=== PATIENT | female | born 1955 | race Caucasian/White ===

== ENCOUNTER 2025-05-03 11:05 | Outpatient (CLI) | payer MEDICARE, SELFPAY ==
--- OUTSIDE RECORDS SUMMARY | 2025-03-23 09:10 | XMS_ITS | Encounter Summary ---
Author Organization [employer] ([place], [place], [place], [place]) Address [address] [place] [address] Care Team Providers Care Net Mobile Developer Name Role Phone Unavailable Primary Care Provider Unavailabl e Reason for Referral * Diagnostic X-Ray (Emergency) - Closed Specialty Diagnoses / Procedures Referred By Contac t Referred To Contact Radiology Diagnoses Pain and swelling of left lower leg Procedures XR leg / tibia and fibula 2 views left Jaime Graham APRN [address] [place] [phone] Phone: tel: fax: Referral ID Status Reason Start Date Expiration Date Visits Re quested Visits Authorized [id number] Closed 03/23/2025 03/23/2026 1 1 Reason for [...] Description 03/23/2025 9:10 AM EDT Office Visit [facility] [address] [place] [phone] Jaime Graham APRN [address] [place] [phone] Pain and swelling of left lower [...] Date Gil rded Speak language other than Indonesian at home Not on file 11/13/2023 Want [...] this encounter Progress Notes * Jaime Graham, POT PUNCHER - 03/23/2025 9:10 AM EDT Negra Palma [...] lower leg. States she has been using gdcl-aui-szaoixj medication and she has been doing Epsom [...] / tibia and fibula 2 views left [[id number]] Resulted: 03/23/25952 Order Status: Sent Updated: 03/23/25952 [...] this document/medical record have been dictated via [employer] speech recognition software, which may cause errors [...] Info) Description 07/05/2025 9:15 AM EDT Appointment [address] [phone] 07/10/2025 10:00 AM EDT Office Visit [facility] Primary Care & Internal Med [address] [facility] [address] [place] [address] Diane Velez PA-C [address] [facility] [address] [facility] [place] [address] documented as of this encounter [...] interpreted, and dictated by Refugio Leon DO [facility] Santino POT PUNCHER IMG DIAGNOSTIC IMAGING ORDERAB LES Final Result documented in this encounter Visit Diagnoses Diagnosis Pain and swelling of left lower leg- Primary Cellulitis of left lower leg Pain and swelling of left lower leg documented in this encounter
--- OUTSIDE RECORDS SUMMARY | 2025-03-23 09:53 | XMS_ITS | Encounter Summary ---
Author Organization [employer] ([place], [place], [place], [place]) Address [address] [place] [address] Care Team Providers Care Thoracic Medicine Specialist Name Role Phone Unavailable Primary Care Provider Unavailabl e Reason for Referral * Diagnostic X-Ray (Emergency) - Closed Specialty Diagnoses / Procedures Referred By Sergio espitia Referred To Contact Radiology Diagnoses Pain and swelling of left lower leg Procedures XR leg / tibia and fibula 2 views left Marc De APRN [address] [phone] Phone: tel: fax: Referral ID Status Reason Start Date Expiration Date Visits Re quested Visits Authorized [id number] Closed 03/23/2025 03/23/2026 1 1 Reason for Visit * Diagnostic X-Ray (Emergency) - Closed Specialty Diagnoses / Procedures Referred By Contac omkar Referred To Contact Radiology Diagnoses Pain and swelling of left lower leg Procedures XR leg / tibia and fibula 2 views left Marc De APRN [address] [address] Phone: tel: fax: Referral ID Status Reason Start Date Expiration Date Visits Re quested Visits Authorized [id number] Closed 03/23/2025 03/23/2026 1 1 Encounter Details Date Type Department Care Team (Late st Contact Info) Description 03/23/2025 9:53 AM EDT - 03/23/2025 11:59 PM EDT Hospital Encounter [facility] [address] [place] [address] Marc De APRN [address] [place] [address] [address] [place] [address] Pain and swelling of left lower leg Discharge Disposition: Home or Self Care Social History Tobacco Use Types Packs/Day Years Used Date Smoking Tobacco: Never Passive Smoke Exposure: Never Smokeless Tobacco: Never Alcohol Use Standard Drinks/Week Comments Never 0 [...] Date Gil rded Speak language other than Ugandan at home Not on file 11/13/2023 Want [...] on file documented as of this encounter Medications at Time of Discharge atenoloL (TENORMIN) 50 MG tabletIndications :Hypertension, unspecified type Take 1 tablet (50 mg total) by mouth daily. 90 tablet 3 03/02/2025 clonazePAM (KlonoPIN) 0.5 MG tabletIndications :Anxiety Take 1 tablet (0.5 mg total) by mouth 2 (two) times daily. Max Daily Amount: 1 mg 60 tablet 03/08/2025 cloNIDine (CATAPRES) 0.1 MG tabletIndications :HTN (hypertension), malignant Take 1 tablet (0.1 mg total) by mouth 2 (two) times daily Take 1 tablet every 8 hrs as needed for SBP more than 180 or DBP more than 90. 30 tablet 01/17/2025 6 hydroCHLOROthiazi de (MICROZIDE) 12.5 mg capsule Take 2 capsules (25 mg total) by mouth. 11/07/2024 losartan (COZAAR) 100 MG tablet Take 1 tablet (100 mg total) by mouth daily. 02/28/2025 pantoprazole (PROTONIX) 40 MG tabletIndications :Gastroesophageal reflux disease with esophagitis, unspecified whether hemorrhage Take 1 tablet (40 mg total) by mouth daily. 90 tablet 1 11/13/2024 clindamycin (CLEOCIN) 300 MG capsuleIndication s:Cellulitis of left lower leg Take 1 capsule (300 mg total) by mouth 3 (three) times daily for 10 days. 30 capsule 03/23/2025 5 diclofenac sodium (VOLTAREN) 75 MG EC tabletIndications :Pain and swelling of left lower leg Take 1 tablet (75 mg total) by mouth 2 (two) times daily for 14 days. 28 tablet 03/23/2025 5 hydrOXYzine (ATARAX) 25 MG tabletIndications :Primary insomnia TAKE 1-2 TABS AT BEDTIME NEEDED FOR INSOMNIA.. 60 tablet 1 03/08/2025 5 lisinopriL (ZESTRIL) 40 MG tabletIndications :Hypertension, unspecified type Take 1 tablet (40 mg total) by mouth daily. 90 tablet 3 11/13/2024 5 mupirocin (BACTROBAN) 2 % ointmentIndicatio ns:Cellulitis of left lower leg Apply to affected area 3 times a day until healed. 22 g 03/23/2025 5 documented as of this encounter Plan of Treatment Upcoming Encounters Date Type Department Care Team (Late st Contact Info) Description 07/05/2025 9:15 AM EDT Appointment [address] [place] [address] 07/10/2025 10:00 AM EDT Office Visit [facility] Primary Care & Internal Med [address] [address] Diane Velez PA-C [address] [place] [phone] documented as of this encounter Procedures Procedure Name Priority Date/Time Associated Diagnosis Comments XR LEG / TIBIA AND FIBULA 2 VIEWS LEFT STAT 03/23/2025 10:15 AM EDT Pain and swelling of left lower leg documented in this encounter Results * XR leg / [...] interpreted, and dictated by Refugio Leon DO Marc De FIELD SAMPLING TECHNICIAN IMG DIAGNOSTIC IMAGING ORDERAB LES Final Result documented in this encounter Visit Diagnoses Diagnosis Pain and swelling of left lower leg documented in this encounter
--- OUTSIDE RECORDS SUMMARY | 2025-03-29 08:45 | XMS_ITS | Encounter Summary ---
Author Organization [employer] ([place], [place], [place], [place]) Address [address] [place] [address] Care Team Providers Care Revenue Inspector Name Role Phone Unavailable Primary Care Provider Unavailabl e Reason for Referral * Consultation (Routine) - Open Specialty Diagnoses / Procedures Referred By Contac t Referred To Contact Audiology Diagn[place] [address] [place] [address] [address] [place] [phone] Phone: tel: fax: Referral ID Status Reason Start Date Expiration Date V isits Requested Visits Authorized [id number] Open Specialty Services Required 03/29/2025 03/29/2026 1 1 Reason for Visit * Reason Comments Leg Pain Foot Injury Encounter Details Date Type Department Care Team (Late st Contact Info) Description 03/29/2025 8:45 AM EDT Office Visit [facility] Primary Care & Internal Med [address] [place] [address] [address] [place] [phone] [place] [address] [place] [address] [address] [place] [phone] Puncture wound of left lower leg (Primary Dx); Acute cellulitis; Pain of left lower extremity; Hearing loss; Puncture wound of left lower leg, subsequent encounter Social History Tobacco Use Types Packs/Day Years [...] things needed for daily living? No 06/27/2024 [facility] - Mental Health Answer Date Recorde d Little interest or pleasure in doing things Not at all 03/29/2025 Feeling down, depressed, or hopeless Not at all 03/29/2025 Feeling of Stress Not on file 03/29/2025 [facility] Intimate Partner Violence Answer Da te [...] file 06/27/2024 Family and Community Support Answer Adgo e Recorded Help with Day to Day Activities Not on file 11/13/2023 Feeling Lonely or Isolated Not on file 11/13 Educational Attainment Answer Date Gil rded Speak language other than Citizen Of [place] at home Not on file 11/13/2023 Want [...] Sign Reading Time Taken Comments Blood Pressure 160/90 03/29/2025 8:43 AM EDT Pulse 72 03/29/2025 8:43 AM EDT Temperature - - Respiratory Rate - - Oxygen Saturation 95% 03/29/2025 8:43 AM EDT Inhaled Oxygen Concentration - - Weight 64.4 kg (142 lb) 03/29/2025 8:43 AM EDT Height 157.5 cm (5' 2 ) 03/29/2025 8:43 AM EDT Body Mass Index 25.97 03/29/2025 8:43 AM EDT documented in this encounter Progress Notes * Joanna India, DO - 03/29/2025 8:45 AM EDT CC/HPI Negra Palma is a 69 y.o. female here for possible cellulitis. Happened Wednesday a couple of weekend ago. Bumped into chair. Two lacerations on leg. Went a few days later to express care. They did several images. No fractures. Began swelling and became more painful within a few days. Now getting worse. Very painful. Patient with chills and sweats. Needing to change the bed. Can't rest. Pain excruciating. ROS: As above. History: No family history on file. Past Surgical History: Procedure Laterality Date APPENDECTOMY CATARACT EXTRACTION, BILATERAL CHOLECYSTECTOMY HYSTERECTOMY Nephrectomy Left Patient Active Problem List Diagnosis Senile osteoporosis [...] unspecified without coma (HCC) Anxiety Primary insomnia Current Outpatient Medications Medication Instructions atenoloL (TENORMIN) 50 mg, oral, Daily cephalexin (KEFLEX) 500 mg, oral, 2 times daily clindamycin (CLEOCIN) 300 mg, oral, 3 times daily clonazePAM (KLONOPIN) 0.5 mg, oral, 2 times daily cloNIDine (CATAPRES) 0.1 mg, oral, 2 times daily, Take 1 tablet every 8 hrs as needed for SBP more than 180 or DBP more than 90 diclofenac sodium (VOLTAREN) 75 mg, oral, 2 times daily doxycycline (VIBRAMYCIN) 100 mg, oral, 2 times daily HYDROcodone-acetaminophen (NORCO) 5-325 mg per tablet 1 tablet, oral, Every 6 hours PRN hydrOXYzine (ATARAX) 25 MG tablet TAKE 1-2 TABS AT BEDTIME NEEDED FOR INSOMNIA. losartan (COZAAR) 100 mg, Daily mupirocin (BACTROBAN) 2 % ointment Apply to affected area 3 times a day until healed pantoprazole (PROTONIX) 40 mg, oral, Daily Allergies Allergen Reactions Codeine Rash and Anaphylaxis Sulfa (Sulfonamide Antibiotics) Hives and Itching Ciprofloxacin Other (See Comments) jaundice Sulfamethoxazole-Trimethoprim Objective: Physical Exam BP (!) 160/90 Pulse 72 Ht 1.575 m (5' 2 ) Wt 64.4 kg (142 lb) SpO2 95% BMI 25.97 kg/m?? Gen: well appearing 69 y.o. female in no acute distress HEENT: MMM, no scleral icterus NECK: normal ROM CV: RRR, no rubs, murmurs, gallops. Strong peripheral pulses PULM: CTAB, normal work of breathing GI: NTND +BS MSK: 2 puncture wounds noted on the left anterior zhong. From the zhong down she has significant redness and warmth to touch. She has pain. She also has a lot of bruising around the lower portion of the leg. SKIN: no rashes, no jaundice NEURO: AOx3. Symmetric face. Moves all extremities equally PSYCH: normal mood, congruent affect Assessment/Plan: Negra Palma is a 69 y.o. female here for 1. Puncture wound of left lower leg Tdap vaccine greater than or equal to 7yo IM 2. Acute cellulitis doxycycline (VIBRAMYCIN) 100 MG capsule cephalexin (KEFLEX) 500 MG capsule Tdap vaccine greater than or equal to 7yo IM 3. Pain of left lower extremity HYDROcodone-acetaminophen (NORCO) 5-325 mg per tablet 4. Hearing loss Ambulatory referral to Audiology X-rays reviewed and there is no listed fracture. She must of had a fairly significant sprain as shedoes have some significant bruising around the ankle and the bottom of the foot. However she has anacute cellulitis. I would like for her to go ahead and start the Keflex and doxycycline listed above. Should not interfere with any of her renal dysfunction. I would like her to start some Regina probiotics which she should do daily while she is on antibiotics. Of also given her small amount of hydrocodone. If she has worsening symptoms she should seek medical attention immediately as she may need IV antibiotics. She is coming back in 1 week and if she has not had any improvement she should have CT of the lower extremity rule out abscess or underlying complication. This note was written using a dictation device. Minor errors may be present. At next visit, would like to: Return in about 1 week (around 04/05/2025) for Recheck or maxwell. documented in this encounter Plan of Treatment Upcoming Encounters Date Type Department Care Team (Late st Contact Info) Description 07/05/2025 9:15 AM EDT Appointment [facility] [address] [place] [address] 07/10/2025 10:00 AM EDT Office Visit [facility] Primary Care & Internal Med [address] [facility] [address] [address] Diane Velez PA-C [address] [address] Scheduled Referrals Name Type Priority Associated Diagnoses Order Schedule Ambulatory referral to Audiology Outpatient Referral Routine Hearing loss Expected: 03/29/2025, Expires: 03/29/2026 documented as of this encounter Visit Diagnoses Diagnosis Puncture wound of left lower leg, subsequent encounter Acute cellulitis Pain of left lower extremity Hearing loss Unspecified hearing loss documented in this encounter
--- OUTSIDE RECORDS SUMMARY | 2025-04-03 10:00 | XMS_ITS | Encounter Summary ---
Author Organization [employer] ([place], [place], [place], [place]) Address [address] [place] [address] Care Team Providers Care Ignition Specialist Name Role Phone Unavailable Primary Care Provider Unavailabl e Reason for Referral * CAT Scan (Emergency) - Closed Specialty Diagnoses / Procedures Referred By Contac t Referred To Contact Radiology Diagnoses Acute cellulitis Fever Severe pain Procedures CT lower extremity without IV contrast left Joanna Osborne DO 14[address] [facility] [address] [place] [address] Phone: tel: fax: [facility] CT Imaging 1 [place] [address] Phone: tel: fax: Referral ID Status Reason Start Date Expiration Date Visits Re quested Visits Authorized [id number] Closed 04/03/2025 07/01/2025 1 1 Reason for Visit * Reason Comments Follow-up Encounter Details Date Type Department Care Team (Late st Contact Info) Description 04/03/2025 10:00 AM EDT Office Visit [facility] Primary Care & Internal Med [address] [place] [address] [address] [place] [phone] Joanna Osborne DO [address] [facility] [address] [place] [address] Puncture wound of left lower leg, subsequent encounter (Primary Dx); Acute cellulitis; Night sweats; Fever; Severe pain Social History Tobacco Use Types Packs/Day Years [...] things needed for daily living? No 06/27/2024 [facility] - Mental Health Answer Date Recorde [...] Date Gil rded Speak language other than [place] at home Not on file 11/13/2023 Want [...] Sign Reading Time Taken Comments Blood Pressure 142/84 04/03/2025 10:10 AM EDT Pulse 67 04/03/2025 10:10 AM EDT Temperature - - Respiratory Rate - - Oxygen Saturation 96% 04/03/2025 10:10 AM EDT Inhaled Oxygen Concentration - - Weight 66.7 kg (147 lb) 04/03/2025 10:10 AM EDT Height 157.5 cm (5' 2 ) 04/03/2025 10:10 AM EDT Body Mass Index 26.89 04/03/2025 10:10 AM EDT documented in this encounter Progress Notes * Joanna Osborne, - 04/03/2025 10:00 AM EDT CC/HPI Negra Palma is a 69 y.o. female here for follow up cellulitis. Seen 03/29/2025. Bumped intochair. Two lacerations on leg. Went a few days later to express care. They did several images. No fractures. Began swelling and became more painful within a few days. Now getting worse. Very painful.Patient with chills and sweats. Needing to change the bed. Can't rest. Pain excruciating. In the office two puncture wounds with dark scabs, Tdap given. Keflex and doxy started as sulfa allergic. No swabs taken as not draining. No labs or blood cultures done thus far but now she is having fever, chills, shakes. She is wetting the bed with sweat and her temp has been as high as 101. The pain is sti ll so excruciating. The swelling, redness and warmth has gotten a bit better but not much. She has finished the clindamycin. She remains on doxy and keflex. She is on Kefir for probiotics. ROS: As above. History: No family history [...] (KEFLEX) 500 mg, oral, 2 times daily clonazePAM (KLONOPIN) 0.5 mg, oral, 2 times daily cloNIDine (CATAPRES) 0.1 mg, oral, 2 times daily, Take 1 tablet every 8 hrs as needed for SBP more than 180 or DBP more than 90 doxycycline (VIBRAMYCIN) 100 mg, oral, 2 times [...] jaundice Sulfamethoxazole-Trimethoprim Objective: Physical Exam BP (!) 142/84 Pulse 67 Ht 1.575 m (5' 2 ) Wt 66.7 kg (147 lb) SpO2 96% BMI 26.89 kg/m?? Gen: well appearing 69 y.o. female [...] for 1. Puncture wound of left lower leg, subsequent encounter 2. Acute cellulitis CT lower extremity without IV contrast left CBC with platelet count + automated diff Sedimentation rate C-Reactive Protein C-Reactive Protein CANCELED: Procalcitonin CANCELED: CBC with platelet count + automated diff 3. Night sweats 4. Fever CT lower extremity without IV contrast left CBC with platelet count + automated diff Sedimentation rate C-Reactive Protein C-Reactive Protein CANCELED: Procalcitonin CANCELED: CBC with platelet count + automated diff 5. Severe pain CT lower extremity without IV contrast left CBC with platelet count + automated diff Sedimentation rate C-Reactive Protein C-Reactive Protein CANCELED: Procalcitonin CANCELED: CBC with platelet count + automated diff Pain and sweats are concerning. Some improvement but not much. Labs and CT pending. If evidence of abscess I want her admitted for IV ABX and possibly surgery to I/D. Continue elevation and ABX. If no signs of systemic infection or sepsis response as well as normal CT then I will continue the course plus renew the pain medication. This note was written using a dictation device. Minor errors may be present. At next visit, would like to: No follow-ups on file. documented in this encounter Miscellaneous Notes * Result Encounter Note - Diane Velez PA-C - 04/03/2025 10:[address] Osborne may want to review these as ordered. * Result Encounter Note - Joanna Osborne DO - 04/03/2025 10:00 AM EDT How's the leg looking? * Result Encounter Note - Joanna Osborne DO - 04/03/2025 10:00 AM EDT Good. I assume her kidney specialist can help manage. * Result Encounter Note - Joanna Osborne DO - 04/03/2025 10:00 AM EDT No, I am pretty sure that is Dr. Mendez and that he is already taking care of everything. documented in this encounter Plan of Treatment Upcoming Encounters Date Type Department Care Team (Late st Contact Info) Description 07/05/2025 9:15 AM EDT Appointment [address] [phone] 07/10/2025 10:00 AM EDT Office Visit [facility] Primary Care & Internal Med [address] [place] [phone] Diane Velez PA-C [facility] [address] [address] documented as of this encounter Procedures Procedure Name Priority Date/Time Associated Diagnosis Comments C-REACTIVE PROTEIN Routine 04/11/2025 2: 39 PM EDT SEDIMENTATION RATE Routine 04/11/2025 2: 39 PM EDT SEDIMENTATION RATE STAT 04/03/2025 12 :43 PM EDT Acute cellulitis Fever Severe pain C-REACTIVE PROTEIN STAT 04/03/2025 12 :42 PM EDT Acute cellulitis Fever Severe pain documented in this encounter Results * C-Reactive Protein (04/11/2025 2:39 PM EDT) C-Reactive Protein, Quant 4 0 - 10 mg/L [facility] 04/11/2025 2:39 PM EDT 04/11/2025 Narrative [facility] - 04/12/2025 8:08 AM EDT Performed at: [address] [place] [id number] [employer] Pro: José Miguel Williamson PhD, Phone: Correlor Joanna India DO LAB BLOOD ORDERABLES Final Result Performing Organization Address [facility] Co de Phone Number [facility] * Sedimentation rate (04/11/2025 2:39 PM EDT) Sedimentation Rate-Westergren 4 0 - 40 mm/hr [facility] 04/11/2025 2:39 PM EDT 04/11/2025 Narrative [facility] - 04/12/2025 8:08 AM EDT Performed at: [address] [place] [address] [id number] [employer] Pro: José Miguel Williamson PhD, Phone: [phone] [facility] LAB BLOOD ORDERABLES Final Result Performing Organization Address City/[facility]/ZIP Co de Phone Number [facility] * Sedimentation rate (04/03/2025 12:43 PM EDT) Sed Rate 12 0 - 30 mm/HR 04/03/2025 12:[address] [facility] Blood Venipuncture / Unknown 04/03/2025 12:43 PM EDT 04/03/2025 12:45 PM EDT [employer] LAB BLOOD ORDERABLES Final Result Performing Organization Address City/[facility]/ZIP Co de Phone Number [facility] [address] [phone] * (ABNORMAL) C-Reactive Protein (04/03/2025 12:42 PM EDT) CRP 5.7(H) 0.0 - 5.0 mg/L 04/03/2025 1:[address] [facility] Blood Venipuncture / Unknown 04/03/2025 12:42 PM EDT 04/03/2025 12:45 PM EDT [facility] LAB BLOOD ORDERABLES Final Result Performing Organization Address [facility] Co de Phone Number [facility] [address] [phone] * CT lower extremity without IV contrast left (04/03/2025 12:20 PM EDT) Anatomical Region Laterality Modality Lower Extremity, Hip, Femur, Leg, Knee, Ankle, Foot Computed Tomography (CT) 04/03/2025 1:18 PM EDT Impressions 04/03/2025 1:25 PM EDT Pretibial subcutaneous edema. No obvious abscess or soft tissue gas identified. Images reviewed, interpreted, and dictated by Dr. Theron Penn. Transcribed by Papa Oliva PA-C Narrative 04/03/2025 1:[address] SCAN LEFT LOWER EXTREMITY. 04/03/2025 12:06 PM HISTORY: Left lower extremity pain and swelling. Cellulitis. COMPARISON: None. PROCEDURE: Axial images were obtained by computed tomography. Sagittal and coronal reconstruction images were performed . This study was performed with techniques to keep radiation doses as low as reasonably achievable, (ALARA). Individualized dose reduction techniques using automated exposure control or adjustment of mA and/or kV according to the patient size were employed. FINDINGS: No acute fracture is identified. There are no bony destructive changes present. 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 There is pretibial subcutaneous edema and mild subcutaneous edema overlying the distal fibula and lateral malleolus. No obvious loculated fluid collection is identified. No soft tissue gas is identified. Procedure Note Theron Penn MD - 04/03/2025 CT SCAN LEFT LOWER EXTREMITY. 04/03/2025 12:06 PM HISTORY: Left lower extremity pain and swelling. Cellulitis. COMPARISON: None. PROCEDURE: Axial images were obtained by computed tomography. Sagittal and coronal reconstruction images were performed . This study was performed with techniques to keep radiation doses as low as reasonably achievable, (ALARA). Individualized dose reduction techniques using automated exposure control or adjustment of mA and/or kV according to the patient size were employed. FINDINGS: No acute fracture is identified. There are no bony destructive changes present. 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 There is pretibial subcutaneous edema and mild subcutaneous edema overlying the distal fibula and lateral malleolus. No obvious loculated fluid collection is identified. No soft tissue gas is identified. IMPRESSION: Pretibial subcutaneous edema. No obvious abscess or soft tissue gas identified. Images reviewed, interpreted, and dictated by Dr. Theron Penn. Transcribed by Papa Oliva PA-C us Joanna Osborne DO IMG CT ORDERABLES Final Res ult documented in this encounter Visit Diagnoses Diagnosis Puncture wound of left lower leg, subsequent encounter- Primary Acute cellulitis Night sweats Generalized hyperhidrosis Fever Fever, unspecified Severe pain Acute cellulitis Fever Fever, unspecified Severe pain documented in this encounter
--- OUTSIDE RECORDS SUMMARY | 2025-04-03 11:57 | XMS_ITS | Encounter Summary ---
Author Organization [employer] ([place], [place], [place]) Address [address] [place] [address] Care Team Providers Care Ceramic Tiler Name Role Phone Unavailable Primary Care Provider Unavailabl e Reason for Referral * CAT Scan (Emergency) - Closed Specialty Diagnoses / Procedures Referred By Contac t Referred To Contact Radiology Diagnoses Acute cellulitis Fever Severe pain Procedures CT lower extremity without IV contrast left Joanna Osborne DO [address] [place] [address] [place] [address] Phone: tel: fax: [facility] CT Imaging 1 [place] [address] Phone: tel: fax: Referral ID Status Reason Start Date Expiration Date Visits Re quested Visits Authorized [id number] Closed 04/03/2025 07/01/2025 1 1 Reason for Visit * CAT Scan (Emergency) - Closed Specialty Diagnoses / Procedures Referred By Contac t Referred To Contact Radiology Diagnoses Acute cellulitis Fever Severe pain Procedures CT lower extremity without IV contrast left Joanna Osborne DO [address] [place] [address] [address] [place] [id number] Phone: tel: fax: [facility] CT Imaging 1 [place] [address] Phone: tel: fax: Referral ID Status Reason Start Date Expiration Date Visits Re quested Visits Authorized [id number] Closed 04/03/2025 07/01/2025 1 1 Encounter Details Date Type Department Care Team (Late st Contact Info) Description 04/03/2025 11:57 AM EDT - 04/03/2025 11:59 PM EDT Hospital Encounter [facility] CT Imaging 1 [place] [address] Joanna Osborne, [address] [facility] [address] [place] [phone] Acute cellulitis; Fever; Severe pain Discharge Disposition: [...] things needed for daily living? No 06/27/2024 [facility] - Mental Health Answer Date Recorde [...] Date Gil rded Speak language other than [place] Sudanese at home Not on file 11/13/2023 Want [...] Info) Description 07/05/2025 9:15 AM EDT Appointment [address] [address] 07/10/2025 10:00 AM EDT Office Visit [facility] Primary Care & Internal Med [address] [facility] [address] [address] Diane Velez PA-C 1401 [facility] Ernesto [address] [address] documented as of this encounter [...]
--- OUTSIDE RECORDS SUMMARY | 2025-04-03 12:30 | XMS_ITS | Encounter Summary ---
Author Organization [employer] ([place], [place], [place], [place]) Address [address] [place] [address] Care Team Providers Care Assistant Center Director Name Role Phone Unavailable Primary Care Provider Unavailabl e Encounter Details Date Type Department Care Team (Late st Contact Info) Description 04/03/2025 12:30 PM EDT Lab Patient [facility] Lab 1 [place] [address] Joanna Osborne, [address] [facility] [address] [place] [phone] Acute cellulitis (Primary Dx) Social History Tobacco [...] needed for daily living? No 06/27/2024 [facility] - Mental Health Answer Date Recorde [...] Date Gil rded Speak language other than [place] Islander at home Not on file 11/13/2023 Want [...] Info) Description 07/05/2025 9:15 AM EDT Appointment [facility] [address] [place] [address] 07/10/2025 10:00 AM EDT Office Visit [facility] Primary Care & Internal Med [address] [facility] [address] [facility] [place] [address] Diane Velez PA-C [address] [facility] [address] [place] [address] documented as of this encounter [...] 10.0 K/ L 04/03/2025 12:[address] [facility] RBC 4.42 3.93 - 5.22 M/ L 04/03/2025 12:[address] [facility] Hemoglobin 13.5 11.2 - 15.7 GM/DL 04/03/2025 12:[address] [facility] Hematocrit 38.0 34.1 - 44.9 % 04/03/2025 12:[address] [facility] MCV 86 79 - 95 fL 04/03/2025 12:[address] [facility] MCH 30.5 25.6 - 32.2 pg 04/03/2025 12:[address] [facility] MCHC 35.5 32.2 - 35.5 GM/DL 04/03/2025 12:[address] [facility] RDW 11.7 11.7 - 14.4 % 04/03/2025 12:[address] [facility] Platelets 271 140 - 375 K/CU MM 04/03/2025 12:[address] [facility] MPV 9.9 9.4 - 12.3 fL 04/03/2025 12:[address] [facility] % Neutros 63 34 - 71 % 04/03/2025 12:[address] [facility] % Lymphs 26 19 - 52 % 04/03/2025 12:[address] [facility] % Monos 9 5 - 13 % 04/03/2025 12:[address] [facility] % Eos 2 1 - 6 % 04/03/2025 12:[address] [facility] % Baso 0 0 - 1 % 04/03/2025 12:[address] [facility] NRBC Absolute <0.01 0 - 0.012 K/ul 04/03/2025 12:[address] [facility] # Neutros 3.84 1.56 - 6.13 K/ L 04/03/2025 12:[address] [facility] # Lymphs 1.55 1.18 - 3.74 K/ L 04/03/2025 12:[address] [facility] # Monos 0.54 0.24 - 0.86 K/ L 04/03/2025 12:[address] [facility] # Eos 0.11 0.04 - 0.36 K/ L 04/03/2025 12:[address] [facility] # Baso <0.03 0.01 - 0.08 K/ L 04/03/2025 12:[address] [facility] Immature Granulocytes-Re lative 0.20 0.01 - 0.43 % 04/03/2025 12:[address] [facility] # IG <0.03 0.00 - 0.03 K/uL 04/03/2025 12:[address] [facility] Blood Venipuncture / Unknown 04/03/2025 12:43 PM EDT 04/03/2025 12:[address] [facility] - 04/03/2025 12:57 PM EDT When [...] Flag noted Atypical Lymph flag noted Joanna Superior DO LAB BLOOD ORDERABLES Final Result Performing Organization Address City/[facility]/ZIP Co de Phone Number [facility] [address] [phone] * Procalcitonin (04/03/2025 12:42 PM EDT) Procalcitonin 0.02 See Comment ng/mL 04/03/2025 1:[address] [facility] Comment: Sepsis comment <0.5 Antibiotics Discouraged [...] 12:42 PM EDT 04/03/2025 12:45 PM EDT [employer] DO LAB BLOOD ORDERABLES Final Result Performing Organization Address [facility] Co de Phone Number [facility] [address] [phone] documented in this encounter Visit Diagnoses Diagnosis Acute cellulitis- Primary documented in this encounter
--- OUTSIDE RECORDS SUMMARY | 2025-04-04 09:40 | XMS_ITS | Encounter Summary ---
Author Organization [facility] ([place], [place], [place], [place]) Address [address] [place] [address] Care Team Providers Care Resp Therapist Name Role Phone Unavailable Primary Care Provider [...] Description 04/04/2025 9:40 AM EDT Office Visit [address] [address] Marc De APRN [address] [place] [address] Cellulitis of left lower leg (Primary [...] needed for daily living? No 06/27/2024 [facility] - Mental Health Answer Date [...] Date Gil rded Speak language other than Swiss at home Not on file 11/13/2023 Want [...] the ER for follow-up. I did contact patient'[facility] office and they state that they will [...] Info) Description 07/05/2025 9:15 AM EDT Appointment [facility] [address] [facility] [address] [place] [address] 07/10/2025 10:00 AM EDT Office Visit [facility] Primary Care & Internal Med [address] [address] Diane Velez PA-C [address] [address] documented as of this encounter Visit Diagnoses Diagnosis Cellulitis of left lower leg- Primary documented in this encounter
--- OUTSIDE RECORDS SUMMARY | 2025-04-04 11:09 | XMS_ITS | Encounter Summary ---
Author Organization [employer] ([place], [place], [place], [place]) Address [address] [place] [address] Care Team Providers Care Financial Center Manager Name Role Phone Unavailable Primary Care Provider Unavailabl e Reason for Visit * Reason Comments Wound Check Encounter Details Date Type Department Care Team (Late st Contact Info) Description 04/04/2025 11:09 AM EDT - 04/04/2025 4:38 PM EDT Emergency [facility] Emergency Department [address] [place] [address] Chester Healy MD [facility] [place] [address] Visit for wound check (Primary Dx); Rash [...] things needed for daily living? No 06/27/2024 [facility] - Mental Health Answer Date Recorde [...] Date Gil rded Speak language other than Japanese at home Not on file 11/13/2023 Want [...] Family Medicine Relationship: PCP - General [address] [address] Next Steps: Follow up Electronically Signed By Chester Healy MD 04/05/25 1020 * Armando Escalante RN - 04/04/2025 11:04 AM EDT Started in march hit left leg after a fall and its painful and red. documented in this encounter Plan of Treatment Upcoming Encounters Date Type Department Care Team (Late st Contact Info) Description 07/05/2025 9:15 AM EDT Appointment [address] [address] 07/10/2025 10:00 AM EDT Office Visit [facility] Primary Care & Internal Med 14[address] [facility] [place] [address] Diane Velez PA-C [address] [place] [address] documented as of this encounter Procedures [...] Hold for add-ons. 04/04/2025 1:01 PM EDT [facility] Comment:Auto resulted. Blood Venipuncture / Unknown 04/04/2025 11:30 AM EDT 04/04/2025 11:35 AM EDT Chester Healy MD LAB BLOOD ORDERABLES Final Result [facility] 1 [place] [address], [facility] [phone] * Blue Top Extra Tubes (04/04/2025 11:30 AM EDT) HOLD SPECIMEN (SJ - BKR) Hold for add-ons. 04/04/2025 1:01 PM EDT [facility] Comment:Auto resulted. Blood Venipuncture / Unknown 04/04/2025 11:30 AM EDT 04/04/2025 11:36 AM EDT us Chester Healy MD LAB BLOOD ORDERABLES Final Result [facility] [address] [phone] * (ABNORMAL) Comprehensive metabolic panel (04/04/2025 11:21 AM EDT) Sodium 128(L) 136 - 145 meq/L 04/04/2025 12:00 PM EDT [facility] Potassium 3.8 3.4 - 5.1 meq/L 04/04/2025 12:00 PM EDT [facility] Chloride 94(L) 98 - 112 meq/L 04/04/2025 12:00 PM EDT [facility] CO2 24 22 - 29 meq/L 04/04/2025 12:00 PM EDT [facility] Calcium 10.3(H) 8.4 - 10.2 mg/dL 04/04/2025 12:00 PM EDT [facility] Glucose 100 82 - 115 mg/dL 04/04/2025 12:00 PM EDT [facility] BUN 23.7(H) 9.8 - 20.1 mg/dL 04/04/2025 12:00 PM EDT [facility] Creatinine 0.94 0.57 - 1.11 mg/dL 04/04/2025 12:00 PM EDT [facility] BUN/Creatinine 25(H) 8 - 20 04/04/2025 12:00 PM T [facility] eGFR (mL/min/1.73m2) 65 >=60 mL/min/1. 73m2 04/04/2025 12:00 PM EDT [facility] Albumin 4.3 3.5 - 5.0 g/dL 04/04/2025 12:00 PM EDT [facility] Alkaline Phosphatase 110 40 - 150 U/L 04/04/2025 12:00 PM EDT [facility] ALT 50(H) <=34 U/L 04/04/2025 12:00 PM EDT [facility] Comment: ALT2 reagent used for testing does not contain P5P supplementation and therefore may miss ALT elevations in patients with B6 deficiency. This population may be as high as 10% in the [place], with risk factors including malabsorption, drug interactions, and alcoholic hepatitis. AST 84(H) 11 - 34 U/L 04/04/2025 12:00 PM EDT [facility] Comment: AST2 reagent used for testing does not contain P5P supplementation and therefore may miss AST elevations in patients with B6 deficiency. This population may be as high as 10% in the [place], with risk factors including malabsorption, drug interactions, and alcoholic hepatitis. Total Bilirubin 1.0 0.2 - 1.2 mg/dL 04/04/2025 12:00 PM EDT [facility] Protein, Total 8.2 6.4 - 8.3 g/dL 04/04/2025 12:00 PM EDT [facility] Globulin 3.9 2.5 - 4.1 g/dL 04/04/2025 12:00 PM EDT [facility] Anion Gap 14(H) 4 - 12 04/04/2025 12:00 PM EDT [facility] A/G Ratio 1.1 0.7 - 1.9 04/04/2025 12:00 PM EDT [facility] Osmolality Calc 261.1 mOsm/kg 12:00 PM EDT [facility] Blood Venipuncture / Unknown 04/04/2025 11:21 AM EDT 04/04/2025 11:35 AM EDT us Ramila Ward BAND [employer] MARKER LAB BLOOD ORDERABLES Final Res ult [facility] [address] [place] [id number] [phone] * Lactic Acid with reflex (SJ) (04/04/2025 11:21 AM EDT) Lactic Acid Level (mmol/L) 0.5 0.5 - 2.2 mmol/L 04/04/2025 12:01 PM EDT [facility] Blood Venipuncture / Unknown 04/04/2025 11:21 AM EDT 04/04/2025 11:32 AM EDT us Ramila Ward B[employer] LAB BLOOD ORDERABLES Final Res ult [facility] [address] [phone] * CBC with Auto Diff (04/04/2025 11:21 AM EDT) WBC 5.8 4.0 - 10.0 K/ L 04/04/2025 11:38 AM EDT [facility] RBC 4.56 3.93 - 5.22 M/ L 04/04/2025 11:38 AM EDT [facility] Hemoglobin 13.7 11.2 - 15.7 GM/DL 04/04/2025 11:38 AM EDT [facility] Hematocrit 39.2 34.1 - 44.9 % 04/04/2025 11:38 AM EDT [facility] MCV 86 79 - 95 fL 04/04/2025 11:38 AM EDT [facility] MCH 30.0 25.6 - 32.2 pg 04/04/2025 11:38 AM EDT [facility] MCHC 34.9 32.2 - 35.5 GM/DL 04/04/2025 11:38 AM EDT [facility] RDW 11.7 11.7 - 14.4 % 04/04/2025 11:38 AM EDT [facility] Platelets 285 140 - 375 K/CU MM 04/04/2025 11:38 AM EDT [facility] MPV 10.2 9.4 - 12.3 fL 04/04/2025 11:38 AM EDT [facility] % Neutros 69 34 - 71 % 04/04/2025 11:38 AM EDT [facility] % Lymphs 20 19 - 52 % 04/04/2025 11:38 AM EDT [facility] % Monos 9 5 - 13 % 04/04/2025 11:38 AM EDT [facility] % Eos 1 1 - 6 % 04/04/2025 11:38 AM EDT [facility] % Baso 0 0 - 1 % 04/04/2025 11:38 AM EDT [facility] NRBC Absolute <0.01 0 - 0.012 K/ul 04/04/2025 11:38 AM EDT [facility] # Neutros 4.03 1.56 - 6.13 K/ L 04/04/2025 11:38 AM EDT [facility] # Lymphs 1.18 1.18 - 3.74 K/ L 04/04/2025 11:38 AM EDT [facility] # Monos 0.50 0.24 - 0.86 K/ L 04/04/2025 11:38 AM EDT [facility] # Eos 0.08 0.04 - 0.36 K/ L 04/04/2025 11:38 AM EDT [facility] # Baso <0.03 0.01 - 0.08 K/ L 04/04/2025 11:38 AM EDT [facility] Immature Granulocytes-Re lative 0.30 0.01 - 0.43 % 04/04/2025 11:38 AM EDT [facility] # IG <0.03 0.00 - 0.03 K/uL 04/04/2025 11:38 AM EDT [facility] Blood Venipuncture / Unknown 04/04/2025 11:21 AM EDT 04/04/2025 11:35 AM EDT Narrative [facility] - 04/04/2025 11:38 AM EDT When [...] Atypical Lymph flag noted us Ramila Ward B[employer] LAB BLOOD ORDERABLES Final Res ult [facility] [address] [phone] documented in this encounter Visit Diagnoses Diagnosis [...]
--- OUTSIDE RECORDS SUMMARY | 2025-04-06 11:30 | XMS_ITS | Encounter Summary ---
Author Organization [employer] ([place], [place], [place], [place]) Address [address] [place] [address] Care Team Providers Care Perishable Freight Inspector Name Role Phone Unavailable Primary Care Provider Unavailabl e Reason for Referral * Consultation (Emergency) - Closed Specialty Diagnoses / Procedures Referred By Contac t Referred To Contact Infectious Diseases Diagnoses Puncture wound of left lower leg, subsequent encounter Acute cellulitis Night sweats Severe pain Pain of left lower extremity Diane Velez PA-C [address] [place] [address] Phone: tel: fax: [facility] [address] [place] [address] Phone: tel: Referral ID Status Reason Start Date Expiration Date V isits Requested Visits Authorized [id number] Closed Specialty Services Required 04/06/2025 04/06/2026 1 [...] Description 04/06/2025 11:30 AM EDT Office Visit [facility] Primary Care & Internal Med [address] [facility] [address] [address] Diane Velez PA-C [address] [address] Puncture wound of left lower [...] things needed for daily living? No 06/27/2024 [facility] - Mental Health Answer Date [...] Date Gil rded Speak language other than Bruneian at home Not on file 11/13/2023 Want [...] 45 minutes. Time spent reviewing medical records, [id number] time with patient, counseling/education, placing orders, electronic documentation. documented in this encounter Plan of Treatment Upcoming Encounters Date Type Department Care Team (Late st Contact Info) Description 07/05/2025 9:15 AM EDT Appointment [facility] [address] [facility] [address] [place] [address] 07/10/2025 10:00 AM EDT Office Visit [facility] Primary Care & Internal Med [address] [address] Diane Velez PA-C [address] [address] Scheduled Referrals Name Type Priority [...]
--- OUTSIDE RECORDS SUMMARY | 2025-04-16 08:00 | XMS_ITS | Encounter Summary ---
Author Organization Healthcare Address [address] [place] [address] Care Team Providers Care Softball Core Molder Name Role Phone [place] Joanna Shweta DARNELL Primary Care Provider [phone] Reason for Visit * Consultation (Routine) - Closed Specialty Diagnoses / Procedures Referred By Contcristina t Referred To Contact Infectious Diseases Diagnoses Puncture wound of left lower leg, subsequent encounter Night sweats Pain of left lower extremity Acute cellulitis Severe pain Diane Velez, PA [address] [place] [address] Phone: tel: fax: Mejia Wright MD [address] [place] [phone] Phone: tel: fax: Referral ID Status Reason Start Date Expiration Date V isits Requested Visits Authorized [id number] Closed Specialty Services Required 04/09/2025 10/09/2026 1 1 Encounter Details Date Type Department Care Team (Late st Contact Info) Description 04/16/2025 8:00 AM EDT Office Visit [facility] [id number] Santi Hoffmann MD [address] [place] [phone] Leg swelling (Primary Dx); Hepatitis C antibody [...] Not at all 04/16/2025 8:13 AM Gayle iPna Moving or speaking so slowly that other [...] On 04/04 she went to ED at [facility] with fever, chills and back rash. 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 Greater than 50% of the time spent on the encounter was [id number] providing direct patient care, counseling for the patient/caregiver, and care coordination. [1] No past medical history on file. [2] No past surgical history on file. [3] No family history on file. [4] No current outpatient medications on file. documented in this encounter Plan of Treatment Upcoming Encounters Date Type Department Care Team (Late st Contact Info) Description 05/15/2025 3:30 PM EDT Office Visit [facility] [address] [place] [phone] Santi Hoffmann MD [address] [facility] [address] [place] [address] documented as of this encounter Results * Blood Culture (Aerobic/Anaerobet Set) (04/16/2025 9:26 AM EDT) Culture No growth at day 5 MELBA 04/21/2025 1:02 PM EDT [facility] Blood Venous blood specimen / Unknown Venipuncture / Unknown 04/16/2025 9:26 AM EDT 04/16/2025 9:36 AM EDT us Santi Hoffmann MD LAB MICROBIOLOGY - GENERA L ORDERABLES Final Result [facility] [address] [place] [address] * Blood Culture (Aerobic/Anaerobet Set) (04/16/2025 9:26 AM EDT) Culture No growth at day 5 MELBA 04/21/2025 1:02 PM EDT [facility] Blood Venous blood specimen / Unknown Venipuncture / Unknown 04/16/2025 9:26 AM EDT 04/16/2025 9:36 AM EDT us Santi Hoffmann MD LAB MICROBIOLOGY - GENERA L ORDERABLES Final Result [facility] [address] [place] [address] * (ABNORMAL) Comprehensive metabolic panel (04/16/2025 9:26 AM EDT) Glucose, Plasma 111(H) 74 - 99 mg/dL 04/16/2025 12:44 PM EDT [facility] BUN, Plasma 19 8 - 23 mg/dL 04/16/2025 12:44 PM EDT [facility] Creatinine, Plasma 0.89 0.60 - 1.10 mg/dL 04/16/2025 12:44 PM EDT [facility] BUN/Creatinine Ratio 21 04/16/2025 12:44 PM EDT [facility] Sodium, Plasma 127(L) 136 - 145 mmol/L 04/16/2025 12:44 PM EDT [facility] Potassium, Plasma 3.6 3.6 - 4.9 mmol/L 04/16/2025 12:44 PM EDT [facility] Chloride, Plasma 90(L) 97 - 107 mmol/L 04/16/2025 12:44 PM EDT [facility] CO2, Plasma 24 22 - 29 mmol/L 04/16/2025 12:44 PM EDT [facility] Anion Gap 13 6 - 16 mmol/L 04/16/2025 12:44 PM EDT [facility] Total Calcium, Plasma 10.5(H) 8.9 - 10.2 mg/dL 04/16/2025 12:44 PM EDT [facility] Total Protein 7.8 6.3 - 7.9 g/dL 04/16/2025 12:44 PM EDT [facility] Albumin, Plasma 4.7 3.5 - 5.2 g/dL 04/16/2025 12:44 PM EDT [facility] AST, Plasma 88(H) 10 - 35 U/L 04/16/2025 12:44 PM EDT [facility] ALT, Plasma 83(H) 10 - 35 U/L 04/16/2025 12:44 PM EDT [facility] Alkaline Phosphatase, Plasma 128 46 - 142 U/L 04/16/2025 12:44 PM EDT [facility] Total Bilirubin, Plasma 0.7 0.2 - 1.1 mg/dL 04/16/2025 12:44 PM EDT [facility] eGFRcr 69.4 mL/min/1.7 3m*2 04/16/2025 12:44 PM EDT [facility] Comment:Reported eGFRcr in m L/min/1.73m2 is based the CKD-EPI 2020 equation that does not use a race coefficient. Blood Venous blood specimen / Unknown Venipuncture / Unknown 04/16/2025 9:26 AM EDT 04/16/2025 9:36 AM EDT us Santi Hoffmann MD LAB BLOOD ORDERABLES Lela l Result Performing Organization Address [facility] Co de Phone Number [facility] [address] [place] [address] * (ABNORMAL) C-reactive protein (04/16/2025 9:26 AM EDT) Pathologist [facility] CRP, Plasma 17.7(H) <=8.0 mg/L 04/16/2025 12:44 PM EDT [facility] Blood Venous blood specimen / Unknown Venipuncture / Unknown 04/16/2025 9:26 AM EDT 04/16/2025 9:36 AM EDT Narrative [facility] - 04/16/2025 12:44 PM EDT This CRP test is appropriate for assessment of infection, systemic inflammation and/or tissue injury. To assess cardiovascular disease risk order high sensitivity CRP (CRPH). us Santi Hoffmann MD LAB BLOOD ORDERABLES Lela l Result Performing Organization Address [facility] Co de Phone Number [facility] [address] [place] [address] * (ABNORMAL) CBC and differential (04/16/2025 9:26 AM EDT) WBC Count 6.27 3.70 - 10.30 10*3/uL LAB HEMATOLOGY METHOD 04/16/2025 12:33 PM EDT [facility] RBC Count 4.38 3.90 - 5.20 10*6/uL LAB HEMATOLOGY METHOD 04/16/2025 12:33 PM EDT [facility] HGB 12.9 11.2 - 15.7 g/dL LAB HEMATOLOGY METHOD 04/16/2025 12:33 PM EDT [facility] HCT 38.6 34.0 - 45.0 % LAB HEMATOLOGY METHOD 04/16/2025 12:33 PM EDT [facility] Platelet Count 292 155 - 369 10*3/uL LAB HEMATOLOGY METHOD 04/16/2025 12:33 PM EDT [facility] MCV 88 79 - 98 fL LAB HEMATOLOGY METHOD 04/16/2025 12:33 PM EDT [facility] MCH 29.5 26.0 - 32.0 pg LAB HEMATOLOGY METHOD 04/16/2025 12:33 PM EDT [facility] MCHC 33.4 30.7 - 35.5 g/dL LAB HEMATOLOGY METHOD 04/16/2025 12:33 PM EDT [facility] RDW 12.2 11.5 - 14.5 % LAB HEMATOLOGY METHOD 04/16/2025 12:33 PM EDT [facility] MPV 10.2 8.8 - 12.5 fL LAB HEMATOLOGY METHOD 04/16/2025 12:33 PM EDT [facility] nRBC 0.0 <=0.0 per 100 WBCs LAB HEMATOLOGY METHOD 04/16/2025 12:33 PM EDT [facility] Differential Type Automated LAB HEMATOLOGY METHOD 04/16/2025 12:33 PM EDT [facility] Neutrophils % 72 % LAB HEMATOLOGY METHOD 04/16/2025 12:33 PM EDT [facility] Lymphocytes % 19 % LAB HEMATOLOGY METHOD 04/16/2025 12:33 PM EDT [facility] Monocytes % 6 % LAB HEMATOLOGY METHOD 04/16/2025 12:33 PM EDT [facility] Eosinophils % 2 % LAB HEMATOLOGY METHOD 04/16/2025 12:33 PM EDT [facility] Basophils % 0 % LAB HEMATOLOGY METHOD 04/16/2025 12:33 PM EDT [facility] Immature Granulocytes % 1 % LAB HEMATOLOGY METHOD 04/16/2025 12:33 PM EDT [facility] Neutrophils Absolute 4.52 1.60 - 6.10 10*3/uL LAB HEMATOLOGY METHOD 04/16/2025 12:33 PM EDT [facility] Lymphocytes Absolute 1.19(L) 1.20 - 3.90 10*3/uL LAB HEMATOLOGY METHOD 04/16/2025 12:33 PM EDT [facility] Monocytes Absolute 0.39 0.30 - 0.90 10*3/uL LAB HEMATOLOGY METHOD 04/16/2025 12:33 PM EDT [facility] Eosinophils Absolute 0.12 0.00 - 0.50 10*3/uL LAB HEMATOLOGY METHOD 04/16/2025 12:33 PM EDT [facility] Basophils Absolute 0.02 0.00 - 0.10 10*3/uL LAB HEMATOLOGY METHOD 04/16/2025 12:33 PM EDT [facility] Immature Granulocytes Absolute 0.03 0.00 - 0.06 10*3/uL LAB HEMATOLOGY METHOD 04/16/2025 12:33 PM EDT [facility] Blood Venous blood specimen / Unknown Venipuncture / Unknown 04/16/2025 9:26 AM EDT 04/16/2025 9:36 AM EDT Narrative [facility] - 04/16/2025 12:33 PM EDT Therapeutic decision making should be based on absolute values, rather than percentages. us Santi Hoffmann MD LAB BLOOD ORDERABLES Lela puckett Result [facility] [address] [place] [address] * (ABNORMAL) D DIMER, QUANTITATIVE (04/16/2025 9:26 AM EDT) D Dimer, Quantitative 1.22(H) <0.50 ug/mL FEU LAB COAGULATION METHOD 04/16/2025 1:07 PM EDT [facility] Blood Venous blood specimen / Unknown Venipuncture / Unknown 04/16/2025 9:26 AM EDT 04/16/2025 9:36 AM EDT Narrative [facility] - 04/16/2025 1:07 PM EDT [...] MD LAB BLOOD ORDERABLES Lela puckett Result [facility] [address] [place] [address] documented in this encounter Visit Diagnoses Diagnosis [...] documented as of this encounter Care Teams Softball Core Molder Relationship Specialty Start Date End Date Joanna Osborne DO [address] [facility] [address] [place] [address] PCP - General 04/09/25 documented as of this encounter
--- OUTSIDE RECORDS SUMMARY | 2025-04-18 12:07 | XMS_ITS | Encounter Summary ---
Author Organization [employer] ([place], [place], [place], [place]) Address [address] [place] [address] Care Team Providers Care Heel Boom Operator Name Role Phone Diane Velez PA-C Primary Care Provider [phone] Reason for Visit * Reason Comments Wound Check Encounter Details Date Type Department Care Team (Late st Contact Info) Description 04/18/2025 12:07 PM EDT - 04/18/2025 4:31 PM EDT Emergency [facility] Emergency Department [address] [place] [address] Antonio Ford DO [address] [id number] Cellulitis of left lower extremity (Primary Dx); Luevano's cyst of knee, left Discharge Disposition: Home or Self Care Social [...] needed for daily living? No 06/27/2024 [facility] - Mental Health Answer Date [...] Sign Reading Time Taken Comments Blood Pressure 140/75 04/18/2025 3:00 PM EDT Pulse 76 04/18/2025 3:00 PM EDT Temperature 36.9 C (98.4 F) 04/18/2025 12:05 PM EDT Respiratory Rate 17 04/18/2025 3:00 PM EDT Oxygen Saturation 95% 04/18/2025 1:30 PM EDT Inhaled Oxygen Concentration - - Weight 66.7 kg (147 lb) 04/18/2025 12:05 PM EDT Height 157.5 cm (5' 2 ) 04/18/2025 12:05 PM EDT Body Mass Index 26.89 04/18/2025 12:05 PM EDT documented in this encounter Discharge Instructions * Discharge Instructions* Johana Dale PA-C - 04/18/2025 4:21 PM EDT Your lab work is included here. There are no alarming findings on your blood work. Your urinalysis is clear. Ultrasound of your leg shows no blood clot. 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 * Attachments The following attachments cannot be sent through Care Everywhere. * Luevano Cyst (Indonesian) * Cellulitis Adult (Indonesian) documented in this encounter Medications at Time [...] DBP more than 90. 30 tablet 01/17/2025 doxycycline (VIBRAMYCIN) 100 MG capsule Take 1 capsule (100 mg total) by mouth 2 (two) times daily. 04/17/2025 hydroCHLOROthiazi de (MICROZIDE) 12.5 mg capsule Take 2 capsules (25 mg total) by mouth. 11/07/2024 HYDROcodone-aceta minophen (NORCO) 5-325 mg per tablet Take 1 tablet by mouth every 6 (six) hours as needed for pain for up to 12 doses. Max Daily Amount: 4 tablets 12 tablet 04/18/2025 losartan (COZAAR) 100 MG tablet Take 1 [...] by mouth daily. 90 tablet 1 11/13/2024 hydrOXYzine (ATARAX) 25 MG tabletIndications :Primary insomnia TAKE 1-2 TABS AT BEDTIME NEEDED FOR INSOMNIA.. 60 tablet 1 03/08/2025 documented as of this encounter ED Notes * Johana Dale PA-C - 04/18/2025 12:06 PM EDT Subjective Chief Complaint: Wound Check HPI 69-year-old female presents to emergency department for recheck of wound to the left lower extremity. Patient was recently seen by infectious disease with the plan established according to recentnotes. Patient reports she has not heard back from her lab results. No new or worsening symptoms. Patient is concerned that rash is increasing. Patient was seen in triage for a medical screening examination. A brief history and physical examination was performed in triage to initiate a work-up. Rest of care was provided in main ED by a provider. Patient History Past Medical History: Diagnosis Date [...] Review of Systems Review of Systems Constitutional: Negative for chills, fatigue and fever. HENT: Negative for congestion, ear pain, rhinorrhea and sore throat. Eyes: Negative for discharge, itching and visual disturbance. Respiratory: Negative for cough, chest tightness, shortness of breath, wheezing and stridor. Cardiovascular: Negative for chest pain, palpitations and leg swelling. Gastrointestinal: Negative for abdominal distention, abdominal pain, constipation, diarrhea, nauseaand vomiting. Genitourinary: Negative for dysuria and flank pain. Musculoskeletal: Negative for back pain and myalgias. Skin: Positive for wound. Negative for rash. Neurological: Negative for headaches. Psychiatric/Behavioral: Negative for confusion and suicidal ideas. Physical Exam ED Triage Vitals [04/18/25 1205] Encounter Vitals Group BP (!) 167/89 Systolic BP Percentile Diastolic BP Percentile Pulse 85 Resp 16 Temp 98.4 ??F (36.9 ??C) Temp src Tympanic SpO2 97 % Weight Height Head Circumference Peak Flow Pain Score Pain Loc Pain Education Exclude from Growth Chart Physical Exam Vitals and nursing note reviewed. Constitutional: General: She is not in acute distress. Appearance: She is not ill-appearing. HENT: Right Ear: External ear normal. Left Ear: External ear normal. Nose: Nose normal. No congestion. Mouth/Throat: Mouth: Mucous membranes are moist. Eyes: Pupils: Pupils are equal, round, and reactive to light. Cardiovascular: Rate and Rhythm: Normal rate and regular rhythm. Pulmonary: Effort: Pulmonary effort is normal. No respiratory distress. Breath sounds: Normal breath sounds. No stridor. No wheezing, rhonchi or rales. Chest: Chest wall: No tenderness. Abdominal: General: Bowel sounds are normal. There is no distension. Palpations: Abdomen is soft. Tenderness: There is no abdominal tenderness. There is no right CVA tenderness, left CVA tendernessor guarding. Musculoskeletal: General: No swelling or tenderness. Normal range of motion. Cervical back: Normal range of motion and neck supple. No tenderness. Right lower leg: No edema. Left lower leg: No edema. Skin: General: Skin is warm and dry. Capillary Refill: Capillary refill takes less than 2 seconds. Coloration: Skin is not jaundiced. Findings: Erythema present. No rash. Neurological: General: No focal deficit present. Mental Status: She is alert and oriented to person, place, and time. Mental status is at baseline. Motor: No weakness. Psychiatric: Mood and Affect: Mood normal. Behavior: Behavior normal. Neurological Exam Mental Status Alert. Oriented to person, place, and time. Cranial Nerves CN III, IV, : Pupils equal round and reactive to light bilaterally. Ortho Exam ED Course & MDM Medications sodium chloride flush 10 mL (has no administration in time range) Results for orders placed or performed during the hospital encounter of 04/18/25 CBC with Auto Diff Result Value Ref Range WBC 5.7 4.0 - 10.0 K/??L RBC 3.99 3.93 - 5.22 M/??L Hemoglobin 12.0 11.2 - 15.7 GM/DL Hematocrit 35.1 34.1 - 44.9 % MCV 88 79 - 95 fL MCH 30.1 25.6 - 32.2 pg MCHC 34.2 32.2 - 35.5 GM/DL RDW 12.1 11.7 - 14.4 % Platelets 247 140 - 375 K/CU MM MPV 9.6 9.4 - 12.3 fL % Neutros 71 34 - 71 % % Lymphs 17 (L) 19 - 52 % % Monos 8 5 - 13 % % Eos 3 1 - 6 % % Baso 1 0 - 1 % NRBC Absolute <0.01 0 - 0.012 K/ul # Neutros 4.06 1.56 - 6.13 K/??L # Lymphs 0.99 (L) 1.18 - 3.74 K/??L # Monos 0.45 0.24 - 0.86 K/??L # Eos 0.16 0.04 - 0.36 K/??L # Baso 0.03 0.01 - 0.08 K/??L Immature Granulocytes-Relative 0.40 0.01 - 0.43 % # IG <0.03 0.00 - 0.03 K/uL Comprehensive metabolic panel Result Value Ref Range Sodium 132 (L) 136 - 145 meq/L Potassium 3.8 3.4 - 5.1 meq/L Chloride 98 98 - 112 meq/L CO2 21 (L) 22 - 29 meq/L Calcium 9.8 8.4 - 10.2 mg/dL Glucose 116 (H) 82 - 115 mg/dL BUN 20.8 (H) 9.8 - 20.1 mg/dL Creatinine 0.97 0.57 - 1.11 mg/dL BUN/Creatinine 21 (H) 8 - 20 eGFR (mL/min/1.73m2) 63 >=60 mL/min/1.73m2 Albumin 3.8 3.5 - 5.0 g/dL Alkaline Phosphatase 97 40 - 150 U/L ALT 59 (H) <=34 U/L AST 70 (H) 11 - 34 U/L Total Bilirubin 0.5 0.2 - 1.2 mg/dL Protein, Total 7.6 6.4 - 8.3 g/dL Globulin 3.8 2.5 - 4.1 g/dL Anion Gap 17 (H) 4 - 12 A/G Ratio 1.0 0.7 - 1.9 Osmolality Calc 268.4 mOsm/kg Bowles Top Extra Tubes Result Value Ref Range HOLD SPECIMEN (SJ - BKR) Hold for add-ons. Urinalysis, Reflex Microscopic and Culture If Indicated Result Value Ref Range Color, UA Colorless Clarity, UA Clear Clear Specific [place], UA 1.009 1.005 - 1.030 pH, UA 6.0 6.0 - 8.0 Leukocytes, UA 25 Marck/uL (A) Negative Nitrite, UA Negative Negative Protein, UA Negative Negative Glucose, UA Normal Normal Ketones, UA Negative Negative Bilirubin, UA Negative Negative Blood, UA Negative Negative Urobilinogen, UA Normal Normal Specimen Source Urine, Sterile Collection Urinalysis Microscopic Only Result Value Ref Range WBC, UA 0-2 (A) None Seen /HPF RBC, UA 0-2 (A) None Seen /HPF Bacteria, UA None Seen None Seen, Trace SQUAMOUS EPITHELIAL 0-2 (A) None Seen /HPF US DOPPLER VENOUS LEG LEFT Final Result No evidence of left lower extremity deep venous thrombosis. Images reviewed, interpreted, and dictated by Rach Yu MD ED Course as of 04/18/25 1630 WedApr 18, 2025 1300 MSE done and workup initiated on this pleasant 69-year-old female who presents with worsening left lower leg cellulitis that started 5 or 6 weeks ago after an injury to the zhong. Differential includes but is not limited to cellulitis, abscess, osteomyelitis among others. Orders Placed This Encounter Blood Culture Blood Culture US DOPPLER VENOUS LEG LEFT CBC with Auto Diff Comprehensive metabolic panel [place] Extra Tubes Bowles Top Extra Tubes Urinalysis, Reflex Microscopic and Culture If Indicated Urinalysis Microscopic Only Wound Care Straight cath Saline lock IV [SM] 1330 Per patient's son who is now with patient. He states he was not here earlier when she was first assessed. He is concerned that she has been confused and tangential in her speech and not making sense. She has been on clindamycin for her leg and saw infectious disease doctor at on Wednesday who then started her on amoxicillin and doxycycline yesterday. She has had only 2 doses of these. [SM] 1449 Dr. Ford: I saw the patient [id number]. I performed a substantive portion of the Medical Decision Making. My differential diagnosis includes cellulitis delirium [PF] [address] Ford and with patient and family. Urinalysis is clear. Ultrasound shows no sign of DVT. Patient has only had 1 dose of her doxycycline and Augmentin. She was advised to takethem every 12 hours as prescribed and to follow-up with her infectious disease doctor in 2 to 3 days or return to the ED if worsening. Blood cultures ordered here, and I explained to patient that she would need to return to the ED for IV antibiotics if both were positive, that someone would call her if 1 or both blood cultures are positive. Patient and family are amenable to this plan. Patient was discharged in stable condition. [SM] ED Course User Index [PF] Antonio Ford, [SM] Johaan Dale PA-C Procedures Medical Decision Making Amount and/or Complexity of Data Reviewed Labs: ordered. Assessment & Plan Clinical Impression Diagnosis Comment Added By Time Added Cellulitis of left lower extremity Johana Dale PA-C 04/18/2025 4:28 PM Luevano's cyst of knee, left Johana Dale PA-C 04/18/2025 4:30 PM Disposition Discharge [1] - 04/18/2025 4:20 PM New Prescriptions HYDROCODONE-ACETAMINOPHEN (NORCO) 5-325 MG PER TABLET Take 1 tablet by mouth every 6 (six) hours asneeded for pain for up to 12 doses. Max Daily Amount: 4 tablets Contact information for follow-up Joanna Osborne DO Specialty: Internal Medicine [address] [place] [address] Next Steps: Follow up Instructions: Follow-up with your primary care provider as needed. Follow-up with your infectious disease doctor in 2 to 3 days. Be sure to take both of your antibiotics twice a day as prescribed. Return to the ED for new concerns or worsening condition. Next Steps: Follow up Associated attestation - Antonio Ford DO - 04/18/2025 3:48 PM CDT This visit was performed by both the physician and an APC. I performed all aspects of the MDM as documented . * Khalida Gilmore RN - 04/18/2025 12:03 PM EDT Pt presents to the ED form home with son secondary to ongoing wound on LLE . Pt reports seeing infectious disease yesterday. But not knowing what she's supposed to do documented in this encounter Plan of Treatment Upcoming Encounters Date Type Department Care Team (Late st Contact Info) Description 07/05/2025 9:15 AM EDT Appointment [address] [place] [address] 07/10/2025 10:00 AM EDT Office Visit [facility] [address] [facility] [facility] [place] [address] Diane Velez PA-C [address] [place] [address] documented as of this encounter Procedures Procedure Name Priority Date/Time Associated Diagnosis Comments BLOOD CULTURE STAT 04/18/2025 4:13 PM EDT BLOOD CULTURE STAT 04/18/2025 4:13 PM EDT US DOPPLER VENOUS LEG LEFT STAT 04/18/2025 3:44 PM EDT URINALYSIS, REFLEX MICROSCOPIC AND CULTURE IF INDICATED STAT 04/18/2025 2:41 PM EDT URINALYSIS MICROSCOPIC STAT 2:41 PM EDT [place] BOWLES TOP STAT 04/18/2025 12:28 PM EDT [place] EXTRA TUBES STAT 04/18/2025 12:28 PM EDT CBC W/ AUTO DIFF STAT 04/18/2025 12:2 7 PM EDT COMPREHENSIVE METABOLIC PANEL STAT 04/18/2025 12:27 PM EDT documented in this encounter Results * Blood Culture (04/18/2025 4:13 PM EDT) Result No growth in 5 days 04/23/2025 6:01 PM EDT [facility] Blood Venipuncture / Unknown 04/18/2025 4:13 PM EDT 04/18/2025 4:18 PM EDT us Johana Dale PA-C MICROBIOLOGY - GENERAL OR DERABLES Final Result [facility] [address] [phone] * Blood Culture (04/18/2025 4:13 PM EDT) Result No growth in 5 days 04/23/2025 6:01 PM EDT [facility] Blood Venipuncture / Unknown 04/18/2025 4:13 PM EDT 04/18/2025 4:18 PM EDT us Johana Dale PA-C MICROBIOLOGY - GENERAL OR DERABLES Final Result [facility] [address] [phone] * US DOPPLER VENOUS LEG LEFT (04/18/2025 3:44 PM EDT) Anatomical Region Laterality Modality Lower Extremity Ultrasound 04/18/2025 4:16 PM EDT Impressions 04/18/2025 4:16 PM EDT No evidence of left lower extremity deep venous thrombosis. Images reviewed, interpreted, and dictated by Rach Yu MD Narrative 04/18/2025 4:16 PM EDT LEFT LOWER EXTREMITY VENOUS DOPPLER INDICATION: Left lower extremity swelling. Evaluate for DVT. TECHNIQUE: Sonographic images of the deep veins of the left lower extremity were obtained from groin to upper calf. COMPARISON: None. FINDINGS: The veins of the left lower extremity are compressible from groin to popliteal fossa. Blood flow is demonstrated by both color and spectral Doppler as well. The veins of the upper calf are also patent. Incidental note is made of a left popliteal cyst. Procedure Note Rach Yu MD - 04/18/2025 LEFT LOWER EXTREMITY VENOUS DOPPLER INDICATION: Left lower extremity swelling. Evaluate for DVT. TECHNIQUE: Sonographic images of the deep veins of the left lower extremity were obtained from groin to upper calf. COMPARISON: None. FINDINGS: The veins of the left lower extremity are compressible from groin to popliteal fossa. Blood flow is demonstrated by both color and spectral Doppler as well. The veins of the upper calf are also patent. Incidental note is made of a left popliteal cyst. IMPRESSION: No evidence of left lower extremity deep venous thrombosis. Images reviewed, interpreted, and dictated by Rach Yu MD us Johana Dale PA-C CV VASCULAR ORDERABLES Fi nal Result * (ABNORMAL) Urinalysis Microscopic Only (04/18/2025 2:41 PM EDT) WBC, UA 0-2(A) None Seen /HPF 04/18/2025 3:08 PM EDT [facility] RBC, UA 0-2(A) None Seen /HPF 04/18/2025 3:08 PM EDT [facility] Bacteria, UA None Seen None Seen, Trace 04/18/2025 3:08 PM EDT [facility] SQUAMOUS EPITHELIAL 0-2(A) None Seen /HPF 04/18/2025 3:08 PM EDT [facility] Urine STERILE URINE SPECIMEN CONTAINER / Unknown 04/18/2025 2:41 PM EDT 04/18/2025 2:50 PM EDT us Johana Dale PA-C URINE ORDERABLES Final Re sult [facility] [address] [phone] * (ABNORMAL) Urinalysis, Reflex Microscopic and Culture If Indicated (04/18/2025 2:41 PM EDT) Color, UA Colorless 04/18/2025 3:05 PM EDT [facility] Clarity, UA Clear Clear 04/18/2025 3:05 PM EDT [facility] Specific [place], UA 1.009 1.005 - 1.030 04/18/2025 3:05 PM EDT [facility] pH, UA 6.0 6.0 - 8.0 04/18/2025 3:05 PM EDT [facility] Leukocytes, UA 25 Marck/uL(A) Negative 04/18/2025 3:05 PM EDT [facility] Nitrite, UA Negative Negative 04/18/2025 3:05 PM EDT [facility] Protein, UA Negative Negative 04/18/2025 3:05 PM EDT [facility] Glucose, UA Normal Normal 04/18/2025 3:05 PM EDT [facility] Ketones, UA Negative Negative 04/18/2025 3:05 PM EDT [facility] Bilirubin, UA Negative Negative 04/18/2025 3:05 PM EDT [facility] Blood, UA Negative Negative 04/18/2025 3:05 PM EDT [facility] Urobilinogen, UA Normal Normal 04/18/2025 3:05 PM EDT [facility] Specimen Source Urine, Sterile Collection 04/18/2025 3:05 PM EDT [facility] Urine STERILE URINE SPECIMEN CONTAINER / Unknown 04/18/2025 2:41 PM EDT 04/18/2025 2:50 PM EDT us Johana Dale PA-C URINE ORDERABLES Final Re sult Performing Organization Address City/[facility]/ZIP Co de Phone Number [facility] [address] [phone] * Bowles Top Extra Tubes (04/18/2025 12:28 PM EDT) HOLD SPECIMEN (SJ - BKR) Hold for add-ons. 04/18/2025 2:00 PM EDT [facility] Comment:Auto resulted. Blood Venipuncture / Unknown 04/18/2025 12:28 PM EDT 04/18/2025 12:33 PM EDT Antonio Ford DO LAB BLOOD ORDERABLES Final Resul t Performing Organization Address [facility]/ZIP Co de Phone Number [facility] [address] [phone] * (ABNORMAL) Comprehensive metabolic panel (04/18/2025 12:27 PM EDT) Sodium 132(L) 136 - 145 meq/L 04/18/2025 12:55 PM EDT [facility] Potassium 3.8 3.4 - 5.1 meq/L 04/18/2025 12:55 PM EDT [facility] Chloride 98 98 - 112 meq/L 04/18/2025 12:55 PM [facility] CO2 21(L) 22 - 29 meq/L 04/18/2025 12:55 PM [facility] Calcium 9.8 8.4 - 10.2 mg/dL 04/18/2025 12:55 PM [facility] Glucose 116(H) 82 - 115 mg/dL 04/18/2025 12:55 PM [facility] BUN 20.8(H) 9.8 - 20.1 mg/dL 04/18/2025 12:55 PM [facility] Creatinine 0.97 0.57 - 1.11 mg/dL 04/18/2025 12:55 PM [facility] BUN/Creatinine 21(H) 8 - 20 04/18/2025 12:55 PM [facility] eGFR (mL/min/1.73m2) 63 >=60 mL/min/1. 73m2 04/18/2025 12:55 PM [facility] Albumin 3.8 3.5 - 5.0 g/dL 04/18/2025 12:55 PM [facility] Alkaline Phosphatase 97 40 - 150 U/L 04/18/2025 12:55 PM [facility] ALT 59(H) <=34 U/L 04/18/2025 12:55 PM [facility] Comment: ALT2 reagent used for testing does not contain P5P supplementation and therefore may miss ALT elevations in patients with B6 deficiency. This population may be as high as 10% in the [place], with risk factors including malabsorption, drug interactions, and alcoholic hepatitis. AST 70(H) 11 - 34 U/L 04/18/2025 12:55 PM [facility] Comment: AST2 reagent used for testing does not contain P5P supplementation and therefore may miss AST elevations in patients with B6 deficiency. This population may be as high as 10% in the [place], with risk factors including malabsorption, drug interactions, and alcoholic hepatitis. Total Bilirubin 0.5 0.2 - 1.2 mg/dL 04/18/2025 12:55 PM [facility] Protein, Total 7.6 6.4 - 8.3 g/dL 04/18/2025 12:55 PM EDT [facility] Globulin 3.8 2.5 - 4.1 g/dL 04/18/2025 12:55 PM EDT [facility] Anion Gap 17(H) 4 - 12 04/18/2025 12:55 PM EDT [facility] A/G Ratio 1.0 0.7 - 1.9 04/18/2025 12:55 PM EDT [facility] Osmolality Calc 268.4 mOsm/kg 12:55 PM EDT [facility] Blood Venipuncture / Unknown 04/18/2025 12:27 PM EDT 04/18/2025 12:33 PM EDT us Krysta Srinivasan APRN LAB BLOOD ORDERABLES Final Res ult [facility] [address] [phone] * (ABNORMAL) CBC with Auto Diff (04/18/2025 12:27 PM EDT) WBC 5.7 4.0 - 10.0 K/ L 04/18/2025 12:44 PM EDT [facility] RBC 3.99 3.93 - 5.22 M/ L 04/18/2025 12:44 PM EDT [facility] Hemoglobin 12.0 11.2 - 15.7 GM/DL 04/18/2025 12:44 PM EDT [facility] Hematocrit 35.1 34.1 - 44.9 % 04/18/2025 12:44 PM EDT [facility] MCV 88 79 - 95 fL 04/18/2025 12:44 PM EDT [facility] MCH 30.1 25.6 - 32.2 pg 04/18/2025 12:44 PM EDT [facility] MCHC 34.2 32.2 - 35.5 GM/DL 04/18/2025 12:44 PM EDT [facility] RDW 12.1 11.7 - 14.4 % 04/18/2025 12:44 PM EDT [facility] Platelets 247 140 - 375 K/CU MM 04/18/2025 12:44 PM EDT [facility] MPV 9.6 9.4 - 12.3 fL 04/18/2025 12:44 PM EDT [facility] % Neutros 71 34 - 71 % 04/18/2025 12:44 PM EDT [facility] % Lymphs 17(L) 19 - 52 % 04/18/2025 12:44 PM EDT [facility] % Monos 8 5 - 13 % 04/18/2025 12:44 PM EDT [facility] % Eos 3 1 - 6 % 04/18/2025 12:44 PM EDT [facility] % Baso 1 0 - 1 % 04/18/2025 12:44 PM EDT [facility] NRBC Absolute <0.01 0 - 0.012 K/ul 04/18/2025 12:44 PM EDT [facility] # Neutros 4.06 1.56 - 6.13 K/ L 04/18/2025 12:44 PM EDT [facility] # Lymphs 0.99(L) 1.18 - 3.74 K/ L 04/18/2025 12:44 PM EDT [facility] # Monos 0.45 0.24 - 0.86 K/ L 04/18/2025 12:44 PM EDT [facility] # Eos 0.16 0.04 - 0.36 K/ L 04/18/2025 12:44 PM EDT [facility] # Baso 0.03 0.01 - 0.08 K/ L 04/18/2025 12:44 PM EDT [facility] Immature Granulocytes-Re lative 0.40 0.01 - 0.43 % 04/18/2025 12:44 PM EDT [facility] # IG <0.03 0.00 - 0.03 K/uL 04/18/2025 12:44 PM EDT [facility] Blood Venipuncture / Unknown 04/18/2025 12:27 PM EDT 04/18/2025 12:33 PM EDT [facility] - 04/18/2025 12:44 PM EDT When CBC w/ Auto Diff [...] Flag noted Atypical Lymph flag noted us Krysta Zarina [employer] MACHINE SETTER LAB BLOOD ORDERABLES Final Res ult [facility] [address] [phone] documented in this encounter Visit Diagnoses Diagnosis Cellulitis of left lower extremity- Primary Luevano's cyst of knee, left documented in this encounter Administered Medications Inactive Administered Medications - up to 3 most recent administrations Medication Order MAR Action Action Date Dose Rate Site sodium chloride flush 10 mL 10 mL As needed, intravenous, line care, Line care for flush, Starting on Wed04/18/25 at 1206, For 30 doses documented in this encounter Active and Recently Administered Medications Times are shown in EDT. PRN Medication Order 04/16/2025 04/17/2025 04/18/2025 sodium chloride flush 10 mL 10 mL As needed, intravenous, line care, Line care for flush, Starting on Wed04/18/25 at 1206, For 30 doses documented in this encounter Care Teams Heel Boom Operator Relationship Specialty Start Date End Date Diane Velez PA-C [address] [facility] [address] [place] [address] PCP - General Family Medicine 04/18/25 documented as of this encounter
--- OUTSIDE RECORDS SUMMARY | 2025-04-21 07:18 | XMS_ITS | Encounter Summary ---
Author Organization Healthcare Address [address] [place] [address] Care Team Providers Care Scales Inspector Name Role Phone Joanna Osborne Primary Care Provider [phone] Reason for Referral * Consultation (Routine) - Authorized Specialty Diagnoses / Procedures Referred By Sergio espitia Referred To Contact Hepatology Diagnoses Periumbilical abdominal pain Ming Garner MD [address] [place] [phone] Phone: tel: fax: Referral ID Status Reason Start Date Expiration Date Visits Requested Visits Authorized [id number] Authorized Specialty Services Required 04/21/2025 10/21/2026 1 1 Reason for Visit * Reason Comments Vomiting Wound Check Encounter Details Date Type Department Care Team ([facility] st Contact Info) Description 04/21/2025 7:18 AM EDT - 04/21/2025 1:07 PM EDT Emergency [facility] Emergency Department [address] [place] [address] Ming Garner MD [address] [place] [phone] Periumbilical abdominal pain (Primary Dx); Constipation, unspecified constipation type Discharge Disposition: Home or Self Care Social History Tobacco Use Types Packs/Day Years Used Date Smoking Tobacco: Never Smokeless Tobacco: Never PHQ-2 Answer Date Recorded Patient Health Questionnaire-2 [...] Sign Reading Time Taken Comments Blood Pressure 145/90 04/21/2025 12:56 PM EDT Pulse 77 04/21/2025 12:56 PM EDT Temperature 36.7 C (98 F) 04/21/2025 12:56 PM EDT Respiratory Rate 17 04/21/2025 12:56 PM EDT Oxygen Saturation 98% 04/21/2025 12:56 PM EDT Inhaled Oxygen Concentration - - Weight 65.8 kg (145 lb) 04/21/2025 7:16 AM EDT Height 157.5 cm (5' 2 ) 04/21/2025 7:16 AM EDT Body Mass Index 26.52 04/21/2025 7:16 AM EDT documented in this encounter Functional Status * Calculated C-SSRS Risk Score (Lifetime/Recent) Answer Date of Assessment Author No Risk Indicated 04/21/2025 7:48 AM EDT Stacey Wen RN * Question Answer Date of Assessment Author 1. Wish to be (Past 1 Month) No 025 7:48 AM EDT Stacey Wen RN 2. Non-Specific Active Suici naila Thoughts (Past 1 Month) No 04/21/2025 7:48 AM EDT Dane Wen RN 6. Suicidal Behavior (Lifetime) No 7:48 AM EDT Stacey Wen RN documented as of this encounter Discharge Instructions * Discharge Instructions* Katy Gillis MD - 04/21/2025 12:41 PM EDT Please take the medication prescribed to you, continue to take your Miralax. You can increase taking it to twice a day. I have sent a referral to Hepatology, they will call and schedule an appointment. Please return if you have new or worsening of symptoms. documented in this encounter Medications at Time of Discharge acyclovir (Zovirax) 400 MG tablet Take 1 tablet by mouth. atenolol (Tenormin) 50 MG tablet daily. 12/27/2015 bisacodyl (Bisacodyl EC) 5 MG EC tablet Take 1 tablet by mouth daily as needed for constipation. Do not crush, chew, or split. 30 tablet 04/21/2025 clonazePAM (KlonoPIN) 0.5 MG tablet Take 1 tablet by mouth twice a day. 03/08/2025 cycloSPORINE (Restasis) 0.05 % ophthalmic emulsion 1 drop(s) to each affected eye every 12 hours 02/06/2016 hydroCHLOROthiaz santhosh (Microzide) 12.5 MG capsule 11/07/2024 hydrOXYzine HCl (Atarax) 25 MG tablet TAKE 1 TO 2 TABLETS BY MOUTH AT BEDTIME NEEDED FOR INSOMNIA losartan (Cozaar) 100 MG tablet Take 1 tablet by mouth daily. metoclopramide (Reglan) 10 MG tablet Take 1 tablet by mouth 4 times a day. mupirocin (Bactroban) 2 % ointment APPLY OINTMENT TOPICALLY TO AFFECTED AREA THREE TIMES DAILY UNTIL HEALED 03/23/2025 pantoprazole (Protonix) 40 MG EC tablet Take 1 tablet by mouth 1 time each day. 11/13/2024 amoxicillin-clav ulanate XR (Augmentin XR) 1000-62.5 MG 12 hr tabletIndication s:Left leg cellulitis Take 1 tablet by mouth 2 times a day for 7 days. 14 tablet 04/17/2025 5 doxycycline (Vibramycin) 100 MG capsuleIndicatio ns:Left leg cellulitis Take 1 capsule by mouth 2 times a day for 7 days. Take with at least 8 ounces (large glass) of water, do not lie down for 30 minutes after 14 capsule 04/17/2025 5 documented as of this encounter Miscellaneous Notes * ED Provider Notes - Ming Garner MD - 04/21/2025 7:10 AM EDT Images from the original note were not included. - HPI Chief Complaint Patient presents with Vomiting Wound Check HPI 69 year old female with PMH significant for Hepatitis C, solitary kidney, GERD, HTN who presents for evaluation of abdominal pain, distension, nausea and vomiting. She also reports bilateral lower extremity swelling. Her left leg was originally swollen after a recent infection, reports the right leg has been swelling recently. Reports a remote history of cirrhosis but does not currently follow with anyone for this. Denies hematemesis, hematochezia, fever. Patient History Past Medical History[1] Surgical History[2] Family History[3] Social History[4] Allergies: Allergies[5] Physical Exam ED Triage Vitals [04/21/25 0716] Temp Heart Rate Resp BP 37.1 ??C (98.7 ??F) 83 19 (!) 178/91 SpO2 Temp Source Heart Rate Source Patient Position 92 % Oral -- Sitting BP Location FiO2 (%) Right arm -- Physical Exam Constitutional: Appearance: She is not ill-appearing or diaphoretic. HENT: Head: Normocephalic and atraumatic. Mouth/Throat: Mouth: Mucous membranes are dry. Pharynx: Oropharynx is clear. Eyes: General: No scleral icterus. Extraocular Movements: Extraocular movements intact. Conjunctiva/sclera: Conjunctivae normal. Cardiovascular: Rate and Rhythm: Normal rate and regular rhythm. Pulses: Normal pulses. Heart sounds: Normal heart sounds. Pulmonary: Effort: Pulmonary effort is normal. Breath sounds: Normal breath sounds. Abdominal: General: There is distension. Tenderness: There is abdominal tenderness. Musculoskeletal: Cervical back: Normal range of motion. Right lower leg: Edema present. Left lower leg: Edema present. Comments: Previous abscess site present on the LLE, no overt erythema or drainage Skin: General: Skin is warm and dry. Capillary Refill: Capillary refill takes less than 2 seconds. Coloration: Skin is not jaundiced. Neurological: Mental Status: She is alert and oriented to person, place, and time. EASI ?? Total Score: 0 Meggan Coma Scale Score: 15 Mini Nutritional Screening Score : 14 TRST Assessment Total: 3 ED Course & MDM - Assessment: 69 y.o. female presents to ED with complaint of abdominal pain, distension and vomiting. It should be noted that the chronic conditions includes history of hepatitis C, solitary kidney, HTN, GERD, which currently is not at goal therapy. This complicates the clinical picture because it Comorbidities: may be exacerbating symptoms and increases the amount and complexity of data to be reviewed. Differential Diagnosis: Cirrhosis, cholecystitis, cholangitis, pancreatitis, new onset heart failure, acute kidney injury, malnutrition, electrolyte abnormality, diverticulitis, ascites. Ruling out the most morbid condition drove my assessment. In order to fully explore the differential diagnosis the following treatments and tests were ordered: ED Medication Administration from 04/21/2025 0709 to 04/21/2025 1243 Date/Time Order Dose Route Action 04/21/2025 0837 EDT ondansetron (Zofran) injection 4 mg 4 mg Intravenous Given 04/21/2025 0838 EDT acetaminophen (Tylenol) tablet 1,000 mg 1,000 mg Oral Given 04/21/2025 0941 EDT iohexol (OMNIPaque) 300 MG/ML injection 100 mL 100 mL Intravenous Given 04/21/2025 1012 EDT famotidine PF (Pepcid) injection 20 mg 20 mg Intravenous Given 04/21/2025 1012 EDT gi cocktail oral solution 30 mL 30 mL Oral Given All Other Orders Ordered Status Ordering Provider 04/21/25 0741 Lipase STAT Final result KATY GILLIS 04/21/25 0943 Hepatitis C Virus (HCV) Quantitative PCR - ED Once In process KATY GILLIS 04/21/25 0741 Hepatitis C Antibody - ED Once Final result KATY GILLIS 04/21/25 0741 ED Protocol - HIV 1/2 Antibody/Antigen Screen Once Final result KATY GILLIS 04/21/25 0741 ED HIV 1/2 Antibody/Antigen Screen w/Reflex to HIV 1/2 Differentiation PROCEDURE ONCE Final result KATY GILLIS 04/21/25 0741 BNP STAT Final result KATY GILLIS 04/21/[address] Abdomen Pelvis w IV Contrast Once Final result KATY GILLIS 04/21/25 0741 CMP STAT Final result KATY GILLIS 04/21/25 0741 Magnesium STAT Final result KATY GILLIS 04/21/25 0741 Thyroid Stimulating Hormone, Plasma STAT Final result KATY GILLIS 04/21/25 0741 Free T4, Plasma STAT Final result KATY GILLIS 04/21/25 0741 CBC w/diff STAT Final result KATY GILLIS 04/21/25 0741 PT-INR STAT Final result KATY GILLIS 04/21/25 0741 EKG now - STAT (adult) Once Preliminary result KATY GILLIS 04/21/25 1241 Discharge Ambulatory referral to Hepatology Ordered KATY GILLIS Attending MDM: Prior records were reviewed in the electronic medical record. History of cellulitis and left lower leg pain and wound. Additionally patient has a history of osteoporosis, UTIs, and Parkinson's disease as per EHR. Patient has solitary kidney on right side secondary to renal mass resection requiring left nephrectomy. Labs show normal CBC. Chemistry shows hyponatremia. Mildly elevated AST and ALT. Hep C positive. Lipase 68. Abdominal CT was ordered and independently interpreted. Surgical absence of the left kidney. No clear obstruction or fluid collection. Please see radiology note for final interpretation. Rhythm strip independently interpreted. It showed sinus rhythm with occasional PACs. ED Course as of 04/21/25 1243 Sat Apr 21, 2025 0800 Upon arrival, patient is hypertensive, afebrile, in no acute distress. Reports abdominal distension, pain, swelling, nausea and vomiting. Physical exam with evidence of lower quadrant tendernessand swelling. Lower extremities with evidence of swelling as well. [OM] 0958 BNP Within normal limits, low concern for acute onset heart failure [OM] 0958 CMP(!) Hypercalcemia, NA decreased but similar to previously obtained labs, AST/ALT and alk phos elevated.[OM] 0959 PT-INR Non-actionable [OM] 0959 CBC w/diff(!) No evidence of leukocytosis, Hg appropriate [OM] 0959 Hepatitis C Antibody - ED(!) positive [OM] 1153 Lipase(!) Likely elevated due to recent emesis. Low concern for pancreatitis. [OM] 1153 CT Abdomen Pelvis w IV Contrast Independently interpreted by me as significant for constipation, no evidence of overtly cirrhotic liver. Please see radiology read for report. [OM] 1154 Discussed with patient she will need to continue taking miralax, will also send with Bisacodylto start taking. The patient would benefit from seeing Hepatology to further evaluate for development of cirrhosis. As her AST/ALT are elevated, in the setting of previous Hep C infection, and bilateral LE swelling, I believe the patient could be developing cirrhosis. Referral to Hepatology sent. [OM] ED Course User Index [OM] Katy Gillis MD Clinical Impressions as of 04/21/25 1243 Periumbilical abdominal pain Constipation, unspecified constipation type Dispo: discharge Social Determinates of Health Risks (including Economic Stability, Education and level of understanding, Healthcare access and quality and concerning social factors): None identified on this visit ED Prescriptions Medication Sig Dispense Start Date End Date Auth. Provider bisacodyl (Bisacodyl EC) 5 MG EC tablet Take 1 tablet by mouth daily as needed for constipation. Donot crush, chew, or split. 30 tablet 04/21/2025 05/21/2025 Ming Garner MD Discharge Instructions Please take the medication prescribed to you, continue to take your Miralax. You can increase taking it to twice a day. I have sent a referral to Hepatology, they will call and schedule an appointment. Please return if you have new or worsening of symptoms. Disposition Discharge Discharge Orders Discharge Ambulatory referral to Hepatology Authorized - Katy Gillis MD Resident 04/21/25 1243 Ming Carrera MD, personally saw the patient, performed critical or mills portions of the service including being present and available at all procedures, and discussed the care with the Resident. I saw and evaluated the patient. I discussed the case with the resident and agree with the findingsand plan as documented. [1] Past Medical History: Diagnosis Date Chronic kidney disease History of transfusion 1980 Infectious viral hepatitis 1994 Shingles Urinary tract infection 2015 Varicella 1957 [2] Past Surgical History: Procedure Laterality Date CHOLECYSTECTOMY 1983 HYSTERECTOMY 1989 TONSILLECTOMY 1957 [3] No family history on file. [4] Tobacco Use Smoking status: Never Smokeless tobacco: Never [5] Allergies Allergen Reactions Codeine Anaphylaxis, Hives, Itching, Nausea, Other - please document in the comment field and Rash codeine Sulfa Drugs Hives, Itching and Other - please document in the comment field Ciprofloxacin Itching, Rash and Other - please document in the comment field jaundice Cipro Latex Itching Ciprofloxacin Hcl Rash jaundice Sulfamethoxazole-Trimethoprim Rash Ming Garner MD 04/23/25 3552 * ED Triage Notes - Ming Gusman RN - 04/21/2025 7:10 AM EDT Pt arrives to ED d/t waking up at 0400 with severe nausea and vomitting. Pt and family states that she had a fall 6 weeks ago with a wound to her LLE. Was having unilateral swelling to LLE now havingBLE. C/o abd swelling for the past few days and diarrhea. Pt states that she's been on multiple abx. documented in this encounter Plan of Treatment Upcoming Encounters Date Type Department Care Team (Late st Contact Info) Description 05/15/2025 3:30 PM EDT Office Visit [facility] [address] [place] [phone] Santi Hoffmann MD [address] [facility] [address] [place] [address] Scheduled Referrals Name Type Priority Associated Diagnoses Order Schedule Discharge Ambulatory referral to Hepatology Outpatient Referral Routine Periumbilical abdominal pain 1 Occurrences starting 04/21/2025 until 10/23/2026 documented as of this encounter Procedures Procedure Name Priority Date/Time Associated Diagnosis Comments LIPASE, PLASMA STAT 04/21/2025 11:[address] ABDOMEN PELVIS W IV CONTRAST STAT 04/21/2025 9:51 AM EDT ED HIV 1/2 ANTIBODY/ANTIGEN SCREEN WITH REFLEX TO HIV I/II DIFFERENTIATION STAT 04/21/2025 8:39 AM EDT ED PROTOCOL HIV 1/2 ANTIBODY/ANTIGEN SCREEN W/REFLEX TO HIV 1/2 ANTIBODY DIFFERENTIATION STAT 04/21/2025 8:39 AM EDT HEPATITIS C VIRUS (HCV) QUANTITATIVE PCR - ED STAT 04/21/2025 8:39 AM EDT HEPATITIS C ANTIBODY - ED W/REFLEX TO HCV QUANT PCR STAT 04/21/2025 8:39 AM EDT N-TERMINAL PROBNP, PLASMA STAT 04/21/2025 8:39 AM EDT PROTHROMBIN TIME(PT) / INR STAT 04/21/2025 8:39 AM EDT CBC WITH AUTO DIFFERENTIAL STAT 04/21/2025 8:39 AM EDT TSH STAT 04/21/2025 8:39 AM EDT FREE T4, PLASMA STAT 04/21/2025 8:39 AM EDT MAGNESIUM, PLASMA STAT 04/21/2025 8:3 9 AM EDT COMPREHENSIVE METABOLIC PANEL, PLASMA STAT 04/21/2025 8:39 AM EDT ECG ADULT STAT 04/21/2025 7:49 AM EDT documented in this encounter Results * (ABNORMAL) Lipase (04/21/2025 11:32 AM EDT) Lipase, Plasma 68(H) 19 - 63 U/L 04/21/2025 11:49 AM EDT [facility] Blood Venous blood specimen / Unknown Venipuncture / Unknown 04/21/2025 11:32 AM EDT 04/21/2025 11:34 AM EDT us Ming Garner MD LAB BLOOD ORDERABLES Final Result [facility] [address] [place] [address] * CT Abdomen Pelvis w IV Contrast (04/21/2025 9:51 AM EDT) Anatomical Region Laterality Modality Abdomen, Pelvis Computed Tomogra phy Impressions 04/21/2025 11:13 AM EDT No evidence of bowel obstruction. Mild diffuse colonic stool burden, correlate for constipation. Mild right pelvocaliectasis and prominence of the right extrarenal pelvis to the level of the ureteropelvic junction, nonspecific. No obstructing ureteral calculi. Small hiatal hernia. CRITICAL RESULT: No. COMMUNICATION: Per this written report. Preliminary report signed by Ilia Mendoza DO on 04/21/2025 10:55 AM By electronically signing this report, I, the attending physician, attest that I have personally reviewed the images/data for the above examination(s) and agree with the final edited report. Drafted by Ilia Mendoza DO on 04/21/2025 10:47 AM Final report signed by Jatinder Hummel MD on 04/21/2025 11:13 AM Narrative 04/21/2025 11:13 AM EDT CLINICAL INDICATION: diffuse abdominal pain, swelling, distension TECHNIQUE: Imaging of the abdomen and pelvis was performed, from lung bases through pubic symphysis, using spiral technique, following administration of IV contrast, Omnipaque 300, 100 mL. Delayed (excretory phase) images were performed through the kidneys. Reformatted images in the coronal and sagittal planes were generated from the axial data set to facilitate diagnostic accuracy. Total DLP (Dose-Length Product): 310.87 mGy.cm. Please note: The reported value represents the total of one or more individual components during the CT acquisition on this date and at this time, and as such, the same value may appear in more than one CT report depending on the interpreting/reporting physicians. COMPARISON: CT abdomen/pelvis 02/15/2016 FINDINGS: Lung Bases: Linear atelectasis versus scarring of the lung bases. Liver/Gallbladder/Biliary system: Too small to characterize 4 mm low-attenuation focus (image 11 series 2, decreased in prominence over the interval. Cholecystectomy. No intra- or extra-hepatic biliary ductal dilatation. Spleen: Too small to characterize 7 mm low-attenuation focus in the superior aspect of the spleen (10, 2). Pancreas: The pancreas enhances homogeneously. Adrenals: The adrenals are morphologically unremarkable. Kidneys: Postsurgical changes of prior left nephrectomy. Too small to characterize 5 mm low-attenuation left renal lesion image 81 series 3 minimally enlarged of interval previously 4 mm. Mild right pelvocaliectasis and prominence of the right extrarenal pelvis to the level of the ureteropelvic junction, nonspecific. No obstructing ureteral calculi. No urinary tract calculi. Bowel/Mesentery: Small hiatal hernia. No evidence of small bowel obstruction. Mild diffuse partial burden, correlate for constipation. No evidence of acute appendicitis. Vessels/Lymph Nodes: Atherosclerosis of the normal caliber abdominal aorta. No lymphadenopathy by CT size criteria. Fluid Survey: No free fluid in the abdomen. No free fluid in the pelvis. Pelvis: 16 mm right adnexal follicle. Status post hysterectomy. Body Wall: No acute findings. Bones: No acute fracture. Chronic L1 and T12 superior endplate deformities and Schmorl's nodes. Multilevel degenerative endplate change. Unchanged hemangioma of the L4 vertebral body. Procedure Note Jatinder Hummel MD - 04/21/2025 CLINICAL INDICATION: diffuse abdominal pain, swelling, distension TECHNIQUE: Imaging of the abdomen and pelvis was performed, from lung bases throughpubic symphysis, using spiral technique, following administration of IVcontrast, Omnipaque 300, 100 mL. Delayed (excretory phase) images wereperformed through the kidneys. Reformatted images in the coronal andsagittal planes were generated from the axial data set to facilitatediagnostic accuracy. Total DLP (Dose-Length Product): 310.87 mGy.cm. Please note: The reportedvalue represents the total of one or more individual components during theCT acquisition on this date and at this time, and as such, the same valuemay appear in more than one CT report depending on theinterpreting/reporting physicians. COMPARISON: CT abdomen/pelvis 02/15/2016 FINDINGS: Lung Bases: Linear atelectasis versus scarring of the lung bases. Liver/Gallbladder/Biliary system: Too small to characterize 4 mmlow-attenuation focus (image 11 series 2, decreased in prominence over theinterval. Cholecystectomy. No intra- or extra-hepatic biliary ductaldilatation. Spleen: Too small to characterize 7 mm low-attenuation focus in thesuperior aspect of the spleen (10, 2). Pancreas: The pancreas enhances homogeneously. Adrenals: The adrenals are morphologically unremarkable. Kidneys: Postsurgical changes of prior left nephrectomy. Too small tocharacterize 5 mm low-attenuation left renal lesion image 81 series 3minimally enlarged of interval previously 4 mm. Mild rightpelvocaliectasis and prominence of the right extrarenal pelvis to thelevel of the ureteropelvic junction, nonspecific. No obstructing ureteralcalculi. No urinary tract calculi. Bowel/Mesentery: Small hiatal hernia. No evidence of small bowelobstruction. Mild diffuse partial burden, correlate for constipation. Noevidence of acute appendicitis. Vessels/Lymph Nodes: Atherosclerosis of the normal caliber abdominalaorta. No lymphadenopathy by CT size criteria. Fluid Survey: No free fluid in the abdomen. No free fluid in the pelvis. Pelvis: 16 mm right adnexal follicle. Status post hysterectomy. Body Wall: No acute findings. Bones: No acute fracture. Chronic L1 and T12 superior endplate deformitiesand Schmorl's nodes. Multilevel degenerative endplate change. Unchangedhemangioma of the L4 vertebral body. IMPRESSION: No evidence of bowel obstruction. Mild diffuse colonic stool burden, correlate for constipation. Mild right pelvocaliectasis and prominence of the right extrarenal pelvisto the level of the ureteropelvic junction, nonspecific. No obstructingureteral calculi. Small hiatal hernia. CRITICAL RESULT: No. COMMUNICATION: Per this written report. Preliminary report signed by Ilia Mendoza DO on 04/21/2025 10:55 AM By electronically signing this report, I, the attending physician, attestthat I have personally reviewed the images/data for the aboveexamination(s) and agree with the final edited report. Drafted by Ilia Mendoza DO on 04/21/2025 10:47 AM Final report signed by Jatinder Hummel MD on 04/21/2025 11:13 AM us Ming Garner MD IMG CT PROCEDURES Final Re sult * Hepatitis C Virus (HCV) Quantitative PCR - ED (04/21/2025 8:39 AM EDT) Hepatitis C Virus (HCV) Quantitative Interpretation Not Detected Not Detected. 04/25/2025 1:47 PM EDT [facility] Blood Venous blood specimen / Unknown Venipuncture / Unknown 04/21/2025 8:39 AM EDT 04/21/2025 9:03 AM EDT Narrative [facility] - 04/25/2025 1:47 PM EDT The Rosas M2000 HCV test is a Real Time in vitro nucleic acid amplification test for the quantitation of Hepatitis C Viral (HCV) RNA in human serum in HCV-infected individuals. It is intended for use as an aid in the management of HCV-infected individuals undergoing anti-viral therapy. The dynamic range for this test is log10 = 1.08 to 8.00 and/or 12 to 100,000,000 IU/mL. The limit of detection (LOD) for this assay is 12 IU/mL and the limit of quantitation (LOQ) is 12 IU/mL. This assay is FDA approved for clinical use. Ming Garner MD LAB BLOOD ORDERABLES Final Result Performing Organization Address City/[facility]/ZIP Co de Phone Number [facility] [address] [place] [address] * ED HIV 1/2 Antibody/Antigen Screen w/Reflex to HIV 1/2 Differentiation (04/21/2025 8:39 AM EDT) Pathologist [facility] HIV 1 & 2 Antibody/Antigen Screen Non Reactive Non Reactive 04/21/2025 9:41 AM EDT [facility] Comment:Screening for HIV 1 & 2 antibodies, and P24 antigen is NONREACTIVE. No confirmatory testing is required. Blood Venous blood specimen / Unknown Venipuncture / Unknown 04/21/2025 8:39 AM EDT 04/21/2025 9:06 AM EDT Ming Garner MD LAB BLOOD ORDERABLES Final Result [facility] [address] [place] [address] * (ABNORMAL) Hepatitis C Antibody - ED (04/21/2025 8:39 AM EDT) Pathologist [facility] Hepatitis C Antibody Positive(A ) Negative 04/21/2025 9:49 AM EDT [facility] Blood Venous blood specimen / Unknown Venipuncture / Unknown 04/21/2025 8:39 AM EDT 04/21/2025 9:03 AM EDT Ming Garner MD LAB BLOOD ORDERABLES [place] [address] * BNP (04/21/2025 8:39 AM EDT) N-Terminal, PROBNP, Plasma 541 0 - 899 pg/mL 04/21/2025 9:24 AM EDT [facility] Blood Venous blood specimen / Unknown Venipuncture / Unknown 04/21/2025 8:39 AM EDT 04/21/2025 8:44 AM EDT Ming Garner MD LAB BLOOD ORDERABLES Final Result Performing Organization Address [facility] Co de Phone Number [facility] [phone] [place] [address] * PT-INR (04/21/2025 8:39 AM EDT) Prothrombin Time 13.7 12.0 - 14.3 sec 04/21/2025 8:58 AM EDT [facility] INR 1.1 0.9 - 1.1 04/21/2025 8:58 AM EDT [facility] Blood Venous blood specimen / Unknown Venipuncture / Unknown 04/21/2025 8:39 AM EDT 04/21/2025 8:44 AM EDT Narrative [facility] - 04/21/2025 8:58 AM EDT OPTIMAL INR RANGES FOR PATIENT ON ORAL ANTICOAGULANT THERAPY Prevention of venous thromboembolism INR 2.0 to 3.0 In patients with heart disease: Atrial fibrillation INR 2.0 to 3.0 Valvular heart disease INR 2.0 to 3.0 Tissue heart valves INR 2.0 to 3.0 Mechanical prosthetic valves INR 2.5 to 3.5 Prevention of recurrent NM INR 2.5 to 3.5 Ming Garner MD LAB BLOOD ORDERABLES Final Result [facility] [address] [place] [address] * (ABNORMAL) CBC w/diff (04/21/2025 8:39 AM EDT) WBC Count 7.92 3.70 - 10.30 10*3/uL LAB HEMATOLOGY METHOD 04/21/2025 8:47 AM EDT [facility] RBC Count 4.52 3.90 - 5.20 10*6/uL LAB HEMATOLOGY METHOD 04/21/2025 8:47 AM EDT [facility] HGB 13.5 11.2 - 15.7 g/dL LAB HEMATOLOGY METHOD 04/21/2025 8:47 AM EDT [facility] HCT 39.2 34.0 - 45.0 % LAB HEMATOLOGY METHOD 04/21/2025 8:47 AM EDT [facility] Platelet Count 361 155 - 369 10*3/uL LAB HEMATOLOGY METHOD 04/21/2025 8:47 AM EDT [facility] MCV 87 79 - 98 fL LAB HEMATOLOGY METHOD 04/21/2025 8:47 AM EDT [facility] MCH 29.9 26.0 - 32.0 pg LAB HEMATOLOGY METHOD 04/21/2025 8:47 AM EDT [facility] MCHC 34.4 30.7 - 35.5 g/dL LAB HEMATOLOGY METHOD 04/21/2025 8:47 AM EDT [facility] RDW 12.1 11.5 - 14.5 % LAB HEMATOLOGY METHOD 04/21/2025 8:47 AM EDT [facility] MPV 10.0 8.8 - 12.5 fL LAB HEMATOLOGY METHOD 04/21/2025 8:47 AM EDT [facility] nRBC 0.0 <=0.0 per 100 WBCs LAB HEMATOLOGY METHOD 04/21/2025 8:47 AM EDT [facility] Differential Type Automated LAB HEMATOLOGY METHOD 04/21/2025 8:47 AM EDT [facility] Neutrophils % 81 % LAB HEMATOLOGY METHOD 04/21/2025 8:47 AM EDT [facility] Lymphocytes % 13 % LAB HEMATOLOGY METHOD 04/21/2025 8:47 AM EDT [facility] Monocytes % 5 % LAB HEMATOLOGY METHOD 04/21/2025 8:47 AM EDT [facility] Eosinophils % 1 % LAB HEMATOLOGY METHOD 04/21/2025 8:47 AM EDT [facility] Basophils % 0 % LAB HEMATOLOGY METHOD 04/21/2025 8:47 AM EDT [facility] Immature Granulocytes % 0 % LAB HEMATOLOGY METHOD 04/21/2025 8:47 AM EDT [facility] Neutrophils Absolute 6.29(H) 1.60 - 6.10 10*3/uL LAB HEMATOLOGY METHOD 04/21/2025 8:47 AM EDT [facility] Lymphocytes Absolute 1.05(L) 1.20 - 3.90 10*3/uL LAB HEMATOLOGY METHOD 04/21/2025 8:47 AM EDT [facility] Monocytes Absolute 0.42 0.30 - 0.90 10*3/uL LAB HEMATOLOGY METHOD 04/21/2025 8:47 AM EDT [facility] Eosinophils Absolute 0.11 0.00 - 0.50 10*3/uL LAB HEMATOLOGY METHOD 04/21/2025 8:47 AM EDT [facility] Basophils Absolute 0.02 0.00 - 0.10 10*3/uL LAB HEMATOLOGY METHOD 04/21/2025 8:47 AM EDT [facility] Immature Granulocytes Absolute 0.03 0.00 - 0.06 10*3/uL LAB HEMATOLOGY METHOD 04/21/2025 8:47 AM EDT [facility] Blood Venous blood specimen / Unknown Venipuncture / Unknown 04/21/2025 8:39 AM EDT 04/21/2025 8:44 AM EDT Narrative [facility] - 04/21/2025 8:47 AM EDT Therapeutic decision making should be based on absolute values, rather than percentages. us Ming Garner MD LAB BLOOD ORDERABLES Final Result [facility] [address] [place] [address] * Free T4, Plasma (04/21/2025 8:39 AM EDT) Free T4, Plasma 1.4 0.8 - 1.7 ng/dL 04/21/2025 9:17 AM EDT [facility] Blood Venous blood specimen / Unknown Venipuncture / Unknown 04/21/2025 8:39 AM EDT 04/21/2025 8:44 AM EDT Ming Garner MD LAB BLOOD ORDERABLES Final Result [facility] [address] [place] [address] * Thyroid Stimulating Hormone, Plasma (04/21/2025 8:39 AM EDT) Thyroid Stimulating Hormone, Plasma 1.78 0.40 - 4.20 uIU/mL 04/21/2025 9:24 AM EDT [facility] Blood Venous blood specimen / Unknown Venipuncture / Unknown 04/21/2025 8:39 AM EDT 04/21/2025 8:44 AM EDT Ming Garner MD LAB BLOOD ORDERABLES Final Result Performing Organization Address City/[facility]/ZIP Co de Phone Number [facility] [address] [place] [address] * Magnesium (04/21/2025 8:39 AM EDT) Magnesium, Plasma 1.9 1.9 - 2.4 mg/dL 04/21/2025 9:24 AM EDT [facility] Blood Venous blood specimen / Unknown Venipuncture / Unknown 04/21/2025 8:39 AM EDT 04/21/2025 8:44 AM EDT Ming Garner MD LAB BLOOD ORDERABLES Final Result [facility] [address] [place] [address] * (ABNORMAL) CMP (04/21/2025 8:39 AM EDT) Glucose, Plasma 99 74 - 99 mg/dL 04/21/2025 9:24 AM EDT [facility] BUN, Plasma 20 8 - 23 mg/dL 04/21/2025 9:24 AM EDT [facility] Creatinine, Plasma 0.82 0.60 - 1.10 mg/dL 04/21/2025 9:24 AM EDT [facility] BUN/Creatinine Ratio 04/21/2025 9:24 AM EDT [facility] Sodium, Plasma 127(L) 136 - 145 mmol/L 04/21/2025 9:24 AM EDT [facility] Potassium, Plasma 3.8 3.6 - 4.9 mmol/L 04/21/2025 9:24 AM EDT [facility] Comment:Hemolyzed, result ma y be falsely increased. Chloride, Plasma 90(L) 97 - 107 mmol/L 04/21/2025 9:24 AM EDT [facility] CO2, Plasma 22 22 - 29 mmol/L 04/21/2025 9:24 AM EDT [facility] Anion Gap 15 6 - 16 mmol/L 04/21/2025 9:24 AM EDT [facility] Total Calcium, Plasma 10.4(H) 8.9 - 10.2 mg/dL 04/21/2025 9:24 AM EDT [facility] Total Protein 8.4(H) 6.3 - 7.9 g/dL 04/21/2025 9:24 AM EDT [facility] Albumin, Plasma 4.6 3.5 - 5.2 g/dL 04/21/2025 9:24 AM EDT [facility] AST, Plasma 83(H) 10 - 35 U/L 04/21/2025 9:24 AM EDT [facility] Comment:Hemolyzed, result ma y be falsely increased. ALT, Plasma 80(H) 10 - 35 U/L 04/21/2025 9:24 AM EDT [facility] Alkaline Phosphatase, Plasma 147(H) 46 - 142 U/L 04/21/2025 9:24 AM EDT [facility] Total Bilirubin, Plasma 1.0 0.2 - 1.1 mg/dL 04/21/2025 9:24 AM EDT [facility] eGFRcr 76.6 mL/min/1.7 3m*2 04/21/2025 9:24 AM EDT [facility] Comment:Reported eGFRcr in m L/min/1.73m2 is based the CKD-EPI 2020 equation that does not use a race coefficient. Blood Venous blood specimen / Unknown Venipuncture / Unknown 04/21/2025 8:39 AM EDT 04/21/2025 8:44 AM EDT us Ming Garner MD LAB BLOOD ORDERABLES Final Result Performing Organization Address City/[facility]/ZIP Co de Phone Number [facility] [address] [place] [address] * EKG now - STAT (adult) (04/21/2025 7:49 AM EDT) EKG DIAGNOSIS CLASS Abnormal MUSE ECG Ventricular Rate 72 BPM MUSE ECG Atrial Rate 72 BPM MUSE ECG OR Interval 152 ms MUSE ECG QRSD Interval 92 ms MUSE ECG QT Interval 424 ms MUSE ECG QTC Interval 464 ms MUSE ECG P [place] 61 degrees MUSE ECG R [place] 10 degrees MUSE ECG T Wave [place] 29 degrees MUSE ECG Diagnosis Normal sinus rhythm MUSE ECG Diagnosis Nonspecific ST and T wave abnormality MUSE ECG Diagnosis Borderline ECG MUSE ECG Diagnosis MUSE ECG Diagnosis Confirmed by Mejia Low ([id number]) on 04/21/2025 3:30:33 PM MUSE ECG 04/21/2025 7:49 AM EDT 04/21/2025 3:30 PM EDT us Ming Garner MD ECG ORDERABLES Final Resu lt MUSE ECG documented in this encounter Visit Diagnoses Diagnosis Periumbilical abdominal pain- Primary Abdominal pain, periumbilic Constipation, unspecified constipation type documented in this encounter Administered Medications Inactive Administered Medications - up to 3 most recent administrations Medication Order MAR Action Action Date Dose Rate Site acetaminophen (Tylenol) tablet 1,000 mg 1,000 mg, Oral, Once, 1 dose, On 04/21/25 at 0750, STAT Given 04/21/2025 8:38 AM EDT 1,000 mg famotidine PF (Pepcid) injection 20 mg 20 mg, Intravenous, Once, 1 dose, On 04/21/25 at 0855, STAT Given 04/21/2025 10:12 AM EDT 20 mg gi cocktail oral solution 30 mL 30 mL, Oral, Once, 1 dose, On 04/21/25 at 0855, STAT Given 04/21/2025 10:12 AM EDT 30 mL iohexol (OMNIPaque) 300 MG/ML injection 100 mL 100 mL, Intravenous, Once in imaging, 1 dose, Starting on 04/21/25 at 0807, Until 04/21/25 at 0941, Routine, Imaging Protocol Orders Given 04/21/2025 9:41 AM EDT 100 mL ondansetron (Zofran) injection 4 mg 4 mg, Intravenous, Once, 1 dose, On 04/21/25 at 0750, STAT Given 04/21/2025 8:37 AM EDT 4 mg documented in this encounter Active and Recently Administered Medications Times are shown in EDT. Scheduled Medication Order 04/19/2025 04/20/2025 04/21/2025 acetaminophen (Tylenol) tablet 1,000 mg (COMPLETED) 1,000 mg, Oral, Once, 1 dose, On 04/21/25 at 0750, STAT 0838 (Given - Provid er: Stacey Wen RN) famotidine PF (Pepcid) injection 20 mg (COMPLETED) 20 mg, Intravenous, Once, 1 dose, On 04/21/25 at 0855, STAT 1012 (Given - Provid er: Stacey Wen RN) gi cocktail oral solution 30 mL (COMPLETED) 30 mL, Oral, Once, 1 dose, On 04/21/25 at 0855, STAT 1012 (Given - Provid er: Stacey Wen RN) iohexol (OMNIPaque) 300 MG/ML injection 100 mL (COMPLETED) 100 mL, Intravenous, Once in imaging, 1 dose, Starting on 04/21/25 at 0807, Until 04/21/25 at 0941, Routine, Imaging Protocol Orders 09 (Given - Provid er: Alisha Hoffman) ondansetron (Zofran) injection 4 mg (COMPLETED) 4 mg, Intravenous, Once, 1 dose, On 04/21/25 at 0750, STAT 0837 (Given - Provid er: Stacey Wen RN) documented in this encounter Additional Health Concerns Assessment Noted Time PHQ-9 Depression Total Score: 0 04/16/20 8:13 AM EDT A fall risk assessment has been complete d for the patient 04/16/2025 8:15 AM EDT A Body Mass Index follow-up plan has been documented for the patient 04/16/2025 1:51 PM EDT documented as of this encounter Care Teams Scales Inspector Relationship Specialty Start Date End Date Joanna Osborne DO [address] [facility] [address] [place] [address] PCP - General 04/09/25 documented as of this encounter
--- OUTSIDE RECORDS SUMMARY | 2025-04-25 10:39 | XMS_ITS | Encounter Summary ---
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 Name Role Phone Joanna Osborne Primary Care Provider [phone] Reason for Referral * Consultation (Routine) - Authorized Specialty Diagnoses / Procedures Referred By Sergio espitia Referred To Contact Neurology Diagnoses Intermittent confusion Imelda Arroyo MD [address] [place] [address] Phone: tel: fax: [facility] [address], [address] [place] [address] Phone: tel: fax: Referral ID Status Reason Start Date Expiration Date Visits Requested Visits Authorized [id number] Authorized Specialty Services Required 04/25/2025 10/25/2026 1 1 Reason for Visit * Reason Comments Nausea Swelling Encounter Details Date Type Department Care Team ([facility] Contact Info) Description 04/25/2025 10:39 AM EDT - 04/25/2025 2:24 PM EDT Emergency [facility] Emergency Department [address] [place] [address] Imelda Arroyo MD [address] [place] [address] Nausea and vomiting, unspecified vomiting type (Primary Dx); Hyponatremia; Intermittent confusion Discharge Disposition: Home or Self Care Social [...] Sign Reading Time Taken Comments Blood Pressure 147/81 04/25/2025 2:21 PM EDT Pulse 68 04/25/2025 2:21 PM EDT Temperature 36.7 C (98.1 F) 04/25/2025 10:05 AM EDT Respiratory Rate 16 04/25/2025 10:05 AM EDT Oxygen Saturation 97% 04/25/2025 2:21 PM EDT Inhaled Oxygen Concentration - - Weight 66.7 kg (147 lb) 04/25/2025 10:05 AM EDT Height - - Body Mass Index 26.89 04/21/2025 7:16 AM EDT documented in this encounter Functional Status * Calculated C-SSRS Risk Score (Lifetime/Recent) Answer Date of Assessment Author No Risk Indicated 04/25/2025 10:45 AM EDT Kala Ram RN * Question Answer Date of Assessment Author 1. Wish to be (Past 1 Month) No 025 10:45 AM EDT Kala Ram RN 2. Non-Specific Active Suici naila Thoughts (Past 1 Month) No 04/25/2025 10:45 AM EDT Michel Ram sa, RN 6. Suicidal Behavior (Lifetime) No 10:45 AM EDT Kala Ram RN documented as of this encounter Discharge Instructions * Discharge Instructions* Chris Glynn MD - 04/25/2025 2:00 PM EDT You were seen in the emergency department for nausea and vomiting. We have ordered Zofran and probiotics for you to take as needed for your nausea and while you are taking antibiotics, respectively. You have also been given a referral with Neurology for cognitive testing to use as needed. Please follow up for your PCP in the next 1-2 weeks as needed. You may return to the emergency department if you develop any new, worsening, concerning symptoms. documented in this encounter Medications at [...] each affected eye every 12 hours 02/06/2016 hydroCHLOROthiazide (Microzide) 12.5 MG capsule 11/07/2024 hydrOXYzine HCl (Atarax) 25 MG tablet TAKE 1 TO 2 TABLETS BY MOUTH AT BEDTIME NEEDED FOR INSOMNIA lactobacillus (Culturelle Immunity Support) capsule Take 1 capsule by mouth daily. 30 capsule 04/25/2025 5 losartan (Cozaar) 100 MG tablet Take 1 tablet by mouth daily. metoclopramide (Reglan) 10 MG tablet Take 1 tablet by mouth 4 times a day. mupirocin (Bactroban) 2 % ointment APPLY OINTMENT TOPICALLY TO AFFECTED AREA THREE TIMES DAILY UNTIL HEALED 03/23/2025 ondansetron ODT (Zofran-ODT) 4 MG disintegrating tablet Dissolve 1 tablet on the tongue every 6 hours as needed for nausea. 12 tablet 04/25/2025 5 pantoprazole (Protonix) 40 MG EC tablet Take 1 tablet by mouth 1 time each day. 11/13/2024 documented as of this encounter Miscellaneous Notes * Progress Notes - Theron Cook, PharmD - 04/25/2025 2:03 PM EDT [facility] HCV Protocol Exclusion ED - Bhavik Exclusions from Treatment Protocol: [] Patient has life threatening emergent condition or injury in the ED [] Current or previous history of decompensated cirrhosis including, but not limited to: ascites, hepatic encephalopathy, upper GI bleed, hepatic decompensation, or history of liver cancer/hepatocellular carcinoma (HCC) [x] HCV Ab (-)/RNA nondetected [] HIV Positive or indeterminate result [] Hepatitis B sAg positive [] Previous HCV Direct Acting Antiviral (DAA) treatment [] Possible [] [] Patient followed by Hospice [] Patient followed by Transplant [] Life expectancy <1 year [] Other Documented Previous HCVAb+? No Previous HCVAb+ Date: Noted in chart, but no labs Documented Previous HCVRNA+? No Previous HCVRNA+ Date: N/a Current HCVAb+? Yes Current HCVAb+ Date: 04/21/2025 Initial HCV treatment work up was unable to be performed If unable to perform, please select reason: Exclusion from Simplified Treatment Theron Cook PharmD [facility] ED HCV Team [phone] Secure chat team with questions: [facility] ED [facility] * ED Provider Notes - Chris Glynn MD - 04/25/2025 10:00 AM EDT - HPI Chief Complaint Patient presents with Nausea Swelling PIT Note: Negra Palma is a 69 y.o. female who presents to the ED with Nausea and Swelling. Pt complains of fatigue, dizziness, nausea, abdominal pain and RLE swelling for multiple weeks. She reports sustaining leg wound 6 weeks ago and states the swelling looks better than during her last ED visit. Pt reports completing abx courses of clindamycin in late March and doxycycline in April without relief to symptoms. She states she was referred to Hepatology during last ED visit. Pt reports nausea/vomiting onset with abdominal distention during the beginning of April. She reports recent sleep difficultyand an acute panic attack this morning at 0400 secondary to her symptoms. Pt denies new fevers, chills, chest pain, SOA. 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 69-year-old female with a history of hypothyroidism, osteoarthritis presents to the emergency department with concerns of nausea and vomiting. The patient is the historian. The patient is very anxious throughout the exam. She is currently on antibiotics for cellulitis of her left lower extremity. She has two days left of the antibiotics. The patient was seen here over the weekend and found to be constipated. The patient has continued to have nausea and vomiting and would like for the nausea to be addressed today. She has been reaching out to her PCP and not received a prescription for Zofran.The patient has had a mild headache. She has otherwise not had any blurry vision, chest pain, shortness of breath, urinary symptoms. The patient has not had any fevers. Patient History Past Medical History[1] Surgical History[2] Family History[3] Social History[4] Allergies: Allergies[5] Physical Exam ED Triage Vitals [04/25/25 1005] Temp Heart Rate Resp BP 36.7 ??C (98.1 ??F) 73 16 (!) 159/93 SpO2 Temp Source Heart Rate Source Patient Position 97 % Oral -- Sitting BP Location FiO2 (%) Right arm -- Physical Exam Vitals reviewed. Constitutional: General: She is not in acute distress. HENT: Head: Normocephalic. Mouth/Throat: Mouth: Mucous membranes are moist. Eyes: Extraocular Movements: Extraocular movements intact. Pupils: Pupils are equal, round, and reactive to light. Cardiovascular: Rate and Rhythm: Normal rate. Pulses: Normal pulses. Pulmonary: Effort: Pulmonary effort is normal. No respiratory distress. Breath sounds: Normal air entry. Abdominal: General: There is no distension. Musculoskeletal: General: No deformity. Normal range of motion. Cervical back: Normal range of motion. Skin: Capillary Refill: Capillary refill takes less than 2 seconds. Comments: Healing scab on left lower extremity Neurological: Mental Status: She is alert and oriented to person, place, and time. Mental status is at baseline. Psychiatric: Comments: anxious Meggan Coma Scale Score: 15 ED Course & MDM Assessment: 69 y.o. female presents to ED with complaint of nausea and vomiting. It should be noted that the chronic conditions includes hypothyroidism, osteoarthritis, which currently is not at goal therapy. This complicates the clinical picture because it Comorbidities: may be exacerbating symptoms Differential Diagnosis: Include but are not limited to electrolyte abnormalities, gastroenteritis, gastritis, constipation, gut disturbance from antibiotics, dehydration, anxiety among others. On initial assessment, the patient is hemodynamically stable but otherwise a little anxious and tearful. The patient's physical exam is benign. The patient's capillary refill is between 2-3. Her abdomen is soft. During conversation with the patient, she requests zofran. Given she has had some recent trouble with bowel movements and is currently taking 2 antibiotics, I offered the patient probiotics. The patient is very grateful. Per her son, the patient's sodium is always low. Encouraged the patient to continue staying hydrated. Gave the patient a referral for cognitive testing. Patient is agreeable with this plan and discharge. In order to fully explore the differential diagnosis the following treatments and tests were ordered: ED Course as of 04/25/25 1447 WedApr 25, 2025 1125 Evaluated at bedside. Patient is tearful and anxious. Patient states that she is been having nausea and vomiting. She wants to be prescribed Zofran however nobody has prescribed it for her. She otherwise does not have any concerns at this time. Her last bowel movement was this morning. She does not have any headaches, blurry vision, chest pain, shortness of breath, abdominal pain. Her physical exam is otherwise benign. She is hypertensive but otherwise hemodynamically stable. [KG] 1126 CBC w/diff(!) No leukocytosis or anemia. [KG] 1126 CMP(!) Hyponatremic and hypochloremic, will give some fluids. [KG] 1127 Troponin T, High Sensitivity, 0 Hour(!): 23 Elevated, will wait for 2nd trop [KG] 1127 N-Terminal, PROBNP, Plasma: 336 No significant elevation [KG] 1127 Lipase(!): 157 Elevated, however, no pain on examination in the epigastric region [KG] 1228 Osmolality, Serum(!): 264 [KG] 1229 Urinalysis with reflex microscopic AND reflex culture (IF UTI SUSPECTED) (-) UTI [KG] 1351 Troponin T, High Sensitivity, 2 Hour(!): 21 No significant delta trop [KG] ED Course User Index [KG] Chris Glynn MD Clinical Impressions as of 04/25/25 1447 Nausea and vomiting, unspecified vomiting type Hyponatremia Intermittent confusion Social Determinates of Health Risks (including Economic Stability, Education and level of understanding, Healthcare access and quality and concerning social factors): Poor health literacy Ultimately, this patient was Was discharged Home (Discharge) The primary encounter diagnosis was Nausea and vomiting, unspecified vomiting type. Diagnoses of Hyponatremia and Intermittent confusion were also pertinent to this visit. . Patient was counseled on the diagnoses. Discharge medications if any are listed below. Listed medications are thought be either curative for listed diagnoses or will help control ongoing symptoms. Patient is requested to follow up with Patient's Primary Care Provider and Neurology in order to obtain routine follow-up and specialty care. Instructions on follow up as well as precautions to return to the ER provided verbally by the EM provider, as well as written in patients discharge education packet. ED Prescriptions None - 04/25/2025, 10:11 AM Scribe Attestation: This note was dictated to me, Loi Marie, acting as a scribe for Dr. Enrike Chapman M.D. Attending Attestation: This documentation was recorded by Loi Marie acting as a scribe in my presence at the time of the encounter and accurately reflects the service I personally performed and thedecisions made by me. [1] Past Medical History: Diagnosis Date Chronic kidney disease History of transfusion 1980 Infectious viral hepatitis 1994 Shingles Urinary tract infection 2016 Varicella 1957 [2] Past Surgical History: Procedure [...] Itching Ciprofloxacin Hcl Rash jaundice Sulfamethoxazole-Trimethoprim Rash Chris Glynn MD Resident 04/26/252124 Cosigned by Imelda Arroyo MD at 04/29/2025 8:54 AM EDT Associated attestation - Imelda Arroyo MD - 04/29/2025 8:54 AM EDT I saw and evaluated the patient with the resident/fellow. I discussed the case with the resident/fellow and agree with the findings and plan as documented. * ED Triage Notes - Milka Lazar RN - 04/25/2025 10:00 AM EDT Pt reports multiple weeks of fatigue, dizziness, nausea, abd pain and swelling. Was seen here recently and referred to [facility]. Pt also states she's having increased anxiety/panic attacks at home. documented in this encounter Plan of Treatment Upcoming Encounters Date Type Department Care Team (Late st Contact Info) Description 05/15/2025 3:30 PM EDT Office Visit [facility] [address] [place] [id number] Santi Hoffmann MD [address] [facility] [address] [place] [address] Scheduled Referrals Name Type Priority Associated Diagnoses Order Schedule Discharge Ambulatory referral to Neurology Outpatient Referral Routine Intermittent confusion 1 Occurrences starting 04/25/2025 until 10/27/2026 documented as of this encounter Procedures Procedure Name Priority Date/Time Associated Diagnosis Comments TROPONIN T, HIGH SENSITIVITY, 2 HOUR, PLASMA Timed 04/25/2025 1:03 PM EDT URINALYSIS WITH REFLEX MICROSCOPIC AND CULTURE STAT 04/25/2025 11:52 AM EDT URINE MONDRAGON PANEL STAT 04/25/2025 11:5 2 AM EDT SODIUM, URINE, RANDOM STAT 04/25/2025 11:52 AM EDT OSMOLALITY, URINE STAT 04/25/2025 11: 52 AM EDT URINALYSIS WITH REFLEX MICROSCOPIC STAT 04/25/2025 11:52 AM EDT ECG ADULT STAT 04/25/2025 10:44 AM EDT TROPONIN T, HIGH SENSITIVITY, 0 HOUR, PLASMA, REFLEX TO 2 HOUR STAT 04/25/2025 10:37 AM EDT N-TERMINAL PROBNP, PLASMA STAT 04/25/2025 10:37 AM EDT CBC WITH AUTO DIFFERENTIAL STAT 04/25/2025 10:37 AM EDT OSMOLALITY, SERUM STAT Add-on 04/25/2025 10: 37 AM EDT LIPASE, PLASMA STAT 04/25/2025 10:37 AM EDT COMPREHENSIVE METABOLIC PANEL, PLASMA STAT 04/25/2025 10:37 AM EDT documented in this encounter Results * (ABNORMAL) Troponin T, High Sensitivity, 2 Hour, Plasma (04/25/2025 1:03 PM EDT) Troponin T, High Sensitivity, 2 Hour 21(H) <14 ng/L 04/25/2025 1:29 PM EDT [facility] Troponin Delta 2 <10 ng/L 04/25/2025 1:29 PM EDT [facility] Troponin Delta Interpretation Not Significant 04/25/2025 1:29 PM EDT [facility] Comment:Not Significant. No acute change in troponin observed between the baseline and 2 hour samples. Blood Venous blood specimen / Unknown Venipuncture / Unknown 04/25/2025 1:03 PM EDT 04/25/2025 1:05 PM EDT us Titus Crandall MD LAB BLOOD ORDERABLES Final Res ult [facility] [address] [place] [address] * Sodium, urine, random (04/25/2025 11:52 AM EDT) Sodium, Urine 60 mmol/L 04/25/2025 12:31 PM EDT [facility] Urine Urine specimen obtained by clean catch procedure / Unknown Non-blood Collection / Unknown 04/25/2025 11:52 AM EDT 04/25/2025 12:15 PM EDT Imelda Arroyo MD LAB URINE ORDERABLES Final Res ult Performing Organization Address [facility]/ZIP Co de Phone Number [facility] [address] [place] [address] * Osmolality, urine (04/25/2025 11:52 AM EDT) Osmolality, Urine 315 50 - 1,200 mOsm/kg 04/25/2025 12:56 PM EDT [facility] Urine Urine specimen obtained by clean catch procedure / Unknown Non-blood Collection / Unknown 04/25/2025 11:52 AM EDT 04/25/2025 12:15 PM EDT Imelda Arroyo MD LAB URINE ORDERABLES Final Res ult Performing Organization Address City/[facility]/ZIP Co de Phone Number [facility] [address] [place] [address] * Urine Mondragon Panel (04/25/2025 11:52 AM EDT) Extra Reflex urine culture not indicated 04/25/2025 9:01 PM EDT [facility] Comment: Previously prelim verified as Specimen evaluation in progress on 04/25/2025 at 1402 EDT. Previously prelim verified as Specimen evaluation in progress on 04/25/2025 at 1501 EDT. Previously prelim verified as Specimen evaluation in progress on 04/25/2025 at 1602 EDT. Previously prelim verified as Specimen evaluation in progress on 04/25/2025 at 1702 EDT. Previously prelim verified as Specimen evaluation in progress on 04/25/2025 at 1802 EDT. Previously prelim verified as Specimen evaluation in progress on 04/25/2025 at 1901 EDT. Previously prelim verified as Specimen evaluation in progress on 04/25/2025 at 2002 EDT. Urine Urine specimen obtained by clean catch procedure / Unknown Non-blood Collection / Unknown 04/25/2025 11:52 AM EDT 04/25/2025 12:07 PM EDT us Titus Crandall MD LAB URINE ORDERABLES Final Res ult [facility] [address] [place] [address] * Urinalysis with reflex microscopic (Culture NOT Included) (04/25/2025 11:52 AM EDT) Color, Urine Yellow LAB URINALYSIS - AUTOMATED METHOD 04/25/2025 11:58 AM EDT [facility] Clarity, Urine Clear LAB URINALYSIS - AUTOMATED METHOD 04/25/2025 11:58 AM EDT [facility] Spec [place], Urine 1.011 1.005 - 1.030 LAB URINALYSIS - AUTOMATED METHOD 04/25/2025 11:58 AM EDT [facility] pH, Urine 7.5 5.0 - 8.0 LAB URINALYSIS - AUTOMATED METHOD 04/25/2025 11:58 AM EDT [facility] Protein, Urine Negative Negative mg/dL LAB URINALYSIS - AUTOMATED METHOD 04/25/2025 11:58 AM EDT [facility] Glucose, Urine Negative Negative mg/dL LAB URINALYSIS - AUTOMATED METHOD 04/25/2025 11:58 AM EDT [facility] Ketones, Urine Negative Negative mg/dL LAB URINALYSIS - AUTOMATED METHOD 04/25/2025 11:58 AM EDT [facility] Blood, Urine Negative Negative LAB URINALYSIS - AUTOMATED METHOD 04/25/2025 11:58 AM EDT [facility] Bilirubin, Urine Negative Negative LAB URINALYSIS - AUTOMATED METHOD 04/25/2025 11:58 AM EDT [facility] Urobilinogen, Urine 0.2 0.2 to 1.0 mg/dL LAB URINALYSIS - AUTOMATED METHOD 04/25/2025 11:58 AM EDT [facility] Leukocytes, Urine Negative Negative LAB URINALYSIS - AUTOMATED METHOD 04/25/2025 11:58 AM EDT [facility] Nitrite, Urine Negative Negative LAB URINALYSIS - AUTOMATED METHOD 04/25/2025 11:58 AM EDT [facility] Urine Urine specimen obtained by clean catch procedure / Unknown Non-blood Collection / Unknown 04/25/2025 11:52 AM EDT 04/25/2025 11:55 AM EDT Titus Crandall MD LAB URINE ORDERABLES Final Res ult [facility] [address] [place] [address] * EKG now - STAT (adult) (04/25/2025 10:44 AM EDT) EKG DIAGNOSIS CLASS Normal MUSE ECG Ventricular Rate 77 BPM MUSE ECG Atrial Rate 77 BPM MUSE ECG DE Interval 140 ms MUSE ECG QRSD Interval 86 ms MUSE ECG QT Interval 394 ms MUSE ECG QTC Interval 445 ms MUSE ECG P [place] 74 degrees MUSE ECG R [place] 12 degrees MUSE ECG T Wave [place] 42 degrees MUSE ECG Diagnosis Normal sinus rhythm MUSE ECG Diagnosis Normal ECG MUSE ECG Diagnosis MUSE ECG Diagnosis Confirmed by Ollie Galeana ([id number]) on 04/25/2025 11:11:27 AM MUSE ECG 04/25/2025 10:4 4 AM EDT 04/25/2025 11:11 AM EDT Titus Crandall MD ECG ORDERABLES Final Result MUSE ECG * (ABNORMAL) Osmolality (04/25/2025 10:37 AM EDT) Osmolality, Serum 264(L) 280 - 301 mOsm/Kg 04/25/2025 12:22 PM EDT [facility] Blood Venous blood specimen / Unknown Venipuncture / Unknown 04/25/2025 10:37 AM EDT 04/25/2025 10:41 AM EDT us Imelda Arroyo MD LAB BLOOD ORDERABLES Final Res ult Performing Organization Address City/[facility]/ZIP Co de Phone Number [facility] [address] [place] [address] * BNP (04/25/2025 10:37 AM EDT) N-Terminal, PROBNP, Plasma 336 0 - 899 pg/mL 04/25/2025 11:08 AM EDT [facility] Blood Venous blood specimen / Unknown Venipuncture / Unknown 04/25/2025 10:37 AM EDT 04/25/2025 10:41 AM EDT Titus Crandall MD LAB BLOOD ORDERABLES Final Res ult Performing Organization Address [facility] Co de Phone Number [facility] [address] [place] [address] * (ABNORMAL) Troponin now and 120 min (04/25/2025 10:37 AM EDT) Troponin T, High Sensitivity, 0 Hour 23(H) <14 ng/L 04/25/2025 11:08 AM EDT [facility] Blood Venous blood specimen / Unknown Venipuncture / Unknown 04/25/2025 10:37 AM EDT 04/25/2025 10:41 AM EDT Titus Crandall MD LAB BLOOD ORDERABLES Final Res ult Performing Organization Address City/[facility]/ZIP Co de Phone Number [facility] [address] [place] [address] * (ABNORMAL) Lipase (04/25/2025 10:37 AM EDT) Lipase, Plasma 157(H) 19 - 63 U/L 04/25/2025 11:08 AM EDT [facility] Blood Venous blood specimen / Unknown Venipuncture / Unknown 04/25/2025 10:37 AM EDT 04/25/2025 10:41 AM EDT Titus Crandall MD LAB BLOOD ORDERABLES Final Res ult [facility] [address] [place] [address] * (ABNORMAL) CMP (04/25/2025 10:37 AM EDT) Glucose, Plasma 107(H) 74 - 99 mg/dL 04/25/2025 11:08 AM EDT [facility] BUN, Plasma 22 8 - 23 mg/dL 04/25/2025 11:08 AM EDT [facility] Creatinine, Plasma 0.87 0.60 - 1.10 mg/dL 04/25/2025 11:08 AM EDT [facility] BUN/Creatinine Ratio 04/25/2025 11:08 AM EDT [facility] Sodium, Plasma 126(L) 136 - 145 mmol/L 04/25/2025 11:08 AM EDT [facility] Potassium, Plasma 3.6 3.6 - 4.9 mmol/L 04/25/2025 11:08 AM EDT [facility] Chloride, Plasma 90(L) 97 - 107 mmol/L 04/25/2025 11:08 AM EDT [facility] CO2, Plasma 24 22 - 29 mmol/L 04/25/2025 11:08 AM EDT [facility] Anion Gap 12 6 - 16 mmol/L 04/25/2025 11:08 AM EDT [facility] Total Calcium, Plasma 9.8 8.9 - 10.2 mg/dL 04/25/2025 11:08 AM EDT [facility] Total Protein 7.0 6.3 - 7.9 g/dL 04/25/2025 11:08 AM EDT [facility] Albumin, Plasma 4.1 3.5 - 5.2 g/dL 04/25/2025 11:08 AM EDT [facility] AST, Plasma 35 10 - 35 U/L 04/25/2025 11:08 AM EDT [facility] ALT, Plasma 44(H) 10 - 35 U/L 04/25/2025 11:08 AM EDT [facility] Alkaline Phosphatase, Plasma 137 46 - 142 U/L 04/25/2025 11:08 AM EDT [facility] Total Bilirubin, Plasma 0.6 0.2 - 1.1 mg/dL 04/25/2025 11:08 AM EDT [facility] eGFRcr 71.3 mL/min/1.7 3m*2 04/25/2025 11:08 AM EDT [facility] Comment:Reported eGFRcr in m L/min/1.73m2 is based the CKD-EPI 2020 equation that does not use a race coefficient. Blood Venous blood specimen / Unknown Venipuncture / Unknown 04/25/2025 10:37 AM EDT 04/25/2025 10:41 AM EDT us Titus Crandall MD LAB BLOOD ORDERABLES Final Res ult [facility] [address] [place] [address] * (ABNORMAL) CBC w/diff (04/25/2025 10:37 AM EDT) WBC Count 6.98 3.70 - 10.30 10*3/uL LAB HEMATOLOGY METHOD 04/25/2025 10:44 AM EDT [facility] RBC Count 3.87(L) 3.90 - 5.20 10*6/uL LAB HEMATOLOGY METHOD 04/25/2025 10:44 AM EDT [facility] HGB 11.8 11.2 - 15.7 g/dL LAB HEMATOLOGY METHOD 04/25/2025 10:44 AM EDT [facility] HCT 33.3(L) 34.0 - 45.0 % LAB HEMATOLOGY METHOD 04/25/2025 10:44 AM EDT [facility] Platelet Count 292 155 - 369 10*3/uL LAB HEMATOLOGY METHOD 04/25/2025 10:44 AM EDT [facility] MCV 86 79 - 98 fL LAB HEMATOLOGY METHOD 04/25/2025 10:44 AM EDT [facility] MCH 30.5 26.0 - 32.0 pg LAB HEMATOLOGY METHOD 04/25/2025 10:44 AM EDT [facility] MCHC 35.4 30.7 - 35.5 g/dL LAB HEMATOLOGY METHOD 04/25/2025 10:44 AM EDT [facility] RDW 12.1 11.5 - 14.5 % LAB HEMATOLOGY METHOD 04/25/2025 10:44 AM EDT [facility] MPV 9.1 8.8 - 12.5 fL LAB HEMATOLOGY METHOD 04/25/2025 10:44 AM EDT [facility] nRBC 0.0 <=0.0 per 100 WBCs LAB HEMATOLOGY METHOD 04/25/2025 10:44 AM EDT [facility] Differential Type Automated LAB HEMATOLOGY METHOD 04/25/2025 10:44 AM EDT [facility] Neutrophils % 70 % LAB HEMATOLOGY METHOD 04/25/2025 10:44 AM EDT [facility] Lymphocytes % 17 % LAB HEMATOLOGY METHOD 04/25/2025 10:44 AM EDT [facility] Monocytes % 10 % LAB HEMATOLOGY METHOD 04/25/2025 10:44 AM EDT [facility] Eosinophils % 3 % LAB HEMATOLOGY METHOD 04/25/2025 10:44 AM EDT [facility] Basophils % 0 % LAB HEMATOLOGY METHOD 04/25/2025 10:44 AM EDT [facility] Immature Granulocytes % 0 % LAB HEMATOLOGY METHOD 04/25/2025 10:44 AM EDT [facility] Neutrophils Absolute 4.90 1.60 - 6.10 10*3/uL LAB HEMATOLOGY METHOD 04/25/2025 10:44 AM EDT [facility] Lymphocytes Absolute 1.20 1.20 - 3.90 10*3/uL LAB HEMATOLOGY METHOD 04/25/2025 10:44 AM EDT [facility] Monocytes Absolute 0.66 0.30 - 0.90 10*3/uL LAB HEMATOLOGY METHOD 04/25/2025 10:44 AM EDT [facility] Eosinophils Absolute 0.18 0.00 - 0.50 10*3/uL LAB HEMATOLOGY METHOD 04/25/2025 10:44 AM EDT [facility] Basophils Absolute 0.02 0.00 - 0.10 10*3/uL LAB HEMATOLOGY METHOD 04/25/2025 10:44 AM EDT [facility] Immature Granulocytes Absolute 0.02 0.00 - 0.06 10*3/uL LAB HEMATOLOGY METHOD 04/25/2025 10:44 AM EDT [facility] Blood Venous blood specimen / Unknown Venipuncture / Unknown 04/25/2025 10:37 AM EDT 04/25/2025 10:42 AM EDT Narrative [facility] - 04/25/2025 10:44 AM EDT Therapeutic decision making should be based on absolute values, rather than percentages. us Titus Crandall MD LAB BLOOD ORDERABLES Final Res ult [facility] [address] [place] [address] documented in this encounter Visit Diagnoses Diagnosis Nausea and vomiting, unspecified vomiting type- Primary Hyponatremia Hyposmolality and/or hyponatremia Intermittent confusion documented in this encounter Administered Medications Inactive Administered Medications - up to 3 most recent administrations Medication Order MAR Action Action Date Dose Rate Site lactated Ringer's infusion 500 mL 500 mL, Intravenous, Once (Bolus), 1 dose, On Wed04/25/25 at 1130, STAT New Bag 04/25/2025 11:39 AM EDT 500 mL ondansetron (Zofran) injection 4 mg 4 mg, Intravenous, Once, 1 dose, On Wed04/25/25 at 1020, STAT Given 04/25/2025 10:49 AM EDT 4 mg documented in this encounter Active and Recently Administered Medications Times are shown in EDT. Scheduled Medication Order 04/23/2025 04/24/2025 04/25/2025 lactated Ringer's infusion 500 mL (COMPLETED) 500 mL, Intravenous, Once (Bolus), 1 dose, On Wed04/25/25 at 1130, STAT 1139 (New Bag - Prov ider: Kala Ram, RN)1330 (Stopped - Provider: Kala Ram, KATHLEEN) ondansetron (Zofran) injection 4 mg (COMPLETED) 4 mg, Intravenous, Once, 1 dose, On Wed04/25/25 at 1020, STAT 1049 (Given - Provid er: Kala Ram, KATHLEEN) documented in this encounter Additional Health Concerns Assessment Noted Time PHQ-9 Depression Total Score: 0 04/16/20 8:13 AM EDT A fall risk assessment has been complete d for the patient 04/16/2025 8:15 AM EDT A Body Mass Index follow-up plan has been documented for the patient 04/16/2025 1:51 PM EDT documented as of this encounter Care Teams Strip Cutter Relationship Specialty Start Date End Date Joanna Osborne DO [address] [facility] [address] [place] [address] PCP - General 04/09/25 documented as of this encounter
--- OUTSIDE RECORDS SUMMARY | 2025-05-01 11:30 | XMS_ITS | Encounter Summary ---
Author Organization [employer] ([place], [place], [place], [place]) Address [address] [place] [address] Care Team Providers Care Vascular Manager Name Role Phone Diane Velez PA-C Primary Care Provider +1- [phone] Reason for Visit * Reason Comments Follow-up Pt c/o possible cell ulitis on Left leg . Pt states is not getting better. Encounter Details Date Type Department Care Team (Late st Contact Info) Description 05/01/2025 11:30 AM EDT Office Visit [facility] Primary Care & Internal Med 14[address] [facility] [address] [address] Diane Velez PA-C [address] [address] Chronic hepatitis C without hepatic coma (HCC) (Primary Dx); Edema; Pain of left lower extremity; Acute cellulitis; Puncture wound of left lower leg, subsequent encounter; Nausea; Abdominal distention; Confusion Social History Tobacco Use Types Packs/Day Years [...] things needed for daily living? No 06/27/2024 [facility] - Mental Health Answer Date Recorde d [...] Date Gil rded Speak language other than Maltese at home Not on file 11/13/2023 Want [...] Sign Reading Time Taken Comments Blood Pressure 124/74 05/01/2025 11:29 AM EDT Pulse 70 05/01/2025 11:29 AM EDT Temperature - - Respiratory Rate 17 05/01/2025 11:29 AM EDT Oxygen Saturation 97% 05/01/2025 11:29 AM EDT Inhaled Oxygen Concentration - - Weight 63 kg (139 lb) 05/01/2025 11:29 AM EDT Height 157.5 cm (5' 2 ) 05/01/2025 11:29 AM EDT Body Mass Index 25.42 05/01/2025 11:29 AM EDT documented in this encounter Progress Notes * Diane Velez PA-C - 05/01/2025 11:30 AM EDT CC/HPI Negra Palma is a 69 y.o. female has a past medical history of Arthritis, GERD (gastroesophageal reflux disease), Hemorrhoids, History of hepatitis C, Hypertension, Hypothyroidism, MGUS (monoclonal gammopathy of unknown significance), Osteoporosis, and Renal cancer (HCC). here for emergency department follow-up. Patient is accompanied by her son and [id number] in office today. Maritza has had a difficult time of late. She suffered trauma to the left lower extremity a few weeksago with complications of extremity cellulitis. Patient subsequently completed multiple antibiotic courses including clindamycin and doxycycline with transient improvement. She was followed by infectious disease for a short period however no intravenous antibiotics were prescribed. Patient and son report that the leg wound looks better today however there is continued redness, warmth and streaking as well as mild discomfort. This is complicated by the fact that patient has also experienced bilateral lower extremity swelling that is atypical for her. She now is experiencing anasarca with abdominal distention. This is in the setting of a patient with history of viral hepatitis treated years ago. Her LFTs had been normal until evaluation in the emergency room this past April with significant AST/ALT elevation. She also has history of renal cell carcinoma and is status post nephrectomy with solitary kidney. Patient was recently seen at emergency room on 621 for nausea that was intractable in nature. Physical examination per ED provider thought to be benign. CBC without leukocytosis or anemia. She wasmildly low in sodium but this is a chronic finding. Abdominal CT 04/21/2025 was without obstruction or significant abnormality. No evidence of overly cirrhotic liver. She was found to be constipated and MiraLAX recommended. However, based on AST/ALT elevation in the setting of previous hepatitis C infection and bilateral lower extremity swelling, there was concern regarding the possibility of cirrhosis. She was referred to hepatology. Patient is willing to go to [facility] but also sought out her former GI specialist Dr. Cochran.She has an appointment with him on 21 May. Her son reports that she has had sleep disturbance, sleepwalking as well as increased confusion over the last several days. She is able to get some sleep with 2 tablets of hydroxyzine nightly. Patient is using Zofran for nausea. No known history of hepatic encephalopathy. She wonders if she could also have a UTI based on her son's concern regarding her confusion. Patient denies urinary symptoms or fevers. However, she does have night sweats. Problem List Items Addressed This Visit Digestive Viral hepatitis C - Primary ROS Review of Systems All other systems [...] Anxiety Primary insomnia Objective: Physical Exam BP 124/74 (BP Location: Left arm, Patient Position: Sitting, Cuff Size: Adult) Pulse 70 Resp 17 Ht 1.575 m (5' 2 ) Wt 63 kg (139 lb) SpO2 97% BMI 25.42 kg/m?? Gen: well appearing 69 y.o. female in no acute distress, mildly anxious, alert and oriented, afebrile nontoxic, no clear evidence of scleral icterus or jaundice noted HEENT: MMM, no scleral icterus, no abnormalities NECK: normal ROM CV: RRR, no rubs, murmurs, gallops. Strong peripheral pulses PULM: CTAB, normal work of breathing GI: Abdominal distention noted, nontender, normal bowel sounds MSK: Moves all joints in all planes without obvious difficulty Extremities: Anasarca with swelling affecting bilateral lower extremities up to thigh level SKIN: no rashes, no jaundice NEURO: AOx3. Symmetric face. Moves all extremities equally PSYCH: normal mood, congruent affect Assessment/Plan: Negra Palma is a 69 y.o. female here for 1. Chronic hepatitis C without hepatic coma (HCC) Lipase Comprehensive metabolic panel Urinalysis w/Microscopic Ammonia Lipase Comprehensive metabolic panel Urinalysis w/Microscopic Ammonia 2. Edema Lipase Comprehensive metabolic panel Urinalysis w/Microscopic Ammonia Lipase Comprehensive metabolic panel Urinalysis w/Microscopic Ammonia 3. Pain of left lower extremity 4. Acute cellulitis ANAEROBIC AND AEROBIC CULTURE CANCELED: ANAEROBIC AND AEROBIC CULTURE 5. Puncture wound of left lower leg, subsequent encounter 6. Nausea ondansetron (ZOFRAN-ODT) 8 MG disintegrating tablet Lipase Comprehensive metabolic panel Urinalysis w/Microscopic Ammonia Lipase Comprehensive metabolic panel Urinalysis w/Microscopic Ammonia 7. Abdominal distention Lipase Comprehensive metabolic panel Urinalysis w/Microscopic Ammonia Lipase Comprehensive metabolic panel Urinalysis w/Microscopic Ammonia 8. Confusion Lipase Comprehensive metabolic panel Urinalysis w/Microscopic Ammonia Lipase Comprehensive metabolic panel Urinalysis w/Microscopic Ammonia This is a very concerning situation. Maritza is generally not a complainer. She has significant anasarca and nausea as well as abdominal distention in the setting of history of viral hepatitis (treated). She has had a cellulitic process about the left lower extremity that is slow to heal. Patient's son who accompanies her here today has been concerned about her mental status. In regard to fluid retention, I am reticent to start diuretic therapy as she has an upcoming appointment with hepatology. This is likely related to cirrhosis. I will update chart with labs to includeCMP, lipase. Regarding her transient confusion, we will get an updated ammonia level. I have added on a urinalysis as well. She is alert and oriented in the office today. If confusion persists or worsens, ED precautions to be taken. For nausea, I have refilled her Zofran. For her lower extremity cellulitis, which has improved greatly, we have screened her for MRSA. I will notify her of results once available. I am reticent to give further antibiotics. She has a solitary kidney. There is no purulent drainage today or significant streaking of the lower extremity on examination. She is afebrile, nontoxic. For sleep walking, recommend hydroxyzine 25 mg 2 tablets nightly as well as close surveillance. Patient son will contact me with further questions or concerns. documented in this encounter Miscellaneous Notes * Addendum Note - Elvia Collado - 05/01/2025 11:30 AM EDTAddended by: ELVIA COLLADO on: 05/01/2025 01:33 PM Modules accepted: Orders * Addendum Note - Elvia Collado - 05/01/2025 11:30 AM EDTAddended by: ELVIA COLLADO on: 05/01/2025 02:12 PM Modules accepted: Orders documented in this encounter Plan of Treatment Upcoming Encounters Date Type Department Care Team (Late st Contact Info) Description 07/05/2025 9:15 AM EDT Appointment [address] [address] 07/10/2025 10:00 AM EDT Office Visit [facility] Primary Care & Internal Med [address] [phone] Diane Velez PA-C [address] [place] [address] Scheduled Orders Name Type Priority Associated Diagnoses Orde r Schedule ANAEROBIC AND AEROBIC CULTURE Pathology and Cytology Routine Acute cellulitis Expected: 05/01/2025, Expires: 05/01/2026 documented as of this encounter Procedures Procedure Name Priority Date/Time Associated Diagnosis Comments MICROSCOPIC EXAMINATION Routine 05/01/2025 12:37 PM EDT URINALYSIS W/ MICROSCOPIC Routine 05/01/2025 12:37 PM EDT Chronic hepatitis C without hepatic coma (HCC) Edema Nausea Abdominal distention Confusion LIPASE Routine 05/01/2025 12:37 PM EDT Chronic hepatitis C without hepatic coma (HCC) Edema Nausea Abdominal distention Confusion AMMONIA Routine 05/01/2025 12:37 PM EDT Chronic hepatitis C without hepatic coma (HCC) Edema Nausea Abdominal distention Confusion COMPREHENSIVE METABOLIC PANEL Routine 05/01/2025 12:37 PM EDT Chronic hepatitis C without hepatic coma (HCC) Edema Nausea Abdominal distention Confusion documented in this encounter Results * MICROSCOPIC EXAMINATION (05/01/2025 12:37 PM EDT) WBC None seen 0 - 5 /hpf [facility] RBC None seen 0 - 2 /hpf [facility] Epithelial Cells (non renal) None seen 0 - 10 /hpf [facility] Casts None seen None seen /lpf [facility] Bacteria None seen None seen/Few [facility] 05/01/2025 12:3 7 PM EDT 05/01/2025 Narrative [facility] - 05/02/2025 12:07 PM EDT Performed at: [address] [place] [id number] Textile Screen Maker: José Miguel Williamson PhD, Phone: [phone] Diane Velez PA-C PATHOLOGY/CYTOLOGY ORDERAB LES Final Result [facility] * (ABNORMAL) Ammonia (05/01/2025 12:37 PM EDT) Ammonia, Plasma 30(L) 31 - 169 ug/dL [facility] Blood 05/01/2025 12:3 7 PM EDT 05/01/2025 Narrative [facility] - 05/02/2025 12:07 PM EDT Performed at: - [address] [id number] Textile Screen Maker: José Miguel Williamson PhD, Phone: [phone] Diane Velez PA-C LAB BLOOD ORDERABLES Final Result Performing Organization Address [facility]/ZIP Co de Phone Number [facility] * (ABNORMAL) Urinalysis w/Microscopic (05/01/2025 12:37 PM EDT) Pathologist [facility] Specific [place], UA 1.009 1.005 - 1.030 [facility] pH, UA 7.5 5.0 - 7.5 [facility] Color, UA Yellow Yellow [facility] Appearance Clear Clear [facility] WBC Esterase Trace(A) Negative [facility] Protein, UA Negative Negative/Tra ce [facility] Glucose, Urine Negative Negative [facility] Ketones, UA Negative Negative [facility] Blood, UA Negative Negative [facility] Bilirubin, UA Negative Negative [facility] Urobilinogen,Se mi-Qn 1.0 0.2 - 1.0 mg/dL [facility] Nitrite, UA Negative Negative [facility] Microscopic Examination See below: [facility] Comment:Microscopic was marshal cated and was performed. Urine URINE SPECIMEN COLLECTION, CLEAN CATCH / Unknown 05/01/2025 12:37 PM EDT 05/01/2025 Narrative [facility] - 05/02/2025 12:07 PM EDT Performed at: [facility] [address] [id number] Textile Screen Maker: José Miguel Williamson PhD, Phone: [phone] us Diane Velez PA-C URINE ORDERABLES Final Res ult Performing Organization Address City/[facility]/ZIP Co de Phone Number [facility] * (ABNORMAL) Comprehensive metabolic panel (05/01/2025 12:37 PM EDT) [facility] Glucose, Serum 90 70 - 99 mg/dL [facility] BUN 22 8 - 27 mg/dL [facility] Creatinine, Serum 1.15(H) 0.57 - 1.00 mg/dL [facility] EGFR 51(L) >59 mL/min/1.7 3 [facility] BUN/Creatinine Ratio 19 12 - 28 [facility] Sodium, Serum 128(L) 134 - 144 mmol/L [facility] Potassium, Serum 4.5 3.5 - 5.2 mmol/L [facility] Chloride, Serum 90(L) 96 - 106 mmol/L [facility] Carbon Dioxide, Total 25 20 - 29 mmol/L [facility] Calcium, Serum 10.0 8.7 - 10.3 mg/dL [facility] Protein, Total, Serum 6.8 6.0 - 8.5 g/dL [facility] Albumin, Serum 4.3 3.8 - 4.8 g/dL [facility] Globulin, Total 2.5 1.5 - 4.5 g/dL [facility] Bilirubin, Total 0.8 0.0 - 1.2 mg/dL [facility] Alkaline Phosphatase, S 161(H) 44 - 121 IU/L [facility] AST (SGOT) 38 0 - 40 IU/L [facility] ALT (SGPT) 35(H) 0 - 32 IU/L [facility] Blood 05/01/2025 12:3 7 PM EDT 05/01/2025 Narrative [facility] - 05/02/2025 12:07 PM EDT Performed at: [address] [id number] Textile Screen Maker: José Miguel Williamson PhD, Phone: [phone] Diane Velez PA-C LAB BLOOD ORDERABLES Final Result [facility] * (ABNORMAL) Lipase (05/01/2025 12:37 PM EDT) [facility] Lipase, Serum 139(H) 14 - 85 U/L [facility] Blood 05/01/2025 12:3 7 PM EDT 05/01/2025 Narrative [facility] - 05/02/2025 12:07 PM EDT Performed at: [address] [id number] Textile Screen Maker: José Miguel Williamson PhD, Phone: [phone] Diane Velez PA-C LAB BLOOD ORDERABLES Final Result [facility] documented in this encounter Visit Diagnoses Diagnosis Chronic hepatitis C without hepatic coma (HCC)- Primary Edema Pain of left lower extremity Acute cellulitis Puncture wound of left lower leg, subsequent encounter Nausea Nausea alone Abdominal distention Flatulence, eructation, and gas pain Confusion Unspecified psychosis documented in this encounter Care Teams Vascular Manager Relationship Specialty Start Date End Date Diane Velez PA-C [address] [facility] [address] [place] [phone] PCP - General Family Medicine 04/18/25 documented as of this encounter
--- OUTSIDE RECORDS SUMMARY | 2025-05-03 11:14 | XMS_ITS | Encounter Summary ---
Author Organization [employer] ([place], [place], [place], [place]) Address [address] [place] [address] Care Team Providers Care Men'S Locker Room Attendant Name Role Phone Diane Velez PA-C Primary Care Provider +1- [phone] Joanna Osborne DO Primary Care Provider [phone] Diane Velez PA-C Primary Care Provider +- [phone] Reason for Visit * Reason Onset Date Comments Medication Problem 08/23/2024 Encounter Details Date Type Department Care Team (Late st Contact Info) Description 08/23/2024 Telephone [facility] Primary Care & Internal Med 1401 [facility] [address] [address] Diane Velez PA-C [address] [address] Medication Problem Social History Tobacco Use Types Packs/Day Years [...] Date Gil rded Speak language other than Libyan at home Not on file 11/13/2023 Want [...] as of this encounter Miscellaneous Notes * Telephone Encounter - Kathryn Mix - 08/23/2024 3:16 PM EDT Patient calling back for a third time in regards to getting an antibiotic sent in. Patient advised Diane is out of office today and tomorrow. She wanted to know if another provider could send thisin. Please Advise Per office note Diane states: I will send in antibiotic therapy in the form of [facility]xycycline [facility] [address] [facility] [address] [facility] [phone] * Telephone Encounter - Christel Leger - 08/23/2024 9:24 AM EDT Next Visit: Visit date not found Last Visit: 08/22/2024 Diane Velez PA-C Caller Message (please include as much detail as possible)?Mrs. Palma has called asking about the antibiotic that was discussed yesterday. She says no antibiotic was called in for her. Is follow up action needed?yes Caller Name:[place] Relation to patient:self Best Call Back OK to leave message on voicemail: yes documented in this encounter Plan of Treatment Upcoming Encounters Date Type Department Care Team (Late st Contact Info) Description 07/05/2025 9:15 AM EDT Appointment [address] [phone] 07/10/2025 10:00 AM EDT Office Visit [facility] Primary Care & Internal Med [address] [address] Diane Velez PA-C [address] [place] [phone] documented as of this encounter Visit Diagnoses Not on filedocumented in this encounter Care Teams Men'S Locker Room Attendant Relationship Specialty Start Date End Date Diane Velez PA-C [address] [address] PCP - General Family Medicine 10/21/23 01/10/25 Joanna Osborne DO 1401 [facility] [address] [place] [address] PCP - General Internal Medicine 01/11/25 01/16/25 Diane Velez PA-C [address] [place] [address] [address] [place] [phone] PCP - General Family Medicine 04/18/25 documented as of this encounter
--- OUTSIDE RECORDS SUMMARY | 2025-05-03 11:14 | XMS_ITS | Encounter Summary ---
Author Organization Healthcare Address [address] [place] [address] Care Team Providers Care Database Specialist Name Role Phone Joanna Osborne DO Primary Care Provider [phone] -[phone] Encounter Details Date Type Department Care Team (Latest Contact Info) Description 04/25/2025 Travel Social History Tobacco Use Types Packs/Day Years [...] on file documented as of this encounter Functional Status * Calculated C-SSRS [...] Ram RN documented as of this encounter Plan of Treatment Upcoming Encounters Date Type Department Care Team (Late st Contact Info) Description 05/15/2025 3:30 PM EDT Office Visit [facility] [address] [place] [address] Santi Hoffmann MD [address] [facility] [address] [place] [address] documented as of this encounter Visit Diagnoses Not on filedocumented in this encounter Additional Health Concerns Assessment Noted Time PHQ-9 Depression Total Score: 0 04/16/20 8:13 AM EDT A fall risk assessment has been complete d for the patient 04/16/2025 8:15 AM EDT A Body Mass Index follow-up plan has been documented for the patient 04/16/2025 1:51 PM EDT documented as of this encounter Care Teams Database Specialist Relationship Specialty Start Date End Date Joanna Osborne DO [address] [place] [address] PCP - General 04/09/25 documented as of this encounter
--- OUTSIDE RECORDS SUMMARY | 2025-05-03 11:14 | XMS_ITS | Encounter Summary ---
Author Organization Healthcare Address [address] [place] [address] Care Team Providers Care Union Carpenter Name Role Phone Joanna Osborne Primary Care Provider [phone] -[phone] Encounter Details Date Type Department Care Team (Late st Contact Info) Description 04/21/2025 Orders Only External Location [address] [place] [id number] Provider, External Social History Tobacco Use Types Packs/Day Years [...] Wen RN documented as of this encounter Plan of Treatment Upcoming Encounters Date Type Department Care Team (Late st Contact Info) Description 05/15/2025 3:30 PM EDT Office Visit [facility] [address] [place] [address] Santi Hoffmann MD [address] [facility] [address] [place] [address] documented as of this encounter Procedures Procedure Name Priority Date/Time Associated Diagnosis Comments POC ULTRASOUND 04/21/2025 documented in this encounter Results * POC Imaging (04/21/2025) Anatomical Region Laterality Modality Pelvis Other 04/21/2025 us External Provider IMG POINT OF CARE ULTRASOUND F inal Result documented in this encounter Visit Diagnoses Not on filedocumented in this encounter Additional Health Concerns Assessment Noted Time PHQ-9 Depression Total Score: 0 04/16/20 8:13 AM EDT A fall risk assessment has been complete d for the patient 04/16/2025 8:15 AM EDT A Body Mass Index follow-up plan has been documented for the patient 04/16/2025 1:51 PM EDT documented as of this encounter Care Teams Union Carpenter Relationship Specialty Start Date End Date Joanna Osborne DO 1401 [facility] [address] [place] [address] PCP - General 04/09/25 documented as of this encounter
--- OUTSIDE RECORDS SUMMARY | 2025-05-03 11:14 | XMS_ITS | Clinical Summary ---
Author Organization Healthcare Address [address] [place] [address] Care Team Providers Care Reproduction Production Manager Name Role Phone Joanna Osborne DO Primary Care Provider [phone] Allergies Active Allergy Reactions Criticality Noted Date Comments Ciprofloxacin Itching,Rash,Other - please document in the comment field Medium 02/23/2012 jaundice Cipro Ciprofloxacin Hcl Rash Low 04/25/2021 jaundice Codeine Anaphylaxis,Hives,It kimberli,Nausea,Other - please document in the comment field,Rash High 01/14/2009 codeine Latex Itching Medium 02/20/2016 Sulfa Drugs Hives,Itching,Other - please document in the comment field High 04/25/2021 Sulfamethoxazole-Trimeth oprim Rash Low 10/29/2022 Medications acyclovir (Zovirax) 400 MG tablet Take 1 tablet by mouth. Active atenolol (Tenormin) 50 MG tablet daily. 12/27/19 16 Active clonazePAM (KlonoPIN) 0.5 MG tablet Take 1 tablet by mouth twice a day. 03/08/20 25 Active cycloSPORINE (Restasis) 0.05 % ophthalmic emulsion 1 drop(s) to each affected eye every 12 hours 02/06/20 16 Active hydroCHLOROthiazi de (Microzide) 12.5 MG capsule 11/07/19 25 Active hydrOXYzine HCl (Atarax) 25 MG tablet TAKE 1 TO 2 TABLETS BY MOUTH AT BEDTIME NEEDED FOR INSOMNIA Active losartan (Cozaar) 100 MG tablet Take 1 tablet by mouth daily. Active metoclopramide (Reglan) 10 MG tablet Take 1 tablet by mouth 4 times a day. Active mupirocin (Bactroban) 2 % ointment APPLY OINTMENT TOPICALLY TO AFFECTED AREA THREE TIMES DAILY UNTIL HEALED 03/23/20 Active pantoprazole (Protonix) 40 MG EC tablet Take 1 tablet by mouth 1 time each day. 11/13/19 25 Active bisacodyl (Bisacodyl EC) 5 MG EC tablet Take 1 tablet by mouth daily as needed for constipation . Do not crush, chew, or split. 30 tablet 04/21/20 25 025 Active ondansetron ODT (Zofran-ODT) 4 MG disintegrating tablet Dissolve 1 tablet on the tongue every 6 hours as needed for nausea. 12 tablet 04/25/20 25 025 Active lactobacillus (Culturelle Immunity Support) capsule Take 1 capsule by mouth daily. 30 capsule 04/25/20 25 025 Active doxycycline (Vibramycin) 100 MG capsuleIndication s:Left leg cellulitis Take 1 capsule by mouth 2 times a day for 7 days. Take with at least 8 ounces (large glass) of water, do not lie down for 30 minutes after 14 capsule 04/17/20 25 025 amoxicillin-clavu lanate XR (Augmentin XR) 1000-62.5 MG 12 hr tabletIndications :Left leg cellulitis Take 1 tablet by mouth 2 times a day for 7 days. 14 tablet 04/17/20 25 025 bisacodyl (Bisacodyl EC) 5 MG EC tablet Take 1 tablet by mouth daily as needed for constipation . Do not crush, chew, or split. 30 tablet 04/21/20 25 025 Discontinued Encounters Date Type Department Care Team Description 04/25/2025 10:39 AM EDT - 04/25/2025 2:24 PM EDT [facility] [address] [place] [phone] Imelda Arroyo MD Nausea and vomiting, unspecified vomiting type (Primary Dx); Hyponatremia; Intermittent confusion Discharge Disposition: Home or Self Care 04/25/2025 Travel 04/21/2025 7:18 AM EDT - 04/21/2025 1:07 PM EDT Emergency [facility] Emergency Department [address] [place] [address] Ming Garner MD Periumbilical abdominal pain (Primary Dx); Constipation, unspecified constipation type Discharge Disposition: Home or Self Care 04/21/2025 Patient Outreach [facility] [address] [place] [address] Stanley Callahan 04/21/2025 Orders Only External Location [address] [place] [address] Provider, External 04/21/2025 Travel 04/16/2025 8:00 AM EDT Office Visit [facility] [address] [place] [phone] Santi Hoffmann MD Leg swelling (Primary Dx); Hepatitis C antibody positive 04/16/2025 Travel 04/09/2025 Community Orders [facility] [address] [place] [address] Diane Velez PA Puncture wound of left lower leg, initial encounter (Primary Dx); Puncture wound of left lower leg, subsequent encounter; Night sweats; Pain of left lower extremity; Acute cellulitis; Severe pain from Last 3 Months Immunizations Immunization Administration Dates Next Due Hep A, Adult 06/01/2019 Influenza, High-dose, Split Virus, Trivalent, Injectable, preservative free 09/05/2021,08/24/2019,08/15/2018 Influenza, high-dose, quadrivalent 07/18/2020 Influenza, seasonal, injectable 08/31/2021,11/01,07/19/2017 [email or web address] COVID-19 Vac cine (Purple Cap) 12+ 07/02/2021 Pneumococcal Conjugate PCV 13 05/14/2017 Pneumococcal Polysaccharide PPV23 03/18/2015 Tdap 03/29/2025 Zoster, live 03/18/2015 Social History Tobacco Use Types Packs/Day Years [...] on file Sexual Orientation Not on file Last Filed Vital Signs Vital Sign Reading Time Taken Comments Blood Pressure 147/81 04/25/2025 2:21 PM EDT Pulse 68 04/25/2025 2:21 PM EDT Temperature 36.7 C (98.1 F) 04/25/2025 10:05 AM EDT Respiratory Rate 16 04/25/2025 10:05 AM EDT Oxygen Saturation 97% 04/25/2025 2:21 PM EDT Inhaled Oxygen Concentration - - Weight 66.7 kg (147 lb) 04/25/2025 10:05 AM EDT Height 157.5 cm (5' 2 ) 04/21/2025 7:16 AM EDT Body Mass Index 26.89 04/21/2025 7:16 AM EDT Plan of Treatment Upcoming Encounters Date Type Department Care Team (Late st Contact Info) Description 05/15/2025 3:30 PM EDT Office Visit [facility] [address] [place] [address] Santi Hoffmann MD [address] [phone] Health Maintenance Due Date Last Done Comments [facility]-/Child/Adol SDOH Screenings 1953 [facility]- SDOH Screenings 1971 [facility]-Adult SDOH Screenings 1971 CT Colonography 1998 Colonoscopy 1998 FIT-DNA 1998 FIT 1998 FOBT 1998 Sigmoidoscopy 1998 [facility]-Colorectal Cancer Screening 1998 [facility]-RSV Vaccine: 60+ Years or (1 - Risk 60-74 years 1-dose series) 2013 [facility]-Zoster Vaccines (2 of 3) 05/13/2015 03/18/2015 [facility]-Hepatitis A Vaccines (2 of 2 - Risk 2-dose series) 12/02/2019 06/01/2019 [facility]-Pneumococcal Vaccine: 50+ Years (3 of 3 - PCV20 or PCV21) 05/14/2022 05/14/2017, 03/18/2015 [facility]-RDASP-19 Vaccine (4 - season) 2024 08/07/2021, 07/16/2021, 07/02/2021 [facility]-Bone Density Scan 06/24/2025 06/24/2023, 020 [facility]-Medicare Annual Wellness (AWV) 06/27/2025 06/27/2024, 06/02/2023 [facility]-Influenza Vaccine (#1) 07/02/202509/05, 08/31/2021, 07/18/2020, Additional history exists [facility]-Depression Screening 04/16/2026 04/16/2025, 04/01 [facility]-Breast Cancer Screening 06/28/202606/02, 06/28/2024, 06/24/2023, Additional history exists [facility]-DTaP,Tdap,and Td Vaccines (2 - Td or Tdap) 03/29/2035 03/29/2025 [facility]-Obesity Intervention Completed 04/16/2025 HPV Vaccines Aged Out No longer eligi ble based on patient's age to complete this topic [facility]-HIB Vaccines Aged Out No longer e ligible based on patient's age to complete this topic [facility]-IPV Vaccines Aged Out No longer e ligible based on patient's age to complete this topic [facility]-Rotavirus Vaccines Aged Out No lo nger eligible based on patient's age to complete this topic Procedures Procedure Name Priority Date/Time Associated Diagnosis Comments TROPONIN T, HIGH SENSITIVITY, 2 HOUR, PLASMA Timed 04/25/2025 1:03 PM EDT SODIUM, URINE, RANDOM STAT 04/25/2025 11:52 AM EDT OSMOLALITY, URINE STAT 04/25/2025 11: 52 AM EDT URINE MONDRAGON PANEL STAT 04/25/2025 11:5 2 AM EDT URINALYSIS WITH REFLEX MICROSCOPIC STAT 04/25/2025 11:52 AM EDT URINALYSIS WITH REFLEX MICROSCOPIC AND CULTURE STAT 04/25/2025 11:52 AM EDT ECG ADULT STAT 04/25/2025 10:44 AM EDT OSMOLALITY, SERUM STAT Add-on 04/25/2025 10: 37 AM EDT N-TERMINAL PROBNP, PLASMA STAT 04/25/2025 10:37 AM EDT TROPONIN T, HIGH SENSITIVITY, 0 HOUR, PLASMA, REFLEX TO 2 HOUR STAT 04/25/2025 10:37 AM EDT LIPASE, PLASMA STAT 04/25/2025 10:37 AM EDT COMPREHENSIVE METABOLIC PANEL, PLASMA STAT 04/25/2025 10:37 AM EDT CBC WITH AUTO DIFFERENTIAL STAT 04/25/2025 10:37 AM EDT LIPASE, PLASMA STAT 04/21/2025 11:[address] ABDOMEN PELVIS W IV CONTRAST STAT 04/21/2025 9:51 AM EDT HEPATITIS C VIRUS (HCV) QUANTITATIVE PCR - ED STAT 04/21/2025 8:39 AM EDT ED HIV 1/2 ANTIBODY/ANTIGEN SCREEN [...] AUTO DIFFERENTIAL STAT 04/21/2025 8:39 AM EDT FREE T4, PLASMA STAT 04/21/2025 8:39 AM EDT TSH STAT 04/21/2025 8:39 AM EDT MAGNESIUM, PLASMA STAT 04/21/2025 8:3 9 AM EDT COMPREHENSIVE METABOLIC PANEL, PLASMA STAT 04/21/2025 8:39 AM EDT ECG ADULT STAT 04/21/2025 7:49 AM EDT POC ULTRASOUND 04/21/2025 D DIMER, QUANTITATIVE Routine 04/16/2025 9:26 AM EDT Leg swelling CBC WITH AUTO DIFFERENTIAL Routine 04/16/2025 9:26 AM EDT Leg swelling C-REACTIVE PROTEIN, PLASMA Routine 04/16/2025 9:26 AM EDT Leg swelling COMPREHENSIVE METABOLIC PANEL, PLASMA Routine 04/16/2025 9:26 AM EDT Leg swelling BLOOD CULTURE (AEROBIC/ANAEROBIC SET) Routine 04/16/2025 9:26 AM EDT Leg swelling BLOOD CULTURE (AEROBIC/ANAEROBIC SET) Routine 04/16/2025 9:26 AM EDT Leg swelling from Last 3 Months Results * (ABNORMAL) Troponin T, High Sensitivity, 2 Hour, Plasma (04/25/2025 1:03 PM EDT) [facility] Troponin T, High Sensitivity, 2 Hour 21(H) <14 ng/L 04/25/2025 1:29 PM EDT [facility] Troponin Delta 2 <10 ng/L 04/25/2025 1:29 PM EDT [facility] Troponin Delta Interpretation Not Significant 04/25/2025 1:29 PM EDT [facility] Comment:Not Significant. No acute change in troponin observed between the baseline and 2 hour samples. Blood Venous blood specimen / Unknown Venipuncture / Unknown 04/25/2025 1:03 PM EDT 04/25/2025 1:05 PM EDT Titus Crandall MD LAB BLOOD ORDERABLES Final Res ult Performing Organization Address [facility] Co de Phone Number [facility] [address] [place] [address] * Urine Mondragon Panel (04/25/2025 11:52 AM EDT) Extra Reflex urine culture not indicated 04/25/2025 9:01 PM EDT [facility] Comment: Previously prelim verified as [...] ORDERABLES Final Res ult Performing Organization Address [facility]/ZIP Co de Phone Number [facility] [address] [place] [address] * Sodium, urine, random (04/25/2025 11:52 AM EDT) Sodium, Urine 60 mmol/L 04/25/2025 12:31 PM EDT [facility] Urine Urine specimen obtained by clean catch procedure / Unknown Non-blood Collection / Unknown 04/25/2025 11:52 AM EDT 04/25/2025 12:15 PM EDT Imelda Arroyo MD LAB URINE ORDERABLES Final Res ult Performing Organization Address City/[facility]/ZIP Co de Phone Number [facility] [address] [place] [address] * Osmolality, urine (04/25/2025 11:52 AM EDT) Osmolality, Urine 315 50 - 1,200 mOsm/kg 04/25/2025 12:56 PM EDT [facility] Urine Urine specimen obtained by clean catch procedure / Unknown Non-blood Collection / Unknown 04/25/2025 11:52 AM EDT 04/25/2025 12:15 PM EDT Imelda Arroyo MD LAB URINE ORDERABLES Final Res ult Performing Organization Address [facility] Co de Phone Number [facility] [address] [place] [address] * Urinalysis with reflex microscopic (Culture NOT Included) (04/25/2025 11:52 AM EDT) Color, Urine Yellow LAB URINALYSIS - AUTOMATED METHOD 04/25/2025 11:58 AM EDT [facility] Clarity, Urine Clear LAB URINALYSIS - AUTOMATED METHOD 04/25/2025 11:58 AM EDT [facility] Spec [place], Urine 1.011 1.005 - 1.030 LAB URINALYSIS - AUTOMATED METHOD 04/25/2025 11:58 AM EDT [facility] pH, Urine 7.5 5.0 - 8.0 LAB URINALYSIS - AUTOMATED METHOD 04/25/2025 11:58 AM EDT [facility] Protein, Urine Negative Negative mg/dL LAB URINALYSIS - AUTOMATED METHOD 04/25/2025 11:58 AM EDT [facility] Glucose, Urine Negative Negative mg/dL LAB URINALYSIS - AUTOMATED METHOD 04/25/2025 11:58 AM EDT [facility] Ketones, Urine Negative Negative mg/dL LAB URINALYSIS - AUTOMATED METHOD 04/25/2025 11:58 AM EDT [facility] Blood, Urine Negative Negative LAB URINALYSIS - AUTOMATED METHOD 04/25/2025 11:58 AM EDT [facility] Bilirubin, Urine Negative Negative LAB URINALYSIS - AUTOMATED METHOD 04/25/2025 11:58 AM EDT [facility] Urobilinogen, Urine 0.2 0.2 to 1.0 mg/dL LAB URINALYSIS - AUTOMATED METHOD 04/25/2025 11:58 AM EDT [facility] Leukocytes, Urine Negative Negative LAB URINALYSIS - AUTOMATED METHOD 04/25/2025 11:58 AM EDT [facility] Nitrite, Urine Negative Negative LAB URINALYSIS - AUTOMATED METHOD 04/25/2025 11:58 AM EDT [facility] Urine Urine specimen obtained by clean catch procedure / Unknown Non-blood Collection / Unknown 04/25/2025 11:52 AM EDT 04/25/2025 11:55 AM EDT us Titus Crandall MD LAB URINE ORDERABLES Final Res ult [facility] [address] [place] [address] * EKG now - STAT (adult) (04/25/2025 10:44 AM EDT) Only the most recent of2 resultswithin the time period is included. EKG DIAGNOSIS CLASS Normal MUSE ECG Ventricular Rate 77 BPM MUSE ECG Atrial Rate 77 BPM MUSE ECG IA Interval 140 ms MUSE ECG QRSD Interval 86 ms MUSE ECG QT Interval 394 ms MUSE ECG QTC Interval 445 ms MUSE ECG P [place] 74 degrees MUSE ECG R [place] 12 degrees MUSE ECG T Wave [place] 42 degrees MUSE ECG Diagnosis Normal sinus rhythm MUSE ECG Diagnosis Normal ECG MUSE ECG Diagnosis MUSE ECG Diagnosis Confirmed by Ollie Galeana ([id number]) on 04/25/2025 11:11:27 AM MUSE ECG 04/25/2025 10:4 4 AM EDT 04/25/2025 11:11 AM EDT us Titus Crandall MD ECG ORDERABLES Final Result Performing Organization Address City/[facility]/ZIP Co de Phone Number MUSE ECG * (ABNORMAL) Troponin now and 120 min (04/25/2025 10:37 AM EDT) Troponin T, High Sensitivity, 0 Hour 23(H) <14 ng/L 04/25/2025 11:08 AM EDT [facility] Blood Venous blood specimen / Unknown Venipuncture / Unknown 04/25/2025 10:37 AM EDT 04/25/2025 10:41 AM EDT us Titus Crandall MD LAB BLOOD ORDERABLES Final Res ult Performing Organization Address [facility] Co de Phone Number [facility] [address] [place] [address] * BNP (04/25/2025 10:37 AM EDT) Only the most recent of2 resultswithin the time period is included. N-Terminal, PROBNP, Plasma 336 0 - 899 pg/mL 04/25/2025 11:08 AM EDT [facility] Blood Venous blood specimen / Unknown Venipuncture / Unknown 04/25/2025 10:37 AM EDT 04/25/2025 10:41 AM EDT us Titus Crandall MD LAB BLOOD ORDERABLES Final Res ult Performing Organization Address City/[facility] Co de Phone Number [facility] [address] [place] [address] * (ABNORMAL) CBC w/diff (04/25/2025 10:37 AM EDT) Only the most recent of3 resultswithin the time period is included. WBC Count 6.98 3.70 - 10.30 10*3/uL LAB HEMATOLOGY METHOD 04/25/2025 10:44 AM EDT [facility] RBC Count 3.87(L) 3.90 - 5.20 10*6/uL LAB HEMATOLOGY METHOD 04/25/2025 10:44 AM EDT [facility] HGB 11.8 11.2 - 15.7 g/dL LAB HEMATOLOGY METHOD 04/25/2025 10:44 AM EDT [facility] HCT 33.3(L) 34.0 - 45.0 % LAB HEMATOLOGY METHOD 04/25/2025 10:44 AM EDT [facility] Platelet Count 292 155 - 369 10*3/uL LAB HEMATOLOGY METHOD 04/25/2025 10:44 AM EDT [facility] MCV 86 79 - 98 fL LAB HEMATOLOGY METHOD 04/25/2025 10:44 AM EDT [facility] MCH 30.5 26.0 - 32.0 pg LAB HEMATOLOGY METHOD 04/25/2025 10:44 AM EDT [facility] MCHC 35.4 30.7 - 35.5 g/dL LAB HEMATOLOGY METHOD 04/25/2025 10:44 AM EDT [facility] RDW 12.1 11.5 - 14.5 % LAB HEMATOLOGY METHOD 04/25/2025 10:44 AM EDT [facility] MPV 9.1 8.8 - 12.5 fL LAB HEMATOLOGY METHOD 04/25/2025 10:44 AM EDT [facility] nRBC 0.0 <=0.0 per 100 WBCs LAB HEMATOLOGY METHOD 04/25/2025 10:44 AM EDT [facility] Differential Type Automated LAB HEMATOLOGY METHOD 04/25/2025 10:44 AM EDT [facility] Neutrophils % 70 % LAB HEMATOLOGY METHOD 04/25/2025 10:44 AM EDT [facility] Lymphocytes % 17 % LAB HEMATOLOGY METHOD 04/25/2025 10:44 AM EDT [facility] Monocytes % 10 % LAB HEMATOLOGY METHOD 04/25/2025 10:44 AM EDT [facility] Eosinophils % 3 % LAB HEMATOLOGY METHOD 04/25/2025 10:44 AM EDT [facility] Basophils % 0 % LAB HEMATOLOGY METHOD 04/25/2025 10:44 AM EDT [facility] Immature Granulocytes % 0 % LAB HEMATOLOGY METHOD 04/25/2025 10:44 AM EDT [facility] Neutrophils Absolute 4.90 1.60 - 6.10 10*3/uL LAB HEMATOLOGY METHOD 04/25/2025 10:44 AM EDT [facility] Lymphocytes Absolute 1.20 1.20 - 3.90 10*3/uL LAB HEMATOLOGY METHOD 04/25/2025 10:44 AM EDT [facility] Monocytes Absolute 0.66 0.30 - 0.90 10*3/uL LAB HEMATOLOGY METHOD 04/25/2025 10:44 AM EDT [facility] Eosinophils Absolute 0.18 0.00 - 0.50 10*3/uL LAB HEMATOLOGY METHOD 04/25/2025 10:44 AM EDT [facility] Basophils Absolute 0.02 0.00 - 0.10 10*3/uL LAB HEMATOLOGY METHOD 04/25/2025 10:44 AM EDT [facility] Immature Granulocytes Absolute 0.02 0.00 - 0.06 10*3/uL LAB HEMATOLOGY METHOD 04/25/2025 10:44 AM EDT [facility] Blood Venous blood specimen / Unknown Venipuncture / Unknown 04/25/2025 10:37 AM EDT 04/25/2025 10:42 AM EDT Narrative [facility] - 04/25/2025 10:44 AM EDT Therapeutic decision making should be based on absolute values, rather than percentages. us Titus Crandall MD LAB BLOOD ORDERABLES Final Res ult [facility] [address] [place] [address] * (ABNORMAL) Osmolality (04/25/2025 10:37 AM EDT) Osmolality, Serum 264(L) 280 - 301 mOsm/Kg 04/25/2025 12:22 PM EDT [facility] Blood Venous blood specimen / Unknown Venipuncture / Unknown 04/25/2025 10:37 AM EDT 04/25/2025 10:41 AM EDT us Imelda Arroyo MD LAB BLOOD ORDERABLES Final Res ult Performing Organization Address [facility]/ZIP Co de Phone Number [facility] [address] [place] [address] * (ABNORMAL) Lipase (04/25/2025 10:37 AM EDT) Only the most recent of2 resultswithin the time period is included. Lipase, Plasma 157(H) 19 - 63 U/L 04/25/2025 11:08 AM EDT [facility] Blood Venous blood specimen / Unknown Venipuncture / Unknown 04/25/2025 10:37 AM EDT 04/25/2025 10:41 AM EDT Titus Crandall MD LAB BLOOD ORDERABLES Final Res ult Performing Organization Address [facility] Co de Phone Number [facility] [address] [place] [address] * (ABNORMAL) CMP (04/25/2025 10:37 AM EDT) Only the most recent of3 resultswithin the time period is included. Glucose, Plasma 107(H) 74 - 99 mg/dL 04/25/2025 11:08 AM EDT [facility] BUN, Plasma 22 8 - 23 mg/dL 04/25/2025 11:08 AM EDT [facility] Creatinine, Plasma 0.87 0.60 - 1.10 mg/dL 04/25/2025 11:08 AM EDT [facility] BUN/Creatinine Ratio 04/25/2025 11:08 AM EDT [facility] Sodium, Plasma 126(L) 136 - 145 mmol/L 04/25/2025 11:08 AM EDT [facility] Potassium, Plasma 3.6 3.6 - 4.9 mmol/L 04/25/2025 11:08 AM EDT [facility] Chloride, Plasma 90(L) 97 - 107 mmol/L 04/25/2025 11:08 AM EDT [facility] CO2, Plasma 24 22 - 29 mmol/L 04/25/2025 11:08 AM EDT [facility] Anion Gap 12 6 - 16 mmol/L 04/25/2025 11:08 AM EDT [facility] Total Calcium, Plasma 9.8 8.9 - 10.2 mg/dL 04/25/2025 11:08 AM EDT [facility] Total Protein 7.0 6.3 - 7.9 g/dL 04/25/2025 11:08 AM EDT [facility] Albumin, Plasma 4.1 3.5 - 5.2 g/dL 04/25/2025 11:08 AM EDT [facility] AST, Plasma 35 10 - 35 U/L 04/25/2025 11:08 AM EDT [facility] ALT, Plasma 44(H) 10 - 35 U/L 04/25/2025 11:08 AM EDT [facility] Alkaline Phosphatase, Plasma 137 46 - 142 U/L 04/25/2025 11:08 AM EDT [facility] Total Bilirubin, Plasma 0.6 0.2 - 1.1 mg/dL 04/25/2025 11:08 AM EDT [facility] eGFRcr 71.3 mL/min/1.7 3m*2 04/25/2025 11:08 AM EDT [facility] Comment:Reported eGFRcr in m L/min/1.73m2 is based the CKD-EPI 2020 equation that does not use a race coefficient. Blood Venous blood specimen / Unknown Venipuncture / Unknown 04/25/2025 10:37 AM EDT 04/25/2025 10:41 AM EDT us Titus Crandall MD LAB BLOOD ORDERABLES Final Res ult [facility] [address] [place] [address] * CT Abdomen Pelvis w IV Contrast [...] signing this report, I, the attending physician, doris I have personally reviewed the images/data for the aboveexamination(s) and agree with the final edited report. Drafted by Ilia Mendoza DO on 04/21/2025 10:47 AM Final report signed by Jatinder Hummel MD on 04/21/2025 11:13 AM Ming Garner MD IMG CT PROCEDURES Final Re sult * ED HIV 1/2 Antibody/Antigen Screen w/Reflex to HIV 1/2 Differentiation (04/21/2025 8:39 AM EDT) HIV 1 & 2 Antibody/Antigen Screen Non Reactive Non Reactive 04/21/2025 9:41 AM EDT [facility] Comment:Screening for HIV 1 & 2 antibodies, and P24 antigen is NONREACTIVE. No confirmatory testing is required. Blood Venous blood specimen / Unknown Venipuncture / Unknown 04/21/2025 8:39 AM EDT 04/21/2025 9:06 AM EDT us Ming Garner MD LAB BLOOD ORDERABLES Final Result [facility] [address] [place] [id number] * Hepatitis C Virus (HCV) Quantitative PCR - ED (04/21/2025 8:39 AM EDT) Pathologist [facility] Hepatitis C Virus (HCV) Quantitative Interpretation Not Detected Not Detected. 04/25/2025 1:47 PM EDT [facility] Blood Venous blood specimen / Unknown Venipuncture / Unknown 04/21/2025 8:39 AM EDT 04/21/2025 9:03 AM EDT Narrative [facility] - 04/25/2025 1:47 PM EDT [facility] M2000 HCV test is a Real Time [...] BLOOD ORDERABLES Final Result Performing Organization Address City/[facility]/ZIP Co de Phone Number [facility] [address] [place] [address] * (ABNORMAL) Hepatitis C Antibody - ED (04/21/2025 8:39 AM EDT) Hepatitis C Antibody Positive(A ) Negative 04/21/2025 9:49 AM EDT [facility] Blood Venous blood specimen / Unknown Venipuncture / Unknown 04/21/2025 8:39 AM EDT 04/21/2025 9:03 AM EDT Ming Garner MD LAB BLOOD ORDERABLES Final Result [facility] [address] [place] [address] * PT-INR (04/21/2025 8:39 AM EDT) Prothrombin Time 13.7 12.0 - 14.3 sec 04/21/2025 8:58 AM EDT [facility] INR 1.1 0.9 - 1.1 04/21/2025 8:58 AM EDT [facility] Blood Venous blood specimen / Unknown Venipuncture / Unknown 04/21/2025 8:39 AM EDT 04/21/2025 8:44 AM EDT Narrative [facility] - 04/21/2025 8:58 AM EDT OPTIMAL INR RANGES FOR PATIENT ON ORAL ANTICOAGULANT THERAPY Prevention of venous thromboembolism INR 2.0 to 3.0 In patients with heart disease: Atrial fibrillation INR 2.0 to 3.0 Valvular heart disease INR 2.0 to 3.0 Tissue heart valves INR 2.0 to 3.0 Mechanical prosthetic valves INR 2.5 to 3.5 Prevention of recurrent FL INR 2.5 to 3.5 us Ming Garner MD LAB BLOOD ORDERABLES Final Result Performing Organization Address [facility] Co de Phone Number [facility] [address] [place] [address] * Thyroid Stimulating Hormone, Plasma (04/21/2025 8:39 AM EDT) Thyroid Stimulating Hormone, Plasma 1.78 0.40 - 4.20 uIU/mL 04/21/2025 9:24 AM EDT [facility] Blood Venous blood specimen / Unknown Venipuncture / Unknown 04/21/2025 8:39 AM EDT 04/21/2025 8:44 AM EDT Ming Garner MD LAB BLOOD ORDERABLES Final Result Performing Organization Address City/[facility]/ZIP Co de Phone Number [facility] [address] [place] [address] * Free T4, Plasma (04/21/2025 8:39 AM EDT) Free T4, Plasma 1.4 0.8 - 1.7 ng/dL 04/21/2025 9:17 AM EDT [facility] Blood Venous blood specimen / Unknown Venipuncture / Unknown 04/21/2025 8:39 AM EDT 04/21/2025 8:44 AM EDT Ming Garner MD LAB BLOOD ORDERABLES Final Result [facility] [address] [place] [address] * Magnesium (04/21/2025 8:39 AM EDT) [facility] Magnesium, Plasma 1.9 1.9 - 2.4 mg/dL 04/21/2025 9:24 AM EDT [facility] Blood Venous blood specimen / Unknown Venipuncture / Unknown 04/21/2025 8:39 AM EDT 04/21/2025 8:44 AM EDT Ming Garner MD LAB BLOOD ORDERABLES Final Result Performing Organization Address City/[facility]/[place] [address] * POC Imaging (04/21/2025) Anatomical Region Laterality Modality Pelvis Other 04/21/2025 us External Provider IMG POINT OF CARE ULTRASOUND F inal Result * (ABNORMAL) D DIMER, QUANTITATIVE (04/16/2025 9:26 AM EDT) [facility] D Dimer, Quantitative 1.22(H) <0.50 ug/mL FEU LAB COAGULATION METHOD 04/16/2025 1:07 PM EDT [facility] Blood Venous blood specimen / Unknown Venipuncture / Unknown 04/16/2025 9:26 AM EDT 04/16/2025 9:36 AM EDT Narrative [facility] - 04/16/2025 1:07 PM EDT Test [...] should be considered in the clinical context. Santi Hoffmann MD LAB BLOOD ORDERABLES Lela l Result Performing Organization Address [facility] [place] [address] * Blood Culture (Aerobic/Anaerobet Set) (04/16/2025 9:26 AM EDT) Only the most recent of2 resultswithin the time period is included. [facility] Culture No growth at day 5 MELBA 04/21/2025 1:02 PM EDT [facility] Blood Venous blood specimen / Unknown Venipuncture / Unknown 04/16/2025 9:26 AM EDT 04/16/2025 9:36 AM EDT Santi Hoffmann MD LAB MICROBIOLOGY - GENERA L ORDERABLES Final Result Performing Organization Address [facility] [place] [address] * (ABNORMAL) C-reactive protein (04/16/2025 9:26 AM EDT) [facility] CRP, Plasma 17.7(H) <=8.0 mg/L 04/16/2025 12:44 PM EDT [facility] Blood Venous blood specimen / Unknown Venipuncture / Unknown 04/16/2025 9:26 AM EDT 04/16/2025 9:36 AM EDT Narrative [facility] - 04/16/2025 12:44 PM EDT This CRP test is appropriate for assessment of infection, systemic inflammation and/or tissue injury. To assess cardiovascular disease risk order high sensitivity CRP (CRPH). Santi Hoffmann MD LAB BLOOD ORDERABLES Lela l Result [facility] [address] [place] [address] from Last 3 Months Insurance [facility] MEDICARE Care Teams Reproduction Production Manager Relationship Specialty Start Date End Date Joanna Osborne DO [address] [place] [address] PCP - General 04/09/25
--- OUTSIDE RECORDS SUMMARY | 2025-05-03 11:14 | XMS_ITS | Encounter Summary ---
Author Organization [employer] ([place], [place], [place], [place]) Address [address] [place] [address] Care Team Providers Care Rubber Gasket Inspector Trimmer Name Role Phone Diane Velez PA-C Primary Care Provider [phone]- [phone] Joanna Osborne DO Primary Care Provider [phone] Diane Velez PA-C Primary Care Provider +1- [phone] Reason for Visit * Reason Onset Date Comments Lab Question 10/21/2023 Encounter Details Date Type Department Care Team (Late st Contact Info) Description 10/21/2023 Telephone [facility] Primary Care & Internal Med [address] [facility] [address] [address] Diane Velez PA-C [address] [address] Lab Question Social History Tobacco Use Types Packs/Day Years Used Date Smoking Tobacco: Never Smokeless Tobacco: Never Alcohol Use Standard [...] things needed for daily living? No 06/27/2024 [facility] - Mental Health Answer Date Recorde [...] Date Gil rded Speak language other than Greenlandic at home Not on file 11/13/2023 Want help with school or training Not on file 11/13/2023 Substance Use Answer Date Recorded Used prescription meds for non-medical reasons N ot on file 11/13/2023 Used illegal drugs past 12 months Not on file 11/13/2023 Comments Unknown Sex and Gender Information Value Date Recorded Sex Assigned at Not on file Legal Sex Female 2:31 PM CDT Gender Identity Not on file Sexual Orientation Not on file documented as of this encounter Miscellaneous Notes * Telephone Encounter - Diane Velez PA-C - 10/25/2023 5:42 PM EST Not if the labs have already been done. We can discuss labs at visit. ANGE CONSULTANT * Telephone Encounter - Raisa - 10/21/2023 4:03 PM EST Last Visit: 06/22/2023 Next Visit: 11/05/2023 Caller Message: Patient called in regards to upcoming appt and was unsure if she needs to have labs (urine and/or blood) done before appt or after. She has not had urine labs since 06/2023 and blood since 07/2023. Is follow up action needed? Yes Explain: Caller Name: Negra Relation to patient: Self Best Call Back OK to leave message on voicemail: Yes ANGE CONSULTANT documented in this encounter Plan of Treatment Upcoming Encounters Date Type Department Care Team (Late st Contact Info) Description 07/05/2025 9:15 AM EDT Appointment [address] [address] 07/10/2025 10:00 AM EDT Office Visit [facility] Primary Care & Internal Med [address] [place], [place] [phone] Diane Velez PA-C [address] [place], [place] [phone] documented as of this encounter Visit Diagnoses Not on filedocumented in this encounter Care Teams Rubber Gasket Inspector Trimmer Relationship Specialty Start Date End Date Diane Velez PA-C [address] [phone] PCP - General Family Medicine 10/21/23 01/10/25 Joanna Osborne DO [address] [facility] [address] [place] [address] PCP - General Internal Medicine 01/11/25 01/16/25 Diane Velez PA-C [address] [facility] [address] [place] [phone] PCP - General Family Medicine 04/18/25 documented as of this encounter
--- OUTSIDE RECORDS SUMMARY | 2025-05-03 11:14 | XMS_ITS | Encounter Summary ---
Author Organization [employer] ([place], [place], [place], [place]) Address [address] [place] [address] Care Team Providers Care Drawer In Stitch Bonding Machine Name Role Phone Joanna Osborne DO Primary Care Provider Diane Velez PA-C Primary Care Provider [phone]- [phone] Joanna Osborne DO Primary Care Provider [phone] Diane Velez PA-C Primary Care Provider +1- [phone] Joanna Osborne DO Primary Care Provider Diane Velez PA-C Primary Care Provider +1- [phone] Reason for Visit * Reason Comments Medication Refill Encounter Details Date Type Department Care Team (Late st Contact Info) Description 02/01/2023 Refill [facility] Primary Care & Internal Med [address] [facility] [address] [address] Diane Velez PA-C [address] [address] Social History Tobacco Use Types Packs/Day Years Used Date Smoking Tobacco: Never Smokeless Tobacco: Never Alcohol Use Standard Drinks/Week Comments Never 0 (1 standard drink = 0.6 oz pur e alcohol) Comments Unknown Sex and Gender Information Value Date Recorded Sex Assigned at Not on file Legal Sex Female 2:31 PM CDT Gender Identity Not on file Sexual Orientation Not on file COVID-19 Exposure Response Date Recorded In the last 10 days, have yo u been in contact with someone who was confirmed or suspected to have Coronavirus/COVID-19? No / Unsure 01/19/2023 9:21 AM EDT documented as of this encounter Plan of Treatment Upcoming Encounters Date Type Department Care Team (Late st Contact Info) Description 07/05/2025 9:15 AM EDT Appointment [address] [place] [address] 07/10/2025 10:00 AM EDT Office Visit [facility] Primary Care & Internal Med [address] [facility] [address] [phone] Diane Velez PA-C [address] [place] [phone] documented as of this encounter Visit Diagnoses Not on filedocumented in this encounter Care Teams Drawer In Stitch Bonding Machine Relationship Specialty Start Date End Date Joanna Osborne DO [address] [facility] [address] [place] [address] PCP - General Internal Medicine 10/27/22 06/06/23 Diane Velez PA-C [address] [phone] PCP - General Family Medicine 06/07/23 06/23/23 Joanna Osborne DO [address] [facility] [address] [place] [address] PCP - General Internal Medicine 06/24/23 10/20/23 Diane Velez PA-C [address] [place] [phone] PCP - General Family Medicine 10/21/23 01/10/25 Joanna Osborne DO [address] [facility] [address] [place] [address] PCP - General Internal Medicine 01/11/25 01/16/25 Diane Velez PA-C 14[address] [facility] [address] [place] [address] PCP - General Family Medicine 04/18/25 documented as of this encounter
--- OUTSIDE RECORDS SUMMARY | 2025-05-03 11:14 | XMS_ITS | Encounter Summary ---
Author Organization [employer] ([place], [place], [place], [place]) Address [address] [place] [address] Care Team Providers Care Sales Order Processor Name Role Phone Diane Velez PA-C Primary Care Provider [phone]- [phone] Reason for Visit * Reason Comments Medication Refill Encounter Details Date Type Department Care Team (Late st Contact Info) Description 01/31/2025 Refill [facility] Primary Care & Internal Med [address] [address] Diane Velez PA-C [address] [place] [phone] Hypertension, unspecified type Social History Tobacco Use Types Packs/Day Years [...] Date Gil rded Speak language other than [place] Islander at home Not on file 11/13/2023 [...] on file documented as of this encounter Plan of Treatment Upcoming Encounters Date Type Department Care Team (Late st Contact Info) Description 07/05/2025 9:15 AM EDT Appointment [facility] [address] [facility] [address] [place] [address] 07/10/2025 10:00 AM EDT Office Visit [facility] Primary Care & Internal Med [address] [facility] [address] [place] [address] Diane Velez PA-C [address] [address] documented as of this encounter Visit Diagnoses Diagnosis Hypertension, unspecified type documented in this encounter Care Teams Sales Order Processor Relationship Specialty Start Date End Date Diane Velez PA-C [address] [address] PCP - General Family Medicine 04/18/25 documented as of this encounter"
--- OUTSIDE RECORDS SUMMARY | 2025-05-03 11:14 | XMS_ITS | Encounter Summary ---
Author Organization Healthcare Address [address] [place] [address] Care Team Providers Care Mower Sharpener Name Role Phone Joanna Osborne DO Primary Care Provider [phone] -[phone] Encounter Details Date Type Department Care Team (Late st Contact Info) Description 04/21/2025 [facility] [address] [place] [address] Stanley Callahan Social History Tobacco Use Types Packs/Day Years [...] Suicidal Behavior (Lifetime) No 10:45 AM EDT StagerKala RN documented as of this encounter Plan of Treatment Upcoming Encounters Date Type Department Care Team (Late st Contact Info) Description 05/15/2025 3:30 PM EDT Office Visit [facility] [address] [place] [address] Santi Hoffmann MD [address] [facility] [address] [place] [address] documented as of this encounter [...] documented as of this encounter Care Teams Mower Sharpener Relationship Specialty Start Date End Date Joanna Osborne DO [address] [place] [address] PCP - General 04/09/25 documented as of this encounter
--- OUTSIDE RECORDS SUMMARY | 2025-05-03 11:14 | XMS_ITS | Encounter Summary ---
Author Organization [facility] Address [address] [place] [address] Care Team Providers Care Retirement Assistant Name Role Phone Joanna Osborne DO Primary Care Provider [phone] Encounter Details Date Type Department Care Team (Late st Contact Info) Description 12/31/2015 [facility] Encounter Historical [facility] [address] [place] [address] [address]ignon [address] [place] [id number] Social History Tobacco Use Types Packs/Day Years Used Date Smoking Tobacco: Never Assessed Comments Unknown Sex and Gender Information Value Date Recorded Sex Assigned at Not on file Legal Sex Female 8:31 PM EDT Gender Identity Not on file Sexual Orientation Not on file documented as of this encounter Miscellaneous Notes * Progress Notes - Mignon Kirk - 12/31/2015 8:39 AM EST Effective 12/31/15 transferred from to [facility] documented in this encounter Plan of Treatment Upcoming Encounters Date Type Department Care Team (Late st Contact Info) Description 05/15/2025 3:30 PM EDT Office Visit [address] [phone] Santi Hoffmann MD [address] [facility] [address] [place] [address] documented as of this encounter Procedures Procedure Name Priority Date/Time Associated Diagnosis Comments OTTR LAB RESULTS (MANUAL) Routine 02/20/2016 8:28 AM EDT OTTR LAB RESULTS (MANUAL) Routine 02/19/2016 3:00 AM EDT OTTR LAB RESULTS (MANUAL) Routine 02/18/2016 9:33 PM EDT documented in this encounter Results * OTTR LAB RESULTS (MANUAL) (02/20/2016 8:28 AM EDT) External Estimated GFR 103.33 EXTERNAL LAB 02/20/2016 8:28 AM EDT Narrative EXTERNAL LAB - 02/20/2016 12:10 PM EDT Automated LAB Interface Historical Provider MD LAB BLOOD ORDERABLES Lela l Result Performing Organization Address [facility] Co de Phone Number EXTERNAL LAB * OTTR LAB RESULTS (MANUAL) (02/19/2016 3:00 AM EDT) External Estimated GFR 94.48 EXTERNAL LAB 02/19/2016 3:00 AM EDT Narrative EXTERNAL LAB - 02/23/2016 11:30 AM EDT Automated LAB Interface Historical Provider MD LAB BLOOD ORDERABLES Lela l Result Performing Organization Address City/[facility] Co de Phone Number EXTERNAL LAB * OTTR LAB RESULTS (MANUAL) (02/18/2016 9:33 PM EDT) External Estimated GFR 89.83 EXTERNAL LAB 02/18/2016 9:33 PM EDT Narrative EXTERNAL LAB - 02/18/2016 10:50 PM EDT Automated LAB Interface Historical Provider MD LAB BLOOD ORDERABLES Lela l Result Performing Organization Address City/[facility]/ZIP Co de Phone Number EXTERNAL LAB documented in this encounter Visit Diagnoses Not on filedocumented in this encounter Care Teams Retirement Assistant Relationship Specialty Start Date End Date Jo[facility] Osborne DO [facility] [address] [place] [address] PCP - General 04/09/25 documented as of this encounter
--- OUTSIDE RECORDS SUMMARY | 2025-05-03 11:14 | XMS_ITS | Encounter Summary ---
Author Organization [employer] ([place], [place], [place], [place]) Address [address] [place] [address] Care Team Providers Care Recruitment Advertising Manager Name Role Phone Diane Velez PA-C Primary Care Provider [phone]- [phone] Joanna Osborne DO Primary Care Provider [phone] Diane Velez PA-C Primary Care Provider + [phone] Reason for Visit * Reason Onset Date Comments question 08/22/2024 Encounter Details Date Type Department Care Team (Late st Contact Info) Description 08/22/2024 Telephone [facility] Primary Care & Internal Med [address]01 [facility] [address] [address] Diane Velez PA-C [address] [address] question Social History Tobacco Use Types Packs/Day Years [...] Date Gil rded Speak language other than [place]alander at home Not on file 11/13/2023 Want [...] Telephone Encounter - Diane Velez PA-C - 08/23/2024 6:49 PM EDT I talked to SHALINI Marte today about this. Doxycycline 100 mg 1 p.o. twice daily x 10 days to be sentin. * Telephone Encounter - Mookie Castillo - 08/22/2024 2:17 PM EDT Next Visit: Visit date not found Last Visit: 08/22/2024 Diane Velez PA-C Caller Message (please include as much detail as possible)?pt wants to know are you still going to send a antibiotic in for her Is follow up action needed?yes Explain:call Caller Name:luigi Relation to patient: Best Call Back Phone Number:[phone] [place] to leave message on voicemail: documented in this encounter Plan of Treatment Upcoming Encounters Date Type Department Care Team (Late st Contact Info) Description 07/05/2025 9:15 AM EDT Appointment [address] [place] [address] 07/10/2025 10:00 AM EDT Office Visit [facility] Primary Care & Internal Med [address] [facility] [address] [phone] Diane Velez PA-C [address] [phone] documented as of this encounter Visit Diagnoses Not on filedocumented in this encounter Care Teams Recruitment Advertising Manager Relationship Specialty Start Date End Date Diane Velez PA-C [address] [phone] PCP - General Family Medicine 10/21/23 01/10/25 Joanna Osborne DO [address]01 [facility] [address] [place] [address] PCP - General Internal Medicine 01/11/25 01/16/25 Diane Velez PA-C [address] [facility] [address] [place] [address] PCP - General Family Medicine 04/18/25 documented as of this encounter
--- OUTSIDE RECORDS SUMMARY | 2025-05-03 11:14 | XMS_ITS | Encounter Summary ---
Author Organization [employer] ([place], [place], [place], [place]) Address [address] [place] [address] Care Team Providers Care Program Proposals Coordinator Name Role Phone Joanna Osborne DO Primary Care Provider Diane Velez PA-C Primary Care Provider [phone]- [phone] Joanna Osborne DO Primary Care Provider Diane Velez PA-C Primary Care Provider +1- [phone] Joanna Osborne DO Primary Care Provider Diane Velez PA-C Primary Care Provider +1- [phone] Reason for Visit * Reason Comments Medication Refill Encounter Details Date Type Department Care Team (Late st Contact Info) Description 01/23/2023 Refill [facility] Primary Care & Internal Med [address] [facility] [address] [address] Diane Velez PA-C [address] [address] Social History Tobacco Use Types [...] Info) Description 07/05/2025 9:15 AM EDT Appointment [address] [place] [address] 07/10/2025 10:00 AM EDT Office Visit [facility] Primary Care & Internal Med [address] [facility] [address] [phone] Diane Velez PA-C [address] [place] [phone] documented as of this encounter Visit Diagnoses Not on filedocumented in this encounter Care Teams Program Proposals Coordinator Relationship Specialty Start Date End Date Joanna Osborne DO [address] [facility] [address] [place] [address] PCP - General Internal Medicine 10/27/22 06/06/23 Diane Velez PA-C [address] [phone] PCP - General Family Medicine 06/07/23 06/23/23 Joanna Osborne DO [address] [facility] [address] [place] [address] PCP - General Internal Medicine 06/24/23 10/20/23 Diane Velez PA-C [address] [place] [phone] PCP - General Family Medicine 10/21/23 01/10/25 Joanna Osborne DO [address] [facility] [address] [place] [address] PCP - General Internal Medicine 01/11/25 01/16/25 Diane Velez PA-C [address] [facility] [address] [place] [address] PCP - General Family Medicine 04/18/25 documented as of this encounter
--- OUTSIDE RECORDS SUMMARY | 2025-05-03 11:14 | XMS_ITS | Encounter Summary ---
Author Organization Healthcare Address [address] [place] [address] Care Team Providers Care Nursing Faculty Name Role Phone Joanna Osborne DO Primary Care Provider [phone] Encounter Details Date Type Department Care Team (Latest Contact Info) Description 04/21/2025 Travel Social History Tobacco Use Types Packs/Day [...] Description 05/15/2025 3:30 PM EDT Office Visit [facility] [address] [place] [address] Santi Hoffmann MD [address] [facility] [address] [place] [address] documented as of this encounter Visit Diagnoses [...] documented as of this encounter Care Teams Nursing Faculty Relationship Specialty Start Date End Date Joanna Osborne DO [address] [place] [address] PCP - General 04/09/25 documented as of this encounter
--- OUTSIDE RECORDS SUMMARY | 2025-05-03 11:14 | XMS_ITS | Referral Summary ---
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 Date Type Department Care Team Description 05/01/2025 Refill [facility] [address] [place] [phone] Diane Velez PA-C Nausea 05/01/2025 Travel 05/01/2025 11:30 AM EDT Office Visit [facility] [address] [place] [phone] Diane Velez PA-C Chronic hepatitis C without hepatic coma (HCC) (Primary Dx); Edema; Pain of left lower extremity; Acute cellulitis; Puncture wound of left lower leg, subsequent encounter; Nausea; Abdominal distention; Confusion 04/24/2025 Telephone [facility] [address] [facility] [address] [phone] Joanna Osborne DO Nausea 04/23/2025 Refill [facility] [address] [place] [phone] Diane Velez PA-C Hypertension, unspecified type 04/23/2025 Telephone [facility] [address] [phone] Diane Velez PA-C Nausea 04/20/2025 Telephone [facility] [address] [place] [address] Jaqui Zaidi RN Leg Swelling 04/18/2025 Travel 04/18/2025 12:07 PM EDT - 04/18/2025 4:31 PM EDT Emergency [facility] Emergency Department [address] [place] [phone] Antonio Ford DO Cellulitis of left lower extremity (Primary Dx); Luevano's cyst of knee, left Discharge Disposition: Home or Self Care 04/13/2025 Refill [facility] [address] [place] [address] [phone] Diane Velez PA-C 04/09/2025 Telephone [facility] [address] [place] [address] [address] Diane Velez PA-C Referral 04/06/2025 Travel 04/06/2025 11:30 AM EDT Office Visit [facility] [address] [place] [phone] Diane Velez PA-C Puncture wound of left lower leg, subsequent encounter (Primary Dx); Acute cellulitis; Night sweats; Severe pain; Pain of left lower extremity 04/04/2025 Travel 04/04/2025 11:09 AM EDT - 04/04/2025 4:38 PM EDT Emergency [facility] Emergency Department [address] [place] [address] Chester Healy MD Visit for wound check (Primary Dx); Rash Discharge Disposition: Home or Self Care 04/04/2025 Telephone [facility] [address] [facility] [address] [phone] Diane Velez PA-C Results 04/04/2025 Telephone [facility] [address] [facility] [address] [phone] Diane Velez PA-C Results 04/04/2025 9:40 AM EDT Office Visit [facility] [address] [place] [address] Marc De APRN Cellulitis of left lower leg (Primary Dx) 04/04/2025 Telephone [facility] [address] [place] [address] [phone] Diane Velez PA-C Rash 04/04/2025 Telephone [facility] [address] [facility] [address] [phone] Diane Velez PA-C 04/03/2025 Telephone [facility] [address] [place] [address] [phone] Diane Velez PA-C Advice Only 04/03/2025 12:30 PM EDT Lab Patient [facility] Lab [address] [place] [phone] Joanna Osborne DO Acute cellulitis (Primary Dx) 04/03/2025 11:57 AM EDT - 04/03/2025 11:59 PM EDT Hospital Encounter [facility] CT Imaging [address] [place] [address] Joanna Osobrne DO Acute cellulitis; Fever; Severe pain Discharge Disposition: Home or Self Care 04/03/2025 Travel 04/03/2025 10:00 AM EDT Office Visit [facility] [address] [place] [address] [phone] Joanna Osborne DO Puncture wound of left lower leg, subsequent encounter (Primary Dx); Acute cellulitis; Night sweats; Fever; Severe pain 03/29/2025 Travel 03/29/2025 8:45 AM EDT Office Visit [facility] [address] [place], [place] [phone] Rocky MountJoanna DO Puncture wound of left lower leg (Primary Dx); Acute cellulitis; Pain of left lower extremity; Hearing loss; Puncture wound of left lower leg, subsequent encounter 03/23/2025 9:53 AM EDT - 03/23/2025 11:59 PM EDT Hospital Encounter [address] [address] Marc De APRN Pain and swelling of left lower leg Discharge Disposition: Home or Self Care 03/23/2025 9:10 AM EDT Office Visit [address] [address] Marc De APRN Pain and swelling of left lower leg (Primary Dx); Cellulitis of left lower leg 03/05/2025 Abstract [facility] [address] [place], [place] [phone] Behzad Lerner Jr., MD 03/02/2025 Telephone [facility] [address] [place], [place] [phone] Diane Velez PA-C Medication Problem 02/13/2025 Travel 02/13/2025 10:30 AM EDT Office Visit [facility] [address] [place] [phone] Diane Velez PA-C HTN (hypertension), malignant (Primary Dx); CKD (chronic kidney disease); Solitary kidney, acquired; Anxiety; Insomnia from Last 3 Months Allergies Active Allergy Reactions Criticality Noted Date Comments Ciprofloxacin Other (See Comments) 02/23/2012 jaundice Codeine Rash,Anaphylaxis High 01/14/2009 Sulfa (Sulfonamide Antibiotics) Hives,Itching High 04/25/2021 Sulfamethoxazole-Trimethopri m 10/29/2022 Medications * This document contains information received from the source organization and may not represent a complete record from that organization. pantoprazole (PROTONIX) 40 MG tabletIndications :Gastroesophageal reflux disease with esophagitis, unspecified whether hemorrhage Take 1 tablet (40 mg total) by mouth daily. 90 tablet 1 11/13/19 25 Active cloNIDine (CATAPRES) 0.1 MG tabletIndications :HTN (hypertension), malignant Take 1 tablet (0.1 mg total) by mouth 2 (two) times daily Take 1 tablet every 8 hrs as needed for SBP more than 180 or DBP more than 90. 30 tablet 01/18/20 25 026 Active atenoloL (TENORMIN) 50 MG tabletIndications :Hypertension, unspecified type Take 1 tablet (50 mg total) by mouth daily. 90 tablet 3 03/02/20 25 Active clonazePAM (KlonoPIN) 0.5 MG tabletIndications :Anxiety Take 1 tablet (0.5 mg total) by mouth 2 (two) times daily. Max Daily Amount: 1 mg 60 tablet 03/08/20 25 Active losartan (COZAAR) 100 MG tablet Take 1 tablet (100 mg total) by mouth daily. 02/29/20 25 Active oxyCODONE (ROXICODONE) 5 MG immediate release tablet Take 1 tablet (5 mg total) by mouth every 6 (six) hours as needed for pain for up to 12 doses Look-adela e/Sound-ali ke medication* *. Max Daily Amount: 20 mg 12 tablet 04/04/20 25 Active HYDROcodone-aceta minophen (NORCO) 5-325 mg per tablet Take 1 tablet by mouth every 6 (six) hours as needed for pain for up to 12 doses. Max Daily Amount: 4 tablets 12 tablet 04/18/20 25 Active hydrOXYzine (ATARAX) 25 MG tabletIndications :Primary insomnia TAKE 1 TO 2 TABLETS BY MOUTH AT BEDTIME NEEDED FOR INSOMNIA. 60 tablet 04/30/20 25 Active hydroCHLOROthiazi de (MICROZIDE) 12.5 mg capsule Take 2 capsules (25 mg total) by mouth. 11/07/19 25 Active doxycycline (VIBRAMYCIN) 100 MG capsule Take 1 capsule (100 mg total) by mouth 2 (two) times daily. 04/17/20 25 Active ondansetron (ZOFRAN-ODT) 8 MG disintegrating tabletIndications :Nausea Take 1 tablet (8 mg total) by mouth every 12 (twelve) hours. 20 tablet 1 05/01/20 25 Active hydrOXYzine (ATARAX) 25 MG tabletIndications :Primary insomnia TAKE 1-2 TABS AT BEDTIME NEEDED FOR INSOMNIA.. 60 tablet 1 03/08/20 25 025 Discontinued mupirocin (BACTROBAN) 2 % ointmentIndicatio ns:Cellulitis of left lower leg Apply to affected area 3 times a day until healed. 22 g 03/23/20 25 025 Discontinued doxycycline (VIBRAMYCIN) 100 MG capsuleIndication s:Acute cellulitis Take 1 capsule (100 mg total) by mouth 2 (two) times daily. 14 capsule 03/29/20 25 025 Discontinued cephalexin (KEFLEX) 500 MG capsuleIndication s:Acute cellulitis Take 1 capsule (500 mg total) by mouth 2 (two) times daily. 14 capsule 03/29/20 25 025 Discontinued HYDROcodone-aceta minophen (NORCO) 5-325 mg per tabletIndications :Pain of left lower extremity Take 1 tablet by mouth every 6 (six) hours as needed for pain for up to 10 doses. Max Daily Amount: 4 tablets 10 tablet 03/29/20 25 025 Discontinued ondansetron (ZOFRAN-ODT) 8 MG disintegrating tabletIndications :Nausea Take 1 tablet (8 mg total) by mouth every 6 (six) hours as needed for nausea or vomiting. 30 tablet 1 05/01/20 25 025 Discontinued(R cruz) Active Problems Problem Noted Date Diagnosed Date Anxiety 03/08/2025 Primary insomnia 03/08/2025 Kidney disease 06/27/2024 Renal cell carcinoma 06/27/2024 Grief 06/27/2024 Early satiety 06/27/2024 Change in bowel habit 06/27/2024 Anorexia 06/27/2024 Abnormal findings on diagnos tic imaging of other parts of digestive tract 06/27/2024 Hepatic failure, unspecified without coma 2023 Encounter for colonoscopy du e to history of adenomatous colonic polyps 01/12/2024 Allergic rhinitis 03/15/2023 Renal carcinoma 03/15/2023 Cataract 03/15/2023 Viral hepatitis C 03/15/2023 Hemorrhoids 03/15/2023 Thyroid disease 03/15/2023 Renal calculus 03/15/2023 MGUS (monoclonal gammopathy of unknown significa nce) 01/14/2023 Senile osteoporosis 10/29/2022 Abnormal weight loss 03/26/2022 Benign neoplasm of kidney 09/05/2021 Depressive disorder 09/05/2021 Encounter for screening for malignant neoplasm o f colon 09/05/2021 Chronic hepatitis, unspecified 09/05/2021 Herpes simplex virus (HSV) infection 09/05/2021 Hypothyroidism 09/05/2021 Renal oncocytoma of left kidney 05/30/2021 Acute postoperative pain 04/30/2021 Renal insufficiency 04/30/2021 Gastro-esophageal reflux disease without esophag itis 04/29/2021 High blood pressure 04/29/2021 Osteoarthritis 01/09/2021 Renal mass 12/10/2020 Renal mass 12/09/2020 Decreased hearing 09/03/2020 Meniere's disease 09/03/2020 Incontinence 08/25/2017 Immunizations Name Administration Dates Next Due Covid-19 Vaccine MRNA (PF) 1 2yr+ ([employer])([id number]) 07/02/2021 Hepatitis A Adult 06/01/2019 Influenza High Dose Preserva tive Free IM ([id number]) 09/05/2021,07/18/2020,08/24/2019,08/15 Influenza Pre-Epic 07/19/2017,07/23/2016 Influenza Three-TIV Non-PF 4+YRS IM 07/19/2017 Influenza Three-TIV Non-PF 5+ YR 11/01/2017 Influenza Three-tiv Non-pf 08/31/2021 Influenza, High Dose 09/05/2021,08/24/2019,08/15 Pneumococcal Conjugate (Prev aleks) 13-Valent 05/14/2017 Pneumococcal Polysaccharide (Pneumovax) 03/18/2015 SHINGLES VARICELLA (ZOSTAVAX) ZOSTER 03/18/2015 Tdap 03/29/2025 Social History Tobacco Use Types Packs/Day Years [...] things needed for daily living? No 06/27/2024 [facility] - Mental Health Answer Date Recorde [...] Date Gil rded Speak language other than [place] at home Not on file 11/13/2023 Want [...] Pulse 70 05/01/2025 11:29 AM EDT Temperature 36.9 C (98.4 F) 04/18/2025 12:05 PM EDT Respiratory Rate 17 05/01/2025 11:29 AM EDT Oxygen Saturation 97% 05/01/2025 11:29 AM EDT Inhaled Oxygen Concentration - - Weight 63 kg (139 lb) 05/01/2025 11:29 AM EDT Height 157.5 cm (5' 2 ) 05/01/2025 11:29 AM EDT Body Mass Index 25.42 05/01/2025 11:29 AM EDT Plan of Treatment Upcoming Encounters Date Type Department Care Team (Late st Contact Info) Description 07/05/2025 9:15 AM EDT Appointment [address] [place] [address] 07/10/2025 10:00 AM EDT Office Visit [facility] [address] [facility] [address] [phone] Diane Velez PA-C [address] [address] Procedures Procedure Name Priority Date/Time Associated Diagnosis Comments MICROSCOPIC EXAMINATION Routine 05/01/2025 12:37 PM EDT AMMONIA Routine 05/01/2025 12:37 PM EDT Chronic hepatitis C without hepatic coma (HCC) Edema Nausea Abdominal distention Confusion URINALYSIS W/ MICROSCOPIC Routine 05/01/2025 12:37 PM EDT Chronic hepatitis C without hepatic coma (HCC) Edema Nausea Abdominal distention Confusion COMPREHENSIVE METABOLIC PANEL Routine 05/01/2025 12:37 PM EDT Chronic hepatitis C without hepatic coma (HCC) Edema Nausea Abdominal distention Confusion LIPASE Routine 05/01/2025 12:37 PM EDT Chronic hepatitis C without hepatic coma (HCC) Edema Nausea Abdominal distention Confusion BLOOD CULTURE STAT 04/18/2025 4:13 PM EDT BLOOD CULTURE STAT 04/18/2025 4:13 PM EDT US DOPPLER VENOUS LEG LEFT STAT 04/18/2025 3:44 PM EDT URINALYSIS MICROSCOPIC STAT 04/18/2025 2:41 PM EDT URINALYSIS, REFLEX MICROSCOPIC AND CULTURE IF INDICATED STAT 04/18/2025 2:41 PM EDT [place] BOWLES TOP STAT 04/18/2025 12:28 PM EDT [place] EXTRA TUBES STAT 04/18/2025 12:28 PM EDT COMPREHENSIVE METABOLIC PANEL STAT 04/18/2025 12:27 PM EDT CBC W/ AUTO DIFF STAT 04/18/2025 12:2 7 PM EDT C-REACTIVE PROTEIN Routine 04/11/2025 2: 39 PM EDT SEDIMENTATION RATE Routine 04/11/2025 2: [address] LOWER EXTREMITY WITH IV CONTRAST LEFT STAT 04/04/2025 2:41 PM EDT [place] PST (EXTRA TUBES) STAT 04/04/2025 11:30 AM EDT [place] BLUE TOP (EXTRA TUBES) STAT 04/04/2025 11:30 AM EDT [place] EXTRA TUBES STAT 04/04/2025 11:30 AM EDT COMPREHENSIVE METABOLIC PANEL STAT 04/04/2025 11:21 AM EDT LACTIC ACID WITH REFLEX STAT 04/04/2025 11:21 AM EDT CBC W/ AUTO DIFF STAT 04/04/2025 11:2 1 AM EDT CBC W/ AUTO DIFF Routine 04/03/2025 12:4 3 PM EDT Acute cellulitis SEDIMENTATION RATE STAT 04/03/2025 12 :43 PM EDT Acute cellulitis Fever Severe pain PROCALCITONIN Routine 04/03/2025 12:42 PM EDT Acute cellulitis C-REACTIVE PROTEIN STAT 04/03/2025 12 :42 PM EDT Acute cellulitis Fever Severe pain CT LOWER EXTREMITY WITHOUT IV CONTRAST LEFT STAT 04/03/2025 12:20 PM EDT Acute cellulitis Fever Severe pain XR LEG / TIBIA AND FIBULA 2 VIEWS LEFT STAT 03/23/2025 10:15 AM EDT Pain and swelling of left lower leg URINE DRUG SCREEN Routine 03/08/2025 10: 31 AM EDT Anxiety MM DIGITAL MAMMO SCREEN WITH ANA LILIA BILATERAL Routine 06/28/2024 10:26 AM EDT Visit for screening mammogram HM COLONOSCOPY Routine 01/12/2024 DXA BONE DENSITY SPINE AND HIP Routine 06/24/2023 11:39 AM EDT Osteoporosis without current pathological fracture, unspecified osteoporosis type from Last 3 Months or Most Recently Relevant to Health Maintenance Results * MICROSCOPIC EXAMINATION (05/01/2025 12:37 PM [...] 05/02/2025 12:07 PM EDT Performed at: - [address] [id number] Youth Care Professional: José Miguel Williamson PhD, Phone: [phone] Diane Velez PA-C PATHOLOGY/CYTOLOGY ORDERAB LES Final Result [facility] * (ABNORMAL) Urinalysis w/Microscopic (05/01/2025 12:37 PM EDT) Specific [place], UA 1.009 1.005 - 1.030 [facility] pH, [...] - 05/02/2025 12:07 PM EDT Performed at: [address] [place] [id number] Youth Care Professional: José Miguel Williamson PhD, Phone: [phone] Diane Velez PA-C URINE ORDERABLES Final Res ult Performing Organization Address [facility] Co de Phone Number [facility] * (ABNORMAL) Lipase (05/01/2025 12:37 PM EDT) [facility] Lipase, Serum 139(H) 14 - 85 U/L [facility] Blood 05/01/2025 12:3 7 PM EDT 05/01/2025 Narrative [facility] - 05/02/2025 12:07 PM EDT Performed at: [address] [place] [id number] Youth Care Professional: José Miguel Williamson PhD, Phone: [phone] Diane Velez PA-C LAB BLOOD ORDERABLES Final Result Performing Organization Address [facility] de Phone Number [facility] * (ABNORMAL) Ammonia (05/01/2025 12:37 PM EDT) [facility] Ammonia, Plasma 30(L) 31 - 169 ug/dL [facility] Blood 05/01/2025 12:3 7 PM EDT 05/01/2025 Narrative [facility] - 05/02/2025 12:07 PM EDT Performed at: [address] [place] [id number] Youth Care Professional: José Migule Williamson PhD, Phone: [phone] Diane Velez PA-C LAB BLOOD ORDERABLES Final Result Performing Organization Address [facility] Co de Phone Number [facility] * (ABNORMAL) Comprehensive metabolic panel (05/01/2025 12:37 PM EDT) Only the most recent of3 resultswithin the time period is included. Glucose, Serum 90 70 - 99 mg/dL [...] - 05/02/2025 12:07 PM EDT Performed at: [address] [place] [id number] Youth Care Professional: José Miguel Williamson PhD, Phone: [phone] us Diane Velez PA-C LAB BLOOD ORDERABLES Final Result [facility] * Blood Culture (04/18/2025 4:13 PM EDT) Only the most recent of2 resultswithin the time period is included. Result No growth in 5 days 04/23/2025 6:01 PM EDT [facility] Blood Venipuncture / Unknown 04/18/2025 4:13 PM EDT 04/18/2025 4:18 PM EDT us Johana Dale PA-C MICROBIOLOGY - GENERAL OR DERABLES Final Result [facility] [address] [place] [address], [facility] [phone] * US DOPPLER VENOUS LEG LEFT (04/18/2025 [...] VASCULAR ORDERABLES Fi nal Result * (ABNORMAL) Urinalysis, Reflex Microscopic and Culture If Indicated (04/18/2025 2:41 PM EDT) Color, UA Colorless 04/18/2025 3:05 PM EDT [facility] Clarity, UA Clear Clear 04/18/2025 3:05 PM EDT [facility] Specific [place], UA 1.009 1.005 - 1.030 04/18/2025 3:05 PM EDT [facility] pH, UA 6.0 6.0 - 8.0 04/18/2025 3:05 PM EDT [facility] Leukocytes, UA 25 Marck/uL(A) Negative 04/18/2025 3:05 PM EDT [facility] Nitrite, UA Negative Negative 04/18/2025 3:05 PM EDT [facility] Protein, UA Negative Negative 04/18/2025 3:05 PM EDT [facility] Glucose, UA Normal Normal 04/18/2025 3:05 PM EDT [facility] Ketones, UA Negative Negative 04/18/2025 3:05 PM EDT [facility] Bilirubin, UA Negative Negative 04/18/2025 3:05 PM EDT [facility] Blood, UA Negative Negative 04/18/2025 3:05 PM EDT [facility] Urobilinogen, UA Normal Normal 04/18/2025 3:05 PM EDT [facility] Specimen Source Urine, Sterile Collection 04/18/2025 3:05 PM EDT [facility] Urine STERILE URINE SPECIMEN CONTAINER / Unknown 04/18/2025 2:41 PM EDT 04/18/2025 2:50 PM EDT us Johana Dale PA-C URINE ORDERABLES Final Re sult [facility] [address] [phone] * (ABNORMAL) Urinalysis Microscopic Only (04/18/2025 2:41 PM EDT) WBC, UA 0-2(A) None Seen /HPF 04/18/2025 3:08 PM EDT [facility] RBC, UA 0-2(A) None Seen /HPF 04/18/2025 3:08 PM EDT [facility] Bacteria, UA None Seen None Seen, Trace 04/18/2025 3:08 PM EDT [facility] SQUAMOUS EPITHELIAL 0-2(A) None Seen /HPF 04/18/2025 3:08 PM EDT [facility] Urine STERILE URINE SPECIMEN CONTAINER / Unknown 04/18/2025 2:41 PM EDT 04/18/2025 2:50 PM EDT Johana Dale PA-C URINE ORDERABLES Final Re sult Performing Organization Address City/[facility]/ZIP Co de Phone Number [facility] [address] [phone] * Bowles Top Extra Tubes (04/18/2025 12:28 PM EDT) HOLD SPECIMEN (SJ - BKR) Hold for add-ons. 04/18/2025 2:00 PM EDT [facility] Comment:Auto resulted. Blood Venipuncture / Unknown 04/18/2025 12:28 PM EDT 04/18/2025 12:33 PM EDT us Antonio Ford DO LAB BLOOD ORDERABLES Final Resul t Performing Organization Address [facility]/ZIP Co de Phone Number [facility] [address] [phone] * (ABNORMAL) CBC with Auto Diff (04/18/2025 12:27 PM EDT) Only the most recent of3 resultswithin the time period is included. WBC 5.7 4.0 - 10.0 K/ L 04/18/2025 12:44 PM EDT [facility] RBC 3.99 3.93 - 5.22 M/ L 04/18/2025 12:44 PM EDT [facility] Hemoglobin 12.0 11.2 - 15.7 GM/DL 04/18/2025 12:44 PM EDT [facility] Hematocrit 35.1 34.1 - 44.9 % 04/18/2025 12:44 PM EDT [facility] MCV 88 79 - 95 fL 04/18/2025 12:44 PM EDT [facility] MCH 30.1 25.6 - 32.2 pg 04/18/2025 12:44 PM EDT [facility] MCHC 34.2 32.2 - 35.5 GM/DL 04/18/2025 12:44 PM EDT [facility] RDW 12.1 11.7 - 14.4 % 04/18/2025 12:44 PM EDT [facility] Platelets 247 140 - 375 K/CU MM 04/18/2025 12:44 PM EDT [facility] MPV 9.6 9.4 - 12.3 fL 04/18/2025 12:44 PM EDT [facility] % Neutros 71 34 - 71 % 04/18/2025 12:44 PM EDT [facility] % Lymphs 17(L) 19 - 52 % 04/18/2025 12:44 PM EDT [facility] % Monos 8 5 - 13 % 04/18/2025 12:44 PM EDT [facility] % Eos 3 1 - 6 % 04/18/2025 12:44 PM EDT [facility] % Baso 1 0 - 1 % 04/18/2025 12:44 PM EDT [facility] NRBC Absolute <0.01 0 - 0.012 K/ul 04/18/2025 12:44 PM EDT [facility] # Neutros 4.06 1.56 - 6.13 K/ L 04/18/2025 12:44 PM EDT [facility] # Lymphs 0.99(L) 1.18 - 3.74 K/ L 04/18/2025 12:44 PM EDT [facility] # Monos 0.45 0.24 - 0.86 K/ L 04/18/2025 12:44 PM EDT [facility] # Eos 0.16 0.04 - 0.36 K/ L 04/18/2025 12:44 PM EDT [facility] # Baso 0.03 0.01 - 0.08 K/ L 04/18/2025 12:44 PM EDT [facility] Immature Granulocytes-Re lative 0.40 0.01 - 0.43 % 04/18/2025 12:44 PM EDT [facility] # IG <0.03 0.00 - 0.03 K/uL 04/18/2025 12:44 PM EDT [facility] Blood Venipuncture / Unknown 04/18/2025 12:27 PM EDT 04/18/2025 12:33 PM EDT Narrative [facility] - 04/18/2025 12:44 PM EDT When [...] noted Atypical Lymph flag noted us Krysta Srinivasan APRN LAB BLOOD ORDERABLES Final Res ult [facility] [address] [phone] * C-Reactive Protein (04/11/2025 2:39 PM EDT) Only the most recent of2 resultswithin the time period is included. C-Reactive Protein, Quant 4 0 - 10 mg/L [facility] 04/11/2025 2:39 PM EDT 04/11/2025 Narrative [facility] - 04/12/2025 8:08 AM EDT Performed at: 01 - [facility] [id number] Youth Care Professional: José Miguel Williamson PhD, Phone: [phone] us Joanna Osborne DO LAB BLOOD ORDERABLES Final Result [facility] * Sedimentation rate (04/11/2025 2:39 PM EDT) Only the most recent of2 resultswithin the time period is included. Sedimentation Rate-Westergren 4 0 - 40 mm/hr [facility] 04/11/2025 2:39 PM EDT 04/11/2025 Narrative [facility] - 04/12/2025 8:08 AM EDT Performed at: 01 - [facility] [id number] Youth Care Professional: José Miguel Williamson PhD, Phone: [phone] us Joanna Osborne DO LAB BLOOD ORDERABLES Final Result [facility] * CT lower extremity with IV contrast [...] Final Result [facility] [address] [phone] * Blue Top Extra Tubes (04/04/2025 11:30 AM EDT) HOLD SPECIMEN (SJ - BKR) Hold for add-ons. 04/04/2025 1:01 PM EDT [facility] Comment:Auto resulted. Blood Venipuncture / Unknown 04/04/2025 11:30 AM EDT 04/04/2025 11:36 AM EDT Result [facility] Chester Healy MD LAB BLOOD ORDERABLES Final Result Performing Organization Address [facility]/ZIP Co de Phone Number [facility] [address] [phone] * Lactic Acid with reflex (SJ) (04/04/2025 11:21 AM EDT) Lactic Acid Level (mmol/L) 0.5 0.5 - 2.2 mmol/L 04/04/2025 12:01 PM EDT [facility] [facility] Blood Venipuncture / Unknown 04/04/2025 11:21 AM EDT 04/04/2025 11:32 AM EDT Ramila Ward APRN LAB BLOOD ORDERABLES Final Res ult Performing Organization Address [facility] Co de Phone Number [facility] [address] [place] [address], [facility] [phone] * Procalcitonin (04/03/2025 12:42 PM EDT) Procalcitonin 0.02 See Comment ng/mL 04/03/2025 1:26 PM EDT [facility] Comment: Sepsis comment <0.5 Antibiotics Discouraged [...] 12:42 PM EDT 04/03/2025 12:45 PM EDT us Joanna Osborne DO LAB BLOOD ORDERABLES Final Result [facility] [address] [place] [address], [facility] [phone] * CT lower extremity without IV contrast [...] DO IMG CT ORDERABLES Final Res ult * XR leg / tibia and fibula [...] dictated by Refugio Leon DO Marc De APRN IMG DIAGNOSTIC IMAGING ORDERAB LES Final Result * POCT UA Rapid Drug Screen (03/08/2025 10:31 AM EDT) Amphetamines Negative Barbiturates Negative Benzodiazopines POSITIVE Buprenorphine Negative Cocaine Negative MDMA Negative Methadone Negative Methamphetamine Negative Opiates Negative Oxycodone Negative Phencyclidine Negative Propoxyphene Norpropoxyphene Negative Cannabinoids Negative Tricyclic Antidepressants Negative 03/08/2025 10:3 1 AM EDT Titus Gómez MD POINT OF CARE TEST ORDERABLES Fi nal Result * MM digital mammo screen with ana lilia bilateral (06/28/2024 10:26 AM EDT) Anatomical Region Laterality Modality Breast Bilateral Mammography 06/30/2024 5:38 PM EDT Impressions 06/30/2024 5:42 PM EDT FINAL IMPRESSION: Stable mammogram. No findings suspicious for malignancy. ACR BI-RADS 1: Negative. RECOMMENDATIONS: Annual screening mammography. A letter including results and recommendations was sent to the patient. Density notification was included for patients with pattern 3 or 4 breast tissue. Patient information was entered into a reminder system with a target due date for the next mammogram. At our facility, a [place] marker is positioned over a visible skin lesion and a linear marker is used to indicate a scar. A triangular marker is placed on a self reported palpable finding. Note: Mammography does not detect approximately 10-15% of breast cancers. An annual clinical breast exam by the patient's breast care physician and regular monthly self breast exams by the patient are integral parts of breast cancer screening, in addition to annual mammography. A normal mammogram does not completely exclude the presence of breast cancer, especially if there is an abnormal finding on physical exam. When clinically indicated, a biopsy should not be deferred because of a normal mammogram report. Narrative 06/30/2024 5:42 PM EDT PROCEDURE: Digital screening mammogram with Digital Breast Tomosynthesis (DBT). REASON FOR EXAM: Routine screening. FAMILY HISTORY: No family history of breast cancer. COMPARISON STUDY: 2022 through 2017 from [facility] FINDINGS: Craniocaudal and mediolateral oblique images of both breasts were obtained in 2D and DBT modes. Synthesized views were reconstructed from DBT data. The breast tissue is heterogeneously dense, which may obscure small masses. There is no evidence of dominant mass, architectural distortion, or suspicious calcifications. The mammogram was interpreted with the benefit of computer aided detection (CAD). us Diane Velez PA-C IMG MAMMOGRAPHY ORDERABLES Final Result * HM COLONOSCOPY (01/12/2024) Joanna Osborne DO HEALTH MAINTENANCE Final Re sult * DXA bone density spine and hip (06/24/2023 11:39 AM EDT) Anatomical Region Laterality Modality Bone Dual-energy X-ra y absorptiometry (DEXA) 06/27/2023 3:02 PM EDT Impressions 06/27/2023 3:04 PM EDT FINAL IMPRESSION: OSTEOPOROSIS: Lowest T-score is at or below -2.5. This patient's T-score meets the World Health Organization criteria for osteoporosis. RECOMMENDATIONS: Repeat BMD measurement in 2 years. UNIVERSAL GUIDELINES: 1. Adequate intake of calcium (at least 1200 mg/day). 2. Vitamin D supplementation (800 to 1000 IU/day) for individuals at risk of insufficiency. 3. Regular weight-bearing exercise. 4. Fall prevention. 5. Avoidance of tobacco and alcohol. Narrative 06/27/2023 3:04 PM EDT PROCEDURE: Bone Densitometry (DXA) REASON FOR EXAM: Postmenopausal osteoporosis. Monitoring therapy with Prolia. RISK FACTORS: Estrogen deficiency due to premature menopause at 34. Chronic liver disease. Self reported history of rheumatoid arthritis (?). COMPARISON STUDY: None. FINDINGS: Bone densitometry was performed using a Sumomi unit. Sites measured included the spine and left hip. Both sites appear to be valid. Using L1-4, the bone mineral density of the spine is 0.864 g/cm2, corresponding to a T-score of -2.7 and a Z-score of -0.8. Using the left femoral neck, the bone mineral density of the hip is 0.720 g/cm2, corresponding to a T-score of -2.3 and a Z-score of -0.4. NOTE: T-score: standard deviation compared with peak bone mass of young adult mean. Z-score: standard deviation compared with age-matched mean *Following the recommendations of the International Society of Bone Densitometry, classification of hip BMD is based on the lower of two T-scores; total hip or femoral neck. Procedure Note Mariann Saucedo MD - 06/27/2023 PROCEDURE: Bone Densitometry (DXA) REASON FOR EXAM: Postmenopausal osteoporosis. Monitoring therapy with Prolia. RISK FACTORS: Estrogen deficiency due to premature menopause at 34. Chronic liver disease. Self reported history of rheumatoid arthritis (?). COMPARISON STUDY: None. FINDINGS: Bone densitometry was performed using a Sumomi unit. Sites measured included the spine and left hip. Both sites appear to be valid. Using L1-4, the bone mineral density of the spine is 0.864 g/cm2, corresponding to a T-score of -2.7 and a Z-score of -0.8. Using the left femoral neck, the bone mineral density of the hip is 0.720 g/cm2, corresponding to a T-score of -2.3 and a Z-score of -0.4. NOTE: T-score: standard deviation compared with peak bone mass of young adult mean. Z-score: standard deviation compared with age-matched mean *Following the recommendations of the International Society of Bone Densitometry, classification of hip BMD is based on the lower of two T-scores; total hip or femoral neck. IMPRESSION: FINAL IMPRESSION: OSTEOPOROSIS: Lowest T-score is at or below -2.5. This patient's T-score meets the World Health Organization criteria for osteoporosis. RECOMMENDATIONS: Repeat BMD measurement in 2 years. UNIVERSAL GUIDELINES: 1. Adequate intake of calcium (at least 1200 mg/day). 2. Vitamin D supplementation (800 to 1000 IU/day) for individuals at risk of insufficiency. 3. Regular weight-bearing exercise. 4. Fall prevention. 5. Avoidance of tobacco and alcohol. us Fatoumata Ayala PA-C [facility] [place] ORDERABLES Final Result from Last 3 Months or Most Recently Relevant to Health Maintenance Insurance [facility] [employer] MAP Care Teams Turbine Attendant Relationship Specialty Start Date End Date Diane Velez PA-C [address] [place] [address] PCP - General Family Medicine 04/18/25
--- OUTSIDE RECORDS SUMMARY | 2025-05-03 11:14 | XMS_ITS | Encounter Summary ---
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 No 06/27/2024 [facility] - Mental Health Answer Date [...] Date Gil rded Speak language other than Eritrean at home Not on file 11/13/2023 Want [...] Telephone Encounter - Diane Velez PA-C - 01/11/2025 1:46 PM EDT Agree with ER visit. Concerning neurological symptoms. 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 Pt states she had a syncopal episode two days ago and currently feels like room is spinningand feels breathless . Based on my assessment and clinical judgement, patient/caller was advised to call 911. Patient is not agreeable but will go to ED. She states she will have her drive her. Thank you Pt called today with c/o headache, dizziness, ringing in her ears, blurred vision and high blood pressure. Pt states she has been having symptoms since last week but they have been getting worse overthe last couple of days. Pt states currently she feels like the room is spinning. Pt states two days ago she passed out. Pt states it was unwitnessed. Pt denies any difficulty breathing but states she is breathless . She states that happens when her blood pressure is elevated. BP this a.m is 151/87. Pt was advised to go to ED for evaluation due to her continued symptoms. Pt refused to call 911 and go by EMS. Pt states she will have her take her and will f/u in office as needed. Protocol Used: Dizziness (Adult) Protocol-Based Disposition: Call EMS 911 Now Positive Triage Question: * Fainted, and still feels dizzy afterwards Negative Triage Questions: * Severe difficulty breathing (e.g., struggling for each breath, speaks in single words) * Shock suspected (e.g., cold/pale/clammy skin, too weak to stand, low BP, rapid pulse) * Difficult to awaken or acting confused (e.g., disoriented, slurred speech) documented in this encounter Plan of Treatment Upcoming Encounters Date Type Department Care Team (Late st Contact Info) Description 07/05/2025 9:15 AM EDT Appointment [address] [address] 07/10/2025 10:00 AM EDT Office Visit [facility] Primary Care & Internal Med [address] [facility] [address] [place] [address] Diane Velez PA-C [address] [facility] [address] [place] [address] documented as of this encounter Visit Diagnoses Not on filedocumented in this encounter Care Teams Nightman Relationship Specialty Start Date End Date Joanna Osborne DO [address] [facility] [address] [place] [address] PCP - General Internal Medicine 01/11/25 01/16/25 documented as of this encounter
--- OUTSIDE RECORDS SUMMARY | 2025-05-03 11:14 | XMS_ITS | Encounter Summary ---
Author Organization Healthcare Address [address] [place] [address] Care Team Providers Care Mobile Development Manager Name Role Phone Callaway Joannajaydon Rock DO Primary Care Provider [phone] Reason for Referral * Consultation (Routine) - Closed Specialty Diagnoses / Procedures Referred By Sergio t Referred To Contact Infectious Diseases Diagnoses Puncture wound of left lower leg, subsequent encounter Night sweats Pain of left lower extremity Acute cellulitis Severe pain Diane Velez PA [address] [place] [address] Phone: tel: fax: Mejia Wright MD [address] [facility] [address] [place] [address] Phone: tel: fax: Referral ID Status Reason Start Date Expiration Date V isits Requested Visits Authorized [id number] Closed Specialty Services Required 04/09/2025 10/09/2026 1 1 Encounter Details Date Type Department Care Team (Late st Contact Info) Description 04/09/2025 [facility] [address] [place] [address] Diane Velez PA [address] [place] [address] Puncture wound of left lower leg, initial encounter (Primary Dx); Puncture wound of left lower leg, subsequent encounter; Night sweats; Pain of left lower extremity; Acute cellulitis; Severe pain Social History Tobacco Use Types [...] Description 05/15/2025 3:30 PM EDT Office Visit [facility] [address] [place] [address] Santi Hoffmann MD [address] [facility] [address] [place] [address] Scheduled Referrals Name Type Priority Associated Diagnoses Order Schedule Ambulatory referral to Infectious Disease Outpatient Referral Routine Puncture wound of left lower leg, subsequent encounter Night sweats Pain of left lower extremity Acute Cellulitis Severe pain Expected: 04/09/2025 (Approximate), Expires: 10/11/2026 documented as of this encounter Visit Diagnoses Diagnosis Puncture wound of left lower leg, initial encounter- Primary Puncture wound of left lower leg, subsequent encounter Night sweats Generalized hyperhidrosis Pain of left lower extremity Acute cellulitis Severe pain documented in this encounter Care Teams Mobile Development Manager Relationship Specialty [place] [address] [place] [address] [address] [place] [address] PCP - General 04/09/25 documented as of this encounter
--- OUTSIDE RECORDS SUMMARY | 2025-05-03 11:14 | XMS_ITS | Encounter Summary ---
Author Organization [employer] ([place], [place], [place], [place]) Address [address] [place] [address] Care Team Providers Care [place] Gold Attendant Name Role Phone Diane Velez PA-C Primary Care Provider [phone] Reason for Visit * Reason Comments Medication Refill Encounter Details Date Type Department Care Team (Late st Contact Info) Description 01/31/2025 Refill [facility] Primary Care & Internal Med [address] [facility] [address] [place] [address] India JoannaDO [address] [facility] [address] [place] [address] Hypertension, unspecified type Social History Tobacco Use [...] Date Gil rded Speak language other than Chinese at home Not on file 11/13/2023 Want [...] Info) Description 07/05/2025 9:15 AM EDT Appointment [facility] [address] [facility] [address] [place] [address] 07/10/2025 10:00 AM EDT Office Visit [facility] Primary Care & Internal Med [address] [facility] [address] [place] [address] Diane Velez PA-C [address] [facility] [address] [place] [address] documented as of this encounter Visit Diagnoses Diagnosis Hypertension, unspecified type documented in this encounter Care Teams [place] Gold Attendant Relationship Specialty Start Date End Date Diane Velez PA-C [address] [facility] [address] [place] [address] PCP - General Family Medicine 04/18/25 documented as of this encounter
--- OUTSIDE RECORDS SUMMARY | 2025-05-03 11:14 | XMS_ITS ---
Author Organization Healthcare Address [address] [place] [address] Care Team Providers Care Custom Ski Maker Name Role Phone Joanna Osborne DO Primary Care Provider [phone] Hepatitis C Program Status:Closed (Closed) Start date:04/21/2025 Enrollment reason:HCV End date:04/21/2025 Close reason:HCV RNA Negative Continued Care and Services Coordination
--- OUTSIDE RECORDS SUMMARY | 2025-05-03 11:14 | XMS_ITS | Encounter Summary ---
Author Organization Healthcare Address [address] [place] [address] Care Team Providers Care Pharmacy Delivery Driver Name Role Phone Joanna Osborne Primary Care Provider [phone] Encounter Details Date Type Department Care Team (Latest Contact Info) Description 04/16/2025 Travel Social History Tobacco Use Types Packs/Day [...] as of this encounter Functional Status * Over the past 2 weeks, how often have you been bothered by any of the following problems? Question Answer Date of Assessment Author Little interest or pleasure in doing things Not at all 04/16/2025 8:13 AM Gayle Pina Feeling down, depressed, or hopeless Not at all 04/16/2025 8:13 AM FANNYT Gayle Castle Patient Health Questionnaire -2 Score 0 04/16/2025 8:13 AM Gayle Pina * Question Answer Date of Assessment Author Trouble falling or staying asleep, or sleeping too much Not at all 04/16/2025 8:13 AM Gayle Pina Feeling tired or having ely le energy Not at all 04/16/2025 8:13 AM EDT Gayle Castle Poor appetite or overeating Not at all 04/16/2025 8: 13 AM EDT Gayle Castle Feeling bad about yourself - or that you are a failure or have let yourself or your family down Not at all 04/16/2025 8:13 AM EDT Gayle Roberts Trouble concentrating on thi ngs, such as reading the newspaper or watching television Not at all 04/16/2025 8:13 AM EDT Gayle Castle Moving or speaking so slowly that other people could have noticed? Or the opposite - being so fidgety or restless that you have been moving around a lot more than usual. Not at all 04/16/2025 8:13 AM Gayle Pina Thoughts that you would be better off or hurting yourself in some way Not at all 04/16/2025 8:13 AM Gayle Pina Patient Health Questionnaire -9 Score 0 04/16/2025 8:13 AM EDT Gayle Castle * If you checked off any problems on this questionnaire so far, Question Answer Date of Assessment Author How difficult have these problems made it for you to do your work, take care of things at home, or get along with other people? Not difficult at all 04/16/2025 8:13 AM Gayle Pina documented as of this encounter Plan of Treatment Upcoming Encounters Date Type Department Care Team (Late st Contact Info) Description 05/15/2025 3:30 PM EDT Office Visit [facility] [address] [place] [address] Santi Hoffmann MD [address] [address] documented as of this encounter Visit Diagnoses Not on filedocumented in this encounter Additional Health Concerns Assessment Noted Time PHQ-9 Depression Total Score: 0 04/16/20 25 8:13 AM EDT A fall risk assessment has been complete d for the patient 04/16/2025 8:15 AM EDT A Body Mass Index follow-up plan has been documented for the patient 04/16/2025 1:51 PM EDT documented as of this encounter Care Teams Pharmacy Delivery Driver Relationship Specialty Start Date End Date Joanna Osborne DO [address] [facility] [address] [place] [address] PCP - General 04/09/25 documented as of this encounter
--- OUTSIDE RECORDS SUMMARY | 2025-05-03 11:15 | XMS_ITS | Encounter Summary ---
Author Organization [employer] ([place], [place], [place], [place]) Address [address] [place] [address] Care Team Providers Care Business Database Analyst Name Role Phone Joanna Osborne DO Primary Care Provider Diane Velez PA-C Primary Care Provider Joanna Osborne DO Primary Care Provider Diane Velez PA-C Primary Care Provider [phone] Joanna Osborne DO Primary Care Provider Diane Velez PA-C Primary Care Provider Encounter Details Date Type Department Care Team (Late st Contact Info) Description 09/24/2020 Transcribed Document [facility] Family Medicine [address] [place] [address] ProviderTamiko MD [address] [place] [address] Social History Tobacco Use Types Packs/Day Years Used Date Smoking Tobacco: Never Assessed Comments Unknown Sex and Gender Information Value Date Recorded Sex Assigned at Not on file Legal Sex Female 2:31 PM CDT Gender Identity Not on file Sexual Orientation Not on file documented as of this encounter Miscellaneous Notes * Cerner Conversion Note - Tamiko Simons MD - 09/24/2020 1:47 PM FLORAL MERCHANDISER CR Chest 2 Vws Ordered: 09/23/2020 Auth (Verified) Reason for Exam: pain 09/23/2020 18:41 09/24/2020 13:47 (JONATHAN MOON PA-C) Reviewed by Provider, No further action required x1 09/24/2020 13:08 (ANTONIO CASTANEDA) Provider Review Required documented in this encounter Plan of Treatment Upcoming Encounters Date Type Department Care Team (Late st Contact Info) Description 07/05/2025 9:15 AM EDT Appointment [address] [place] [address] 07/10/2025 10:00 AM EDT Office Visit [facility] Primary Care & Internal Med [address] [place] [address] [phone] Diane Velez PA-C [address] [place] [phone] documented as of this encounter Visit Diagnoses Not on filedocumented in this encounter Care Teams Business Database Analyst Relationship Specialty Start Date End Date Joanna Osborne DO [address] [facility] [address] [place] [address] PCP - General Internal Medicine 10/27/22 06/06/23 Diane Velez PA-C [address] [place] [address] PCP - General Family Medicine 06/07/23 06/23/23 [place] [address] [place] [address] [address] [place], [place] [id number] PCP - General Internal Medicine 06/24/23 10/20/23 Diane Velez PA-C [address] [place] [address] PCP - General Family Medicine 10/21/23 01/10/25 Joanna Osborne DO [address] [facility] [address] [place] [address] PCP - General Internal Medicine 01/11/25 01/16/25 Diane Velez PA-C [facility] [address] [address] PCP - General Family Medicine 04/18/25 documented as of this encounter
--- OUTSIDE RECORDS SUMMARY | 2025-05-03 11:15 | XMS_ITS | Encounter Summary ---
Author Organization [employer] ([place], [place], [place], [place]) Address [address] [place] [address] Care Team Providers Care Financial Investment Manager Name Role Phone Joanna Osborne DO Primary Care Provider Diane Velez PA-C Primary Care Provider [phone]- [phone] Joanna Osborne DO Primary Care Provider Diane Velez PA-C Primary Care Provider [phone]- [phone] Joanna Osborne DO Primary Care Provider [phone] Diane Velez PA-C Primary Care Provider Encounter Details Date Type Department Care Team (Late st Contact Info) Description 12/20/2020 Transcribed Document [facility] Family Medicine [address] [place] [address] ProviderTamiko MD [address] [place] [address] Social History Tobacco Use Types Packs/Day Years Used Date Smoking Tobacco: Never Assessed Comments Unknown Sex and Gender Information Value Date Recorded Sex Assigned at Not on file Legal Sex Female 2:31 PM CDT Gender Identity Not on file Sexual Orientation Not on file documented as of this encounter Miscellaneous Notes * Cerner Conversion Note - Tamiko Simons MD - 12/20/2020 5:42 PM CRYSTAL CUTTER Nursing Discharge Summary Entered On: 12/20/2020 17:43 EST Performed On: 12/20/2020 17:42 EST by ALICIA BREEN bed laster Documentation Discharge Date/Time : 12/20/2020 17:30 EST Patient Disposition, General : Discharge Discharge To : Home with ambulatory/outpatient follow-up Mode Of Departure, General Discharge : Wheelchair Accompanied By, Discharge : Friend IV Discontinued : Yes Personal Belongings With Patient : Yes Prescriptions Given to Patient : No Discharge Instructions Reviewed With, Opportunity For Questions Given : Patient, Friend Patient Education Completed : Yes Teaching Method : Explanation, Printed materials Teaching Evaluation : Returns demonstration, Verbalizes understanding Worker's Compensation Paperwork Completed : No ALICIA BREEN RN - 12/20/2020 17:42 EST Electronically signed by [facility], [facility] Conversion Hog Worker Cerner at 02/19/2023 2:18 PM CDT documented in this encounter Plan of Treatment Upcoming Encounters Date Type Department Care Team (Late st Contact Info) Description 07/05/2025 9:15 AM EDT Appointment [address] [place] [address] 07/10/2025 10:00 AM EDT Office Visit [facility] Primary Care & Internal Med [address] [place] [address] [address] Diane Velez PA-C [address] [place] [phone] documented as of this encounter Visit Diagnoses Not on filedocumented in this encounter Care Teams Financial Investment Manager Relationship Specialty Start Date End Date Joanna Osborne DO [address] [facility] [address] [place], [place] [id number] PCP - General Internal Medicine 10/27/22 06/06/23 Diane Velez PA-C [address] [place] [phone] PCP - General Family Medicine 06/07/23 06/23/23 [place] [address] [place] [address] [address] [place] [address] PCP - General Internal Medicine 06/24/23 10/20/23 Diane Velez PA-C [address] [facility] [address] [place] [address] PCP - General Family Medicine 10/21/23 01/10/25 Joanna Osborne, DO [address] [facility] [address] [place] [address] PCP - General Internal Medicine 01/11/25 01/16/25 Diane Velez PA-C [address] [facility] [address] [place] [address] PCP - General Family Medicine 04/18/25 documented as of this encounter
--- OUTSIDE RECORDS SUMMARY | 2025-05-03 11:15 | XMS_ITS | Encounter Summary ---
Author Organization [employer] ([place], [place], [place], [place]) Address [address] [place] [address] Care Team Providers Care Thoroughbred Horse Farm Manager Name Role Phone Diane Velez PA-C Primary Care Provider [phone]- [phone] Reason for Visit * Reason Onset Date Comments Referral 04/09/2025 Encounter Details Date Type Department Care Team (Late st Contact Info) Description 04/09/2025 Telephone [facility] Primary Care & Internal Med [address] [facility] [address] [address] Diane Velez PA-C [address] [phone] Referral Social History Tobacco Use Types Packs/Day Years [...] needed for daily living? No 06/27/2024 [facility] - Mental Health Answer Date Recorde [...] rded Speak language other than [place] at home Not on file 11/13/2023 Want [...] encounter Miscellaneous Notes * Telephone Encounter - Raisa Sosa - 04/09/2025 10:34 AM EDT Call Type: Change clinician/ Redirect referral - Stat referral Next Visit: 07/10/2025 Last Visit: 04/06/2025 Diane Velez PA-C Type of referral / specialty: Neurotology Reason for referral/ diagnosis: Infectious disease / puncture wound of lower leg Was the referral request previously discussed with provider?: Yes Patient's insurance type: [employer] Medicare Does patient have a specific provider they are requesting? Dr. Mejia Wright Additional information: This referral accidentally went to neurology instead of NeuroTology Caller Name: Alejandra Relation to patient: Daughter in law Best Call Back / Himanshu tomorrow [phone] OK to leave message on voicemail: documented in this encounter Plan of Treatment Upcoming Encounters Date Type Department Care Team (Late st Contact Info) Description 07/05/2025 9:15 AM EDT Appointment [address] [place] [phone] 07/10/2025 10:00 AM EDT Office Visit [facility] Primary Care & Internal Med [address] [facility] [address] [place] [phone] Diane Velez PA-C [address] [place], [place] [phone] documented as of this encounter Visit Diagnoses Not on filedocumented in this encounter Care Teams Thoroughbred Horse Farm Manager Relationship Specialty Start Date End Date Diane Velez PA-C [address] [address] PCP - General Family Medicine 04/18/25 documented as of this encounter
--- OUTSIDE RECORDS SUMMARY | 2025-05-03 11:15 | XMS_ITS | Encounter Summary ---
Author Organization [facility] ([place], [place], [place], [place]) Address [address] [place] [address] Care Team Providers Care Social Services Designee Name Role Phone Diane Velez PA-C Primary Care Provider [phone]- [phone] Reason for Visit * Reason Onset Date Comments Medication Refill 05/01/2025 Encounter Details Date Type Department Care Team (Late st Contact Info) Description 05/01/2025 Refill [facility] Primary Care & Internal Med [address] [place] [phone] Diane Velez PA-C [address] [phone] Nausea Social History Tobacco Use Types Packs/Day Years [...] things needed for daily living? No 06/27/2024 [facility] - [facility] Answer Date Recorde [...] Date Gil rded Speak language other than [place] at home Not on file 11/13/2023 Want [...] Info) Description 07/05/2025 9:15 AM EDT Appointment [address] [phone] 07/10/2025 10:00 AM EDT Office Visit [facility] Primary Care & Internal Med [address] [phone] Diane Velez PA-C [address] [place] [address] documented as of this encounter Visit Diagnoses Diagnosis Nausea Nausea alone documented in this encounter Care Teams Social Services Designee Relationship Specialty Start Date End Date Diane Velez PA-C [address] [place] [address] PCP - General Family Medicine 04/18/25 documented as of this encounter
--- OUTSIDE RECORDS SUMMARY | 2025-05-03 11:15 | XMS_ITS | Encounter Summary ---
Author Organization [employer] ([place], [place], [place], [place]) Address [address] [place] [address] Care Team Providers Care Piano Regulator Name Role Phone Joanna Osborne DO Primary Care Provider Diane Velez PA-C Primary Care Provider [phone]- [phone] Joanna Osborne DO Primary Care Provider Diane Velez PA-C Primary Care Provider [phone] Joanna Osborne DO Primary Care Provider Diane Velez PA-C Primary Care Provider Encounter Details Date Type Department Care Team (Late st Contact Info) Description 12/20/2020 Transcribed Document [facility] [place] Medicine [address] [place] [address] ProviderTamiko MD [address] [place] [address] Social History Tobacco Use Types Packs/Day Years Used Date Smoking Tobacco: Never Assessed Comments Unknown Sex and Gender Information Value Date Recorded Sex Assigned at Not on file Legal Sex Female 2:31 PM CDT Gender Identity Not on file Sexual Orientation Not on file documented as of this encounter Miscellaneous Notes * Cerner Conversion Note - Tamiko Simons MD - 12/20/2020 1:35 PM 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 Nursing Discharge Summary Entered On: 12/20/2020 13:35 EST Performed On: 12/20/2020 13:35 EST by MYRTLE HERNANDEZ signal system testing maintainer Documentation Mode Of Departure, General Discharge : Private vehicle Accompanied By, Discharge : Friend IV Discontinued : Yes Personal Belongings With Patient : Yes Discharge Instructions Reviewed With, Opportunity For Questions Given : Patient, Friend Patient Education Completed : Yes Teaching Method : Printed materials Teaching Evaluation : Returns demonstration, Verbalizes understanding MYRTLE HERNANDEZ RN - 12/20/2020 13:35 EST Electronically signed by [facility] Conversion Criminal Analyst Cerner at 02/19/2023 2:26 PM CDT documented in this encounter Plan of Treatment Upcoming Encounters Date Type Department Care Team (Late st Contact Info) Description 07/05/2025 9:15 AM EDT Appointment [address] [place] [address] 07/10/2025 10:00 AM EDT Office Visit [facility] Primary Care & Internal Med [address] [place] [address] [address] Diane Velez PA-C [address] [place] [phone] documented as of this encounter Visit Diagnoses Not on filedocumented in this encounter Care Teams Piano Regulator Relationship Specialty Start Date End Date Joanna Osborne DO [address] [facility] [address] [place] [address] PCP - General Internal Medicine 10/27/22 06/06/23 Diane Velez PA-C [address] [place] [phone] PCP - General Family Medicine 06/07/23 06/23/23 [place] [address] [place] [address] [address] [place] [address] PCP - General Internal Medicine 06/24/23 10/20/23 Diane Velez PA-C [address] [place] [facility] [address] [place] [address] PCP - General Family Medicine 10/21/23 01/10/25 Joanna Osborne DO [address] [facility] [address] [place] [address] PCP - General Internal Medicine 01/11/25 01/16/25 Diane Velez PA-C [address] [place] [facility] [address] [place] [address] PCP - General Family Medicine 04/18/25 documented as of this encounter
--- OUTSIDE RECORDS SUMMARY | 2025-05-03 11:15 | XMS_ITS | Clinical Summary ---
Author Organization [employer] ([place], [place], [place], [place]) Address [address] [place] [address] Care Team Providers Care Events Traffic Controller Name Role Phone Diane Velez PA-C Primary Care Provider [phone]- [phone] Allergies Active Allergy Reactions Criticality Noted Date [...] 30 tablet 1 05/01/20 25 025 Discontinued(R eorder) Active Problems Problem Noted Date Diagnosed Date [...] hearing 09/03/2020 Meniere's disease 09/03/2020 Incontinence 08/25/2017 Encounters * This document contains information received from the source organization and may not represent a complete record from that organization. Date Type Department Care Team Description 05/01/2025 11:30 AM EDT Office Visit [facility] [address] [place] [phone] Diane Velez PA-C Chronic hepatitis C without hepatic coma (HCC) (Primary Dx); Edema; Pain of left lower extremity; Acute cellulitis; Puncture wound of left lower leg, subsequent encounter; Nausea; Abdominal distention; Confusion 05/01/2025 Refill [facility] [address] [place] [phone] Diane Velez PA-C Nausea 05/01/2025 Travel 04/24/2025 Telephone [facility] [address] [place] [phone] Joanna Osborne DO Nausea 04/23/2025 Refill [facility] [address] [place] [phone] Diane Velez PA-C Hypertension, unspecified type 04/23/2025 Telephone [facility] [address] [place] [phone] Diane Velez PA-C Nausea 04/20/2025 Telephone [facility] [address] [phone] Jaqui Zaidi RN Leg Swelling 04/18/2025 12:07 PM EDT - 04/18/2025 4:31 PM EDT Emergency [facility] Emergency Department [address] [place] [address] Antonio Ford DO Cellulitis of left lower extremity (Primary Dx); Luevano's cyst of knee, left Discharge Disposition: Home or Self Care 04/18/2025 Travel 04/13/2025 Refill [facility] [address] [place] [phone] Diane Velez PA-C 04/09/2025 Telephone [facility] [address] [place] [phone] Diane Velez PA-C Referral 04/06/2025 11:30 AM EDT Office Visit [facility] [address] [place] [phone] Diane Velez PA-C Puncture wound of left lower leg, subsequent encounter (Primary Dx); Acute cellulitis; Night sweats; Severe pain; Pain of left lower extremity 04/06/2025 Travel 04/04/2025 11:09 AM EDT - 04/04/2025 4:38 PM EDT Emergency [facility] Emergency Department [address] [place] [address] Chester Healy MD Visit for wound check (Primary Dx); Rash Discharge Disposition: Home or Self Care 04/04/2025 9:40 AM EDT Office Visit [address] [phone] Marc De APRN Cellulitis of left lower leg (Primary Dx) 04/04/2025 Travel 04/04/2025 Telephone [facility] [address] [place] [phone] Diane Velez PA-C Results 04/04/2025 Telephone [facility] [address] [place] [phone] Diane Velez PA-C Results 04/04/2025 Telephone [facility] [address] [place] [phone] Diane Velez PA-C Rash 04/04/2025 Telephone [facility] [address] [place] [address] [phone] Diane Velez PA-C 04/03/2025 12:30 PM EDT Lab Patient Walk-In [facility] Lab [address] [place] [address] Joanna Osborne DO Acute cellulitis (Primary Dx) 04/03/2025 11:57 AM EDT - 04/03/2025 11:59 PM EDT Hospital Encounter [facility] CT Imaging [address] [place] [address] Joanna Osborne DO Acute cellulitis; Fever; Severe pain Discharge Disposition: Home or Self Care 04/03/2025 10:00 AM EDT Office Visit [facility] [address] [place] [address] [phone] Joanna Osborne DO Puncture wound of left lower leg, subsequent encounter (Primary Dx); Acute cellulitis; Night sweats; Fever; Severe pain 04/03/2025 Telephone [facility] [address] [place] [phone] Diane Velez PA-C Advice Only 04/03/2025 Travel 03/29/2025 8:45 AM EDT Office Visit [facility] [address] [place] [address] [phone] Joanna Osborne DO Puncture wound of left lower leg (Primary Dx); Acute cellulitis; Pain of left lower extremity; Hearing loss; Puncture wound of left lower leg, subsequent encounter 03/29/2025 Travel 03/23/2025 9:53 AM EDT - 03/23/2025 11:59 PM EDT Hospital Encounter [facility] Imaging - [address] [place] [address] Santino SHERMAN Tran Pain and swelling of left lower leg Discharge Disposition: Home or Self Care 03/23/2025 9:10 AM EDT Office Visit [address] [phone] Santino SHERMAN Tran Pain and swelling of left lower leg (Primary Dx); Cellulitis of left lower leg 03/05/2025 Abstract [facility] [address] [place] [phone] Behzad Lerner Jr., MD 03/02/2025 Telephone [facility] [address] [place] [phone] Diane Velez PA-C Medication Problem 02/13/2025 10:30 AM EDT Office Visit [facility] [address] [place] [phone] Diane Velez PA-C HTN (hypertension), malignant (Primary Dx); CKD (chronic kidney disease); Solitary kidney, acquired; Anxiety; Insomnia 02/13/2025 Travel from Last 3 Months Immunizations Name Administration Dates Next Due Covid-19 Vaccine MRNA (PF) 1 2yr+ ([facility])([id number]) 07/02/2021 Hepatitis A Adult 06/01/2019 Influenza High Dose Preserva tive Free IM ([id number]) 09/05/2021,07/18/2020,08/24/2019,08/15 Influenza Pre-Epic 07/19/2017,07/23/2016 Influenza Three-TIV Non-PF [...] things needed for daily living? No 06/27/2024 [facility] - Mental Health Answer Date Recorde [...] Date Gil rded Speak language other than Guatemalan at home Not on file 11/13/2023 Want [...] Info) Description 07/05/2025 9:15 AM EDT Appointment [address] [place] [address] 07/10/2025 10:00 AM EDT Office Visit [facility] [address] [facility] [address] [facility] [place] [address] Diane Velez PA-C [address] [facility] [address] [place] [phone] Health Maintenance Due Date Last Done Comments CT Colonography 1955 FOBT/FIT 1955 Fit-DNA (Cologuard) 1955 Sigmoidoscopy 1955 Pneumococcal 50+ years (3 of 3 - PCV20 or PCV21) 05/14/2022 05/14/2017, 03/18/2015 COVID-19 VACCINE (4 - season) 2024 08/07/2021, 07/16/2021, 07/02/2021 DXA SCAN 06/24/2025 06/24/2023, 05/07/2020 Medicare Subsequent Wellness (year 3+) 06/27/2025 06/27/2024 Influenza Vaccine (#1) 2025 , 09/05/2021, 07/18/2020, Additional history exists Respiratory Syncytial Virus (RSV) Adult or (1 - Risk 60-74 years 1-dose series) 08/24/2025 Postponed from 2013 (Not Indicated) Tobacco Cessation Counseling and Screening (12+) 05/01/2026 05/01/2025 Breast Cancer Screening 06/28/2026 06/28/20, 06/24/2023, 06/23/2022, Additional history exists Colonoscopy 01/11/2034 01/12/2024, 05/07/2014 Colorectal Cancer Screening 01/11/2034 Shingles Vaccine (Zoster) Discontinued 03/18/2015 DTAP/TDAP/TD VACCINES Discontinued 03/29/2025 Falls Risk Screening Completed 03/29/2025, 06/27/2024, 06/02/2023 Statin - ASCVD Risk Prevention Discontinued Procedures Procedure Name Priority Date/Time Associated Diagnosis [...] - 05/02/2025 12:07 PM EDT Performed at: [address] [id number] Rn Document Improvement: José Miguel Williamson PhD, Phone: [phone] Diane Velez PA-C PATHOLOGY/CYTOLOGY ORDERAB LES Final Result Performing Organization Address [facility] Co de Phone Number [facility] * (ABNORMAL) Urinalysis w/Microscopic (05/01/2025 12:37 PM EDT) [facility] Specific [place], UA 1.009 1.005 - 1.030 [facility] pH, [...] - 05/02/2025 12:07 PM EDT Performed at: [address] [id number] Rn Document Improvement: José Miguel Williamson PhD, Phone: [phone] Diane Velez PA-C URINE ORDERABLES Final Res ult Performing Organization Address [facility]/ZIP Co de Phone Number [facility] * (ABNORMAL) Lipase (05/01/2025 12:37 PM EDT) [facility] Lipase, Serum 139(H) 14 - 85 U/L [facility] Blood 05/01/2025 12:3 7 PM EDT 05/01/2025 Narrative [facility] - 05/02/2025 12:07 PM EDT Performed at: [address] [place] [id number] Rn Document Improvement: José Miguel Williamson PhD, Phone: [phone] Diane Velez PA-C LAB BLOOD ORDERABLES Final Result Performing Organization Address [facility] de Phone Number [facility] * (ABNORMAL) Ammonia (05/01/2025 12:37 PM EDT) [facility] Ammonia, Plasma 30(L) 31 - 169 ug/dL [facility] Blood 05/01/2025 12:3 7 PM EDT 05/01/2025 Narrative [facility] - 05/02/2025 12:07 PM EDT Performed at: [address] [place] [id number] Rn Document Improvement: José Miguel Williamson PhD, Phone: [phone] Diane Velez PA-C LAB BLOOD ORDERABLES Final Result Performing Organization Address [facility] de Phone Number [facility] * (ABNORMAL) Comprehensive metabolic panel (05/01/2025 12:37 PM EDT) Only the most recent of3 resultswithin the time period is included. Pathologist [facility] Glucose, Serum 90 70 - 99 mg/dL [...] - 05/02/2025 12:07 PM EDT Performed at: [address] [place] [id number] Rn Document Improvement: José Miguel Williamson PhD, Phone: [phone] us Diane Velez PA-C LAB BLOOD ORDERABLES Final Result Performing Organization Address City/[facility]/ZIP Co de Phone Number [facility] * Blood Culture (04/18/2025 4:13 PM EDT) Only the most recent of2 resultswithin the time period is included. Result No growth in 5 days 04/23/2025 6:01 PM EDT [facility] Blood Venipuncture / Unknown 04/18/2025 4:13 PM EDT 04/18/2025 4:18 PM EDT us Johana Dale PA-C MICROBIOLOGY - GENERAL OR DERABLES Final Result Performing Organization Address [facility]/ZIP Co de Phone Number [facility] [address] [phone] * US DOPPLER VENOUS LEG LEFT (04/18/2025 [...] interpreted, and dictated by Rach Yu MD Johana Dale PA-C CV VASCULAR ORDERABLES Fi nal Result * (ABNORMAL) Urinalysis, Reflex Microscopic and Culture If Indicated (04/18/2025 2:41 PM EDT) Color, UA Colorless 04/18/2025 3:05 PM EDT [facility] Clarity, UA Clear Clear 04/18/2025 3:05 PM EDT [facility] Specific [place], UA 1.009 1.005 - 1.030 04/18/2025 3:05 PM EDT [facility] pH, UA 6.0 6.0 - 8.0 04/18/2025 3:05 PM EDT [facility] Leukocytes, UA 25 Marck/uL(A) Negative 04/18/2025 3:05 PM EDT [facility] Nitrite, UA Negative Negative 04/18/2025 3:05 PM EDT [facility] Protein, UA Negative Negative 04/18/2025 3:05 PM EDT [facility] Glucose, UA Normal Normal 04/18/2025 3:05 PM EDT [facility] Ketones, UA Negative Negative 04/18/2025 3:05 PM EDT [facility] Bilirubin, UA Negative Negative 04/18/2025 3:05 PM EDT [facility] Blood, UA Negative Negative 04/18/2025 3:05 PM EDT [facility] Urobilinogen, UA Normal Normal 04/18/2025 3:05 PM EDT [facility] Specimen Source Urine, Sterile Collection 04/18/2025 3:05 PM EDT [facility] Urine STERILE URINE SPECIMEN CONTAINER / Unknown 04/18/2025 2:41 PM EDT 04/18/2025 2:50 PM EDT us Johana Dale PA-C URINE ORDERABLES Final Re sult [facility] [address] [phone] * (ABNORMAL) Urinalysis Microscopic Only (04/18/2025 2:41 PM EDT) WBC, UA 0-2(A) None Seen /HPF 04/18/2025 3:08 PM EDT [facility] RBC, UA 0-2(A) None Seen /HPF 04/18/2025 3:08 PM EDT [facility] Bacteria, UA None Seen None Seen, Trace 04/18/2025 3:08 PM EDT [facility] SQUAMOUS EPITHELIAL 0-2(A) None Seen /HPF 04/18/2025 3:08 PM EDT [facility] Urine STERILE URINE SPECIMEN CONTAINER / Unknown 04/18/2025 2:41 PM EDT 04/18/2025 2:50 PM EDT Johana Dale PA-C URINE ORDERABLES Final Re sult [facility] [address] [phone] * Bowles Top Extra Tubes (04/18/2025 12:28 PM EDT) HOLD SPECIMEN (SJ - BKR) Hold for add-ons. 04/18/2025 2:00 PM EDT [facility] Comment:Auto resulted. Blood Venipuncture / Unknown 04/18/2025 12:28 PM EDT 04/18/2025 12:33 PM EDT Antonio Ford DO LAB BLOOD ORDERABLES Final Resul t Performing Organization Address City/[facility]/ZIP Co de Phone Number [facility] [address] [phone] * (ABNORMAL) CBC with Auto Diff (04/18/2025 12:27 PM EDT) Only the most recent of3 resultswithin the time period is included. WBC 5.7 4.0 - 10.0 K/ L 04/18/2025 12:44 PM EDT [facility] RBC 3.99 3.93 - 5.22 M/ L 04/18/2025 12:44 PM EDT [facility] Hemoglobin 12.0 11.2 - 15.7 GM/DL 04/18/2025 12:44 PM EDT [facility] Hematocrit 35.1 34.1 - 44.9 % 04/18/2025 12:44 PM EDT [facility] MCV 88 79 - 95 fL 04/18/2025 12:44 PM EDT [facility] MCH 30.1 25.6 - 32.2 pg 04/18/2025 12:44 PM EDT [facility] MCHC 34.2 32.2 - 35.5 GM/DL 04/18/2025 12:44 PM EDT [facility] RDW 12.1 11.7 - 14.4 % 04/18/2025 12:44 PM EDT [facility] Platelets 247 140 - 375 K/CU MM 04/18/2025 12:44 PM EDT [facility] MPV 9.6 9.4 - 12.3 fL 04/18/2025 12:44 PM EDT [facility] % Neutros 71 34 - 71 % 04/18/2025 12:44 PM EDT [facility] % Lymphs 17(L) 19 - 52 % 04/18/2025 12:44 PM EDT [facility] % Monos 8 5 - 13 % 04/18/2025 12:44 PM EDT [facility] % Eos 3 1 - 6 % 04/18/2025 12:44 PM EDT [facility] % Baso 1 0 - 1 % 04/18/2025 12:44 PM EDT [facility] NRBC Absolute <0.01 0 - 0.012 K/ul 04/18/2025 12:44 PM EDT [facility] # Neutros 4.06 1.56 - 6.13 K/ L 04/18/2025 12:44 PM EDT [facility] # Lymphs 0.99(L) 1.18 - 3.74 K/ L 04/18/2025 12:44 PM EDT [facility] # Monos 0.45 0.24 - 0.86 K/ L 04/18/2025 12:44 PM EDT [facility] # Eos 0.16 0.04 - 0.36 K/ L 04/18/2025 12:44 PM EDT [facility] # Baso 0.03 0.01 - 0.08 K/ L 04/18/2025 12:44 PM EDT [facility] Immature Granulocytes-Re lative 0.40 0.01 - 0.43 % 04/18/2025 12:44 PM EDT [facility] # IG <0.03 0.00 - 0.03 K/uL 04/18/2025 12:44 PM EDT [facility] Blood Venipuncture / Unknown 04/18/2025 12:27 PM EDT 04/18/2025 12:33 PM EDT Narrative [facility] - 04/18/2025 12:44 PM EDT When [...] Atypical Lymph flag noted us Krysta Zarina SALTERN LAB BLOOD ORDERABLES Final Res ult Performing Organization Address City/[facility]/ZIP Co de Phone Number [facility] [address] [phone] * C-Reactive Protein (04/11/2025 2:39 PM EDT) Only the most recent of2 resultswithin the time period is included. C-Reactive Protein, Quant 4 0 - 10 mg/L [facility] 04/11/2025 2:39 PM EDT 04/11/2025 Narrative [facility] - 04/12/2025 8:08 AM EDT Performed at: [facility] [id number] Rn Document Improvement: José Miguel Williamson PhD, Phone: [phone] us Joanna India DARNELL LAB BLOOD ORDERABLES Final Result Performing Organization Address [facility] Co de Phone Number [facility] * Sedimentation rate (04/11/2025 2:39 PM EDT) Only the most recent of2 resultswithin the time period is included. Sedimentation Rate-Westergren 4 0 - 40 mm/hr [facility] 04/11/2025 2:39 PM EDT 04/11/2025 Narrative [facility] - 04/12/2025 8:08 AM EDT Performed at: [address] [id number] Rn Document Improvement: José Miguel Williamson PhD, Phone: [phone] us Joanna Osborne DO LAB BLOOD ORDERABLES [...] Hold for add-ons. 04/04/2025 1:01 PM EDT [facility] Comment:Auto resulted. Blood Venipuncture / Unknown 04/04/2025 11:30 AM EDT 04/04/2025 11:35 AM EDT Chester Healy MD LAB BLOOD ORDERABLES Final Result Performing Organization Address [facility] Co de Phone Number [facility] [address] [phone] * Blue Top Extra Tubes (04/04/2025 11:30 AM EDT) HOLD SPECIMEN (SJ - BKR) Hold for add-ons. 04/04/2025 1:01 PM EDT [facility] Comment:Auto resulted. Blood Venipuncture / Unknown 04/04/2025 11:30 AM EDT 04/04/2025 11:36 AM EDT Chester Healy MD LAB BLOOD ORDERABLES Final Result Performing Organization Address [facility] Co de Phone Number [facility] [address] [phone] * Lactic Acid with reflex (SJ) (04/04/2025 11:21 AM EDT) Lactic Acid Level (mmol/L) 0.5 0.5 - 2.2 mmol/L 04/04/2025 12:01 PM EDT [facility] Blood Venipuncture / Unknown 04/04/2025 11:21 AM EDT 04/04/2025 11:32 AM EDT us Ramila Ward APRN LAB BLOOD ORDERABLES Final Res ult Performing Organization Address City/[facility]/ZIP Co de Phone Number [facility] [address] [phone] * Procalcitonin (04/03/2025 12:42 PM EDT) Procalcitonin 0.02 See Comment ng/mL 04/03/2025 1:26 PM EDT [facility] Comment: Sepsis comment <0.5 Antibiotics Discouraged [...] Osborne DO LAB BLOOD ORDERABLES Final Result Performing Organization Address [facility]/ZIP Co de Phone Number [facility] [address] [phone] * CT lower extremity without IV contrast [...] the next mammogram. At our facility, a tatitlek marker is positioned over a visible skin [...] cancer. COMPARISON STUDY: 2022 through 2017 from [facility] FINDINGS: Craniocaudal and mediolateral oblique images of both breasts were obtained in 2D and DBT modes. Synthesized views were reconstructed from DBT data. The breast tissue is heterogeneously dense, which may obscure small masses. There is no evidence of dominant mass, architectural distortion, or suspicious calcifications. The mammogram was interpreted with the benefit of computer aided detection (CAD). Diane Velez PA-C [facility] MAMMOGRAPHY ORDERABLES Final Result * HM COLONOSCOPY (01/12/2024) us Joanna Osborne DO HEALTH MAINTENANCE Final Re [...] FINDINGS: Bone densitometry was performed using a Evernote unit. Sites measured included the spine and [...] FINDINGS: Bone densitometry was performed using a Evernote unit. Sites measured included the spine and [...] tobacco and alcohol. us Fatoumata Ayala PA-C [facility] DXA ORDERABLES Final Result from Last 3 Months or Most Recently Relevant to Health Maintenance Insurance [facility] Care Teams Events Traffic Controller Relationship Specialty Start Date End Date Diane Velez PA-C [address] [place] [address] PCP - General Family Medicine 04/18/25
--- OUTSIDE RECORDS SUMMARY | 2025-05-03 11:15 | XMS_ITS | Encounter Summary ---
Author Organization [employer] ([place], [place], [place], [place]) Address [address] [place] [address] Care Team Providers Care Heading Up Machine Operator Name Role Phone Joanna Osborne DO Primary Care Provider Diane Velez PA-C Primary Care Provider [phone]- [phone] Joanna Osborne DO Primary Care Provider Diane Velez PA-C Primary Care Provider +1- [phone] Joanna Osborne DO Primary Care Provider Diane Velez PA-C Primary Care Provider Encounter Details Date Type Department Care Team (Late st Contact Info) Description 12/20/2020 Transcribed Document [facility] Family Medicine [address] [place] [address] ProviderTamiko MD [address] [place] [address] Social History Tobacco Use Types Packs/Day Years Used Date Smoking Tobacco: Never Assessed Comments Unknown Sex and Gender Information Value Date Recorded Sex Assigned at Not on file Legal Sex Female 2:31 PM CDT Gender Identity Not on file Sexual Orientation Not on file documented as of this encounter Miscellaneous Notes * Cerner Conversion Note - Tamkio Simons MD - 12/20/2020 12:11 PM WARP TYING MACHINE KNOTTER Pre Procedure Adult Entered On: 12/20/2020 12:14 EST Performed On: 12/20/2020 12:11 EST by MYRTLE HERNANDEZ RN Height and Weight, Clinical Dosing Height Source : Stated Height Entry Format : Carter Height, Feet : 5 ft(Converted to: 152 cm, 60 Inch) Height, Inches : 2 Inch(Converted to: 0 ft 2 Inch, 5.08 cm) Clinical Height : 157.48 cm Weight Source : Standing scale Weight Entry Format : Carter Clinical Dosing Weight : 59.09 kg Weight, Pounds : 130 lb Body Surface Area (BSA) : 1.59 m2 Body Mass Index : 23.8 kg/m2 [place] Body Weight : 50 kg MYRTLE HERNANDEZ RN - 12/20/2020 12:11 EST Health Histories Smoking Status : Never (less than 100 in lifetime; none in last 30 days) Smokeless Tobacco Status : Never MYRTLE HERNANDEZ RN - 12/20/2020 12:11 EST Social History (As Of: 12/20/2020 12:14:46 EST) Tobacco: Never (less than 100 in lifetime) Smoking Status. (Last Updated: 12/20/2020 12:11:32 EST by MYRTLE HERNANDEZ RN) Alcohol: Alcohol Use History No. (Last Updated: 12/20/2020 12:11:42 EST by MYRTLE HERNANDEZ RN) Infectious Disease History Has the patient ever been tested for COVID-19? : Yes, Patient stated results Negative Date of COVID-19 test known? : Yes Date of COVID-19 Test : 12/16/2020 EST Does patient have symptoms of COVID-19? : No COVID19 Screening : No Experiencing Infectious Disease Symptoms : No symptoms Physical contact outside [place] in the last 30 days : No Infectious Disease History : Chicken pox/Shingles, Hepatitis C, Influenza, Measles, Mononucleosis, MRSA, Mumps Tuberculosis Symptoms : None MYRTLE HERNANDEZ RN - 12/20/2020 12:11 EST COVID19 PreProcedure Screening Is this an Emergent or Add on Procedure? : No Date PreProcedure COVID-19 test known? : Yes Date of PreProcedure COVID-19 : 12/20/2020 EST Has patient been isolated since the test : No Exposed to COVID19 symptoms since test? : No MYRTLE HERNANDEZ RN - 12/20/2020 12:11 EST Anesthesia/Transfusion History Family History of Anesthesia Reaction : Prior transfusion without reaction Transfusion History : Prior anesthesia without reaction Family History of Anesthesia Reaction : None MYRTLE HERNANDEZ RN - 12/20/2020 12:11 EST Functional Assessment Living Situation : Home Patient Lives With : Spouse Current Home Treatments : None MYRTLE HERNANDEZ RN - 12/20/2020 12:11 EST [place] Suicide Severity Rating Scale (C-SSRS) CSSRS Past Month Wish to be : No CSSRS Past Month Suicidal Thoughts : No CSSRS Lifetime Suicide Behavior : No Suicide Severity Rating Score : 0 Suicide Severity Rating : No Additional Care Required at this time MYRTLE HERNANDEZ RN - 12/20/2020 12:11 EST Psychosocial History Currently in Unsafe Situation : No MYRTLE HERNANDEZ RN - 12/20/2020 12:11 EST Advance Directive Patient has Advance Directive *Q : Yes, Advance Directive not with the patient Advance Directive Type : Living will Copy Advance Directive Verified/on Chart : No MYRTLE HERNANDEZ RN - 12/20/2020 12:11 EST General Info Support Person/Pt Rep Name : Paige Nunes- friend Support Person/Pt Rep Contact Information : [phone] Want Family/Rep/Phys Notified of Admit : No Emergency Contact #1 : . Emergency Contact #1 Phone Number : . Emergency Contact #1 Relationship : . Emergency Contact #2 : . Emergency Contact #2 Phone Number : . Emergency Contact #2 Relationship : . Primary Language : Samoan Communication Barrier : None Plant Accountant Needed : No MYRTLE HERNANDEZ RN - 12/20/2020 12:11 EST Sleep Apnea Risk Assmt Hx of Obstructive Sleep Apnea Diagnosis : No Snore Loudly : No Tired, Fatigued, or Sleepy During Day : No Observed Stopping Breathing During Sleep : No Have/Are Being Treated for Hypertension : No BMI Greater Than 35 kg/m2 : No Age over 50 Years Old : Yes Neck Circumference Greater Than 40 cm : No Gender Male : No STOP-BANG Sleep Apnea Risk Level Score : 1 MYRTLE HERNANDEZ RN - 12/20/2020 12:11 EST Vaughn Scale Vaughn Sensory Perception : No impairment Vaughn Moisture : Rarely moist Vaughn Activity : Walks frequently Vaughn Mobility : No limitation Vaughn Nutrition : Adequate Vaughn Friction and Shear : No apparent problem Vaughn Score : 22 MYRTLE HERNANDEZ RN - 12/20/2020 12:11 EST Pain Assessment Pain Assessment : Initial assessment Pain Scale Used : 0-10 Scale MYRTLE HERNANDEZ RN - 12/20/2020 12:11 EST Fall Risk Scales ABCs Fall Injury Risk Identification : None ESPINOZA Hx Falls Immediate/Within 3 Months : Yes Espinoza Secondary Diagnosis : Yes ESPINOZA Use of Ambulatory Aid : None ESPINOZA IV Therapy or IV Access : Yes Espinoza Gait/Transferring : Normal, bedrest, immobile Espinoza Mental Status : Oriented to own ability Espinoza Fall Risk Score : 60 ESPINOZA Fall Scale Risk Level : 25-45 Medium Risk [place] Fall Interventions : Adequate lighting, Assistive devices within reach, Bed in low position, Personal items within reach, Reinforced to call for assistance before getting out of bed, Room free of clutter/spills MYRTLE HERNANDEZ RN - 12/20/2020 12:11 EST Valuables and Belongings Valuables and Belongings : Clothing Clothing : Common streetwear Clothing Disposition : Bedside MYRTLE HERNANDEZ RN - 12/20/2020 12:11 EST Pain Scale Intensity : 0 MYRTLE HERNANDEZ RN - 12/20/2020 12:11 EST Image 4 - Images currently included in the form version of this document have not been included in the text rendition version of the form. documented in this encounter Plan of Treatment Upcoming Encounters Date Type Department Care Team (Late st Contact Info) Description 07/05/2025 9:15 AM EDT Appointment [address] [place] [phone] 07/10/2025 10:00 AM EDT Office Visit [facility] Primary Care & Internal Med [address] [facility] [address] [address] Diane Velez PA-C [address] [place] [address] documented as of this encounter Visit Diagnoses Not on filedocumented in this encounter Care Teams Heading Up Machine Operator Relationship Specialty Start Date End Date India Joanna [address] [facility] [address] [place], [place] [id number] PCP - General Internal Medicine 10/27/22 06/06/23 Diane Velez PA-C [address] [place] [address] PCP - General Family Medicine 06/07/23 06/23/23 India JoannaDO eddie [address] [facility] [address] [place] [id number] PCP - General Internal Medicine 06/24/23 10/20/23 Diane Velez PA-C [address] [place] [address] PCP - General Family Medicine 10/21/23 01/10/25 India JoannaDO eddie [address] [facility] [address] [place] [address] PCP - General Internal Medicine 01/11/25 01/16/25 Diane Velez PA-C [address] [place] [address] PCP - General Family Medicine 04/18/25 documented as of this encounter
--- OUTSIDE RECORDS SUMMARY | 2025-05-03 11:15 | XMS_ITS | Encounter Summary ---
Author Organization [employer] ([place], [place], [place], [place]) Address [address] [place] [address] Care Team Providers Care Electronics Scale Tester Name Role Phone Unavailable Primary Care Provider Unavailabl e Encounter Details Date Type Department Care Team (Latest Contact Info) Description 04/06/2025 Travel Social History Tobacco Use Types Packs/Day [...] things needed for daily living? No 06/27/2024 [facility] - Mental Health Answer Date Recorde [...] Date Gil rded Speak language other than Croatian at home Not on file 11/13/2023 Want [...] Info) Description 07/05/2025 9:15 AM EDT Appointment [facility] [address] [facility] [address] [place] [address] 07/10/2025 10:00 AM EDT Office Visit [facility] Primary Care & Internal Med [address] [facility] [address] [address] Diane Velez PA-C [address] [address] documented as of this encounter Visit Diagnoses Not on filedocumented in this encounter
--- OUTSIDE RECORDS SUMMARY | 2025-05-03 11:15 | XMS_ITS | Encounter Summary ---
Author Organization [employer] ([place], [place], [place], [place]) Address [address] [place] [address] Care Team Providers Care Performance Improvement Analyst Name Role Phone Diane Velez PA-C Primary Care Provider [phone]- [phone] Encounter Details Date Type Department Care Team (Latest Contact Info) Description 05/01/2025 Travel Social History Tobacco Use Types Packs/Day [...] needed for daily living? No 06/27/2024 [facility] - Mental Health Answer Date Recorde [...] Info) Description 07/05/2025 9:15 AM EDT Appointment [address] [place] [address] 07/10/2025 10:00 AM EDT Office Visit [facility] Primary Care & Internal Med [address] [facility] [address] [address] Diane Velez PA-C [address] [facility] [place] [address] [address] documented as of this encounter Visit Diagnoses Not on filedocumented in this encounter Care Teams Performance Improvement Analyst Relationship Specialty Start Date End Date Diane Velez PA-C [address] [place] [phone] PCP - General Family Medicine 04/18/25 documented as of this encounter
--- OUTSIDE RECORDS SUMMARY | 2025-05-03 11:15 | XMS_ITS | Encounter Summary ---
Author Organization [employer] ([place], [place], [place], [place]) Address [address] [place] [address] Care Team Providers Care Clamp Remover Name Role Phone Joanna Osborne DO Primary Care Provider Diane Velez PA-C Primary Care Provider [phone]- [phone] Joanna Osborne DO Primary Care Provider [phone] Diane Velez PA-C Primary Care Provider [phone]- [phone] Joanna Osborne DO Primary Care Provider Diane Velez PA-C Primary Care Provider Encounter Details Date Type Department Care Team (Late st Contact Info) Description 12/20/2020 Transcribed Document [facility] [address] [place] [address] Provider, Mecca Morrison MD Social History Tobacco Use Types Packs/Day Years Used Date Smoking Tobacco: Never Assessed Comments Unknown Sex and Gender Information Value Date Recorded Sex Assigned at Not on file Legal Sex Female 2:31 PM CDT Gender Identity Not on file Sexual Orientation Not on file documented as of this encounter Miscellaneous Notes * Cerner Conversion Note - Mecca Simons MD - 12/20/2020 5:40 PM EST Event Note Entered On: 12/20/2020 16:41 EST Performed On: 12/20/2020 16:40 EST by ALICIA BREEN RN Event Note Event Date/Time : 12/20/2020 16:35 EST Description of Event : 1635: BP 107/57. No bleeding from dressing to back or swelling. Denies discomfort. NSR per monitor. ALICIA BREEN RN - 12/20/2020 16:40 EST Electronically signed by [facility], [facility] Conversion Kettle Hand Cerner at 03/30/2023 2:01 PM CDT documented in this encounter Plan of Treatment Upcoming Encounters Date Type Department Care Team (Late st Contact Info) Description 07/05/2025 9:15 AM EDT Appointment [address] [place] [address] 07/10/2025 10:00 AM EDT Office Visit [facility] Primary Care & Internal Med [address] [place] [address] Diane Velez PA-C [address] [place], [place] [phone] documented as of this encounter Visit Diagnoses Not on filedocumented in this encounter Care Teams Clamp Remover Relationship Specialty [place] [address] [place] [address] [address] [place], [place] [id number] PCP - General Internal Medicine 10/27/22 06/06/23 Diane Velez PA-C [address] [place] [address] PCP - General Family Medicine 06/07/23 06/23/23 [place] [address] [place] [address] [place] [id number] PCP - General Internal Medicine 06/24/23 10/20/23 Diane Velez PA-C [address] [place] [phone] PCP - General Family Medicine 10/21/23 01/10/25 [place] [address] [place] [address] [address] [place] [address] PCP - General Internal Medicine 01/11/25 01/16/25 Diane Velez PA-C [address] [place] [address] [address] [place] [address] PCP - General Family Medicine 04/18/25 documented as of this encounter
--- OUTSIDE RECORDS SUMMARY | 2025-05-03 11:15 | XMS_ITS | Encounter Summary ---
Author Organization [employer] ([place], [place], [place], [place]) Address [address] [place] [address] Care Team Providers Care Monotype Caster Name Role Phone Unavailable Primary Care Provider Unavailabl e Encounter Details Date Type Department Care Team (Latest Contact Info) Description 04/04/2025 Travel Social History Tobacco Use Types Packs/Day [...] for daily living? No 06/27/2024 [facility] - Mental Health Answer Date Recorde [...] Date Gil rded Speak language other than Somali at home Not on file 11/13/2023 Want [...] Info) Description 07/05/2025 9:15 AM EDT Appointment [facility] [address] [facility] [address] [place] [address] 07/10/2025 10:00 AM EDT Office Visit [facility] Primary Care & Internal Med [address] [facility] [address] [address] Diane Velez PA-C [address] [address] documented as of this encounter Visit Diagnoses Not on filedocumented in this encounter
--- OUTSIDE RECORDS SUMMARY | 2025-05-03 11:15 | XMS_ITS | Encounter Summary ---
Author Organization [employer] ([place], [place], [place], [place]) Address [address] [place] [address] Care Team Providers Care Metal Slitter Name Role Phone Dawit Escalera DO Primary Care Provider Diane Velez PA-C Primary Care Provider [phone] Dawit Escalera DO Primary Care Provider Diane Velez PA-C Primary Care Provider [phone] Dawit Escalera DO Primary Care Provider [phone] Diane Velez PA-C Primary Care Provider Encounter Details Date Type Department Care Team (Late st Contact Info) Description 12/20/2020 Transcribed Document [facility] [place] Family Medicine [address] [place] [address] ProviderTamiko MD [address] [place] [address] Social History Tobacco Use Types Packs/Day Years Used Date Smoking Tobacco: Never Assessed Comments Unknown Sex and Gender Information Value Date Recorded Sex Assigned at Not on file Legal Sex Female 2:31 PM CDT Gender Identity Not on file Sexual Orientation Not on file documented as of this encounter Miscellaneous Notes * Cerner Conversion Note - Tamiko Simons MD - 12/20/2020 4:06 PM SERVICES COORDINATOR [facility] [place] [address] CINTHIA PALMA :1955 Visit Time:12/20/2020 Your Visit Summary Your Care Team Admitting Physician - MARIBEL FRANCISCO MD-ONC Attending Physician - MARIBEL FRANCISCO MD-ONC Primary Care Physician - DAWIT ESCALERA, DO-INT Referring Physician - DAWIT ESCALERA, DO-INT Your Diagnosis Monoclonal gammopathy, Monoclonal gammopathy Discharge Vitals Temperature 36.6 ??C Heart Rate (Monitored) 64 Respiratory Rate 17 Blood Pressure 128/71 What to do next Instructions From Your Care Team Diet after Discharge: Resume usual diet as tolerated Activity after Discharge: Rest and relax today, No strenuous activity, , Driving Restrictions: No driving for 24 hours. Showering/Bathing: You may remove the dressing in 24 hours and shower. , _ Medications: No changes to your current home medications., , Follow-Up Appointments Follow Up with MARIBEL FRANCISCO MD-ONC When Comments follow [facility] as instructed [facility] [address] [place] [address]- Medications What How Much When Instructions Next Dose acyclovir (acyclovir 400 mg oral tablet) As needed for Cold Symptoms amLODIPine (amLODIPine 2.5 mg oral tablet) 1 Tablet(s) Every Day atenolol (atenolol 50 mg oral tablet) 1 Tablet(s) Every Day furosemide (furosemide 20 mg oral tablet) See instructions 1 Tab wed potassium chloride (potassium chloride 20 mEq oral tablet, extended release) Oral Two Times A Day wed with furosemide clonazePAM (clonazePAM 0.5 mg oral tablet) 1 Tablet(s) Oral Two Times A Day lisinopril (lisinopril 20 mg oral tablet) 1 Tablet(s) Oral Every Day metoclopramide (metoclopramide 10 mg oral tablet) 1 Tablet(s) Oral Four Times A Day pantoprazole (pantoprazole 40 mg oral delayed release tablet) 1 Tablet(s) Oral Every Day temazepam (temazepam 30 mg oral capsule) 1 Capsule(s) Oral Once a day (at bedtime) as needed for as needed for sleep Take your medications faithfully. Do NOT skip medication. Do NOT stop taking medications without the direction of a physician. Carry a list of your medications with you at all times, and take this medication list with you to your first follow up visit. Report any side effects. Avoid herbal remedies unless discussed with your physician. As part of your treatment plan, your physician may have prescribed a limited course of a controlled substance. This medication may be given to help people with moderate or severe pain or for other medical conditions, but there are risks involved with treatment. Common side effects may include nausea, constipation, drowsiness, sweating, itching, dry mouth, and rash. More serious side effects may include cognitive and motor impairment, like problems with thinking, concentrating, alertness, and movement (e.g. slowed reflexes), and driving and operating heavy machinery can be dangerous. It is important for you to talk to your physician if you have these side effects or questions. These controlled substances can produce physical dependence and be habit-forming if taken for an extended period of time, which means that the body has gotten used to them and may experience withdrawal symptoms if they are abruptly stopped. Withdrawal symptoms can include runny nose, sweating, goose bumps, diarrhea, abdominal cramping, rapid heartbeat, difficulty sleeping, and nervousness. Please dispose of unused and medications per your retail pharmacy guidance. Allergies codeine ([D]Nausea and vomiting, [D]Nausea and vomiting) Bactrim Cipro Immunizations This Visit No Immunizations Found Education Materials It???s Cold and Flu Season ??? How are you protecting yourself? The start of each year is often met with the peak of cold and flu season. This year is no different except that we are facing the new strain of coronavirus, COVID-19, and the widespread media attention this public health outbreak is causing. It is understandable that many are feeling overwhelmed by the thought of catching coronavirus and are concerned about how to best care for ourselves and our loved ones during this challenging time. Take comfort in knowing there are simple things you can do each and every day to help ensure your health is protected. Scrub a dub! Wash your hands! As simple as this sounds, it truly is the most effective way to stop the spread of germs. Be sure to use soap, and to make sure you are being thorough enough, sing the ???Happy Birthday?? song which is just the right length to ensure a thorough cleaning of your hands. Wash all parts of your hands, including the ???webs?? between your fingers and thumbs. When without, use a squeeze! If you are unable to get to a sink for soap and water to thoroughly wash your hands, use hand rodding anode worker. While handwashing is best, hand rodding anode worker helps to reduce the spread of germs when you are out and about. Have hand rodding anode worker in several locations so you can always have some on hand ??? think about placing some bottles in your car, your purse, your suitcase, the diaper bag, or even in your coat pocket. Don???t rub, don???t touch! As tempting as it is to rub those scratchy eyes during allergy season or to rub a runny nose, don???t. In fact, if you can, try to avoid touching your face as much as possible, especially with unclean hands. Our eyes, nose, and mouth are easy access points for germs to enter our bodies. When in doubt, don???t go out! If you are feeling under the weather, stay home. If your child is feeling sick, keep them home. It is so important to not only rest when you are starting to get sick or are already under the weather, but also staying home and away from others helps to keep people from also getting sick. Don???t [place] It! Sneezing this time of year is part of life, especially if you suffer from allergies or do have the cold or flu. To help minimize the spread of germs from sneezing or coughing, use a Kleenex or your elbow to protect against rogue spray and to help keep your hands clean. And remember, most people will have a runny nose, coughs and sneezes these days either from seasonal allergies, the cold or the flu, but if you do feel ill or feel like you need some help to feel better, please contact your Primary Care Provider to determine the best course of treatment for you which may include home care for mild cases or making an appointment to be seen to address more moderate needs. To find a PCP near you, please visit HYPERLINK [email or web address]. January 05, 2020 What to do if you are sick with coronavirus disease 2019 (COVID-19) If you are sick with COVID-19 or suspect you are infected with the virus that causes COVID-19, follow the steps below to help prevent the disease from spreading to people in your home and community. Missing Image - the embedded image is not supported COVID-19 and Animals for more information. Call ahead before visiting your doctor If you have a medical appointment, call the healthcare provider and tell them that you have or may have COVID-19. This will help the healthcare provider???s office take steps to keep other people from getting infected or exposed. Wear a facemask You should wear a facemask when you are around other people (e.g., sharing a room or vehicle) or pets and before you enter a healthcare provider???s office. If you are not able to wear a facemask (for example, because it causes trouble breathing), then people who live with you should not stay in the same room with you, or they should wear a facemask if they enter your room. Cover your coughs and sneezes Cover your mouth and nose with a tissue when you cough or sneeze. Throw used tissues in a lined trash can; immediately wash your hands with soap and water for at least 20 seconds or clean your hands with an alcohol-based hand rodding anode worker that contains at least 60 to 95% alcohol, covering all surfaces of your hands and rubbing them together until they feel dry. Soap and water should be used preferentially if hands are visibly dirty. Avoid sharing personal household items You should not share dishes, drinking glasses, cups, eating utensils, towels, or bedding with other people or pets in your home. After using these items, they should be washed thoroughly with soap and water. Clean your hands often Wash your hands often with soap and water for at least 20 seconds. If soap and water are not available, clean your hands with an alcohol-based hand rodding anode worker that contains at least 60% alcohol, covering all surfaces of your hands and rubbing them together until they feel dry. Soap and water should be used preferentially if hands are visibly dirty. Avoid touching your eyes, nose, and mouth with unwashed hands. Clean all ???high-touch?? surfaces every day High touch surfaces include counters, tabletops, doorknobs, bathroom fixtures, toilets, phones, keyboards, tablets, and bedside tables. Also, clean any surfaces that may have blood, stool, or body fluids on them. Use a household cleaning spray or wipe, according to the label instructions. Labels contain instructions for safe and effective use of the cleaning product including precautions you should take when applying the product, such as wearing gloves and making sure you have good ventilation during use of the product. Monitor your symptoms Seek prompt medical attention if your illness is worsening (e.g., difficulty breathing). Before seeking care, call your healthcare provider and tell them that you have, or are being evaluated for, COVID-19. Put on a facemask before you enter the facility. These steps will help the healthcare provider???s office to keep other people in the office or waiting room from getting infected or exposed. Ask your healthcare provider to call the local or state health department. Persons who are placed under active monitoring or facilitated self-monitoring should follow instructions provided by their local health department or occupational health professionals, as appropriate. If you have a medical emergency and need to call 911, notify the dispatch personnel that you have, or are being evaluated for COVID-19. If possible, put on a facemask before emergency medical services arrive. Discontinuing home isolation Patients with confirmed COVID-19 should remain under home isolation precautions until the risk of secondary transmission to others is thought to be low. The decision to discontinue home isolation precautions should be made on a cidg-nh-yjbz basis, in consultation with healthcare providers and state and local health departments. For more information: HYPERLINK http://www.cdc.gov/COVID19 www.cdc.gov/COVID19 DISCLAIMER: COVID-19 information is rapidly changing and documents will be updated accordingly. January 05, 2020 Bone Marrow Aspiration and Bone Marrow Biopsy, Adult, Care After This sheet gives you information about how to care for yourself after your procedure. Your health care provider may also give you more specific instructions. If you have problems or questions, contact your health care provider. What can I expect after the procedure? After the procedure, it is common to have: ??? Mild pain and tenderness. ??? Swelling. ??? Bruising. Follow these instructions at home: Puncture site care ??? Follow instructions from your health care provider about how to take care of the puncture site. Make sure you: ? Wash your hands with soap and water before and after you change your bandage (dressing). If soap and water are not available, use hand rodding anode worker. ? Change your dressing as told by your health care provider. ??? Check your puncture site every day for signs of infection. Check for: ? More redness, swelling, or pain. ? Fluid or blood. ? Warmth. ? Pus or a bad smell. Activity ??? Return to your normal activities as told by your health care provider. Ask your health care provider what activities are safe for you. ??? Do not lift anything that is heavier than 10 lb (4.5 kg), or the limit that you are told, until your health care provider says that it is safe. ??? Do not drive for 24 hours if you were given a sedative during your procedure. General instructions ??? Take vcil-vky-xbupqma and prescription medicines only as told by your health care provider. ??? Do not take baths, swim, or use a hot tub until your health care provider approves. Ask your health care provider if you may take showers. You may only be allowed to take sponge baths. ??? If directed, put ice on the affected area. To do this: ? Put ice in a plastic bag. ? Place a towel between your skin and the bag. ? Leave the ice on for 20 minutes, 2???3 times a day. ??? Keep all follow-up visits as told by your health care provider. This is important. Contact a health care provider if: ??? Your pain is not controlled with medicine. ??? You have a fever. ??? You have more redness, swelling, or pain around the puncture site. ??? You have fluid or blood coming from the puncture site. ??? Your puncture site feels warm to the touch. ??? You have pus or a bad smell coming from the puncture site. Summary ??? After the procedure, it is common to have mild pain, tenderness, swelling, and bruising. ??? Follow instructions from your health care provider about how to take care of the puncture site and what activities are safe for you. ??? Take wojh-vmp-ajjaudm and prescription medicines only as told by your health care provider. ??? Contact a health care provider if you have any signs of infection, such as fluid or blood coming from the puncture site. This information is not intended to replace advice given to you by your health care provider. Make sure you discuss any questions you have with your health care provider. Document Released: 05/07/2006 Document Revised: 03/05/2020 Document Reviewed: 03/05/2020 [employer] Patient Education ?? 2020 [employer] Moderate Conscious Sedation, Adult, Care After These instructions provide you with information about caring for yourself after your procedure. Your health care provider may also give you more specific instructions. Your treatment has been planned according to current medical practices, but problems sometimes occur. Call your health care provider if you have any problems or questions after your procedure. What can I expect after the procedure? After your procedure, it is common: ??? To feel sleepy for several hours. ??? To feel clumsy and have poor balance for several hours. ??? To have poor judgment for several hours. ??? To vomit if you eat too soon. Follow these instructions at home: For at least 24 hours after the procedure: ??? Do not: ? Participate in activities where you could fall or become injured. ? Drive. ? Use heavy machinery. ? Drink alcohol. ? Take sleeping pills or medicines that cause drowsiness. ? Make important decisions or sign legal documents. ? Take care of children on your own. ??? Rest. Eating and drinking ??? Follow the diet recommended by your health care provider. ??? If you vomit: ? Drink water, juice, or soup when you can drink without vomiting. ? Make sure you have little or no nausea before eating solid foods. General instructions ??? Have a responsible adult stay with you until you are awake and alert. ??? Take mrku-roy-rniepvh and prescription medicines only as told by your health care provider. ??? If you smoke, do not smoke without supervision. ??? Keep all follow-up visits as told by your health care provider. This is important. Contact a health care provider if: ??? You keep feeling nauseous or you keep vomiting. ??? You feel light-headed. ??? You develop a rash. ??? You have a fever. Get help right away if: ??? You have trouble breathing. This information is not intended to replace advice given to you by your health care provider. Make sure you discuss any questions you have with your health care provider. Document Released: 08/08/2014 Document Revised: 09/30/2018 Document Reviewed: 02/06/2017 [employer] Patient Education ?? 2020 [employer]. Emergency Awareness and Preventative Care STROKE is an EMERGENCY Every Minute Counts Act FAST and Check for these signs: FACE Does the face look uneven? ARM Does one arm drift down? SPEECH Does their speech sound strange? TIME Call at any sign of stroke Stroke Risk Factors Atrial Fibrillation (irregular heartbeat) Diabetes Family history of stroke Heart Disease Heavy alcohol use High Blood Pressure High Cholesterol Physical inactivity and obesity Smoking Cigarette Smoking The facts are clear, cigarette smoking will shorten your life. Smoking can cause many illnesses along the way. As a healthcare provider, we recommend that you stop smoking. Assistance with quitting is available by contacting 8-323-MCGU2CODE OnlineNOW. This is a free resource providing counseling, support, and referral. Or you may contact your personal physician. National Suicide Prevention Lifeline: The National Suicide Prevention Lifeline is a national network of local crisis centers that provides free and confidential emotional support to people in suicidal crisis or emotional distress 24 hours a day, 7 days a week. Don't Wait! Stop a Heart Attack Before it Starts What is a heart attack? A heart attack is damage or to a part of the heart from severely decreased or lack of blood flow to the heart. Over time, arteries can become narrow from the buildup of fat and cholesterol, which is called plaque. The plaque can rupture causing a blood clot to form. When the blood clot forms, the artery can become severely narrowed or completely blocked, causing a heart attack. Heart attack is the leading cause of in the [place]. 85% of muscle damage occurs within the first 2 hours. Delay in the recognition of heart attack symptoms increases the chances of . Know the early symptoms of a heart attack: Nausea Feeling of fullness in chest Jaw Pain Pain that travels down one or both arms Fatigue/being tired Anxiety Back Pain Chest pressure, squeezing, or discomfort Shortness of breath Sweating, or a cold sweat Feeling of impending doom There are unusual signs of a heart attack, too! Women, the elderly, and diabetics may present with atypical symptoms: Fainting/dizziness Weakness Confusion Risk Factors for a Heart Attack Some heart disease risk factors, such as age and family history, cannot be changed. Others, like smoking and lack of exercise, can be changed. Smoking High Cholesterol High Blood Pressure Family History Obesity Age Gender (Males are at higher risk) Lack of Exercise Diabetes Diet Stress Excessive Alcohol Intake If you or someone you know is experiencing the signs and symptoms of a heart attack, DON???T DELAY. Call immediately and seek help. If someone collapses, perform CPR! Do not attempt to drive if you are having symptoms of heart attack. Hands-Only CPR Why Hands-Only CPR? Hands-Only CPR has been shown to be as effective as conventional CPR for cardiac arrests that occur outside of a hospital. Survival depends on immediately receiving CPR from someone nearby. How do you perform Hands-Only CPR? There are two easy steps: Call if you see a teen or adult collapse Push hard and fast in the center of the chest at a beat of 100 beats per minute. Save a life! 4 WAYS TO GET AHEAD OF SEPSIS SEPSIS is a MEDICAL EMERGENCY. Time matters! Infections put you and your family at risk for a life-threatening condition called sepsis. Sepsis is the body's extreme response to an infection. It is life-threatening, and without timely treatment, sepsis can rapidly lead to tissue damage, organ failure, and . Sepsis happens when an infection you already have-in your skin, lungs, urinary tract or somewhere else-triggers a chain reaction throughout your body. 1 PREVENT INFECTIONS Take good care of chronic conditions. Talk to your doctor about getting the recommended vaccines. 2 PRACTICE GOOD HYGIENE Wash your hands frequently. Keep cuts or open sores clean and covered until they are healed. 3 KNOW THE SYMPTOMS Confusion or disorientation Shortness of breath High heart rate Fever, shivering, or feeling very cold Extreme pain or discomfort Clammy or sweaty skin 4 ACT FAST Get medical care IMMEDIATELY if you suspect sepsis or if you have an infection that is not getting better or is getting worse. To learn more about sepsis and how to prevent infections, visit www.cdc.gov/sepsis. Test Results Laboratory or Other Results This Visit (last charted value for your 12/20/2020 visit) Hematology 12/20/2020 11:42 AM Hct: 38.9 % -- Normal range between ( 34.1 and 44.9 ) Hgb: 13.1 g/dL -- Normal range between ( 11.2 and 15.7 ) Microbiology 12/16/2020 1:00 PM SARS-CoV-2 (COVID19 PCR): Negative General Chemistry 12/20/2020 11:42 AM Creatinine Level: 0.90 mg/dL -- Normal range between ( 0.55 and 1.02 ) eGFR : >60 mL/min/1.73m2 eGFR NonAfrican: >60 mL/min/1.73m2 Coagulation 12/20/2020 11:42 AM INR: 1.0 -- Normal range between ( 0.9 and 1.2 ) PTT: 25.2 Second(s) -- Normal range between ( 22.0 and 33.0 ) PT: 11.0 Second(s) -- Normal range between ( 9.2 and 12.0 ) Computed Tomography 12/20/2020 3:[address] Bone Marrow Asp W Bx: CT Bone Marrow Asp W Bx Patient Name:ILEANAAidenCINTHIA I have received and understand this information and was given the opportunity to ask questions. 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 Chief Name: 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 Chief Signature: Relationship to Patient: Clinician/Hospital Deputy Sheriff Chief Signature: Date: Electronically signed by Mecca Buchanan Conversion Statistical Financial Analyst Cerner at 02/19/2023 2:04 PM CDT documented in this encounter Plan of Treatment Upcoming Encounters Date Type Department Care Team (Late st Contact Info) Description 07/05/2025 9:15 AM EDT Appointment [address] [place] [address] 07/10/2025 10:00 AM EDT Office Visit [facility] Primary Care & Internal Med [address] [place] [id number] Diane Velez PA-C [address] [place], [place] [phone] documented as of this encounter Visit Diagnoses Not on filedocumented in this encounter Care Teams Metal Slitter Relationship Specialty Start [place] [address] [place] [address] [address] [place] [id number] PCP - General Internal Medicine 10/27/22 06/06/23 Diane Velez PA-C [address] [place] [phone] PCP - General Family Medicine 06/07/23 06/23/23 Dawit Escalera DO [address] [place] [address] [address] [place] [address] PCP - General Internal Medicine 06/24/23 10/20/23 Diane Velez PA-C [address] [place] [phone] PCP - General Family Medicine 10/21/23 01/10/25 Dawit Escalera DO [address] [facility] [address] [place] [address] PCP - General Internal Medicine 01/11/25 01/16/25 Diane Velez PA-C [facility] [address] [phone] PCP - General Family Medicine 04/18/25 documented as of this encounter
--- OUTSIDE RECORDS SUMMARY | 2025-05-03 11:15 | XMS_ITS | Encounter Summary ---
Author Organization [employer] ([place], [place], [place], [place]) Address [address] [place] [address] Care Team Providers Care Cyber Security Architect Name Role Phone Diane Velez PA-C Primary Care Provider +1- [phone] Encounter Details Date Type Department Care Team (Latest Contact Info) Description 04/18/2025 Travel Social History Tobacco Use Types Packs/Day [...] things needed for daily living? No 06/27/2024 [facility] - Mental Health Answer Date Recorde d [...] Date Gil rded Speak language other than Malaysian at home Not on file 11/13/2023 Want [...] Info) Description 07/05/2025 9:15 AM EDT Appointment [address] [place] [address] 07/10/2025 10:00 AM EDT Office Visit [facility] Primary Care & Internal Med 1401 [facility] [address] [address] Diane Velez PA-C 1401 [facility] Ernesto [address] [address] documented as of this encounter Visit Diagnoses Not on filedocumented in this encounter Care Teams Cyber Security Architect Relationship Specialty Start Date End Date Diane Velez PA-C [address] [place] [phone] PCP - General Family Medicine 04/18/25 documented as of this encounter
--- OUTSIDE RECORDS SUMMARY | 2025-05-03 11:15 | XMS_ITS | Encounter Summary ---
Author Organization [employer] ([place], [place], [place], [place]) Address [address] [place] [address] Care Team Providers Care Reference Archivist Name Role Phone Joanna Osborne DO Primary Care Provider Diane Velez PA-C Primary Care Provider +1- [phone] Joanna Osborne DO Primary Care Provider Diane Velez PA-C Primary Care Provider +1- [phone] Joanna Osborne DO Primary Care Provider Diane Velez PA-C Primary Care Provider Encounter Details Date Type Department Care Team (Late st Contact Info) Description 09/24/2020 Transcribed Document [facility] Family Medicine [address] [place] [address] ProviderTamiko MD [address] [place] [address] Social History Tobacco Use Types Packs/Day Years Used Date Smoking Tobacco: Never Assessed Comments Unknown Sex and Gender Information Value Date Recorded Sex Assigned at Not on file Legal Sex Female 2:31 PM CDT Gender Identity Not on file Sexual Orientation Not on file documented as of this encounter Miscellaneous Notes * Cerner Conversion Note - Tamiko Simons MD - 09/24/2020 7:55 AM BANK TELLER Novel Coronavirus 2019 - - Negative 09/23/2020 21:27 09/24/2020 07:55 (JUANCARLOS MAXWELL MD-EMR) Reviewed by Provider, No further action required documented in this encounter Plan of Treatment Upcoming Encounters Date Type Department Care Team (Late st Contact Info) Description 07/05/2025 9:15 AM EDT Appointment [address] [place] [address] 07/10/2025 10:00 AM EDT Office Visit [facility] Primary Care & Internal Med [address] [place] [address] [phone] Diane Velez PA-C [address] [place], [place] [address] [place] [phone] documented as of this encounter Visit Diagnoses Not on filedocumented in this encounter Care Teams Reference Archivist Relationship Specialty Start Date End Date Joanna Osborne DO 1401 [facility] [address] [place], [place] [id number] PCP - General Internal Medicine 10/27/22 06/06/23 Diane Velez PA-C [address] [place] [phone] PCP - General Family Medicine 06/07/23 06/23/23 [place] [address] [place] [address] [address] [place], [place] [phone] PCP - General Internal Medicine 06/24/23 10/20/23 Diane Velez PA-C [address] [place], [place] [address] [place] [phone] PCP - General Family Medicine 10/21/23 01/10/25 [place] [address] [place] [address] [address] [place] [address] PCP - General Internal Medicine 01/11/25 01/16/25 Diane Velez PA-C 1401 [facility] [address] [place] [phone] PCP - General Family Medicine 04/18/25 documented as of this encounter
--- OUTSIDE RECORDS SUMMARY | 2025-05-03 11:15 | XMS_ITS ---
Author Organization [employer] ([place], [place], [place], [place]) Address [address] [place] [address] Care Team Providers Care Shaper And Presser Name Role Phone Diane Velez PA-C Primary Care Provider [phone]- [phone] Active Problems * This document contains information received from the source organization and may not represent a complete record from that organization. Problem Noted Date Diagnosed Date Anxiety 03/08/2025 [...] hearing 09/03/2020 Meniere's disease 09/03/2020 Incontinence 08/25/2017 Current Oncology Plans No current plan information found. Other Current Plans [facility] BLANK THERAPY PLAN* Plan Start Date:12/06/2023 Linked Problems Senile osteoporosis Treatment Medications denosumab (PROLIA) Past Plans Radiation Treatments * No radiation treatments are documented for this patient in [facility]. Treatments may have been administered in another system.
--- OUTSIDE RECORDS SUMMARY | 2025-05-03 11:15 | XMS_ITS | Encounter Summary ---
Author Organization [employer] ([place], [place], [place], [place]) Address [address] [place] [address] Care Team Providers Care Social Services Designee Name Role Phone Joanna Osborne DO Primary Care Provider Diane Velez PA-C Primary Care Provider Joanna Osborne DO Primary Care Provider Diane Velez PA-C Primary Care Provider +1- [phone] Joanna Osborne DO Primary Care Provider Diane Velez PA-C Primary Care Provider Encounter Details Date Type Department Care Team (Late st Contact Info) Description 12/20/2020 Transcribed Document [facility] Family Medicine [address] [place] [address] ProviderTamiko MD [address] [place] [address] Social History Tobacco Use Types Packs/Day Years Used Date Smoking Tobacco: Never Assessed Comments Unknown Sex and Gender Information Value Date Recorded Sex Assigned at Not on file Legal Sex Female 2:31 PM CDT Gender Identity Not on file Sexual Orientation Not on file documented as of this encounter Miscellaneous Notes * Cerner Conversion Note - Tamiko Simons MD - 12/20/2020 2:40 PM STEVEDORING SUPERINTENDENT Patient: CINTHIA PALMA Age: 65 years Sex: Female : 1955 Associated Diagnoses: None Author: AGUSTINA GALVEZ PA-C PRE PROCEDURE NOTE I have evaluated the patient prior to the procedure. ASA score: _3 Mallampati score: _ 2 ASA SCORE ASA 1: Healthy patients ASA 2 : Mild to moderate systemic disease caused by the surgical condition or by other pathological processes, and medically well controlled. ASA 3: Severe disease process which limits activity but is not incapacitating ASA 4: Severe incapacitating disease process that is a constant threat to life ASA 5: Moribund patient not expected to survive 24 hours with or without an operation ASA 6: Declared brain- patient whose organs are being removed for donor purposes Mallampati Score Class I: Soft palate, uvula, fauces, pillars visible. Class II: Soft palate, major part of uvula, fauces visible Class III: Soft palate, base of uvula visible Class IV: Only hard palate visible documented in this encounter Plan of Treatment Upcoming Encounters Date Type Department Care Team (Late st Contact Info) Description 07/05/2025 9:15 AM EDT Appointment [address] [place] [address] 07/10/2025 10:00 AM EDT Office Visit [facility] Primary Care & Internal Med [address] [place] [phone] Diane Velez PA-C [address] [place], [place] [phone] documented as of this encounter Visit Diagnoses Not on filedocumented in this encounter Care Teams Social Services Designee Relationship Specialty Start Date End Date Hesham OsbornessDO jaydon [address] [facility] [address] [place] [address] PCP - General Internal Medicine 10/27/22 06/06/23 iDane Velez PA-C [address] [place] [address] [place] [address] PCP - General Family Medicine 06/07/23 06/23/23 Joanna Osborne DO [address] [facility] [address] [place] [address] PCP - General Internal Medicine 06/24/23 10/20/23 Diane Velez PA-C 1401 [facility] [address] [place] [address] PCP - General Family Medicine 10/21/23 01/10/25 Joanna Osborne DO [address] [facility] [address] [place] [address] PCP - General Internal Medicine 01/11/25 01/16/25 Diane Velez PA-C 1401 [facility] [address] [place] [address] PCP - General Family Medicine 04/18/25 documented as of this encounter
--- OUTSIDE RECORDS SUMMARY | 2025-05-03 11:15 | XMS_ITS | Encounter Summary ---
Author Organization [email or web address] ([place], [place], [place], [place]) Address [address] [place] [address] Care Team Providers Care Heel Boom Operator Name Role Phone Diane Velez PA-C Primary Care Provider [phone]- [phone] Reason for Visit * Reason Onset Date Comments Leg Swelling 04/20/2025 Encounter Details Date Type Department Care Team (Late st Contact Info) Description 04/20/2025 Telephone [facility] Primary Care [address] [address] Jaqui Caldera RN Leg Swelling Social History Tobacco Use Types Packs/Day Years [...] things needed for daily living? No 06/27/2024 [facility] - Mental Health Answer Date Recorde [...] Date Gil rded Speak language other than Scottish at home Not on file 11/13/2023 Want [...] Telephone Encounter - Diane Velez PA-C - 04/28/2025 7:21 PM EDT Noted. * Telephone Encounter - Titus Kathleen CMA - 04/26/2025 8:34 AM EDT Spoke with patient and scheduled her for 05/01 with Diane per below of Dr. Osborne's recommendation. * Telephone Encounter - Titus Kathleen CMA - 04/24/2025 3:33 PM EDT Attempted to call and someone answered the phone and then hung up. * Telephone Encounter - Joanna Osborne DO - 04/23/2025 5:55 PM EDT She sees Diane. I did see her for cellulitis but I do not know much about her general condition.This just needs a visit. I would just keep trying to call and check in to make sure that there is some kind of follow-up. * Telephone Encounter - Mariola Sosa CMA - 04/23/2025 3:06 PM EDT Please advise. We have tried to reach patient with no answer. She had a visit with you on 04/03/25. * Telephone Encounter - Jaqui Caldera RN - 04/20/2025 3:05 PM EDTSjanice: digital forensics investigator Call- ACTION NEEDED- Please contact pt for disposition advisement Good afternoon, Patient was triaged today for BLE edema, abdominal swelling. Based on my assessment and clinical judgement, callback from provider office for disposition advisement. Patient 's dtr-in-law verbalized understanding Thank you, Jaqui Caldera RN [facility] Spoke with pt and pt's daughter - in - law Alejandra C/O continued BLE swelling R> L . Pt was seen in ED 04/18 left leg cellulitis/ wound from a injury to the leg that happened about 5 1/2 weeks ago. She stated pt also having abdominal swelling/bloating. She stated her abdomen is tight, denies pain , but is nauseated.. Pt has been having diarrhea , today BM x 2 soft, color was dark green. Denies blood. Urine today dark yellow, denies blood or burning. She stated she looks/feels like 4-6 months . Denies yellowing of conjunctiva BLE swelling calf to feet, red and warm to the touch, no fluid weeping. Pt also stated having tingling in feet that started 04/18 when in the ED. Currently denies fever, SOB, cough, chest pain, dizziness/vision changes RN recommendation callback from provider office. RN recommendation to proceed to ED. Dtr - in - lawwould like further advisement for revaluation in the ED ED precautions given Pt's daughter - in - law verbalized understanding Multiple (2) protocols were used on this call. Disposition for Call: Refer to PCP Protocol Used: Leg Swelling and Edema (Adult) Protocol-Based Disposition: See in Office Today Override (Final) Disposition: Refer to PCP Override Reason: Requests to speak with provider Positive Triage Question: * Moderate swelling of both ankles (e.g., swelling extends up to the knees) AND new-onset or getting worse Negative Triage Questions: * Sounds like a life-threatening emergency to the triager * Difficulty breathing at rest * Entire foot is cool or blue in comparison to other side * Cast on leg or ankle and has increasing pain * Can't walk or can barely stand (new-onset) * Fever and red area (or area very tender to touch) * Patient sounds very sick or weak to the triager * Severe swelling (e.g., swelling extends above knee, entire leg is swollen, weeping fluid) * 20 or more weeks and sudden weight gain (i.e., > 2 lbs, 1 kg in one week) * Thigh or calf pain and only 1 side and present > 1 hour * Thigh, calf, or ankle swelling in only one leg * Thigh, calf, or ankle swelling in both legs, but one side is definitely more swollen (Exception: Longstanding difference between legs.) * Difficulty breathing with exertion AND new-onset or getting worse Protocol Used: Abdomen Bloating and Swelling (Adult) Protocol-Based Disposition: Go to ED Now Override (Final) Disposition: Refer to PCP Override Reason: Requests to speak with provider Positive Triage Question: * Moderate - Severe swelling of abdomen (e.g., looks very distended or swollen) that is new-onset or much worse Negative Triage Question: * Sounds like a life-threatening emergency to the triager documented in this encounter Plan of Treatment Upcoming Encounters Date Type Department Care Team (Late st Contact Info) Description 07/05/2025 9:15 AM EDT Appointment [address] [address] 07/10/2025 10:00 AM EDT Office Visit [facility] Primary Care & Internal Med [address] [phone] Diane Velez PA-C [address] [address] documented as of this encounter Visit Diagnoses Not on filedocumented in this encounter Care Teams Heel Boom Operator Relationship Specialty Start Date End Date Diane Velez PA-C [address] [address] PCP - General Family Medicine 04/18/25 documented as of this encounter
--- OUTSIDE RECORDS SUMMARY | 2025-05-03 11:15 | XMS_ITS | Encounter Summary ---
Author Organization [employer] ([place], [place], [place], [place]) Address [address] [place] [address] Care Team Providers Care Respiratory Technician Name Role Phone Joanna Osborne DO Primary Care Provider Diane Velez PA-C Primary Care Provider Joanna Osborne DO Primary Care Provider Diane Velez PA-C Primary Care Provider [phone]- [phone] Joanna Osborne DO Primary Care Provider Diane Velez PA-C Primary Care Provider Encounter Details Date Type Department Care Team (Late st Contact Info) Description 09/24/2020 Transcribed Document [facility] Family Medicine [address] [place] [address] ProviderTamiko MD [address] [place] [address] Social History Tobacco Use Types Packs/Day Years Used Date Smoking Tobacco: Never Assessed Comments Unknown Sex and Gender Information Value Date Recorded Sex Assigned at Not on file Legal Sex Female 2:31 PM CDT Gender Identity Not on file Sexual Orientation Not on file documented as of this encounter Miscellaneous Notes * Cerner Conversion Note - Tamiko Simons MD - 09/24/2020 12:03 AM ANESTHESIOLOGIST PHYSICIAN ED Discharge Entered On: 09/24/2020 0:03 EST Performed On: 09/24/2020 0:03 EST by Lawanda Tamayo RN Discharge Process Patient Disposition : Discharge Personal Belongings With Patient : Yes Patient Education Completed : Yes Teaching Evaluation : Verbalizes understanding IV Discontinued : Yes Nursing Documentation Completed : Yes Lawanda Tamayo RN - 09/24/2020 0:03 EST ED Discharge Discharge To : Home with ambulatory/outpatient follow-up Mode Of Departure : Private vehicle Accompanied By : Spouse Discharge Instructions Reviewed With, Opportunity For Questions Given : Patient Prescriptions Given to Patient : Yes Number of Prescriptions Given : 2 Lawanda Tamayo RN - 09/24/2020 0:03 EST Electronically signed by [facility], [facility] Conversion Environmental Health And Safety Intern Cerner at 02/19/2023 2:14 PM CDT documented in this encounter Plan of Treatment Upcoming Encounters Date Type Department Care Team (Late st Contact Info) Description 07/05/2025 9:15 AM EDT Appointment [address] [place] [phone] 07/10/2025 10:00 AM EDT Office Visit [facility] Primary Care & Internal Med [address] [address] Diane Velez PA-C [address] [place] [phone] documented as of this encounter Visit Diagnoses Not on filedocumented in this encounter Care Teams Respiratory Technician Relationship Specialty Start Date End Date Joanna Osborne DO 1401 [facility] [address] [place] [address] PCP - General Internal Medicine 10/27/22 06/06/23 Diane Velez PA-C [address] [place] [phone] PCP - General Family Medicine 06/07/23 06/23/23 [place] [address] [place] [address] [place] [phone] PCP - General Internal Medicine 06/24/23 10/20/23 Diane Velez PA-C [address] [place] [address] [address] [place] [address] PCP - General Family Medicine 10/21/23 01/10/25 Joanna Osborne DO 1401 [facility] [address] [place] [address] PCP - General Internal Medicine 01/11/25 01/16/25 Diane Velez PA-C 1405 [facility] [address] [place] [address] PCP - General Family Medicine 04/18/25 documented as of this encounter
--- OUTSIDE RECORDS SUMMARY | 2025-05-03 11:15 | XMS_ITS | Encounter Summary ---
Author Organization [employer] ([place], [place], [place], [place]) Address [address] [place] [address] Care Team Providers Care Die Cast Patternmaker Name Role Phone Joanna Osborne DO Primary Care Provider Diane Velez PA-C Primary Care Provider Joanna Osborne DO Primary Care Provider [phone] Diane Velez PA-C Primary Care Provider +1- [phone] Joanna Osborne DO Primary Care Provider Diane Velez PA-C Primary Care Provider Encounter Details Date Type Department Care Team (Late st Contact Info) Description 12/20/2020 Transcribed Document [facility] Family Medicine [address] [place] [address] ProviderTamiko MD [address] [place] [address] Social History Tobacco Use Types Packs/Day Years Used Date Smoking Tobacco: Never Assessed Comments Unknown Sex and Gender Information Value Date Recorded Sex Assigned at Not on file Legal Sex Female 2:31 PM CDT Gender Identity Not on file Sexual Orientation Not on file documented as of this encounter Miscellaneous Notes * Cerner Conversion Note - Tamiko Simons MD - 12/20/2020 1:34 PM CUSTOM HOME INSTALLER Patient Education Materials Follows: It???s Cold and Flu Season ??? How [...] to thoroughly wash your hands, use hand vessel liner. While handwashing is best, hand vessel liner helps to reduce the spread of germs when you are out and about. Have hand vessel liner in several locations so you can always [...] keep people from also getting sick. Don???t [place] It! Sneezing this time of year is [...] a PCP near you, please visit HYPERLINK [email or web address]/ [email or web address]. January 05, 2020 What to do if you are sick with coronavirus disease 2019 (COVID-19) If you are sick with COVID-19 or suspect you are infected with the virus that causes COVID-19, follow the steps below to help prevent the disease from spreading to people in your home and community. Stay home except to get medical care You should restrict activities outside your home, except for getting medical care. Do not go to work, school, or public areas. Avoid using public transportation, ride-sharing, or taxis. Separate yourself from other people and animals in your home People: As much as possible, you should stay in a specific room and away from other people in your home. Also, you should use a separate bathroom, if available. Animals: Do not handle pets or other animals while sick. See HYPERLINK https://www.cdc.gov/coronavirus/2019-ncov/faq.html#5292-uInJ-ijh-animals COVID-19 and Animals for more information. Call [...] clean your hands with an alcohol-based hand vessel liner that contains at least 60 to 95% [...] clean your hands with an alcohol-based hand vessel liner that contains at least 60% alcohol, covering [...] isolation precautions should be made on a iqkx-ym-vvke basis, in consultation with healthcare providers and [...] and water are not available, use hand vessel liner. ? Change your dressing as told by [...] during your procedure. General instructions ??? Take qozn-zyk-oquqgrv and prescription medicines only as told by [...] Leave the ice on for 20 minutes, 2?3 times a day. ??? Keep all follow-up [...] activities are safe for you. ??? Take xunb-dpc-agaxdhr and prescription medicines only as told by [...] 05/07/2006 Document Revised: 03/05/2020 Document Reviewed: 03/05/2020 [employer] Patient Education ? 2020 [employer]vier Inc. Moderate Conscious Sedation, Adult, Care After [...] you are awake and alert. ??? Take ezmm-ojc-vsqjzqp and prescription medicines only as told by [...] 08/08/2014 Document Revised: 09/30/2018 Document Reviewed: 02/06/2017 Elsevier Patient Education ? 2020 [employer] documented in this encounter Plan of Treatment Upcoming Encounters Date Type Department Care Team (Late st Contact Info) Description 07/05/2025 9:15 AM EDT Appointment [facility] [address] [facility] [address] [place] [phone] 07/10/2025 10:00 AM EDT Office Visit [facility] Primary Care & Internal Med 1401 [facility] [address] [phone] Diane Velez PA-C 1401 [facility] [address] [place] [phone] documented as of this encounter Visit Diagnoses Not on filedocumented in this encounter Care Teams Die Cast Patternmaker Relationship Specialty Start Date End Date India JoannaDO 1401 [facility] [address] [place], [place] [phone] PCP - General Internal Medicine 10/27/22 06/06/23 Diane Velez PA-C [id number] [place] [phone] PCP - General Family Medicine 06/07/23 06/23/23 India JoannaDO eddie 1401 [facility] [address] [place] [address] PCP - General Internal Medicine 06/24/23 10/20/23 Diane Velez PA-C 14[address] [facility] [address] [place] [phone] PCP - General Family Medicine 10/21/23 01/10/25 India JoannaDO eddie 1401 [facility] [address] [place] [address] PCP - General Internal Medicine 01/11/25 01/16/25 Diane Velez PA-C [address] [place] [phone] PCP - General Family Medicine 04/18/25 documented as of this encounter
--- OUTSIDE RECORDS SUMMARY | 2025-05-03 11:15 | XMS_ITS | Encounter Summary ---
Author Organization [employer] ([place], [place], [place], [place]) Address [address] [place] [address] Care Team Providers Care Service Writer Advisor Name Role Phone Rosemarie Eagle PA-C Primary Care Provider [phone]- [phone] Reason for Visit * Reason Onset Date Comments Results 04/04/2025 Encounter Details Date Type Department Care Team (Late st Contact Info) Description 04/04/2025 Telephone [facility] Primary Care & Internal Med [address] [facility] [address] [address] Rosemarie Eagle PA-C [address] [address] Results Social History Tobacco Use Types Packs/Day Years [...] things needed for daily living? No 06/27/2024 [facility] - Mental Health Answer Date Recorde [...] Date Gil rded Speak language other than Kyrgyz at home Not on file 11/13/2023 Want [...] encounter Miscellaneous Notes * Telephone Encounter - Nilda Castle MA - 04/04/2025 10:[address] Osborne has addressed this * Telephone Encounter - Deangelo Quintanilla - 04/04/2025 10:20 AM EDT FROM: Lise Peters TO: [facility] INTERNAL MEDICINE 8 CLINICAL TEST EVALUATOR [[id number]] SUBJECT: Order Request PROVIDER: ROSEMARIE EAGLE [[id number]] DEPARTMENT: [facility] 160 [[id number]] ENCOUNTER REASON FOR CALL: RESULTS [95] ENCOUNTER TYPE: Telephone REASON FOR CALL: Result Request
PATIENT CALLING: To obtain test results
TYPE OF TEST RESULTS: Blood Work
BLOOD WORK TYPE: [facility] is calling in and said the pt is needing the provider to contact them to go over labs
RESULTS IN CHART? Yes but not reviewed by clinician
WHO ORDERED TEST? ROSEMARIE EAGLE
TEST PERFORMED ON: 2025-04-03
TEST PERFORMED AT: [facility]
LAST VISIT: 2025-04-03
NEXT VISIT: 2025-04-06
MESSAGE PRIORITY: Routine CALLER'S NAME: kenya aminata RELATION TO PATIENT: [facility] [0] PREFERRED LANGUAGE: Kyrgyz BEST CALL BACK PHONE NUMBER: Home Phone: ([phone]) WHAT IS THE BEST WAY FOR THE OFFICE TO CONTACT YOU?: OK to leave message on voicemail documented in this encounter Plan of Treatment Upcoming Encounters Date Type Department Care Team (Late st Contact Info) Description 07/05/2025 9:15 AM EDT Appointment [facility] [address] [facility] [address] [place] [address] 07/10/2025 10:00 AM EDT Office Visit [facility] Primary Care & Internal Med [address] [address] Rosemarie Eagle PA-C [address] [address] documented as of this encounter Visit Diagnoses Not on filedocumented in this encounter Care Teams Service Writer Advisor Relationship Specialty Start Date End Date Rosemarie Eagle PA-C [address] [address] PCP - General Family Medicine 04/18/25 documented as of this encounter
--- OUTSIDE RECORDS SUMMARY | 2025-05-03 11:15 | XMS_ITS | Encounter Summary ---
Author Organization [employer] ([place], [place], [place], [place]) Address [address] [place] [address] Care Team Providers Care Set Up Worker Name Role Phone Rosemarie Eagle PA-C Primary Care Provider [phone]- [phone] Reason for Visit * Reason Onset Date Comments Medication Refill 04/13/2025 Encounter Details Date Type Department Care Team (Late st Contact Info) Description 04/13/2025 Refill [facility] Primary Care & Internal Med [address] [place] [address] Rsoemarie Eagle PA-C [address] [address] Social History Tobacco Use Types [...] things needed for daily living? 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 No LAST VISIT: 2025-04-12 NEXT VISIT: 2025-07-10 MESSAGE PRIORITY: High ADDITIONAL INFORMATION: Pt called requesting medication refill complains she's in a lot of pain due to staph infection. Sheis scheduled to see infectious disease 04/16. Complains of diarrhea, nausea and insomnia. Complains of fever of 101. Appointment offered states rosemarie advised she is ok with refilling medication . States she will call back if she needs jack MEDICATION 1: MEDICATION TYPE: Non controlled RX MEDICATION NAME: oxyCODONE (ROXICODONE) 5 MG immediate release tablet ORDERING PROVIDER: Chester Healy MD MEDICATION DETAILS: Take 1 tablet (5 mg total) by mouth every 6 (six) hours as needed for pain for up to 12 doses Look-alike/Sound-alike medication. Max Daily Amount: 20 mg PREFERRED PHARMACY? [facility] [address] [place] [address] [address] [facility] [address] CALLER'S NAME: Negra Palma RELATION TO PATIENT: Self [1] PREFERRED LANGUAGE: Citizen [place] BEST CALL BACK PHONE NUMBER: Home Phone: ([phone]) WHAT IS THE BEST WAY FOR THE OFFICE TO CONTACT YOU?: OK to leave message on voicemail documented in this encounter Plan of Treatment Upcoming Encounters Date Type Department Care Team (Late st Contact Info) Description 07/05/2025 9:15 AM EDT Appointment [address] [place] [address] 07/10/2025 10:00 AM EDT Office Visit [facility] Primary Care & Internal Med [address] [address] Rosemarie Eagle PA-C [address] [address] documented as of this encounter Visit Diagnoses Not on filedocumented in this encounter Care Teams Set Up Worker Relationship Specialty Start Date End Date Rosemarie Eagle PA-C [address] [address] PCP - General Family Medicine 04/18/25 documented as of this encounter
--- OUTSIDE RECORDS SUMMARY | 2025-05-03 11:15 | XMS_ITS | Encounter Summary ---
Author Organization [employer] ([place], [place], [place], [place]) Address [address] [place] [address] Care Team Providers Care Bee Worker Name Role Phone Diane Velez PA-C Primary Care Provider [phone]- [phone] Joanna Osborne DO Primary Care Provider [phone] Diane Velez PA-C Primary Care Provider +- [phone] Reason for Referral * Mammography (Routine) - Authorized Specialty Diagnoses / Procedures Referred By Contac t Referred To Contact Radiology Diagnoses Visit for screening mammogram Procedures MM digital mammo screen with miky bilateral Diane Velez PA-C 1401 [facility] [address] [place] [address] Phone: tel: fax: [facility] [address] [facility] [address] [place] [address] Phone: tel: fax: Referral ID Status Reason Start Date Expiration Date V isits Requested Visits Authorized [id number] Authorized 07/05/2025 07/05/2026 1 1 Encounter Details Date Type Department Care Team (Late st Contact Info) Description 06/28/2024 Outside Orders [facility] [address] [facility] [address] [place] [address] Diane Velez PA-C [address] [place] [address] Visit for screening mammogram (Primary Dx) Social History Tobacco Use Types [...] Date Gil rded Speak language other than Slovenian at home Not on file 11/13/2023 Want [...] Info) Description 07/05/2025 9:15 AM EDT Appointment [address] [place] [address] 07/10/2025 10:00 AM EDT Office Visit [facility] Primary Care & Internal Med [address] [place] [address] Diane Velez PA-C [address] [place] [address] Scheduled Orders Name Type Priority Associated Diagnoses Orde r Schedule MM digital mammo screen with miky bilateral Imaging Routine Visit for screening mammogram Expected: 07/05/2025, Expires: 07/05/2026 documented as of this encounter Visit Diagnoses Diagnosis Visit for screening mammogram- Primary documented in this encounter Care Teams Bee Worker Relationship Specialty Start Date End Date Diane Velez PA-C [address] [address] PCP - General Family Medicine 10/21/23 01/10/25 Joanna Osborne DO 1401 [facility] [address] [place], [place] [id number] PCP - General Internal Medicine 01/11/25 01/16/25 Diane Velez PA-C 1401 [facility] [address] [place] [address] PCP - General Family Medicine 04/18/25 documented as of this encounter
--- OUTSIDE RECORDS SUMMARY | 2025-05-03 11:15 | XMS_ITS | Encounter Summary ---
Author Organization [employer] ([place], [place], [place], [place]) Address [address] [place] [address] Care Team Providers Care Energy Sales Consultant Name Role Phone Joanna Osborne DO Primary Care Provider Diane Velez PA-C Primary Care Provider Joanna Osborne DO Primary Care Provider Diane Velez PA-C Primary Care Provider [phone] Joanna Osborne DO Primary Care Provider [phone] Diane Velez PA-C Primary Care Provider Encounter Details Date Type Department Care Team (Late st Contact Info) Description 12/20/2020 Transcribed Document [facility] [address] [place] [address] ProviderTamiko MD [address] [place] [address] Social History Tobacco Use Types Packs/Day Years Used Date Smoking Tobacco: Never Assessed Comments Unknown Sex and Gender Information Value Date Recorded Sex Assigned at Not on file Legal Sex Female 2:31 PM CDT Gender Identity Not on file Sexual Orientation Not on file documented as of this encounter Miscellaneous Notes * Cerner Conversion Note - Tamiko Simons MD - 12/20/2020 3:03 PM TELEGRAPH DISPATCHER Patient: CINTHIA PALMA Age: 65 years Sex: Female : 1955 Associated Diagnoses: None Author: AGUSTINA GALVEZ PA-C Pre-OP/Procedure Diagnosis: Monoclomal gammopathy Post-OP/Procedure Diagnosis: Same Procedure Performed: CT guided bone marrow aspiration and core biopsy Procedural MD: Chong Cadmium Liquor Maker: Agustina Galvez PA-C Sedation: Conscious Findings: Technically successful Complications: None EBL: _< 20 ml Specimen(s) Removed: Aspirate and core. Pathology is pending. Full report to follow. documented in this encounter Plan of Treatment Upcoming Encounters Date Type Department Care Team (Late st Contact Info) Description 07/05/2025 9:15 AM EDT Appointment [address] [place] [address] 07/10/2025 10:00 AM EDT Office Visit [facility] Primary Care & Internal Med [address] [place] [address] [address] Diane Velez PA-C [address] [place] [phone] documented as of this encounter Visit Diagnoses Not on filedocumented in this encounter Care Teams Energy Sales Consultant Relationship Specialty Start Date End Date Joanna Osborne DO 1401 [facility] [address] [place] [address] PCP - General Internal Medicine 10/27/22 06/06/23 Diane Velez PA-C [address] [place] [address] [address] PCP - General Family Medicine 06/07/23 06/23/23 Joanna Osborne DO 1401 [facility] [address] [place] [address] PCP - General Internal Medicine 06/24/23 10/20/23 Diane Velez PA-C [address] [facility] [address] [place] [address] PCP - General Family Medicine 10/21/23 01/10/25 Joanna Osborne DO 1401 [facility] [address] [place] [address] PCP - General Internal Medicine 01/11/25 01/16/25 Diane Velez PA-C [address] [facility] [address] [place] [address] PCP - General Family Medicine 04/18/25 documented as of this encounter
--- OUTSIDE RECORDS SUMMARY | 2025-05-03 11:16 | XMS_ITS | Encounter Summary ---
Author Organization [employer] ([place], [place], [place], [place]) Address [address] [place] [address] Care Team Providers Care Medical Records Tech Name Role Phone Joanna Osborne DO Primary Care Provider Diane Velez PA-C Primary Care Provider Joanna Osborne DO Primary Care Provider [phone] Diane Velez PA-C Primary Care Provider [phone] Joanna Osborne DO Primary Care Provider Diane Velez PA-C Primary Care Provider Encounter Details Date Type Department Care Team (Late st Contact Info) Description 09/23/2020 Transcribed Document [facility] [place] [address] [place] [address] ProviderTamiko MD [address] [place] [address] Social History Tobacco Use Types Packs/Day Years Used Date Smoking Tobacco: Never Assessed Comments Unknown Sex and Gender Information Value Date Recorded Sex Assigned at Not on file Legal Sex Female 2:31 PM CDT Gender Identity Not on file Sexual Orientation Not on file documented as of this encounter Miscellaneous Notes * Cerner Conversion Note - Tamiko Simons MD - 09/23/2020 11:38 PM SPACE STUDIES FACULTY MEMBER Electronically signed by Chanel [facility] Conversion Mill Recorder Cerner at 02/19/2023 2:17 PM CDT documented in this encounter Plan of Treatment Upcoming Encounters Date Type Department Care Team (Late st Contact Info) Description 07/05/2025 9:15 AM EDT Appointment [address] [place] [address] 07/10/2025 10:00 AM EDT Office Visit [facility] Primary Care & Internal Med 1401 [facility] [address] [phone] Diane Velez PA-C [address] [phone] documented as of this encounter Visit Diagnoses Not on filedocumented in this encounter Care Teams Medical Records Tech Relationship Specialty Start Date End Date Joanna Osborne DO 1401 [facility] [address] [place] [address] PCP - General Internal Medicine 10/27/22 06/06/23 Diane Velez PA-C [address] [phone] PCP - General Family Medicine 06/07/23 06/23/23 Joanna Osborne DO 1401 [facility] [address] [place] [address] PCP - General Internal Medicine 06/24/23 10/20/23 Diane Velez PA-C [address] [phone] PCP - General Family Medicine 10/21/23 01/10/25 Joanna Osborne DO 1401 [facility] [address] [place] [address] PCP - General Internal Medicine 01/11/25 01/16/25 Diane Velez PA-C [address] [address] PCP - General Family Medicine 04/18/25 documented as of this encounter
--- OUTSIDE RECORDS SUMMARY | 2025-05-03 11:16 | XMS_ITS | Encounter Summary ---
Author Organization [employer] ([place], [place], [place], [place]) Address [address] [place] [address] Care Team Providers Care Adviser Sales Name Role Phone Unavailable Primary Care Provider Unavailabl e Reason for Visit * Reason Onset Date Comments Rash 04/04/2025 Encounter Details Date Type Department Care Team (Late st Contact Info) Description 04/04/2025 Telephone [facility] Primary Care & Internal Med [address] [place] [phone] Diane Velez PA-C [address] [address] Rash Social History Tobacco Use Types Packs/Day Years [...] things needed for daily living? No 06/27/2024 [facility] - Mental Health Answer Date Recorde d [...] Date Gil rded Speak language other than Greek at home Not on file 11/13/2023 Want [...] encounter Miscellaneous Notes * Telephone Encounter - Titus Hever, B[employer] CARPENTER - 04/04/2025 9:20 AM EDT Patient called in stating she has a rash on her buttock that is Hot but denied any itching/burning. She wanted some advisement on what to do. I advised her that Diane Rosie is out until Wednesdayof this week so that it may be best for her to proceed to an Urgent Care setting to get this assessed. She was agreeable to that and stated she would go today. documented in this encounter Plan of Treatment Upcoming Encounters Date Type Department Care Team (Late st Contact Info) Description 07/05/2025 9:15 AM EDT Appointment [address] [place] [address] 07/10/2025 10:00 AM EDT Office Visit [facility] Primary Care & Internal Med [address] [address] Diane Velez PA-C [address] [address] documented as of this encounter Visit Diagnoses Not on filedocumented in this encounter
--- OUTSIDE RECORDS SUMMARY | 2025-05-03 11:16 | XMS_ITS | Encounter Summary ---
Author Organization [email or web address] ([place], [place], [place], [place]) Address [address] [place] [address] Care Team Providers Care Diesel Lube Tech Name Role Phone Dawit Escalera DO Primary Care Provider Rosemarie Eagle PA-C Primary Care Provider +1- [phone] Dawit Escalera DO Primary Care Provider Rosemarie Eagle PA-C Primary Care Provider +1- [phone] Dawit Escalera DO Primary Care Provider Rosemarie Eagle PA-C Primary Care Provider Encounter Details Date Type Department Care Team (Late st Contact Info) Description 09/23/2020 Transcribed Document [facility] Radiology [address] [place] [id number] Migdalia Garner MD [facility] Dept of Emergency Medicine [place] [id number] Social History Tobacco Use Types Packs/Day Years Used Date Smoking Tobacco: Never Assessed Comments Unknown Sex and Gender Information Value Date Recorded Sex Assigned at Not on file Legal Sex Female 2:31 PM CDT Gender Identity Not on file Sexual Orientation Not on file documented as of this encounter Miscellaneous Notes * Cerner Conversion Note - Migdalia Garner MD - 09/23/2020 9:31 PM EST Patient: CINTHIA PALMA Age: 65 years Sex: Female : 1955 Associated Diagnoses: Shortness of breath; Peripheral edema; Fatigue; Generalized weakness; Dyspnea on effort Author: MYRTLE VALDEZ APRN Basic Information Time seen: Date & time 09/23/2020 20:32:00. History source: Patient. Arrival mode: Private vehicle. History limitation: None. Additional information: Chief Complaint from Nursing Triage Note : Chief Complaint 09/23/2020 15:49 EST Chief Complaint Pt having soa with exertion x Sat. No cough . Fever Sat night. Also has abd swelling and legs swollen. Occas. cp and feels wobbly when she walks. . History of Present Illness Patient presents to the ER with complaints of increased shortness of breath and weakness. She also states that she has had bilateral lower leg swelling as well as swelling to her abdomen. She does have a history of hepatitis C which has been successfully treated. She does have cirrhosis. Patient also has a history of renal cell CA in which she has been followed by Dr. Gutierrez but no treatment has been started at this time. Patient states that the lower extremity edema and shortness of breath has been something that has been relatively new over the last couple weeks. She states that she just feels so tired and short of breath. She states the swelling has gotten worse in her lower extremities as well as her abdomen. Patient is normally followed by Dr. Hermann Crandall, urologist, Dr. Gutierrez oncologist, Rosemarie Escalera with [facility]. Patient is also followed by Dr. Khai Monsalve, GI. She did recently have EGD on September 11. It did show that she had some reactive gastritis. There was no portal hypertension noted at this time. Patient denies any fever or chills she just states that she feels miserable Review of Systems Constitutional symptoms: No fever, no chills. Skin symptoms: No jaundice, Eye symptoms: Negative except as documented in HPI. ENMT symptoms: Negative except as documented in HPI. Respiratory symptoms: Shortness of breath, No cough, Cardiovascular symptoms: No chest pain, no palpitations. Gastrointestinal symptoms: Abdominal pain. Genitourinary symptoms: Negative except as documented in HPI. Musculoskeletal symptoms: Negative except as documented in HPI. Neurologic symptoms: Negative except as documented in HPI. Psychiatric symptoms: Negative except as documented in HPI. Endocrine symptoms: Negative except as documented in HPI. Hematologic/Lymphatic symptoms: Negative except as documented in HPI. Health Status Allergies: Allergic Reactions (Selected) Severity Not Documented Bactrim- No reactions were documented. Cipro- No reactions were documented. Nonallergic Reactions (Selected) Severe Codeine- [d]nausea and vomiting and [d]nausea and vomiting.. Medications: Per nurse's notes. Past Medical/ Family/ Social History Medical history Musculoskeletal: Hepatitis C, cirrhosis, renal cell CA, cardiac murmur. Surgical history: No active procedure history items have been selected or recorded., Reviewed as documented in chart. Family history: No family history items have been selected or recorded., Reviewed as documented in chart. Social history: Social & Psychosocial Habits No Data Available , Reviewed as documented in chart. Problem list: No qualifying data available , per nurse's notes. Physical Examination Vital Signs Vital Signs/Vital Measures 09/23/2020 15:49 EST Systolic Blood Pressure 180 mmHg HI Diastolic Blood Pressure 87 mmHg Temperature Source Oral Temperature Mode Fahrenheit Temperature, Fahrenheit 98.5 Deg F Clinical Temperature, C 36.9 Deg C Peripheral Pulse Rate 82 bpm Respiratory Rate 18 Breaths/Min Oxygen Saturation 96 % Oxygen Therapy Mode Room air . Measurements 09/23/2020 15:49 EST Height Source Stated Height Entry Format [place] Height/Length, [place] (ft) 5 ft Height/Length [place] 2 Inch CLINICALHEIGHT 157.48 cm Wilder Body Weight 49.73 kg Weight Source, ED Critical estimated dosing weight Weight Entry Format [place] Weight Nauruan lb 146 lb CLINICALWEIGHT 66.36 kg Body Surface Area (BSA) 1.67 m2 Body Mass Index 26.8 kg/m2 HI . Oxygen Saturation 09/23/2020 15:49 EST Oxygen Saturation 96 % . General: Alert, no acute distress. Skin: Warm, pink, intact. Neck: Supple, trachea midline. Cardiovascular: Regular rate and rhythm, Edema: Bilateral, lower extremity, 1+. Respiratory: Respirations: Regular, Breath sounds: Bilateral, diminished. Chest wall: No tenderness. Musculoskeletal: Normal ROM. Gastrointestinal: Soft, abdominal distention, Tenderness: Mild, generalized. Neurological: Alert and oriented to person, place, time, and situation, No focal neurological deficit observed. Lymphatics: No lymphadenopathy. Psychiatric: Cooperative. Medical Decision Making Differential Diagnosis: Pneumonia, congestive heart failure, pleural effusion, covid, renal cell ca, ascities. Orders Include Previous Orders (Selected) Inpatient Orders Ordered [place] Violence Assessment: Cardiac Monitoring: ED Adult Fall Risk Assessment: ED C-SSRS: ED Clinical Reconciliation: ED Isolation: ED operations chief: Isolation: Pulse Oximetry Continuous Monitoring: Saline Lock Insert: Ordered (Dispatched) Urinalysis w Microscopic: Ordered (Exam Ordered) CT Abdomen Pelvis W: Ordered (In-Lab) COVID-19: Cancelled (Canceled) MY Digital Screen BILAT: Completed .Automated Differential: .Urinalysis Microscopic: CBC w/ Auto Diff: CMP Comprehensive Metabolic Panel: CR Chest PA & Lat: ED Adult Triage: Lactic Acid Level with Reflex if Indicated: Normal Saline Flush: 10 mL, IV Push, 1-Time ProBNP: Troponin I Ultra: Urinalysis w Culture if Indicated: . Results review: All Results 09/23/2020 20:[address] Abdomen Pelvis W (In Progress) 09/23/2020 17:36 EST CR Chest 2 Vws REPORT 09/23/2020 15:49 EST ED Nursing Record 09/23/2020 15:41 EST Consent Forms Consent Forms 09/23/2020 18:52 EST Estimated Creatinine Clearance 61.68 mL/Min 09/23/2020 18:25 EST Sodium Level 138 mmol/L Potassium Level 4.1 mmol/L Chloride Level 102 mmol/L Carbon Dioxide Level 32 mmol/L Anion Gap 8 LOW Glucose Level 106 mg/dL Blood Urea Nitrogen 11 mg/dL Creatinine Level 0.70 mg/dL eGFR >60 mL/min/1.73m2 eGFR NonAfrican >60 mL/min/1.73m2 Bun/Creatinine 15.7 Calcium Level 9.8 mg/dL Protein Total 8.1 Gram/dL Albumin Level 4.2 Gram/dL Globulin 3.9 Gram/dL A/G Ratio 1.1 Bilirubin Total 0.4 mg/dL Alk Phos 78 Units/Liter AST 22 Units/Liter ALT 39 Units/Liter Lactic Acid Level 0.7 mmol/L Troponin I Ultra <0.015 ng/mL ProBNP 661 pg/mL HI WBC 7.8 K/uL RBC 4.40 Million/uL Hgb 13.5 g/dL Hct 42.2 % MCV 95.9 fL HI MCH 30.7 pg MCHC 32.0 Gram/dL LOW Platelet Count 190 K/uL MPV 10.9 fL RDW 12.2 % Neut % 60.0 % Neut # 4.70 K/uL Lymph % 28.1 % Lymph # 2.20 x10(3)/uL Webb % 9.7 % HI Webb # 0.76 K/uL Eos % 1.4 % Eos # 0.11 x10(3)/uL Baso % 0.3 % Baso # 0.02 x10(3)/uL Slide Review No IG# 0.04 x10(3)/uL IG% 0.50 % 09/23/2020 17:46 EST Nurse Collect Order Detail 3.00 09/23/2020 17:46 EST Nurse Collect Order Detail 3.00 09/23/2020 17:40 EST Nurse Collect Order Detail 3.00 09/23/2020 17:40 EST Nurse Collect Order Detail 3.00 09/23/2020 17:24 EST sodium chloride Not Done: Not Appropriate at this Time (Not Done) 09/23/2020 15:58 EST Urine Type. U CleanCatch Urine Color Yellow Urine Appearance Clear Urine Specific [place] 1.008 Urine pH Dipstick *7.5 Urine Leukocyte Esterase Negative Urine Nitrite Negative Urine Protein Dipstick Negative Urine Glucose Dipstick Negative Urine Ketones Dipstick Negative Urine Urobilinogen Dipstick 0.2 EU/dL Urine Bilirubin Dipstick Negative Urine Blood Dipstick Negative Ur Mucous Trace Ur Squamous Epithelial Cells 0-2 /HPF 09/23/2020 15:55 EST Estimated Creatinine Clearance 57.57 mL/Min 09/23/2020 15:49 EST Systolic Blood Pressure 180 mmHg HI Diastolic Blood Pressure 87 mmHg Temperature Source Oral Temperature Mode Fahrenheit Temperature, Fahrenheit 98.5 Deg F Clinical Temperature, C 36.9 Deg C Peripheral Pulse Rate 82 bpm Respiratory Rate 18 Breaths/Min Oxygen Saturation 96 % Oxygen Therapy Mode Room air Height Source Stated Height Entry Format [place] Height/Length, [place] (ft) 5 ft Height/Length [place] 2 Inch CLINICALHEIGHT 157.48 cm Wilder Body Weight 49.73 kg Weight Source, ED Critical estimated dosing weight Weight Entry Format [place] Weight [place]auruan lb 146 lb CLINICALWEIGHT 66.36 kg Body Surface Area (BSA) 1.67 m2 Body Mass Index 26.8 kg/m2 HI Date of COVID-19 test known? Yes Tuberculosis Symptoms None Infectious Disease History Chicken pox/Shingles, Hepatitis C, Influenza, Measles, Mononucleosis, MRSA, Mumps COVID19 Screening No Has the pt ever been tested for COVID-19 Yes, Patient stated results Negative Date of COVID-19 Test 09/09/2020 Does patient have symptoms of COVID-19? Yes Experiencing Infectious Disease Symptoms No symptoms Physical contact outside US last 30 days No Chief Complaint Pt having soa with exertion x Sat. No cough . Fever Sat night. Also has abd swelling and legs swollen. Occas. cp and feels wobbly when she walks. Transported to ED by Private vehicle To Room Via Wheelchair Tracking Acuity 2 - Emergent Accompanied by Unaccompanied Mode of Arrival Ambulatory 09/23/2020 15:35 EST Nurse Collect Order Detail 3.00 Nurse Collect Order Detail 3.00 . Reexamination/ Reevaluation Time: 09/23/2020 23:15:00 . Notes: Patient care turned over to me pending CT results and disposition. No ascites on CT or other acute findings. Patient's primary concern is the swelling in her legs that are making both of her legs feel tight and heavy and tired. She states she normally walks for exercise and has not been able to do this as much. She reports she was on HCTZ/triamterene combo that they stopped in 2015 because something was low and she thinks it was her potassium. Her blood pressure has been running high and she is on 2 blood pressure medications. Discussed restarting her on a diuretic. I am to give her some furosemide before she leaves and write her 10 days worth. I explained that she can take this once a day as needed for leg swelling, but that she does not have to take it every day. Will also write her a potassium supplement. She will follow up with her primary care provider this week. She understands to return to the ED for new concerns or worsening condition.. Impression and Plan Diagnosis Complaint of Shortness of breath - Reason For Visit, Emergency medicine, Medical Peripheral edema - Discharge, Emergency medicine, Medical Fatigue - Discharge, Emergency medicine, Medical Generalized weakness - Discharge, Emergency medicine, Medical Dyspnea on effort - Discharge, Emergency medicine, Medical Plan Condition: Stable. Disposition: Discharged Admit/Transfer/Discharge: Discharge (Order): Start: 09/23/2020 23:32 EST, Discharge to: Home , Patient care transitioned to: Time: 09/23/2020 20:45:00, JEISON ISABEL PA. Prescriptions: Prescription Family Services Assistant Pharmacy: potassium chloride 20 mEq oral tablet, extended release (Prescribe): 1 Tab, Oral, Daily, for 10 Day(s), 10 Tab, 0 Refill(s) Lasix 20 mg oral tablet (Prescribe): 0.5 Tab, Oral, Daily, Take daily as needed for swelling of the feet and legs., PRN: Edema, 5 Tab, 0 Refill(s) . Patient was given the following educational materials: Shortness of Breath, Adult, Peripheral Edema. Follow up with: ROSEMARIE EAGLE Within 3 to 5 days; DAWIT ESCALERA Within 3 to 5 days Take potassium supplement on the days you take the Lasix for leg swelling. Return if condition worsens. Counseled: Patient, Family, Regarding diagnosis, Regarding treatment plan, Patient indicated understanding of instructions, Pt given clear RTED instructions and demonstrated understanding.. Notes: I certify that the physician patient care assistant performed the services as delegated. This note has been prepared with the use of voice recognition software and may contain sound alike errors and omissions.. documented in this encounter Plan of Treatment Upcoming Encounters Date Type Department Care Team (Late st Contact Info) Description 07/05/2025 9:15 AM EDT Appointment [address] [place] [address] 07/10/2025 10:00 AM EDT Office Visit [facility] Primary Care & Internal Med [address] [address] Rosemarie Eagle PA-C [address] [place] [phone] documented as of this encounter Visit Diagnoses Not on filedocumented in this encounter Care Teams Diesel Lube Tech Relationship Specialty Start Date End Date Dawit Escalera DO [address]01 [facility] [address] [place] [address] PCP - General Internal Medicine 10/27/22 06/06/23 Rosemarie Eagle PA-C [address] [address] PCP - General Family Medicine 06/07/23 06/23/23 Dawit Escalera DO [address] [place] [address] [place] [address] PCP - General Internal Medicine 06/24/23 10/20/23 Rosemarie Eagle PA-C [address] [address] PCP - General Family Medicine 10/21/23 01/10/25 Dawit Escalera DO [address] [place] [address] [address] PCP - General Internal Medicine 01/11/25 01/16/25 Rosemarie Eagle PA-C [address] [address] PCP - General Family Medicine 04/18/25 documented as of this encounter
--- OUTSIDE RECORDS SUMMARY | 2025-05-03 11:16 | XMS_ITS | Encounter Summary ---
Author Organization [employer] ([place], [place], [place], [place]) Address [address] [place] [address] Care Team Providers Care Active Directory Systems Administrator Name Role Phone Joanna Osborne DO Primary Care Provider Diane Velez PA-C Primary Care Provider Joanna Osborne DO Primary Care Provider Diane Velez PA-C Primary Care Provider [phone]- [phone] Joanna Osborne DO Primary Care Provider [phone] Diane Velez PA-C Primary Care Provider Encounter Details Date Type Department Care Team (Late st Contact Info) Description 09/23/2020 Transcribed Document [facility] [place] [address] [place] [address] ProviderTamiko MD [address] [place] [address] Social History Tobacco Use Types Packs/Day Years Used Date Smoking Tobacco: Never Assessed Comments Unknown Sex and Gender Information Value Date Recorded Sex Assigned at Not on file Legal Sex Female 2:31 PM CDT Gender Identity Not on file Sexual Orientation Not on file documented as of this encounter Miscellaneous Notes * Cerner Conversion Note - Tamiko Simons MD - 09/23/2020 3:35 PM MANAGER IMMUNOLOGY [place] Suicide Severity Rating Scale (C-SSRS) Entered On: 09/23/2020 22:17 EST Performed On: 09/23/2020 22:16 EST by PHYLICIA BUTCHER RN [place] Suicide Severity Rating Scale (C-SSRS) CSSRS Past Month Wish to be : No CSSRS Past Month Suicidal Thoughts : No CSSRS Lifetime Suicide Behavior : No Suicide Severity Rating Score : 0 Suicide Severity Rating : No Additional Care Required at this time PHYLICIA BUTCHER RN - 09/23/2020 22:16 EST Electronically signed by Chanel [facility] Conversion Group Fitness Department Head Cerner at 02/19/2023 2:19 PM CDT documented in this encounter Plan of Treatment Upcoming Encounters Date Type Department Care Team (Late st Contact Info) Description 07/05/2025 9:15 AM EDT Appointment [address] [place] [address] 07/10/2025 10:00 AM EDT Office Visit [facility] Primary Care & Internal Med [address] [place] [address] [address] Diane Velez PA-C [address] [place] [phone] documented as of this encounter Visit Diagnoses Not on filedocumented in this encounter Care Teams Active Directory Systems Administrator Relationship Specialty Start Date End Date Joanna Osborne DO 1401 [facility] [address] [place] [address] PCP - General Internal Medicine 10/27/22 06/06/23 Diane Velez PA-C [address] [place] [phone] PCP - General Family Medicine 06/07/23 06/23/23 [place] [address] [place] [address] [address] [place] [address] PCP - General Internal Medicine 06/24/23 10/20/23 Diane Velez PA-C 1401 [facility] [address] [place] [address] PCP - General Family Medicine 10/21/23 01/10/25 Joanna Osborne DO 1401 [facility] [address] [place] [address] PCP - General Internal Medicine 01/11/25 01/16/25 Diane Velez PA-C [address] [facility] [address] [place] [address] PCP - General Family Medicine 04/18/25 documented as of this encounter
--- OUTSIDE RECORDS SUMMARY | 2025-05-03 11:16 | XMS_ITS | Encounter Summary ---
Author Organization [employer] ([place], [place], [place], [place]) Address [address] [place] [address] Care Team Providers Care Glove Factory Sewer Name Role Phone Diane Eagle PA-C Primary Care Provider [phone] Reason for Visit * Reason Onset Date Comments Results 04/04/2025 Encounter Details Date Type Department Care Team (Late st Contact Info) Description 04/04/2025 Telephone [facility] Primary Care & Internal Med 1401 [facility] [address] [address] Diane Eagle PA-C [address] [address] Results Social History Tobacco Use [...] things needed for daily living? No 06/27/2024 [facility] - Mental Health Answer Date [...] Date Gil rded Speak language other than Fijian at home Not on file 11/13/2023 Want [...] Encounter - Nilda Castle MA - 04/04/2025 10:[address] Osborne has discussed this with patient * Telephone Encounter - Deangelo ALONSO Macariosalbador Quintanilla - 04/04/2025 10:19 AM EDT FROM: Lise Peters TO: [facility] INTERNAL MEDICINE 8 CLINICAL BOARD ATTENDANT [[id number]] SUBJECT: Results Related Request PROVIDER: DIANE EAGLE [[id number]] DEPARTMENT: [facility] [[id number]] ENCOUNTER REASON FOR CALL: RESULTS [95] ENCOUNTER TYPE: Telephone REASON FOR CALL: Result Request
PATIENT CALLING: To obtain test results
TYPE OF TEST RESULTS: CT aka Computed Tomography Scan
RESULTS IN CHART? Yes and reviewed by clinician
WHO ORDERED TEST? DIANE EAGLE
REASON FOR CONTACTING PCP IF NOT ORDERING PROVIDER? Express fredy is calling in and saying that this pt is asking for the provider to contact her to go over her scan she got over her left leg
TEST PERFORMED ON: 2025-04-03
TEST PERFORMED AT: [facility]
LAST VISIT: 2025-04-03
NEXT VISIT: 2025-04-06
MESSAGE PRIORITY: Routine CALLER'S NAME: kenya aminata RELATION TO PATIENT: [facility] [0] PREFERRED LANGUAGE: Fijian BEST CALL BACK PHONE NUMBER: Home Phone: ([phone]) WHAT IS THE BEST WAY FOR THE OFFICE TO CONTACT YOU?: OK to leave message on voicemail documented in this encounter Plan of Treatment Upcoming Encounters Date Type Department Care Team (Late st Contact Info) Description 07/05/2025 9:15 AM EDT Appointment [address] [place] [address] 07/10/2025 10:00 AM EDT Office Visit [facility] Primary Care & Internal Med [address] [place] [phone] Diane Eagle PA-C [address] [place] [phone] documented as of this encounter Visit Diagnoses Not on filedocumented in this encounter Care Teams Glove Factory Sewer Relationship Specialty Start Date End Date Diane Eagle PA-C [address] [address] PCP - General Family Medicine 04/18/25 documented as of this encounter
--- OUTSIDE RECORDS SUMMARY | 2025-05-03 11:16 | XMS_ITS | Encounter Summary ---
Author Organization [employer] ([place], [place], [place], [place]) Address [address] [place] [address] Care Team Providers Care Diploma Dental Assistant Name Role Phone Joanna Osborne DO Primary Care Provider Diane Velez PA-C Primary Care Provider Joanna Osborne DO Primary Care Provider Diane Velez PA-C Primary Care Provider [phone] Joanna Osborne DO Primary Care Provider [phone] Diane Velez PA-C Primary Care Provider Encounter Details Date Type Department Care Team (Late st Contact Info) Description 09/23/2020 Transcribed Document [facility] [place] [address] [place] [address] ProviderTamiko MD [address] [place] [address] Social History Tobacco Use Types [...] Tamiko Simons MD - 09/23/2020 3:35 PM ELECTRON TUBE ASSEMBLER Broset Violence Assessment Entered On: 09/23/2020 22:17 EST Performed On: 09/23/2020 22:16 EST by PHYLICIA BUTCHER RN Broset Violence Assessment Broset Violence Checklist of Symptoms : None Broset Violence Symptoms Subtotal : 0 Broset Violence Symptoms Indicator : Low risk (0) PHYLICIA BUTCHER RN - 09/23/2020 22:16 EST Electronically signed by Chanel [facility] Conversion Principal Secretary Cerner at 02/19/2023 2:04 PM CDT documented in this encounter Plan of Treatment Upcoming Encounters Date Type Department Care Team (Late st Contact Info) Description 07/05/2025 9:15 AM EDT Appointment [address] [place] [address] 07/10/2025 10:00 AM EDT Office Visit [facility] Primary Care & Internal Med [address] [place] [address] [phone] Diane Velez PA-C [address] [place], [place] [phone] documented as of this encounter Visit Diagnoses Not on filedocumented in this encounter Care Teams Diploma Dental Assistant Relationship Specialty [place] [address] [place] [address] [address] [place], [place] [id number] PCP - General Internal Medicine 10/27/22 06/06/23 Diane Velez PA-C [address] [place] [phone] PCP - General Family Medicine 06/07/23 06/23/23 [place] [address] [place] [address] [address] [place], [place] [id number] PCP - General Internal Medicine 06/24/23 10/20/23 Diane Velez PA-C [address] [place] [phone] PCP - General Family Medicine 10/21/23 01/10/25 [place] [address] [place] [address] [address] [place] [address] PCP - General Internal Medicine 01/11/25 01/16/25 Diane Velez PA-C [address] [place] [phone] PCP - General Family Medicine 04/18/25 documented as of this encounter
--- OUTSIDE RECORDS SUMMARY | 2025-05-03 11:16 | XMS_ITS | Encounter Summary ---
Author Organization [employer] ([place], [place], [place], [place]) Address [address] [place] [address] Care Team Providers Care Crib Attendant Name Role Phone Diane Velez PA-C Primary Care Provider [phone]- [phone] Reason for Visit * Reason Onset Date Comments Nausea 04/23/2025 Encounter Details Date Type Department Care Team (Late st Contact Info) Description 04/23/2025 Telephone [facility] Primary Care & Internal Med [address] [facility] [address] [address] Diane Velez PA-C [address] [address] Nausea Social History Tobacco Use [...] things needed for daily living? No 06/27/2024 [facility] - Mental Health Answer Date Recorde d [...] Date Gil rded Speak language other than Tuvaluan at home Not on file 11/13/2023 Want [...] Velez PA-C - 04/28/2025 7:21 PM EDT OV coming up. * Telephone Encounter - LARRY Mckee - 04/23/2025 3:09 PM EDT Despite having been to ED three times this month, she remains nauseated. She did say Dr. Garner from [facility] recommended Zofran but now she cannot get hold of him to ask him for rx. Can you orderher something for nausea? She has had no vomiting, and bowels have finally started moving as of last night. She gets her meds at [facility] in [facility]. documented in this encounter Plan of Treatment Upcoming Encounters Date Type Department Care Team (Late st Contact Info) Description 07/05/2025 9:15 AM EDT Appointment [address] [place] [address] 07/10/2025 10:00 AM EDT Office Visit [facility] Primary Care & Internal Med [address] [facility] [address] [place] [id number] Diane Velez PA-C [address] [place], [place] [phone] documented as of this encounter Visit Diagnoses Not on filedocumented in this encounter Care Teams Crib Attendant Relationship Specialty Start Date End Date Diane Velez PA-C [address] [address] PCP - General Family Medicine 04/18/25 documented as of this encounter
--- OUTSIDE RECORDS SUMMARY | 2025-05-03 11:16 | XMS_ITS | Encounter Summary ---
Author Organization [employer] ([place], [place], [place], [place]) Address [address] [place] [address] Care Team Providers Care Jewel Hole Driller Name Role Phone Joanna Osborne DO Primary Care Provider [phone] Diane Velez PA-C Primary Care Provider + [phone] Joanna Osborne DO Primary Care Provider Diane Velez PA-C Primary Care Provider + [phone] Joanna Osborne DO Primary Care Provider Diane Velez PA-C Primary Care Provider + [phone] Encounter Details Date Type Department Care Team (Late st Contact Info) Description 04/28/2022 Transcribed Document [facility] [address] [place] [address] ProviderTamiko MD [address] [place] [address] Social History Tobacco Use Types Packs/Day Years Used Date Smoking Tobacco: Never Assessed Overall Financial Resource Strain (CARDIA) Answe r [...] things needed for daily living? No 06/27/2024 [facility] - Mental Health Answer Date [...] Date Gil rded Speak language other than Venezuelan at home Not on file 11/13/2023 Want [...] AM EDT documented as of this encounter Miscellaneous Notes * Cerner Conversion Note - Historical ProviderMD - 04/28/2022 10:45 AM CDT Nursing Discharge Summary Entered On: 04/28/2022 10:46 EDT Performed On: 04/28/2022 10:45 EDT by IDA DIAS Discharge Documentation Discharge Date/Time : 04/28/2022 11:00 EDT Patient Disposition, General : Discharge Discharge To : Home with ambulatory/outpatient follow-up Mode Of Departure, General Discharge : Ambulatory Accompanied By, Discharge : Spouse IV Discontinued : Not applicable Personal Belongings With Patient : Yes Discharge Instructions Reviewed With, Opportunity For Questions Given : Patient Patient Education Completed : Yes Teaching Method : Explanation Teaching Evaluation : Verbalizes understanding Education Comment : skin wdp resp unlabored/even/a+ox4 shania injection without difficulty IDA DIAS - 04/28/2022 10:45 EDT documented in this encounter Plan of Treatment Upcoming Encounters Date Type Department Care Team (Late st Contact Info) Description 07/05/2025 9:15 AM EDT Appointment [address] [place] [address] 07/10/2025 10:00 AM EDT Office Visit [facility] Primary Care & Internal Med [address] [address] Diane Velez PA-C [address] [place], [place] [address] [place] [address] documented as of this encounter Visit Diagnoses Not on filedocumented in this encounter Care Teams Jewel Hole Driller Relationship Specialty Start Date End Date Joanna Osborne DO [address] [facility] [address] [place], [place] [id number] PCP - General Internal Medicine 10/27/22 06/06/23 Diane Velez PA-C 14[address] [facility] [address] [place] [address] PCP - General Family Medicine 06/07/23 06/23/23 Joanna Osborne DO 1401 [facility] [address] [place] [address] PCP - General Internal Medicine 06/24/23 10/20/23 Diane Velez PA-C 14[address] [facility] [address] [place] [address] PCP - General Family Medicine 10/21/23 01/10/25 Joanna Osborne DO 1401 [facility] [address] [place] [address] PCP - General Internal Medicine 01/11/25 01/16/25 Diane Velez PA-C [address] [place] [address] PCP - General Family Medicine 04/18/25 documented as of this encounter
--- OUTSIDE RECORDS SUMMARY | 2025-05-03 11:16 | XMS_ITS | Encounter Summary ---
Author Organization [employer] ([place], [place], [place], [place]) Address [address] [place] [address] Care Team Providers Care Director Compensation Name Role Phone Diane Velez PA-C Primary Care Provider [phone]- [phone] Reason for Visit * Reason Onset Date Comments Nausea 04/24/2025 Encounter Details Date Type Department Care Team (Late st Contact Info) Description 04/24/2025 Telephone [facility] Primary Care & Internal Med [address] [facility] [address] [place] [address] Hesham OsbornessDO jaydon [address] [facility] [address] [place], [place] [id number] Nausea Social History Tobacco Use Types Packs/Day [...] things needed for daily living? No 06/27/2024 [facility] - Mental Health Answer Date [...] encounter Miscellaneous Notes * Telephone Encounter - LARRY Mckee - 04/24/2025 12:38 PM EDT She has been to ED several times this month for wound recheck and nausea. She said Dr. Garner at [facility] told her he would prescribe her Zofran but he did not call it in and she cannot get hold of him. I know she is Diane's patient, but I wondered if you'd be comfortable calling her in something for nausea to Fred in [facility]? Thank you! You saw her on 04/03/25 documented in this encounter Plan of Treatment Upcoming Encounters Date Type Department Care Team (Late st Contact Info) Description 07/05/2025 9:15 AM EDT Appointment [address] [place] [address] 07/10/2025 10:00 AM EDT Office Visit [facility] Primary Care & Internal Med [address] [address] Diane Velez PA-C [address] [address] documented as of this encounter Visit Diagnoses Not on filedocumented in this encounter Care Teams Director Compensation Relationship Specialty Start Date End Date Diane Velez PA-C [address] [address] PCP - General Family Medicine 04/18/25 documented as of this encounter
--- OUTSIDE RECORDS SUMMARY | 2025-05-03 11:16 | XMS_ITS | Encounter Summary ---
Author Organization [employer] ([place], [place], [place], [place]) Address [address] [place] [address] Care Team Providers Care Emt/Paramedic Name Role Phone Unavailable Primary Care Provider Unavailabl e Encounter Details Date Type Department Care Team (Latest Contact Info) Description 04/03/2025 Travel Social History Tobacco Use Types Packs/Day [...] things needed for daily living? No 06/27/2024 [facility] - Mental Health Answer Date [...] Date Gil rded Speak language other than Haitian at home Not on file 11/13/2023 Want [...] Info) Description 07/05/2025 9:15 AM EDT Appointment [facility] [address] [facility] [address] [place] [address] 07/10/2025 10:00 AM EDT Office Visit [facility] Primary Care & Internal Med 1401 [facility] [address] [address] Diane Velez PA-C [address] [address] documented as of this encounter Visit Diagnoses Not on filedocumented in this encounter
--- OUTSIDE RECORDS SUMMARY | 2025-05-03 11:16 | XMS_ITS | Encounter Summary ---
Author Organization [employer] ([place], [place], [place], [place]) Address [address] [place] [address] Care Team Providers Care Factory Maintenance Technician Name Role Phone Unavailable Primary Care Provider Unavailabl e Encounter Details Date Type Department Care Team (Latest Contact Info) Description 03/29/2025 Travel Social History Tobacco Use Types Packs/Day [...] for daily living? No 06/27/[address] [facility] - Mental Health Answer Date Recorde [...] Date Gil rded Speak language other than Cymraes at home Not on file 11/13/2023 Want [...] AM EDT Appointment [facility] [address] [facility] [address] [place] [address] 07/10/2025 10:00 AM EDT Office Visit [facility] Primary Care & Internal Med 1401 [facility] [address] [address] Diane Velez PA-C [address] [address] documented as of this encounter Visit Diagnoses Not on filedocumented in this encounter
--- OUTSIDE RECORDS SUMMARY | 2025-05-03 11:16 | XMS_ITS | Encounter Summary ---
Author Organization [employer] ([place], [place], [place], [place]) Address [address] [place] [address] Care Team Providers Care Oral Pathologist Name Role Phone Joanna Osborne DO Primary Care Provider Diane Velez PA-C Primary Care Provider [phone] Joanna Osborne DO Primary Care Provider [phone] Diane Velez PA-C Primary Care Provider +1- [phone] Joanna Osborne DO Primary Care Provider Diane Velez PA-C Primary Care Provider Encounter Details Date Type Department Care Team (Late st Contact Info) Description 09/23/2020 Transcribed Document [facility] [place] [address] [place] [address] ProviderTamiko MD [address] [place] [address] Social History Tobacco Use Types [...] Tamiko Simons MD - 09/23/2020 3:35 PM HONING MACHINE OPERATOR ED Triage Entered On: 09/23/2020 15:55 EST Performed On: 09/23/2020 15:49 EST by JEISON HARRIS RN ED Triage Across the Room Chief Complaint : Pt having soa with exertion x Sat. No cough . Fever Sat night. Also has abd swelling and legs swollen. Occas. cp and feels wobbly when she walks. Triage Date/Time : 09/23/2020 15:49 EST JEISON HARRIS RN - 09/23/2020 15:49 EST DCP GENERIC CODE Tracking Acuity : 2 - Emergent Tracking Group : [facility] ED JEISON HARRIS RN - 09/23/2020 15:49 EST Mode of Arrival : Ambulatory Transported to ED by : Private vehicle To Room Via : Wheelchair Accompanied By : Unaccompanied ED Vital Signs : Document Height & Weight : Document ED Allergies : Document ED Reason for Visit : Document JEISON HARRIS RN - 09/23/2020 15:49 EST Infectious Disease History Has the patient ever been tested for COVID-19? : Yes, Patient stated results Negative Date of COVID-19 test known? : Yes Date of COVID-19 Test : 09/09/2020 EST Does patient have symptoms of COVID-19? : Yes COVID19 Screening : No Experiencing Infectious Disease Symptoms : No symptoms Physical contact outside [place] in the last 30 days : No Infectious Disease History : Chicken pox/Shingles, Hepatitis C, Influenza, Measles, Mononucleosis, MRSA, Mumps Tuberculosis Symptoms : None JEISON HARRIS RN - 09/23/2020 15:49 EST Vital Signs ED Temperature Source : Oral Temperature Mode : Fahrenheit Temperature, Fahrenheit : 98.5 Deg F Clinical Temperature, C : 36.9 Deg C Oxygen Therapy Mode : Room air Peripheral Pulse Rate : 82 bpm Respiratory Rate : 18 Breaths/Min Systolic Blood Pressure : 180 mmHg (HI) Diastolic Blood Pressure : 87 mmHg Oxygen Saturation : 96 % JEISON HARRIS RN - 09/23/2020 15:49 EST Allergy (As Of: 09/23/2020 15:55:55 EST) Allergies (Active) Bactrim Estimated Onset Date: Unspecified ; Created By: JEISON HARRIS RN; Reaction Status: Active ; Category: Drug ; Substance: Bactrim ; Type: Allergy ; Updated By: JEISON HARRIS RN; Reviewed Date: 09/23/2020 15:51 EST Cipro Estimated Onset Date: Unspecified ; Created By: JEISON HARRIS RN; Reaction Status: Active ; Category: Drug ; Substance: Cipro ; Type: Allergy ; Updated By: JEISON HARRIS RN; Reviewed Date: 09/23/2020 15:51 EST codeine Estimated Onset Date: Unspecified ; Reactions: [D]Nausea and vomiting, [D]Nausea and vomiting ; Created By: Contributor_system, HIST_CERNER; Reaction Status: Active ; Category: Drug ; Substance: codeine ; Type: Side Effect ; Severity: Severe ; Updated By: Contributor_system, HIST_CERROSALBA; Reviewed Date: 09/23/2020 15:51 EST Diagnosis Control ED (As Of: 09/23/2020 15:55:55 EST) Diagnoses(Active) Shortness of breath Date: 09/23/2020 ; Diagnosis Type: Reason For Visit ; Confirmation: Complaint of ; Clinical Dx: Shortness of breath ; Classification: Medical ; Clinical Service: Emergency medicine ; Code: PNED ; Probability: 0 ; Diagnosis Code: [id number] ED Height and Weight Height Source : Stated Height Entry Format : [place] Height, Feet : 5 ft(Converted to: 152 cm, 60 Inch) Height, Inches : 2 Inch(Converted to: 0 ft 2 Inch, 5.08 cm) Clinical Height : 157.48 cm Weight Source, ED : Critical estimated dosing weight Weight Entry Format : [place] Weight, Pounds : 146 lb Clinical Dosing Weight : 66.36 kg Body Surface Area (BSA) : 1.67 m2 Body Mass Index : 26.8 kg/m2 (HI) [place] Body Weight (IBW) : 49.73 kg JEISON HARRIS RN - 09/23/2020 15:49 EST Electronically signed by Mecca Buchanan Conversion Research Project Coordinator Cerner at 02/19/2023 2:11 PM CDT documented in this encounter Plan of Treatment Upcoming Encounters Date Type Department Care Team (Late st Contact Info) Description 07/05/2025 9:15 AM EDT Appointment [address] [address] 07/10/2025 10:00 AM EDT Office Visit [facility] Primary Care & Internal Med [address] [place] [address] [address] [place] [address] Diane Velez PA-C [address] [address] documented as of this encounter Visit Diagnoses Not on filedocumented in this encounter Care Teams Oral Pathologist Relationship Specialty [place] [address] [place] [address] [address] [place], [place] [address] PCP - General Internal Medicine 10/27/22 06/06/23 Diane Velez PA-C [address] [place] [address] PCP - General Family Medicine 06/07/23 06/23/23 IndiaJoanna loco 1401 [facility] [address] [place] [address] PCP - General Internal Medicine 06/24/23 10/20/23 Diane Velez PA-C [address] [place] [address] PCP - General Family Medicine 10/21/23 01/10/25 CreweJoanna loco 1401 [facility] [address] [place] [address] PCP - General Internal Medicine 01/11/25 01/16/25 Diane Velez PA-C [address] [place] [address] PCP - General Family Medicine 04/18/25 documented as of this encounter
--- OUTSIDE RECORDS SUMMARY | 2025-05-03 11:16 | XMS_ITS | Encounter Summary ---
Author Organization [employer] ([place], [place], [place], [place]) Address [address] [place] [address] Care Team Providers Care Electroneurodiagnostic Technologist Name Role Phone Joanna Osborne DO Primary Care Provider Diane Velez PA-C Primary Care Provider + [phone] Joanna Osborne DO Primary Care Provider Diane Velez PA-C Primary Care Provider + [phone] Joanna Osborne DO Primary Care Provider Diane Velez PA-C Primary Care Provider + [phone] Encounter Details Date Type Department Care Team (Late st Contact Info) Description 04/28/2022 Transcribed Document [facility] [place] [address] [place] [address] ProviderTamiko MD [address] [place] [address] Social History Tobacco Use Types [...] things needed for daily living? No 06/27/2024 [facility] - Mental Health Answer Date Recorde d [...] Date Gil rded Speak language other than Dominican at home Not on file 11/13/2023 Want [...] Notes * Cerner Conversion Note - Historical Provider, - 04/28/2022 10:07 AM CDT Outpatient Visit History Entered On: 04/28/2022 10:09 EDT Performed On: 04/28/2022 10:07 EDT by IDA DIAS Vital Measurements Temperature Source : Temporal artery scanning Temperature Mode : Fahrenheit Temperature, Fahrenheit : 97.5 Deg F Clinical Temperature, C : 36.4 Deg C Pulse Method : Pulse Oximetry Peripheral Pulse Rate : 69 bpm Respiratory Rate : 16 Breaths/Min Blood Pressure Location : Arm, right upper Blood Pressure Source : Non-Invasive BP Device Blood Pressure Position : Sitting Systolic Blood Pressure : 147 mmHg (HI) Diastolic Blood Pressure : 80 mmHg Oxygen Saturation : 98 % Oxygen Therapy Mode : Room air IDA DIAS - 04/28/2022 10:07 EDT Height and Weight, Clinical Dosing Height Source : Stated Height Entry Format : [place] Height, Feet : 5 ft(Converted to: 152 cm, 60 Inch) Height, Inches : 2 Inch(Converted to: 0 ft 2 Inch, 5.08 cm) Clinical Height : 157.48 cm Weight Source : Standing scale Weight Entry Format : [place] Clinical Dosing Weight : 50 kg Weight, Pounds : 110 lb Body Surface Area (BSA) : 1.48 m2 Body Mass Index : 20.2 kg/m2 [place] Body Weight : 50 kg IDA DIAS - 04/28/2022 10:07 EDT Quick Look Assessment Level of Consciousness : Alert, Awake Affect/Behavior : Appropriate, Calm, Cooperative Orientation : Oriented x 4 Skin Temperature : Warm Skin Description : Normal for ethnicity IDA DIAS - 04/28/2022 10:07 EDT Health Histories Smoking Status : Never (less than 100 in lifetime; none in last 30 days) Smokeless Tobacco Status : Never IDA DIAS - 04/28/2022 10:07 EDT Social History (As Of: 04/28/2022 10:09:46 EDT) Tobacco: Never (less than 100 in lifetime) Smoking Status. (Last Updated: 12/20/2020 12:11:32 EST by Lydia Harp RN) Alcohol: Alcohol Use History No. (Last Updated: 12/20/2020 12:11:42 EST by Lydia Harp RN) Infectious Disease History Does patient have symptoms of COVID-19? : No Tested for COVID19 in the past 14 days : No, Patient stated Does the Patient state known exposure to a COVID-19 positive case in the last 14 days? : No Patient Vaccinated for COVID-19 : Not vaccinated Does Patient want a COVID-19 Vaccine? : No IDA DIAS 04/28/2022 10:07 EDT Infectious Disease Risk Screening Grid Cough < 2 wks of unknown origin : NO Cough > 2 weeks : NO Blood in Sputum : NO Fever or self-reported Fever : NO Rash of unknown origin : NO Headache : NO Stiff neck : NO Night Sweats : NO Unexplained Weight Loss : NO Diarrhea (3 episode per day) : NO IDA DIAS 04/28/2022 10:07 EDT Physical contact outside US in the last 30 days : No Hospitalized in Foreign Country : No Infectious Disease History : Chicken pox/Shingles, Hepatitis C, Influenza, Measles, Mononucleosis, MRSA, Mumps INF Disease TB Screening Calc : 0 INF Disease Recent Travel Calc : 0 IDA DIAS 04/28/2022 10:07 EDT COVID19 PreProcedure Screening Is this an Emergent or Add on Procedure? : No Date PreProcedure COVID-19 test known? : No Has patient been isolated since the test : No Exposed to COVID19 symptoms since test? : No IDA DIAS 04/28/2022 10:07 EDT Advance Directive Patient has Advance Directive *Q : Yes, Advance Directive not with the patient Advance Directive Type : Living will Copy Advance Directive Verified/on Chart : No IDA DIAS 04/28/2022 10:07 EDT [place] Suicide Severity Rating Scale (C-SSRS) CSSRS Past Month Wish to be : No CSSRS Past Month Suicidal Thoughts : No CSSRS Lifetime Suicide Behavior : No Suicide Severity Rating Score : 0 Suicide Severity Rating : No Additional Care Required at this time IDA DIAS 04/28/2022 10:07 EDT Psychosocial History Currently in Unsafe Situation : No IDA DIAS 04/28/2022 10:07 EDT Fall Risk Scales ABCs Fall Injury Risk Identification : None ESPINOZA Hx Falls Immediate/Within 3 Months : No Espinoza Secondary Diagnosis : Yes ESPINOZA Use of Ambulatory Aid : None ESPINOZA IV Therapy or IV Access : No [place] Gait/Transferring : Normal, bedrest, immobile Espinoza Mental Status : Oriented to own ability Espinoza Fall Risk Score : 15 ESPINOZA Fall Scale Risk Level : 0-24 Low Risk [place] Fall Interventions : Adequate lighting, Assistive devices within reach, Bed in low position, Call device within reach, Fall prevention handout/education per facility policy, Hourly comfort/safety rounds, Non-slip footwear, Personal items within reach, Room free of clutter/spills, Wheels locked, Wires/Cords secured IDA DIAS - 04/28/2022 10:07 EDT Pain Assessment Pain Assessment : Initial assessment Intensity : 0 IDA DIAS - 04/28/2022 10:07 EDT Electronically signed by Chanel [facility] Conversion Head Inspector Cerner at 02/19/2023 2:29 PM CDT documented in this encounter Plan of Treatment Upcoming Encounters Date Type Department Care Team (Late st Contact Info) Description 07/05/2025 9:15 AM EDT Appointment [address] [place] [address] 07/10/2025 10:00 AM EDT Office Visit [facility] Primary Care & Internal Med 1401 [facility] [address] [address] Diane Velez PA-C [address] [place] [address] documented as of this encounter Visit Diagnoses Not on filedocumented in this encounter Care Teams Electroneurodiagnostic Technologist Relationship Specialty Start Date End Date India JoannaDO 14[address] [facility] [address] [place] [address] PCP - General Internal Medicine 10/27/22 06/06/23 Diane Velez PA-C [address] [address] PCP - General Family Medicine 06/07/23 06/23/23 Joanna Osborne DO 14[address] [facility] [address] [place] [address] PCP - General Internal Medicine 06/24/23 10/20/23 Diane Velez PA-C [address] [place] [address] PCP - General Family Medicine 10/21/23 01/10/25 Joanna Osborne DO 1401 [facility] [address] [place] [address] PCP - General Internal Medicine 01/11/25 01/16/25 Diane Velez PA-C [address] [facility] [address] [place] [address] PCP - General Family Medicine 04/18/25 documented as of this encounter
--- OUTSIDE RECORDS SUMMARY | 2025-05-03 11:16 | XMS_ITS | Encounter Summary ---
Author Organization [employer] ([place], [place], [place], [place]) Address [address] [place] [address] Care Team Providers Care Wheat Washer Name Role Phone Joanna sOborne DO Primary Care Provider Diane Velez PA-C Primary Care Provider Joanna Osborne DO Primary Care Provider Diane Velez PA-C Primary Care Provider [phone]- [phone] Joanna Osborne DO Primary Care Provider Diane Velez PA-C Primary Care Provider Encounter Details Date Type Department Care Team (Late st Contact Info) Description 09/23/2020 Transcribed Document [facility] Family Medicine [address] [place] [address] ProviderTamiko MD [address] [place] [address] Social History Tobacco Use Types [...] Tamiko Simons MD - 09/23/2020 11:38 PM CARDIOTHORACIC ICU RN [facility] [address] [place] [id number] CINTHIA PALMA :1955 Visit Time:09/23/2020 Your Visit Summary Your Care Team Primary Provider: JEISON ISABEL Secondary Provider: Your Diagnosis Dyspnea on effort Fatigue Generalized weakness Peripheral edema Shortness of breath Medical Information You may obtain a copy of your Emergency Department visit from Medical Records by calling the hospital phone number listed above and asking to be directed to the Medical Records Department. If you had special tests, such as EKG???s or X-rays, the interpretation of your tests given to you by the Emergency Department Physician is a preliminary report. Some fractures and illnesses fail to show up on preliminary tests. These will be reviewed again and we will call you if there are any new suggestions. If your symptoms continue notify your physician. After you leave, you should follow the instructions provided. Allergies codeine ([D]Nausea and vomiting, [D]Nausea and vomiting) Bactrim Cipro Immunizations This Visit No Immunizations Found Medications What How Much When Instructions Next Dose furosemide (Lasix 20 mg oral tablet) 0.5 Tablet(s) Oral Every Day as needed for Edema Take daily as needed for swelling of the feet and legs. Printed Prescription potassium chloride (potassium chloride 20 mEq oral tablet, extended release) 1 Tablet(s) Oral Every Day Duration: 10 Day(s) Printed Prescription The home medications listed are only as accurate as the information you provided. Please continue taking all of your medications prescribed by your Primary Care Provider unless specifically told to change or discontinue the medication. Please direct any questions regarding your home medications to your Primary Care Provider. Take your medications faithfully. Do NOT skip [...] Please dispose of unused and medications per pharmacy guidance. Test Results Laboratory or Other Results This Visit (last charted value for your 09/23/2020 visit) Hematology 09/23/2020 6:25 PM WBC: 7.8 K/uL -- Normal range between ( 4.5 and 10.5 ) RBC: 4.40 Million/uL -- Normal range between ( 3.93 and 5.22 ) Hct: 42.2 % -- Normal range between ( 34.1 and 44.9 ) Hgb: 13.5 g/dL -- Normal range between ( 11.2 and 15.7 ) Platelet Count: 190 K/uL -- Normal range between ( 163 and 369 ) MCH: 30.7 pg -- Normal range between ( 25.6 and 32.2 ) MCHC: 32.0 Gram/dL -- Normal range between ( 32.2 and 36.5 ) MCV: 95.9 fL -- Normal range between ( 79.0 and 94.8 ) Slide Review: No Eos %: 1.4 % -- Normal range between ( 0.0 and 7.0 ) Hodgeman #: 0.76 K/uL -- Normal range between ( 0.16 and 1.00 ) Eos #: 0.11 x10(3)/uL -- Normal range between ( 0.00 and 0.80 ) Hodgeman %: 9.7 % -- Normal range between ( 3.0 and 9.0 ) Baso %: 0.3 % -- Normal range between ( 0.0 and 1.5 ) Baso #: 0.02 x10(3)/uL -- Normal range between ( 0.00 and 0.20 ) RDW: 12.2 % -- Normal range between ( 11.7 and 14.9 ) Neut %: 60.0 % -- Normal range between ( 34.0 and 71.0 ) Neut #: 4.70 K/uL -- Normal range between ( 1.56 and 6.13 ) Lymph %: 28.1 % -- Normal range between ( 19.3 and 53.1 ) Lymph #: 2.20 x10(3)/uL -- Normal range between ( 1.00 and 3.90 ) MPV: 10.9 fL -- Normal range between ( 9.4 and 12.4 ) IG#: 0.04 x10(3)/uL -- Normal range between ( 0.00 and 0.05 ) IG%: 0.50 % -- Normal range between ( 0.00 and 0.60 ) Urinalysis 09/23/2020 8:47 PM Urine Nitrite: Negative Urine Leukocyte Esterase: Negative Urine Appearance: Clear Urine Glucose Dipstick: Negative Urine Blood Dipstick: Negative Urine Type: U CleanCatch Urine Urobilinogen Dipstick: 0.2 EU/dL Urine Protein Dipstick: Negative Ur Bacteria: Trace Ur Squamous Epithelial Cells: 0-2 /HPF Urine Color: Yellow Urine Ketones Dipstick: Negative Ur Mucous: Trace Urine pH Dipstick: *8.0 -- Normal range between ( 6.0 and 8.0 ) Urine Bilirubin Dipstick: Negative Urine Specific [place]: 1.010 -- Normal range between ( 1.005 and 1.030 ) 09/23/2020 3:58 PM Urine Type.: U CleanCatch Microbiology 09/23/2020 8:15 PM Novel Coronavirus 2019: Negative General Chemistry 09/23/2020 6:25 PM Creatinine Level: 0.70 mg/dL -- Normal range between ( 0.55 and 1.02 ) Sodium Level: 138 mmol/L -- Normal range between ( 136 and 146 ) Potassium Level: 4.1 mmol/L -- Normal range between ( 3.5 and 5.1 ) Chloride Level: 102 mmol/L -- Normal range between ( 102 and 112 ) Carbon Dioxide Level: 32 mmol/L -- Normal range between ( 21 and 32 ) Anion Gap: 8 -- Normal range between ( 9 and 20 ) Bilirubin Total: 0.4 mg/dL -- Normal range between ( 0.2 and 1.2 ) A/G Ratio: 1.1 -- Normal range between ( 1.1 and 2.5 ) ALT: 39 Units/Liter -- Normal range between ( 13 and 56 ) AST: 22 Units/Liter -- Normal range between ( 5 and 37 ) Globulin: 3.9 Gram/dL -- Normal range between ( 1.5 and 4.5 ) Alk Phos: 78 Units/Liter -- Normal range between ( 27 and 136 ) Bun/Creatinine: 15.7 -- Normal range between ( 8.0 and 20.0 ) Calcium Level: 9.8 mg/dL -- Normal range between ( 8.4 and 10.1 ) eGFR : >60 mL/min/1.73m2 eGFR NonAfrican: >60 mL/min/1.73m2 Glucose Level: 106 mg/dL -- Normal range between ( 74 and 106 ) Blood Urea Nitrogen: 11 mg/dL -- Normal range between ( 7 and 22 ) Lactic Acid Level: 0.7 mmol/L -- Normal range between ( 0.4 and 2.0 ) Protein Total: 8.1 Gram/dL -- Normal range between ( 6.4 and 8.2 ) Albumin Level: 4.2 Gram/dL -- Normal range between ( 3.4 and 5.0 ) Cardiac Specific Markers 09/23/2020 6:25 PM Troponin I Ultra: <0.015 ng/mL -- Normal range between ( 0.015 and 0.045 ) ProBNP: 661 pg/mL -- Normal range between ( 0 and 125 ) Computed Tomography 09/23/2020 9:[address] Abdomen Pelvis W: CT Abdomen Pelvis W Diagnostic Radiology 09/23/2020 5:36 PM CR Chest 2 Vws: CR Chest 2 Vws Emergency Awareness and Preventative Care STROKE is [...] Assistance with quitting is available by contacting 2-731-UGEZ-NOW. This is a free resource providing counseling, [...] and how to prevent infections, visit www.cdc.gov/sepsis. The examination and treatment you have received in the Emergency Department has been done to provide an appropriate evaluation and stabilizing treatment on an emergency basis only. Given the limited resources, it is not meant to be a substitute for complete medical care. The follow-up doctor you named will receive a copy of your records and all test reports. IT IS IMPORTANT THAT YOU SCHEDULE A FOLLOW-UP APPOINTMENT AND ARE RE-EVALUATED. You should report any new complaints, symptoms, or remaining problems at that time. IT IS IMPOSSIBLE FOR THE EMERGENCY DEPARTMENT TO RECOGNIZE AND TREAT ALL ELEMENTS OF INJURY OR ILLNESS IN A SINGLE VISIT. If you have been referred to a specialist physician, it means that we believe you may have a condition that requires the expertise of a specialist. These physicians work in partnership with the hospital and have agreed to see referred patients in their office for further evaluation. KEEP IN MIND THAT THE SPECIALIST HAS HIS/HER OWN OFFICE POLICIES WHICH MAY REQUIRE PROPER INSURANCE OR PAYMENT UP FRONT BEFORE THE SPECIALIST WILL SEE YOU. It is your responsibility to call the specialist physician to make an appointment. We do not have the ability to refer patients to specialists/physicians that work with specific insurance companies. Please be advised that all financial charges or billing practices are determined by that practice, not the hospital. If your insurance company requires that you see a specialist from their approved list, it is your responsibility to contact your insurance company to make those arrangements. It is also your responsibility to follow any other requirements of your insurance company necessary to obtain coverage for claims submitted. We will bill your insurance; however, you are responsible today for any co-pay amounts. You will receive a separate bill for any services you may have received including: emergency, radiology, or pathology physicians. Patient Name:CINTHIA PALMA I have received this information and was given the opportunity to ask questions. Patient/Computer Trainer Name: Patient/Computer Trainer Signature: Relationship to Patient: Clinician/Hospital Computer Trainer Signature: Please Provide a Telephone Number Where You Can Be Reached: Is it Permissible To Leave a Message? Date: documented in this encounter Plan of Treatment Upcoming Encounters Date Type Department Care Team (Late st Contact Info) Description 07/05/2025 9:15 AM EDT Appointment [address] [place] [address] 07/10/2025 10:00 AM EDT Office Visit [facility] Primary Care & Internal Med [address] [place] [address] [phone] Diane Velez PA-C [address] [place], [place] [address] [place] [phone] documented as of this encounter Visit Diagnoses Not on filedocumented in this encounter Care Teams Wheat Washer Relationship Specialty [place] [address] [place] [address] [address] [place], [place] [id number] PCP - General Internal Medicine 10/27/22 06/06/23 Diane Velez PA-C [address] [place] [phone] PCP - General Family Medicine 06/07/23 06/23/23 Joanna Osborne DO [address] [place] [address] [address] [place], [place] [id number] PCP - General Internal Medicine 06/24/23 10/20/23 Diane Velez PA-C [address] [place] [phone] PCP - General Family Medicine 10/21/23 01/10/25 Joanna Osborne DO [address] [place] [address] [address] [place] [address] PCP - General Internal Medicine 01/11/25 01/16/25 Diane Velez PA-C [address] [facility] [address] [place] [phone] PCP - General Family Medicine 04/18/25 documented as of this encounter
--- OUTSIDE RECORDS SUMMARY | 2025-05-03 11:16 | XMS_ITS | Encounter Summary ---
Author Organization [employer] ([place], [place], [place], [place]) Address [address] [place] [address] Care Team Providers Care Ethnoarchaeology Professor Name Role Phone Joanna Osborne DO Primary Care Provider Diane Velez PA-C Primary Care Provider Joanna Osborne DO Primary Care Provider Diane Velez PA-C Primary Care Provider [phone]- [phone] Joanna Osborne DO Primary Care Provider Diane Velez PA-C Primary Care Provider Encounter Details Date Type Department Care Team (Late st Contact Info) Description 09/23/2020 Transcribed Document [facility] Family Medicine [address] [place] [address] ProviderTamiko MD [address] [place] [address] Social History Tobacco Use Types [...] Tamiko Simons MD - 09/23/2020 3:35 PM ESCORT CAR DRIVER ED Assessment Entered On: 09/23/2020 22:16 EST Performed On: 09/23/2020 19:45 EST by PHYLICIA BUTCHER RN ED Quick Look Assessment Level of Consciousness : Alert, Awake Affect/Behavior : Appropriate, Calm Orientation : Oriented x 4 Skin Temperature : Warm Skin Description : Normal for ethnicity PHYLICIA BUTCHER RN - 09/23/2020 22:16 EST ED General-Functional Assess Information Obtained From : Patient Communication Barrier : None Primary Language : East Timorese Any Spiritual/Cultural Needs or Requests : No Currently in Unsafe Situation : No PHYLICIA BUTCHER RN - 09/23/2020 22:16 EST Social Habits Smoking Status : Never (less than 100 in lifetime; none in last 30 days) Smokeless Tobacco Status : Never Desires Tobacco Cessation Calc : 0 PHYLICIA BUTCHER RN - 09/23/2020 22:16 EST Social History (As Of: 09/23/2020 22:16:59 EST) Cardiovascular ASMT, ED Cardiovascular Assessment WDL : WDL with exceptions Cardiovascular Symptoms : Dyspnea at rest, Dyspnea with activity Heart Rhythm : Regular PHYLICIA BUTCEHR RN - 09/23/2020 22:16 EST Respiratory Respiratory Assessment WDL : WD with exceptions (Comment: patient complains of exertional SOA [PHYLICIA BUTCHER RN - 09/23/2020 22:41 EST] ) PHYLICIA BUTCHER RN - 09/23/2020 22:41 EST Breath Sounds Assessment Grid All Lobes Breath Sounds : Clear SHERRY : Clear LLL : Clear RUL : Clear RML : Clear RLL : Clear PHYLICIA BUTCHER RN - 09/23/2020 22:41 EST Gastrointestinal ED Gastrointestinal Assessment WDL : WD PHYLICIA BUTCHER RN - 09/23/2020 22:41 EST Genitourinary Assessment, ED Genitourinary Assessment WDL : WD PHYLICIA BUTCHER RN - 09/23/2020 22:41 EST Musculoskeletal Musculoskeletal Assessment WDL : PHYLICIA KESSLER RN - 09/23/2020 22:41 EST Integumentary Assessment Skin Description : Normal for ethnicity Integumentary Assessment WDL : WD PHYLICIA BUTCHER RN - 09/23/2020 22:41 EST Neurologic ASMT, ED Neurologic Assessment WDL : WD Neurological Symptoms : None Level of Consciousness : Alert, Awake Affect/Behavior : Appropriate, Cooperative Orientation : Oriented x 4 PHYLICIA BUTCHER RN - 09/23/2020 22:41 EST documented in this encounter Plan of Treatment Upcoming Encounters Date Type Department Care Team (Late st Contact Info) Description 07/05/2025 9:15 AM EDT Appointment [address] [place] [address] 07/10/2025 10:00 AM EDT Office Visit [facility] Primary Care & Internal Med [address] [place] [address] [phone] Diane Velez PA-C [address] [place] [phone] documented as of this encounter Visit Diagnoses Not on filedocumented in this encounter Care Teams Ethnoarchaeology Professor Relationship Specialty Start Date End Date Joanna Osborne DO [address] [facility] [address] [place], [place] [id number] PCP - General Internal Medicine 10/27/22 06/06/23 Diane Velez PA-C [address] [phone] PCP - General Family Medicine 06/07/23 06/23/23 Joanna Osborne DO [address] [facility] [address] [place], [place] [id number] PCP - General Internal Medicine 06/24/23 10/20/23 Diane Velez PA-C [address] [phone] PCP - General Family Medicine 10/21/23 01/10/25 Joanna Osborne DO [address] [facility] [address] [place] [address] PCP - General Internal Medicine 01/11/25 01/16/25 Diane Velez PA-C [address] [place] [address] [address] [place] [phone] PCP - General Family Medicine 04/18/25 documented as of this encounter
--- OUTSIDE RECORDS SUMMARY | 2025-05-03 11:16 | XMS_ITS | Encounter Summary ---
Author Organization [employer] ([place], [place], [place], [place]) Address [address] [place] [address] Care Team Providers Care Physical Plant Employee Name Role Phone Unavailable Primary Care Provider Unavailabl e Reason for Visit * Reason Onset Date Comments Advice Only 04/03/2025 Encounter Details Date Type Department Care Team (Late st Contact Info) Description 04/03/2025 Telephone [facility] Primary Care & Internal Med [address] [place] [phone] Diane Eagle PA-C [address] [phone] Advice Only Social History Tobacco Use Types Packs/Day Years [...] things needed for daily living? No 06/27/2024 [facility] - Mental Health Answer Date [...] Date Gil rded Speak language other than Surinamese at home Not on file 11/13/2023 Want [...] encounter Miscellaneous Notes * Telephone Encounter - Mariola Sosa, MULTICRAFT OPERATOR - 04/04/2025 10:42 AM EDT I spoke with patient yesterday evening and she was notified that per Dr. Osborne labs and CT scancame back fine and that she was able to leave and go home to continue antibiotics. Patient verbalized understanding and had no additional questions. * Telephone Encounter - Joanna Osborne DO - 04/03/2025 4:39 PM EDT I sent on another thread. * Telephone Encounter - Mariola Sosa CMA - 04/03/2025 3:54 PM EDT I called and spoke with patient and she is still waiting to see how you would like to proceed. It was relayed to the call center that patient could go home and wait for results but this was not told to the patient and she is still waiting at the hospital. I do see where her results are in please advise. * Telephone Encounter - Deangelo ALONSO Oneconnesalbador Quintanilla - 04/03/2025 12:58 PM EDT FROM: Gretchen Del Rio TO: [facility] INTERNAL MEDICINE 8 CLINICAL EXECUTIVE RECRUITER [[id number]] SUBJECT: Medical Advice/Question PROVIDER: DIANE EAGLE [[id number]] DEPARTMENT: [facility] JESSICA EATON 160 [[id number]] ENCOUNTER REASON FOR CALL: ADVICE ONLY [[id number]] ENCOUNTER TYPE: Telephone PREFERRED PHARMACY? [facility] [address] [place] [address] [address] [place] [address]
REASON FOR CALL: Question for my provider
WHAT IS PATIENT'S QUESTION FOR PROVIDER? She says she had an apt earlier today and was told to go to the hospital for labs and a CAT scan. She's wondering if she is supposed to wait at the hospital after getting those done or if she needs to go ahead and come back to the clinic? She's needing clarification on what to do now
LAST VISIT: 2025-04-03
NEXT VISIT DATE IS NOT APPLICABLE: Yes
MESSAGE PRIORITY: High CALLER'S NAME: Negra Newton Minerva RELATION TO PATIENT: Self [1] PREFERRED LANGUAGE: Surinamese BEST CALL BACK PHONE NUMBER: Mobile Phone: ([phone]) WHAT IS THE BEST WAY FOR THE OFFICE TO CONTACT YOU?: OK to leave message with whoever answers the phone documented in this encounter Plan of Treatment Upcoming Encounters Date Type Department Care Team (Late st Contact Info) Description 07/05/2025 9:15 AM EDT Appointment [address] [place] [address] 07/10/2025 10:00 AM EDT Office Visit [facility] Primary Care & Internal Med [address] [phone] Diane Eagle PA-C [address] [phone] documented as of this encounter Visit Diagnoses Not on filedocumented in this encounter
--- OUTSIDE RECORDS SUMMARY | 2025-05-03 11:16 | XMS_ITS | Encounter Summary ---
Author Organization [employer] ([place], [place], [place], [place]) Address [address] [place] [address] Care Team Providers Care Wood Lather Name Role Phone Diane Velez PA-C Primary Care Provider [phone]- [phone] Encounter Details Date Type Department Care Team (Late st Contact Info) Description 04/04/2025 Telephone [facility] Primary Care & Internal Med [address] [phone] Diane Velez PA-C [address] [phone] Social History Tobacco Use Types [...] Date Gil rded Speak language other than North Korean at home Not on file 11/13/2023 Want [...] encounter Miscellaneous Notes * Telephone Encounter - Mignon Ansari, COUPLES THERAPIST - 04/04/2025 9:16 AM EDT Called and apologized to patient due to miscommunication with call center yesterday and patient stayed at hospital all day after imaging. She was very receptive and accepted apology. I also informed her that the call center nurse had been notified of the incident. documented in this encounter Plan of Treatment Upcoming Encounters Date Type Department Care Team (Late st Contact Info) Description 07/05/2025 9:15 AM EDT Appointment [facility] [address] [facility] [address] [place] [address] 07/10/2025 10:00 AM EDT Office Visit [facility] Primary Care & Internal Med [address] [place] [phone] Diane Velez PA-C [address] [place] [phone] documented as of this encounter Visit Diagnoses Not on filedocumented in this encounter Care Teams Wood Lather Relationship Specialty Start Date End Date Diane Velez PA-C [address] [phone] PCP - General Family Medicine 04/18/25 documented as of this encounter
--- OUTSIDE RECORDS SUMMARY | 2025-05-03 11:16 | XMS_ITS | Encounter Summary ---
Author Organization [employer] ([place], [place], [place], [place]) Address [address] [place] [address] Care Team Providers Care Healthcare Management Name Role Phone Dawit Escalera DO Primary Care Provider Rosemarie Eagle PA-C Primary Care Provider Dawit Escalera DO Primary Care Provider Rosemarie Eagle PA-C Primary Care Provider +1- [phone] Dawit Escalera DO Primary Care Provider Rosemarie Eagle PA-C Primary Care Provider Encounter Details Date Type Department Care Team (Late st Contact Info) Description 09/23/2020 Transcribed Document [facility] [address] [place] [address] ProviderTamiko MD [address] [place] [address] Social History Tobacco Use Types Packs/Day Years Used Date Smoking Tobacco: Never Assessed Comments Unknown Sex and Gender Information Value Date Recorded Sex Assigned at Not on file Legal Sex Female 2:31 PM CDT Gender Identity Not on file Sexual Orientation Not on file documented as of this encounter Miscellaneous Notes * Cerner Conversion Note - Tamiko Simons MD - 09/23/2020 11:48 PM EDUCATION AND TRAINING COORDINATOR [place] [address] CINTHIA PALMA :1955 Visit Time:09/23/2020 Your Visit [...] leave, you should follow the instructions provided. What to do next Follow-Up Appointments Follow Up with DAWIT ESCALERA When Within 3 to 5 days Comments Take potassium supplement on the days you take the Lasix for leg swelling. Return if condition worsens Where: [address] [place] [address] [facility] (1) Follow Up with ROSEMARIE EAGLE When Within 3 to 5 days Allergies codeine ([D]Nausea and vomiting, [D]Nausea and [...] range between ( 0.0 and 7.0 ) [place] #: 0.76 K/uL -- Normal range between ( 0.16 and 1.00 ) [place] #: 0.11 x10(3)/uL -- Normal range between ( 0.00 and 0.80 ) [place] %: 9.7 % -- Normal range between [...] ) Urine Bilirubin Dipstick: Negative Urine Specific [place]: 1.010 -- Normal range between ( 1.005 [...] Chest 2 Vws: CR Chest 2 Vws Education Materials Peripheral Edema Peripheral edema is swelling that is caused by a buildup of fluid. Peripheral edema most often affects the lower legs, ankles, and feet. It can also develop in the arms, hands, and face. The area of the body that has peripheral edema will look swollen. It may also feel heavy or warm. Your clothes may start to feel tight. Pressing on the area may make a temporary dent in your skin. You may not be able to move your swollen arm or leg as much as usual. There are many causes of peripheral edema. It can happen because of a complication of other conditions such as congestive heart failure, kidney disease, or a problem with your blood circulation. It also can be a side effect of certain medicines or because of an infection. It often happens to women during . Sometimes, the cause is not known. Follow these instructions at home: Managing pain, stiffness, and swelling ??? Raise (elevate) your legs while you are sitting or lying down. ??? Move around often to prevent stiffness and to lessen swelling. ??? Do not sit or stand for long periods of time. ??? Wear support stockings as told by your health care provider. Medicines ??? Take ipue-jox-itivkrx and prescription medicines only as told by your health care provider. ??? Your health care provider may prescribe medicine to help your body get rid of excess water (diuretic). General instructions ??? Pay attention to any changes in your symptoms. ??? Follow instructions from your health care provider about limiting salt (sodium) in your diet. Sometimes, eating less salt may reduce swelling. ??? Moisturize skin daily to help prevent skin from cracking and draining. ??? Keep all follow-up visits as told by your health care provider. This is important. Contact a health care provider if you have: ??? A fever. ??? Edema that starts suddenly or is getting worse, especially if you are or have a medical condition. ??? Swelling in only one leg. ??? Increased swelling, redness, or pain in one or both of your legs. ??? Drainage or sores at the area where you have edema. Get help right away if you: ??? Develop shortness of breath, especially when you are lying down. ??? Have pain in your chest or abdomen. ??? Feel weak. ??? Feel faint. Summary ??? Peripheral edema is swelling that is caused by a buildup of fluid. Peripheral edema most often affects the lower legs, ankles, and feet. ??? Move around often to prevent stiffness and to lessen swelling. Do not sit or stand for long periods of time. ??? Pay attention to any changes in your symptoms. ??? Contact a health care provider if you have edema that starts suddenly or is getting worse, especially if you are or have a medical condition. ??? Get help right away if you develop shortness of breath, especially when lying down. This information is not intended to replace advice given to you by your health care provider. Make sure you discuss any questions you have with your health care provider. Document Released: 11/25/2005 Document Revised: 07/12/2019 Document Reviewed: 07/12/2019 [employer] Patient Education ?? 2020 [employer] Shortness of Breath, Adult Shortness of breath is when a person has trouble breathing enough air or when a person feels like she or he is having trouble breathing in enough air. Shortness of breath could be a sign of a medical problem. Follow these instructions at home: ??? Pay attention to any changes in your symptoms. ??? Do not use any products that contain nicotine or tobacco, such as cigarettes, e-cigarettes, and chewing tobacco. ??? Do not smoke. Smoking is a common cause of shortness of breath. If you need help quitting, ask your health care provider. ??? Avoid things that can irritate your airways, such as: ? Mold. ? Dust. ? Air pollution. ? Chemical fumes. ? Things that can cause allergy symptoms (allergens), if you have allergies. ??? Keep your living space clean and free of mold and dust. ??? Rest as needed. Slowly return to your usual activities. ??? Take wpdp-sru-bcympmi and prescription medicines only as told by your health care provider. This includes oxygen therapy and inhaled medicines. ??? Keep all follow-up visits as told by your health care provider. This is important. Contact a health care provider if: ??? Your condition does not improve as soon as expected. ??? You have a hard time doing your normal activities, even after you rest. ??? You have new symptoms. Get help right away if: ??? Your shortness of breath gets worse. ??? You have shortness of breath when you are resting. ??? You feel light-headed or you faint. ??? You have a cough that is not controlled with medicines. ??? You cough up blood. ??? You have pain with breathing. ??? You have pain in your chest, arms, shoulders, or abdomen. ??? You have a fever. ??? You cannot walk up stairs or exercise the way that you normally do. These symptoms may represent a serious problem that is an emergency. Do not wait to see if the symptoms will go away. Get medical help right away. Call your local emergency services (911 in the [place] Do not drive yourself to the hospital. Summary ??? Shortness of breath is when a person has trouble breathing enough air. It can be a sign of a medical problem. ??? Avoid things that irritate your lungs, such as smoking, pollution, mold, and dust. ??? Pay attention to changes in your symptoms and contact your health care provider if you have a hard time completing daily activities because of shortness of breath. This information is not intended to replace advice given to you by your health care provider. Make sure you discuss any questions you have with your health care provider. Document Released: 07/13/2002 Document Revised: 03/20/2019 Document Reviewed: 03/20/2019 [employer] Patient Education ?? 2020 [employer] Emergency Awareness and Preventative Care STROKE is [...] Assistance with quitting is available by contacting 3-790-BAQT-NOW. This is a free resource providing counseling, [...] was given the opportunity to ask questions. Patient/Electroplater Apprentice Name: Patient/Electroplater Apprentice Signature: Relationship to Patient: Clinician/Hospital Electroplater Apprentice Signature: Please Provide a Telephone Number Where You Can Be Reached: Is it Permissible To Leave a Message? Date: Electronically signed by Mecca Buchanan Conversion Instrument And Electrical Technician Cerner at 02/19/2023 2:17 PM CDT documented in this encounter Plan of Treatment Upcoming Encounters Date Type Department Care Team (Late st Contact Info) Description 07/05/2025 9:15 AM EDT Appointment [address] [place] [address] 07/10/2025 10:00 AM EDT Office Visit [facility] Primary Care & Internal Med [address] [facility] [address] [place] [phone] Rosemarie Eagle PA-C [address] [phone] documented as of this encounter Visit Diagnoses Not on filedocumented in this encounter Care Teams Healthcare Management Relationship Specialty Start [place] [address] [place] [address] [address] [place], [place] [id number] PCP - General Internal Medicine 10/27/22 06/06/23 Rosemarie Eagle PA-C [address] [phone] PCP - General Family Medicine 06/07/23 06/23/23 Dawit Escalera DO 1401 [facility] [address] [place] [address] PCP - General Internal Medicine 06/24/23 10/20/23 Rosemarie Eagle PA-C [address] [phone] PCP - General Family Medicine 10/21/23 01/10/25 [place] [address] [place] [address] [address] [place] [address] PCP - General Internal Medicine 01/11/25 01/16/25 Rosemarie Eagle PA-C [address] [phone] PCP - General Family Medicine 04/18/25 documented as of this encounter
--- OUTSIDE RECORDS SUMMARY | 2025-05-03 11:16 | XMS_ITS | Encounter Summary ---
Author Organization [employer] ([place], [place], [place], [place]) Address [address] [place] [address] Care Team Providers Care Dog Food Dough Mixer Name Role Phone Unavailable Primary Care Provider Unavailabl e Encounter Details Date Type Department Care Team (Late st Contact Info) Description 03/05/2025 Abstract [facility] Primary Care & Internal Med [address] [facility] [address] [place] [address] Behzad Lerner Jr., MD [address] [facility] [address] [place] [address] Social History Tobacco Use Types Packs/Day Years [...] things needed for daily living? No 06/27/2024 [facility] - Mental Health Answer Date [...] Date Gil rded Speak language other than Danish at home Not on file 11/13/2023 Want [...] Info) Description 07/05/2025 9:15 AM EDT Appointment [facility] [address] [facility] [address] [place] [phone] 07/10/2025 10:00 AM EDT Office Visit [facility] Primary Care & Internal Med [address] [address] Diane Velez PA-C [address] [address] documented as of this encounter Visit Diagnoses Not on filedocumented in this encounter
--- OUTSIDE RECORDS SUMMARY | 2025-05-03 11:16 | XMS_ITS | Encounter Summary ---
Author Organization [employer] ([place], [place], [place], [place]) Address [address] [place] [address] Care Team Providers Care Fingerprint Classifier Name Role Phone Diane Velez PA-C Primary Care Provider [phone]- [phone] Reason for Visit * Reason Onset Date Comments Medication Refill 04/23/2025 Encounter Details Date Type Department Care Team (Late st Contact Info) Description 04/23/2025 Refill [facility] Primary Care & Internal Med 1401 [facility] [address] [address] Diane Velez PA-C [address] [address] Hypertension, unspecified type Social History Tobacco [...] Date Gil rded Speak language other than Puerto Rican at home Not on file 11/13/2023 Want [...] Info) Description 07/05/2025 9:15 AM EDT Appointment [address] [phone] 07/10/2025 10:00 AM EDT Office Visit [facility] Primary Care & Internal Med [address] [address] Diane Velez PA-C [address] [phone] documented as of this encounter Visit Diagnoses Diagnosis Hypertension, unspecified type documented in this encounter Care Teams Fingerprint Classifier Relationship Specialty Start Date End Date Diane Velez PA-C [address] [address] PCP - General Family Medicine 04/18/25 documented as of this encounter
[2025-05-03 11:49] LABS: Ammonia < 9 umol/L (9-30); Hematocrit 36.7 % (37.0-47.0); Hemoglobin 12.2 g/dL (12.2-16.2); Immature Granulocytes % 0.3 %; Mean Corpuscular HGB Conc 33.2 g/dL (31.8-35.4); Mean Corpuscular Hemoglobin 29.9 pg (27.0-31.2); Mean Corpuscular Volume 90.0 fl (81-99); Nucleated Red Blood Cells % 0 %; Platelet Count 327 K/mm3 (142-424); Red Blood Count 4.08 M/mm3 (4.20-5.40); Red Cell Distribution Width-SD 39.4 fL; White Blood Count 6.8 K/mm3 (4.8-10.8)
[2025-05-03 11:56] LABS: INR 1.03 (0.9-1.1); Prothrombin Time 11.4 seconds (10.1-12.5)
[2025-05-03 12:08] LABS: Alanine Aminotransferase 33 U/L (12-78); Aspartate Amino Transferase 38 U/L (14-36); Blood Urea Nitrogen 19 mg/dl (7-17); Carbon Dioxide 30 mmol/L (22.0-30.0); Creatinine,Serum 1.00 mg/dl (0.52-1.04); Estimated Glomerular Filt Rate 55 ml/min (>60); GFR (African American) 66 ML/MIN (>60)
[2025-05-03 12:09] LABS: Alkaline Phosphatase 156 U/L (38-126); Bilirubin,Total 0.8 mg/dl (0.2-1.3); Calcium 9.8 mg/dl (8.4-10.2); Glucose 97 mg/dl (74-100); Iron 67 ug/dL (37-170); Total Protein,Serum 7.0 g/dl (6.3-8.2)
[2025-05-03 12:18] LABS: Total Iron Binding Capacity 310 ug/dL (265-497)
[2025-05-03 12:26] LABS: Anion Gap 14.0 mEq/L (5-15); Chloride 91 mmol/L (98-107); Potassium 4.0 mmoL/L (3.5-5.1); Sodium 131 mmol/L (136-145)
[2025-05-03 12:27] LABS: Albumin Level 4.2 g/dl (3.5-5.0); Albumin/Globulin Ratio 1.5 (1.1-1.8); Globulin 2.8 g/dL (1.3-3.2)
[2025-05-03 12:43] LABS: Ferritin 160 ng/ml (11.1-264)
== END 2025-05-03 23:59 | disposition home or self-care (01) ==
PROVIDERS: PCP Physician Assistant Medical; Visit Provider Nurse Practitioner Family
DX: K74.60 Unspecified cirrhosis of liver (principal)
CPT/HCPCS: 36415; 80053; 82105; 82140; 82728; 83540; 83550; 85025; 85610

== ENCOUNTER 2025-05-11 08:45 | Outpatient (CLI) | payer MEDICARE, SELFPAY ==
--- OUTSIDE RECORDS SUMMARY | 2025-03-23 09:10 | XMS_ITS | Encounter Summary ---
Author Organization [employer] ([place], [place], [place], [place]) Address [address] [place] [address] Care Team Providers Care Moss Bleacher Name Role Phone Unavailable Primary Care Provider Unavailabl e Reason for Referral * Diagnostic X-Ray (Emergency) - Closed Specialty Diagnoses / Procedures Referred By Contac t Referred To Contact Radiology Diagnoses Pain and swelling of left lower leg Procedures XR leg / tibia and fibula 2 views left Jaime Graham APRN [address] [place] [phone] Phone: tel: fax: Referral ID Status Reason Start Date Expiration Date Visits Re quested Visits Authorized [id number] Closed 03/23/2025 03/23/2026 1 1 Reason for Visit * Reason Comments Wound Infection Pt states last week a chair leg caught onto her left lower leg, pt has a small wound has tried mupirocin ointment and peroxide. Leg is swollen and painful and pt states it feels hot. Encounter Details Date Type Department Care Team (Late st Contact Info) Description 03/23/2025 9:10 AM EDT Office Visit [facility] [address] [place] [phone] Jaime Graham APRN [address] [place] [phone] Pain and swelling of left lower leg (Primary Dx); Cellulitis of left lower leg Social History Tobacco Use Types Packs/Day Years Used Date Smoking Tobacco: Never Passive Smoke Exposure: Never Smokeless Tobacco: Never Tobacco Cessation:Counseling Given: Not Answered Alcohol Use Standard Drinks/Week Comments Never 0 (1 standard drink = 0.6 oz pur e alcohol) Overall Financial Resource Strain (CARDIA) Answe r Date Recorded How hard is it for you to pa y for the very basics like food, housing, medical care, and heating? Not hard at all 06/27/2024 Exercise Vital Sign Answer Date Recorde d On average, how many days pe r week do you engage in moderate to strenuous exercise (like a brisk walk)? 5 days 06/27/2024 On average, how many minutes do you engage in exercise at this level? 50 min 06/27/2024 PRAPARE - Transportation Answer Date Re corded In the past 12 months, has l ack of transportation kept you from medical appointments or from getting medications? No 06/02 In the past 12 months, has l ack of transportation kept you from meetings, work, or from getting things needed for daily living? No 06/27/2024 CHI Intimate Partner Violence Answer Da te Recorded Within the last year, have y ou been afraid of your partner or ex-partner? No 06/27/2024 Within the last year, have y ou been humiliated or emotionally abused in other ways by your partner or ex-partner? No Within the last year, have y ou been kicked, hit, slapped, or otherwise physically hurt by your partner or ex-partner? No 06/27/2024 Within the last year, have y ou been raped or forced to have any kind of sexual activity by your partner or ex-partner? No 06/27/2024 Transportation Needs Answer Date Record ed Transportation unreliable past 12 months Not on file 06/27/2024 Family and Community Support Answer Dago e Recorded Help with Day to Day Activities Not on file 11/13/2023 Feeling Lonely or Isolated Not on file 11/13 Educational Attainment Answer Date Gil rded Speak language other than Swedish at home Not on file 11/13/2023 Want help with school or training Not on file 11/13/2023 Substance Use Answer Date Recorded Used prescription meds for non-medical reasons N ot on file 11/13/2023 Used illegal drugs past 12 months Not on file 11/13/2023 Comments No Sex and Gender Information Value Date Recorded Sex Assigned at Not on file Legal Sex Female 2:31 PM CDT Gender Identity Not on file Sexual Orientation Not on file documented as of this encounter Last Filed Vital Signs Vital Sign Reading Time Taken Comments Blood Pressure 166/92 03/23/2025 9:33 AM EDT Pulse 66 03/23/2025 9:11 AM EDT Temperature 36.9 C (98.5 F) 03/23/2025 9:11 AM EDT Respiratory Rate 18 03/23/2025 9:11 AM EDT Oxygen Saturation 97% 03/23/2025 9:11 AM EDT Inhaled Oxygen Concentration - - Weight 64.4 kg (142 lb) 03/23/2025 9:11 AM EDT Height 157.5 cm (5' 2 ) 03/23/2025 9:11 AM EDT Body Mass Index 25.97 03/23/2025 9:11 AM EDT documented in this encounter Progress Notes * Jaime Graham, RELAY WORKER - 03/23/2025 9:10 AM EDT Negra Palma is a 69 y.o. female with Chief Complaint Patient presents with Wound Infection Pt states last week a chair leg caught onto her left lower leg, pt has a small wound has tried mupirocin ointment and peroxide. Leg is swollen and painful and pt states it feels hot. 69-year-old female patient presents to clinic with complaint of pain and swelling after injury to left lower leg a week ago. Patient states she bumped her leg on a chair which caused abrasions that are now red and painful. Patient reports a past history of staph infection in the left lower leg. States she has been using clyp-krm-asfibuu medication and she has been doing Epsom salt soaks and usingperoxide. Allergies Allergen Reactions Codeine Rash and Anaphylaxis Sulfa (Sulfonamide Antibiotics) Hives and Itching Ciprofloxacin Other (See Comments) jaundice Sulfamethoxazole-Trimethoprim Patient Active Problem List Diagnosis Senile osteoporosis MGUS (monoclonal gammopathy of unknown significance) Renal mass Renal mass Acute postoperative pain Allergic rhinitis Benign neoplasm of kidney Renal carcinoma (HCC) Cataract Viral hepatitis C Decreased hearing Depressive disorder Encounter for screening for malignant neoplasm of colon Gastro-esophageal reflux disease without esophagitis Hemorrhoids Chronic hepatitis, unspecified (HCC) Herpes simplex virus (HSV) infection High blood pressure Hypothyroidism Thyroid disease Incontinence Meniere's disease Osteoarthritis Renal calculus Renal insufficiency Renal oncocytoma of left kidney Kidney disease Renal cell carcinoma (HCC) Grief Encounter for colonoscopy due to history of adenomatous colonic polyps Early satiety Change in bowel habit Anorexia Abnormal weight loss Abnormal findings on diagnostic imaging of other parts of digestive tract Hepatic failure, unspecified without coma (HCC) Anxiety Primary insomnia No LMP recorded. Patient is postmenopausal. Past Surgical History: Procedure Laterality Date APPENDECTOMY CATARACT EXTRACTION, BILATERAL CHOLECYSTECTOMY HYSTERECTOMY Nephrectomy Left Social History Tobacco Use Smoking status: Never Passive exposure: Never Smokeless tobacco: Never Substance Use Topics Alcohol use: Never Negra Palma reports that she has never smoked. She has never been exposed to tobacco smoke. She has never used smokeless tobacco. Current tobacco users are offered counseling on tobacco cessation and encouraged to discuss optionswith their primary care provider Review of Systems Constitutional: Negative. Musculoskeletal: Left lower leg pain and swelling after injury. Neurological: Negative. Negative for numbness. BP (!) 166/92 Pulse 66 Temp 98.5 ??F (36.9 ??C) (Temporal Artery) Resp 18 Ht 1.575 m (5' 2 ) Wt 64.4 kg (142 lb) SpO2 97% BMI 25.97 kg/m?? Physical Exam Vitals and nursing note reviewed. Musculoskeletal: Left lower leg: Swelling, tenderness and bony tenderness present. Skin: Findings: Abrasion (2 abrasions on anterior left lower leg with redness and swelling, likely cellulitis no exudate or streaking noted.) and bruising (Left lower leg and left ankle) present. Neurological: Mental Status: She is alert. Radiology Results (last 7 days) Procedure Component Value Units Date/Time XR leg / tibia and fibula 2 views left [[id number]] Resulted: 03/23/25952 Order Status: Sent Updated: 03/23/25952 No results found for this or any previous visit (from the past 6 hours). Problem List Items Addressed This Visit None Visit Diagnoses Pain and swelling of left lower leg - Primary Relevant Medications diclofenac sodium (VOLTAREN) 75 MG EC tablet Other Relevant Orders XR leg / tibia and fibula 2 views left Cellulitis of left lower leg Relevant Medications clindamycin (CLEOCIN) 300 MG capsule mupirocin (BACTROBAN) 2 % ointment Procedures New Prescriptions CLINDAMYCIN (CLEOCIN) 300 MG CAPSULE Take 1 capsule (300 mg total) by mouth 3 (three) times daily for 10 days. DICLOFENAC SODIUM (VOLTAREN) 75 MG EC TABLET Take 1 tablet (75 mg total) by mouth 2 (two) times daily for 14 days. MUPIROCIN (BACTROBAN) 2 % OINTMENT Apply to affected area 3 times a day until healed. I ordered an oral antibiotic, topical antibiotic and oral anti-inflammatory based on patient's symptoms and physical assessment indicating a deep tissue and bone bruise of the left lower leg with multiple abrasions with secondary infections. Instructed patient to use medications as directed and to follow-up with primary care if symptoms worsen or not improved in 1 week. Instructed patient to follow-up with renal doctor or urologist before beginning anti- inflammatory medication due to her history of a left nephrectomy. Patient states that she has taken anti-inflammatories in the past without any issues. Patient verbalized an understanding and agreement with all plans of care. Parts of this document/medical record have been dictated via [employer] speech recognition software, which may cause errors in spelling or accurate dictation. Attempts have been madeto proofread and correct all errors. Please contact me with any questions. Jaime Graham APRN documented in this encounter Miscellaneous Notes * Addendum Note - Jaime Graham APRN - 03/23/2025 9:10 AM EDTAddended by: JAIME GRAHAM on: 03/23/2025 10:28 AM Modules accepted: Level of Service documented in this encounter Plan of Treatment Upcoming Encounters Date Type Department Care Team (Late st Contact Info) Description 07/05/2025 9:15 AM EDT Appointment [address] [phone] 07/10/2025 10:00 AM EDT Office Visit [facility] Primary Care & Internal Med [address] [facility] [address] [place] [address] Diane Velez PA-C [address] [facility] [address] [facility] [place] [address] documented as of this encounter Results * XR leg / tibia and fibula 2 views left (03/23/2025 10:15 AM EDT) Anatomical Region Laterality Modality Leg, Knee, Ankle X-Ray 03/23/2025 11:3 5 AM EDT Impressions 03/23/2025 11:36 AM EDT No acute bony abnormality. Images reviewed, interpreted, and dictated by Refugio Leon DO Narrative 03/23/2025 11:36 AM EDT 2 VIEWS OF TIB-FIB LEFT HISTORY: Injured one week ago increasing pain and swelling. COMPARISON: None. FINDINGS: A two view exam demonstrates no acute fracture or dislocation. There are mild degenerative changes. Mild soft tissue swelling noted. Chondrocalcinosis, correlate for CPPD. If warranted, consider further evaluation with MRI. Procedure Note Refugio Leon DO - 03/23/2025 2 VIEWS OF TIB-FIB LEFT HISTORY: Injured one week ago increasing pain and swelling. COMPARISON: None. FINDINGS: A two view exam demonstrates no acute fracture or dislocation. There are mild degenerative changes. Mild soft tissue swelling noted. Chondrocalcinosis, correlate for CPPD. If warranted, consider further evaluation with MRI. IMPRESSION: No acute bony abnormality. Images reviewed, interpreted, and dictated by Refugio Leon DO [facility] [place] Santino RELAY WORKER IMG DIAGNOSTIC IMAGING ORDERAB LES Final Result documented in this encounter Visit Diagnoses Diagnosis Pain and swelling of left lower leg- Primary Cellulitis of left lower leg Pain and swelling of left lower leg documented in this encounter
--- OUTSIDE RECORDS SUMMARY | 2025-03-23 09:53 | XMS_ITS | Encounter Summary ---
Author Organization [employer] ([place], [place], [place], [place]) Address [address] [place] [address] Care Team Providers Care Plasma Center Technician Name Role Phone Unavailable Primary Care Provider Unavailabl e Reason for Referral * Diagnostic X-Ray (Emergency) - Closed Specialty Diagnoses / Procedures Referred By Sergio espitia Referred To Contact Radiology Diagnoses Pain and swelling of left lower leg Procedures XR leg / tibia and fibula 2 views left Marc De APRN [address] [address] Phone: tel: fax: Referral ID Status Reason Start Date Expiration Date Visits Re quested Visits Authorized [id number] Closed 03/23/2025 03/23/2026 1 1 Reason for Visit * Diagnostic X-Ray (Emergency) - Closed Specialty Diagnoses / Procedures Referred By Contac omkar Referred To Contact Radiology Diagnoses Pain and swelling of left lower leg Procedures XR leg / tibia and fibula 2 views left Marc De APRN [address] [address] Phone: tel: fax: Referral ID Status Reason Start Date Expiration Date Visits Re quested Visits Authorized [id number] Closed 03/23/2025 03/23/2026 1 1 Encounter Details Date Type Department Care Team (Late st Contact Info) Description 03/23/2025 9:53 AM EDT - 03/23/2025 11:59 PM EDT Hospital Encounter [facility] [address] [place] [address] Marc De APRN [address] [place] [address] [address] [place] [address] Pain and swelling of left [...] Date Gil rded Speak language other than Nicaraguan at home Not on file 11/13/2023 Want [...] Info) Description 07/05/2025 9:15 AM EDT Appointment [address] [place] [address] 07/10/2025 10:00 AM EDT Office Visit [facility] Primary Care & Internal Med [address] [address] Diane Velez PA-C [address] [place] [address] documented as of this encounter Procedures [...] dictated by Refugio Leon DO Marc De [employer] SPECIALIST IMG DIAGNOSTIC IMAGING ORDERAB LES Final Result documented in this encounter Visit Diagnoses Diagnosis Pain and swelling of left lower leg documented in this encounter
--- OUTSIDE RECORDS SUMMARY | 2025-03-29 08:45 | XMS_ITS | Encounter Summary ---
Author Organization [employer] ([place], [place], [place], [place]) Address [address] [place] [address] Care Team Providers Care Fleet Salesperson Name Role Phone Unavailable Primary Care Provider Unavailabl e Reason for Referral * Consultation (Routine) - Open Specialty Diagnoses / Procedures Referred By Contac t Referred To Contact Audiology Diagnoses [place] [address] [place] [address] [address] [place] [phone] Phone: tel: fax: Referral ID Status Reason Start Date Expiration Date V isits Requested Visits Authorized [id number] Open Specialty Services Required 03/29/2025 03/29/2026 1 1 Reason for Visit * Reason Comments Leg Pain Foot Injury Encounter Details Date Type Department Care Team (Late st Contact Info) Description 03/29/2025 8:45 AM EDT Office Visit [facility] Primary Care & Internal Med [address] [place] [address] [address] [place] [phone] [place] [address] [place] [address] [address] [place] [phone] Puncture wound of left lower leg (Primary [...] things needed for daily living? No 06/27/2024 [facility] - Mental Health Answer Date Recorde d [...] Date Gil rded Speak language other than [place] at home Not on file 11/13/2023 Want [...] Info) Description 07/05/2025 9:15 AM EDT Appointment [facility] [address] [facility] [address] [place] [address] 07/10/2025 10:00 AM EDT Office Visit [facility] Primary Care & Internal Med [address] [facility] [address] [address] Diane Velez PA-C [address] [address] Scheduled Referrals Name Type Priority Associated Diagnoses Order Schedule Ambulatory referral to Audiology Outpatient Referral Routine Hearing loss Expected: 03/29/2025, Expires: 03/29/2026 documented as of this encounter Visit Diagnoses Diagnosis Puncture wound of left lower leg, subsequent encounter Acute cellulitis Pain of left lower extremity Hearing loss Unspecified hearing loss documented in this encounter
--- OUTSIDE RECORDS SUMMARY | 2025-04-03 10:00 | XMS_ITS | Encounter Summary ---
Author Organization [employer] ([place], [place], [place], [place]) Address [address] [place] [address] Care Team Providers Care Fur Vault Attendant Name Role Phone Unavailable Primary Care Provider Unavailabl e Reason for Referral * CAT Scan (Emergency) - Closed Specialty Diagnoses / Procedures Referred By Contac t Referred To Contact Radiology Diagnoses Acute cellulitis Fever Severe pain Procedures CT lower extremity without IV contrast left Joanna Osborne DO [address] [facility] [address] [place] [address] Phone: tel: fax: [facility] CT Imaging 1 [place] [address] Phone: tel: fax: Referral ID Status Reason Start Date Expiration Date Visits Re quested Visits Authorized [id number] Closed 04/03/2025 07/01/2025 1 1 Reason for Visit * Reason Comments Follow-up Encounter Details Date Type Department Care Team (Late st Contact Info) Description 04/03/2025 10:00 AM EDT Office Visit [facility] Primary Care & Internal Med [address] [place] [address] [address] [place] [phone] Joanna Osborne DO [address] [facility] [address] [place] [address] Puncture wound of left lower leg, subsequent [...] things needed for daily living? No 06/27/2024 [facility] - Mental Health Answer Date Recorde [...] Date Gil rded Speak language other than [place] at home Not on file 11/13/2023 Want [...] Info) Description 07/05/2025 9:15 AM EDT Appointment [address] [phone] 07/10/2025 10:00 AM EDT Office Visit [facility] Primary Care & Internal Med [address] [place] [phone] Diane Velez PA-C [facility] [address] [address] documented as of this encounter [...] - 04/12/2025 8:08 AM EDT Performed at: [address] [place] [id number] Internet Database Specialist: José Miguel Williamson PhD, Phone: [employer] Joanna Sauquoit DO LAB BLOOD ORDERABLES Final Result Performing Organization Address [facility] Co de Phone Number [facility] * Sedimentation rate (04/11/2025 2:39 PM EDT) Sedimentation Rate-Westergren 4 0 - 40 mm/hr [facility] 04/11/2025 2:39 PM EDT 04/11/2025 Narrative [facility] - 04/12/2025 8:08 AM EDT Performed at: [address] [place] [id number] Internet Database Specialist: José Miguel Williamson PhD, Phone: [phone] [facility]eddie [facility] LAB BLOOD ORDERABLES Final Result Performing Organization Address City/[facility]/ZIP Co de Phone Number [facility] * Sedimentation rate (04/03/2025 12:43 PM EDT) Sed Rate 12 0 - 30 mm/HR 04/03/2025 12:55 PM EDT [facility] Blood Venipuncture / Unknown 04/03/2025 12:43 PM EDT 04/03/2025 12:45 PM EDT [facility] [place] LAB BLOOD ORDERABLES Final Result Performing Organization Address City/[facility]/ZIP Co de Phone Number [facility] [address] [phone] * (ABNORMAL) C-Reactive Protein (04/03/2025 12:42 PM EDT) CRP 5.7(H) 0.0 - 5.0 mg/L 04/03/2025 1:26 PM EDT [facility] Blood Venipuncture / Unknown 04/03/2025 12:42 PM EDT 04/03/2025 12:45 PM EDT [facility] LAB BLOOD ORDERABLES Final Result Performing Organization Address [facility] Co de Phone Number [facility] [address] [phone] * CT lower extremity without IV contrast [...]
--- OUTSIDE RECORDS SUMMARY | 2025-04-03 11:57 | XMS_ITS | Encounter Summary ---
Author Organization [employer] ([place], [place], [place]) Address [address] [place] [address] Care Team Providers Care Cardiac Cath Lab Manager Name Role Phone Unavailable Primary Care Provider Unavailabl e Reason for Referral * CAT Scan (Emergency) - Closed Specialty Diagnoses / Procedures Referred By Contac t Referred To Contact Radiology Diagnoses Acute cellulitis Fever Severe pain Procedures CT lower extremity without IV contrast left Joanna Osborne DO [address] [place] [address] [place] [address] Phone: tel: fax: [facility] CT Imaging 1 [place] [address] Phone: tel: fax: Referral ID Status Reason Start Date Expiration Date Visits Re quested Visits Authorized [id number] Closed 04/03/2025 07/01/2025 1 1 Reason for Visit * CAT Scan (Emergency) - Closed Specialty Diagnoses / Procedures Referred By Contac t Referred To Contact Radiology Diagnoses Acute cellulitis Fever Severe pain Procedures CT lower extremity without IV contrast left Joanna Osborne DO [address] [place] [address] [address] [place] [id number] Phone: tel: fax: [facility] CT Imaging 1 [place] [address] Phone: tel: fax: Referral ID Status Reason Start Date Expiration Date Visits Re quested Visits Authorized [id number] Closed 04/03/2025 07/01/2025 1 1 Encounter Details Date Type Department Care Team (Late st Contact Info) Description 04/03/2025 11:57 AM EDT - 04/03/2025 11:59 PM EDT Hospital Encounter [facility] CT Imaging 1 [place] [address] Joanna Osborne, [address] [facility] [address] [place] [id number] Acute cellulitis; Fever; Severe pain Discharge Disposition: Home or Self Care Social [...] things needed for daily living? No 06/27/2024 [facility] - Mental Health Answer Date Recorde [...] Date Gil rded Speak language other than Iranian at home Not on file 11/13/2023 Want [...] DBP more than 90. 30 tablet 01/17/2025 hydroCHLOROthiazi de (MICROZIDE) 12.5 mg capsule Take 2 capsules (25 mg total) by mouth. 11/07/2024 losartan (COZAAR) 100 MG tablet Take 1 tablet (100 mg total) by mouth daily. 02/28/2025 pantoprazole (PROTONIX) 40 MG tabletIndications :Gastroesophageal reflux disease with esophagitis, unspecified whether hemorrhage Take 1 tablet (40 mg total) by mouth daily. 90 tablet 1 11/13/2024 cephalexin (KEFLEX) 500 MG capsuleIndication s:Acute cellulitis Take 1 capsule (500 mg total) by mouth 2 (two) times daily. 14 capsule 03/29/2025 5 doxycycline (VIBRAMYCIN) 100 MG capsuleIndication s:Acute cellulitis Take 1 capsule (100 mg total) by mouth 2 (two) times daily. 14 capsule 03/29/2025 5 HYDROcodone-aceta minophen (NORCO) 5-325 mg per tabletIndications :Pain of left lower extremity Take 1 tablet by mouth every 6 (six) hours as needed for pain for up to 10 doses. Max Daily Amount: 4 tablets 10 tablet 03/29/2025 5 hydrOXYzine (ATARAX) 25 MG tabletIndications :Primary insomnia TAKE 1-2 TABS AT BEDTIME NEEDED FOR INSOMNIA.. 60 tablet 1 03/08/2025 5 mupirocin (BACTROBAN) 2 % ointmentIndicatio ns:Cellulitis of left lower leg Apply to affected area 3 times a day until healed. 22 g 03/23/2025 5 documented as of this encounter Miscellaneous Notes * Result Encounter Note - Diane Velez PA-C - 04/03/2025 12:[address] Osborne may want to review this CT as ordered. documented in this encounter Plan of Treatment Upcoming Encounters Date Type Department Care Team (Late st Contact Info) Description 07/05/2025 9:15 AM EDT Appointment [address] [address] 07/10/2025 10:00 AM EDT Office Visit [facility] Primary Care & Internal Med [address] [facility] [address] [address] Diane Velez PA-C 14[address] [facility] Ernesto [address] [address] documented as of this encounter Procedures Procedure Name Priority Date/Time Associated Diagnosis Comments CT LOWER EXTREMITY WITHOUT IV CONTRAST LEFT STAT 04/03/2025 12:20 PM EDT Acute cellulitis Fever Severe pain documented in this encounter Results * CT lower extremity without IV contrast [...] Theron Penn. Transcribed by Papa Oliva PA-C Joanna Osborne DO IMG CT ORDERABLES Final Res ult documented in this encounter Visit Diagnoses Diagnosis Acute cellulitis Fever Fever, unspecified Severe pain documented in this encounter
--- OUTSIDE RECORDS SUMMARY | 2025-04-03 12:30 | XMS_ITS | Encounter Summary ---
Author Organization [employer] ([place], [place], [place], [place]) Address [address] [place] [address] Care Team Providers Care Deputy Juvenile Officer Name Role Phone Unavailable Primary Care Provider Unavailabl e Encounter Details Date Type Department Care Team (Late st Contact Info) Description 04/03/2025 12:30 PM EDT Lab Patient [facility] Lab 1 [place] [address] Joanna Osborne, [address] [facility] [address] [place] [phone] Acute cellulitis (Primary Dx) Social History Tobacco Use Types Packs/Day Years [...] things needed for daily living? No 06/27/2024 [facility] - Mental Health Answer Date Recorde d [...] Date Gil rded Speak language other than Romanian at home Not on file 11/13/2023 Want [...] on file documented as of this encounter Miscellaneous Notes * Result Encounter Note - Diane Velez PA-C - 04/03/2025 12:[address] Osborne may want to review these as ordered. documented in this encounter Plan of Treatment Upcoming Encounters Date Type Department Care Team (Late st Contact Info) Description 07/05/2025 9:15 AM EDT Appointment [facility] [address] [place] [address] 07/10/2025 10:00 AM EDT Office Visit [facility] Primary Care & Internal Med [address] [facility] [address] [facility] [place] [address] Diane Velez PA-C [address] [facility] [address] [place] [address] documented as of this encounter Procedures Procedure Name Priority Date/Time Associated Diagnosis Comments CBC W/ AUTO DIFF Routine 04/03/2025 12:4 3 PM EDT Acute cellulitis C-REACTIVE PROTEIN STAT 04/03/2025 12 :42 PM EDT Acute cellulitis Fever Severe pain PROCALCITONIN Routine 04/03/2025 12:42 PM EDT Acute cellulitis documented in this encounter Results * CBC with automated diff (04/03/2025 12:43 PM EDT) WBC 6.1 4.0 - 10.0 K/ L 04/03/2025 12:57 PM EDT [facility] RBC 4.42 3.93 - 5.22 M/ L 04/03/2025 12:57 PM EDT [facility] Hemoglobin 13.5 11.2 - 15.7 GM/DL 04/03/2025 12:57 PM EDT [facility] Hematocrit 38.0 34.1 - 44.9 % 04/03/2025 12:57 PM EDT [facility] MCV 86 79 - 95 fL 04/03/2025 12:57 PM EDT [facility] MCH 30.5 25.6 - 32.2 pg 04/03/2025 12:57 PM EDT [facility] MCHC 35.5 32.2 - 35.5 GM/DL 04/03/2025 12:57 PM EDT [facility] RDW 11.7 11.7 - 14.4 % 04/03/2025 12:57 PM EDT [facility] Platelets 271 140 - 375 K/CU MM 04/03/2025 12:57 PM EDT [facility] MPV 9.9 9.4 - 12.3 fL 04/03/2025 12:57 PM EDT [facility] % Neutros 63 34 - 71 % 04/03/2025 12:57 PM EDT [facility] % Lymphs 26 19 - 52 % 04/03/2025 12:57 PM EDT [facility] % Monos 9 5 - 13 % 04/03/2025 12:57 PM EDT [facility] % Eos 2 1 - 6 % 04/03/2025 12:57 PM EDT [facility] % Baso 0 0 - 1 % 04/03/2025 12:57 PM EDT [facility] NRBC Absolute <0.01 0 - 0.012 K/ul 04/03/2025 12:57 PM EDT [facility] # Neutros 3.84 1.56 - 6.13 K/ L 04/03/2025 12:57 PM EDT [facility] # Lymphs 1.55 1.18 - 3.74 K/ L 04/03/2025 12:57 PM EDT [facility] # Monos 0.54 0.24 - 0.86 K/ L 04/03/2025 12:57 PM EDT [facility] # Eos 0.11 0.04 - 0.36 K/ L 04/03/2025 12:57 PM EDT [facility] # Baso <0.03 0.01 - 0.08 K/ L 04/03/2025 12:57 PM EDT [facility] Immature Granulocytes-Re lative 0.20 0.01 - 0.43 % 04/03/2025 12:57 PM EDT [facility] # IG <0.03 0.00 - 0.03 K/uL 04/03/2025 12:57 PM EDT [facility] Blood Venipuncture / Unknown 04/03/2025 12:43 PM EDT 04/03/2025 12:45 PM EDT Narrative [facility] - 04/03/2025 12:57 PM EDT When CBC w/ Auto Diff is ordered the lab will add a Manual Differential as a quality check at no additional charge if: Lymphocytes greater than seventy five percent with normal or increased WBC Monocytes greater than Fifteen percent Basophil greater than four percent Bands >10% or several immature myeloids are seen on scan Blast? Flag noted Atypical Lymph flag noted Joanna India DO LAB BLOOD ORDERABLES Final Result Performing Organization Address City/[facility]/ZIP Co de Phone Number [facility] [address] [phone] * Procalcitonin (04/03/2025 12:42 PM EDT) Procalcitonin 0.02 See Comment ng/mL 04/03/2025 1:26 PM EDT [facility] Comment: Sepsis comment <0.5 Antibiotics Discouraged >0.5 Antibiotics Encouraged *Assessing Sepsis Risk and Severity* >2.0 ng/mL High Risk for Progression to severe sepsis and/or septic shock 0.5-2.0 ng/mL Sepsis should be considered <0.5 ng/mL Low Risk for Progression to Severe and/or septic shock Lower Respiratory Tract Infection (LRT) <0.25 Antibiotics Discouraged >0.25 Antibiotics Encouraged *Procalcitonin results should be interpreted carefully in settings that are known to falsely elevate results such as renal failure, trauma, localized infections and waterman. Blood Venipuncture / Unknown 04/03/2025 12:42 PM EDT 04/03/2025 12:45 PM EDT [employer] DO LAB BLOOD ORDERABLES Final Result Performing Organization Address [facility] Co de Phone Number [facility] [address] [phone] documented in this encounter Visit Diagnoses Diagnosis Acute cellulitis- Primary documented in this encounter
--- OUTSIDE RECORDS SUMMARY | 2025-04-04 09:40 | XMS_ITS | Encounter Summary ---
Author Organization [employer] ([place], [place], [place], [place]) Address [address] [place] [address] Care Team Providers Care Power Generation Technician Name Role Phone Unavailable Primary Care Provider Unavailabl e Reason for Visit * Reason Comments Leg Swelling Patient is complaini ng of a left swollen leg that has got worse over night since going to the ER last night patient did have a CT scan patient also states she has a rash on her back. Encounter Details Date Type Department Care Team (Late st Contact Info) Description 04/04/2025 9:40 AM EDT Office Visit [address] [address] Marc De APRN [address] [place] [address] Cellulitis of left lower leg (Primary Dx) Social History Tobacco Use Types Packs/Day Years Used Date Smoking Tobacco: Never Passive Smoke Exposure: Never Smokeless Tobacco: Never Tobacco Cessation:Counseling Given: No Alcohol Use Standard Drinks/Week Comments Never 0 [...] things needed for daily living? No 06/27/2024 [facility] - Mental Health Answer Date [...] Date Gil rded Speak language other than Rwandan at home Not on file 11/13/2023 Want [...] Sign Reading Time Taken Comments Blood Pressure 157/93 04/04/2025 9:43 AM EDT Pulse 78 04/04/2025 9:43 AM EDT Temperature 37.2 C (98.9 F) 04/04/2025 9:43 AM EDT Respiratory Rate 20 04/04/2025 9:43 AM EDT Oxygen Saturation 98% 04/04/2025 9:43 AM EDT Inhaled Oxygen Concentration - - Weight - - Height 157.5 cm (5' 2 ) 04/04/2025 9:43 AM EDT Body Mass Index - - documented in this encounter Progress Notes * Marc De APRN - 04/04/2025 9:40 AM EDT Patient left without being seen after triage. States she will follow-up with local ER for more thorough evaluation than can be provided in urgent care for her worsening cellulitis of left lower leg. Patient has taken 3 different antibiotics and symptoms continue to worsen. Lab work and a CT scan were ordered yesterday with fairly normal results. But patient continues to have increasing redness, swelling and pain in left lower leg. After discussing the limitations patient states she did not wantus to be seen in urgent care and she would just go to the ER for follow-up. I did contact patient'[facility] office and they state that they will reach out to her with results of the ordered CT scan and labs and that patient has an appointment in 2 days for follow-up. Patient is aware of the follow-up but states that she wants action now because the symptoms are worsening. documented in this encounter Plan of Treatment Upcoming Encounters Date Type Department Care Team (Late st Contact Info) Description 07/05/2025 9:15 AM EDT Appointment [facility] [address] [facility] [address] [place] [address] 07/10/2025 10:00 AM EDT Office Visit [facility] Primary Care & Internal Med [address] [address] Diane Velez PA-C [address] [address] documented as of this encounter Visit Diagnoses Diagnosis Cellulitis of left lower leg- Primary documented in this encounter
--- OUTSIDE RECORDS SUMMARY | 2025-04-04 11:09 | XMS_ITS | Encounter Summary ---
Author Organization [employer] ([place], [place], [place], [place]) Address [address] [place] [address] Care Team Providers Care Able Bodied Tankerman Name Role Phone Unavailable Primary Care Provider Unavailabl e Reason for Visit * Reason Comments Wound Check Encounter Details Date Type Department Care Team (Late st Contact Info) Description 04/04/2025 11:09 AM EDT - 04/04/2025 4:38 PM EDT Emergency [facility] Emergency Department [address] [place] [address] Chester Healy MD [facility] [place] [address] Visit for wound check (Primary Dx); Rash Discharge Disposition: Home or Self Care Social [...] things needed for daily living? No 06/27/2024 [facility] - Mental Health Answer Date [...] on file 11/13 Educational Attainment Answer Date Gli rded Speak language other than Tanzanian at home Not on file 11/13/2023 Want [...] Sign Reading Time Taken Comments Blood Pressure 184/93 04/04/2025 4:10 PM EDT Pulse 76 04/04/2025 4:10 PM EDT Temperature 36.8 C (98.3 F) 04/04/2025 11:04 AM EDT Respiratory Rate 18 04/04/2025 11:04 AM EDT Oxygen Saturation 96% 04/04/2025 4:10 PM EDT Inhaled Oxygen Concentration - - Weight 64.4 kg (142 lb) 04/04/2025 11:04 AM EDT Height 157.5 cm (5' 2 ) 04/04/2025 11:04 AM EDT Body Mass Index 25.97 04/04/2025 11:04 AM EDT documented in this encounter Discharge Instructions * Discharge Instructions* Chester Healy MD - 04/04/2025 4:18 PM EDT I recommend close follow-up with your primary care provider. Recommend continuing monitoring the area of redness. If the redness does spread from the area that I jacquie on your leg, I would recommend return to the emergency department. Otherwise please follow-upwith your primary care provider. documented in this encounter Medications at Time of Discharge [...] (100 mg total) by mouth daily. 02/28/2025 oxyCODONE (ROXICODONE) 5 MG immediate release tablet Take 1 tablet (5 mg total) by mouth every 6 (six) hours as needed for pain for up to 12 doses Look-alike/S ound-alike medication. Max Daily Amount: 20 mg 12 tablet 04/04/2025 pantoprazole (PROTONIX) 40 MG tabletIndications :Gastroesophageal reflux [...] 03/23/2025 5 documented as of this encounter ED Notes * Harleen Mcdermott - 04/04/2025 4:38 PM EDT Patient understood her discharge instructions and had no further questions. Harleen Mcdermott 04/04/25 1638 * Chester Healy MD - 04/04/2025 11:04 AM EDT Subjective Chief Complaint: Wound Check Wound Check Associated symptoms: fever and rash Negra Palma is a 69 y.o. female who has a past medical history of Arthritis, GERD (gastroesophageal reflux disease), Hemorrhoids, History of hepatitis C, Hypertension, Hypothyroidism, MGUS (monoclonal gammopathy of unknown significance), Osteoporosis, and Renal cancer (HCC). who is presenting with a wound to her left lower leg. She says she hit her leg during a fall about three weeks ago. She did have imaging at that time, which was negative for fracture or dislocation. On 03/23 she went to urgent care and was started on Clindamycin at that time. She says the wound has not improved and the swelling and tenderness has not improved. She then saw her primary care provider yesterday, who told her she thinks she has MRSA. She was sent here for outpatient CT and blood work yesterday. She called them today and was told to come to the emergency department for further evaluation. She does not know the results of any of the testing that was done yesterday. She reports fever, chills and a rash on her back. She denies any nausea or vomiting. ROS is negative except as documented in the HPI. Patient History Past Medical History: Diagnosis Date Arthritis GERD (gastroesophageal reflux disease) Hemorrhoids History of hepatitis C Hypertension Hypothyroidism MGUS (monoclonal gammopathy of unknown significance) Osteoporosis Renal cancer (HCC) Past Surgical History: Procedure Laterality Date APPENDECTOMY CATARACT EXTRACTION, BILATERAL CHOLECYSTECTOMY HYSTERECTOMY Nephrectomy Left No family history on file. Social History Tobacco Use Smoking status: Never Passive exposure: Never Smokeless tobacco: Never Substance Use Topics Alcohol use: Never I reviewed the HPI, ROS and PFSH documentation recorded by others in the medical record and supplemented my note as needed. Review of Systems Review of Systems Constitutional: Positive for chills and fever. Skin: Positive for rash and wound. All other systems reviewed and are negative. Physical Exam ED Triage Vitals Encounter Vitals Group BP Systolic BP Percentile Diastolic BP Percentile Pulse Resp Temp Temp src SpO2 Weight Height Head Circumference Peak Flow Pain Score Pain Loc Pain Education Exclude from Growth Chart Physical Exam Constitutional: General: She is not in acute distress. Cardiovascular: Rate and Rhythm: Normal rate and regular rhythm. Pulses: Normal pulses. Pulmonary: Effort: Pulmonary effort is normal. Abdominal: Palpations: Abdomen is soft. Tenderness: There is no abdominal tenderness. Musculoskeletal: General: Swelling and tenderness present. Left lower leg: Edema present. Skin: General: Skin is warm and dry. Capillary Refill: Capillary refill takes less than 2 seconds. Comments: Patient with swelling to bilateral lower extremities, however left leg does have a wound to the left zhong with significant surrounding erythema. Warm to touch. Neurological: Mental Status: She is alert and oriented to person, place, and time. Neurological Exam Mental Status Alert. Oriented to person, place, and time. Ortho Exam ED Course & MDM Medications oxyCODONE (ROXICODONE) immediate release tablet 5 mg (5 mg oral Given 04/04/25 1324) acetaminophen (TYLENOL) tablet 650 mg (650 mg oral Given 04/04/25 1324) iopamidoL (ISOVUE-370) 370 mg iodine /mL (76 %) injection 75 mL (75 mLs intravenous Given 04/04/25 1441) CT lower extremity with IV contrast left Final Result No evidence of abscess. There has been improvement of edema overlying the lateral malleolus and stable pretibial edema since a study from one day ago. Images reviewed, interpreted, and dictated by Dr. Theron Penn. Transcribed by Felix Yarbrough PA-C. ED Course as of 04/05/25 1020 WedApr 04, 2025 124 CBC without leukocytosis. Otherwise unremarkable. Lactic acid normal. CMP with mild hyponatremia, however this appears grossly similar to previous. Mildly elevated ALT and AST. [AG] 1617 CT scan of left lower extremity interpreted by me, no obvious abscess, no deep tissue infection. CT read by radiology shows similar. At this time, unclear if symptoms are related to cellulitis versus other complicated wound. She is not a leukocytosis fever or other concerns at this time. She has a follow-up with her primary care in 2 days. I did use a skin marker to draw around the wound. Recommend close follow-up with PCP, however I instructed to return if there is concerns for worsening erythema and redness. Patient and family are comfortable with plan. They plan to follow-up with primary care in 2 days. As patient has notallowed to take NSAIDs, and does have mild elevation of AST and ALT, I will prescribe a short course of oxycodone for breakthrough pain. This is sent to the pharmacy. PDMP reviewed. [AG] ED Course User Index [AG] Chester Healy MD Procedures Medical Decision Making Differential diagnosis includes cellulitis, deep tissue infection, drug rash. Amount and/or Complexity of Data Reviewed Labs: ordered. Decision-making details documented in ED Course. Radiology: ordered and independent interpretation performed. Decision-making details documented in ED Course. Risk OTC drugs. Prescription drug management. Assessment & Plan Clinical Impression Diagnosis Comment Added By Time Added Visit for wound check Chester Healy MD 04/04/2025 4:17 PM Rash Chester Healy MD 04/04/2025 4:18 PM Disposition Discharge [1] - 04/04/2025 4:17 PM Discharge Medication List as of 04/04/2025 4:25 PM Contact information for follow-up Diane Velez PA-C Specialty: Family Medicine Relationship: PCP - General [address] [address] Next Steps: Follow up Electronically Signed By Chester Healy MD 04/05/25 1020 * Armando Escalante RN - 04/04/2025 11:04 AM EDT Started in march hit left leg after a fall and its painful and red. documented in this encounter Plan of Treatment Upcoming Encounters Date Type Department Care Team (Late st Contact Info) Description 07/05/2025 9:15 AM EDT Appointment [address] [address] 07/10/2025 10:00 AM EDT Office Visit [facility] Primary Care & Internal Med [address] [facility] [place] [address] Diane Velez PA-C [address] [place] [phone] documented as of this encounter Procedures Procedure Name Priority Date/Time Associated Diagnosis Comments CT LOWER EXTREMITY WITH IV CONTRAST LEFT STAT 04/04/2025 2:41 PM EDT [place] PST (EXTRA TUBES) STAT 04/04/2025 11:30 AM EDT [place] BLUE TOP (EXTRA TUBES) STAT 04/04/2025 11:30 AM EDT [place] EXTRA TUBES STAT 04/04/2025 11:30 AM EDT CBC W/ AUTO DIFF STAT 04/04/2025 11:2 1 AM EDT LACTIC ACID WITH REFLEX STAT 04/04/2025 11:21 AM EDT COMPREHENSIVE METABOLIC PANEL STAT 04/04/2025 11:21 AM EDT documented in this encounter Results * CT lower extremity with IV contrast left (04/04/2025 2:41 PM EDT) Anatomical Region Laterality Modality Lower Extremity, Hip, Femur, Leg, Knee, Ankle, Foot Computed Tomography (CT) 04/04/2025 2:57 PM EDT Impressions 04/04/2025 3:02 PM EDT No evidence of abscess. There has been improvement of edema overlying the lateral malleolus and stable pretibial edema since a study from one day ago. Images reviewed, interpreted, and dictated by Dr. Theron Penn. Transcribed by Felix Yarbrough PA-C. Narrative 04/04/2025 3:[address] SCAN LEFT LOWER EXTREMITY WITH CONTRAST HISTORY: Left leg swelling. COMPARISON: One day ago. PROCEDURE: Axial images were obtained through the left lower lobe by computed tomography following administration of IV contrast material. Sagittal and coronal reconstruction images were performed. This study was performed with techniques to keep radiation doses as low as reasonably achievable, (ALARA). Individualized dose reduction techniques using automated exposure control or adjustment of mA and/or kV according to the patient size were employed. FINDINGS: There is no fracture or joint effusion. No loose bodies are identified. The bones are normally mineralized. There is stable pretibial edema. There has been improvement in edema over the lateral malleolus. There is no loculated fluid collection to indicate abscess. There is no gas in the soft tissues. There is no bony destruction. Procedure Note Theron Penn MD - 04/04/2025 CT SCAN LEFT LOWER EXTREMITY WITH CONTRAST HISTORY: Left leg swelling. COMPARISON: One day ago. PROCEDURE: Axial images were obtained through the left lower lobe by computed tomography following administration of IV contrast material. Sagittal and coronal reconstruction images were performed. This study was performed with techniques to keep radiation doses as low as reasonably achievable, (ALARA). Individualized dose reduction techniques using automated exposure control or adjustment of mA and/or kV according to the patient size were employed. FINDINGS: There is no fracture or joint effusion. No loose bodies are identified. The bones are normally mineralized. There is stable pretibial edema. There has been improvement in edema over the lateral malleolus. There is no loculated fluid collection to indicate abscess. There is no gas in the soft tissues. There is no bony destruction. IMPRESSION: No evidence of abscess. There has been improvement of edema overlying the lateral malleolus and stable pretibial edema since a study from one day ago. Images reviewed, interpreted, and dictated by Dr. Theron Penn. Transcribed by Felix Yarbrough PA-C. Chester Healy MD IMG CT ORDERABLES Final Res ult * PST Top Extra Tubes (04/04/2025 11:30 AM EDT) HOLD SPECIMEN (SJ - BKR) Hold for add-ons. 04/04/2025 1:01 PM EDT [facility] Comment:Auto resulted. Blood Venipuncture / Unknown 04/04/2025 11:30 AM EDT 04/04/2025 11:35 AM EDT Chester Healy MD LAB BLOOD ORDERABLES Final Result [facility] [address] [place] [address], [facility] [phone] * Blue Top Extra Tubes (04/04/2025 11:30 AM EDT) HOLD SPECIMEN (SJ - BKR) Hold for add-ons. 04/04/2025 1:01 PM EDT [facility] Comment:Auto resulted. Blood Venipuncture / Unknown 04/04/2025 11:30 AM EDT 04/04/2025 11:36 AM EDT us Chester Healy MD LAB BLOOD ORDERABLES Final Result [facility] [address] [phone] * (ABNORMAL) Comprehensive metabolic panel (04/04/2025 11:21 AM EDT) Sodium 128(L) 136 - 145 meq/L 04/04/2025 12:00 PM EDT [facility] Potassium 3.8 3.4 - 5.1 meq/L 04/04/2025 12:00 PM EDT [facility] Chloride 94(L) 98 - 112 meq/L 04/04/2025 12:00 PM EDT [facility] CO2 24 22 - 29 meq/L 04/04/2025 12:00 PM EDT [facility] Calcium 10.3(H) 8.4 - 10.2 mg/dL 04/04/2025 12:00 PM EDT [facility] Glucose 100 82 - 115 mg/dL 04/04/2025 12:00 PM EDT [facility] BUN 23.7(H) 9.8 - 20.1 mg/dL 04/04/2025 12:00 PM EDT [facility] Creatinine 0.94 0.57 - 1.11 mg/dL 04/04/2025 12:00 PM EDT [facility] BUN/Creatinine 25(H) 8 - 20 04/04/2025 12:00 PM T [facility] eGFR (mL/min/1.73m2) 65 >=60 mL/min/1. 73m2 04/04/2025 12:00 PM EDT [facility] Albumin 4.3 3.5 - 5.0 g/dL 04/04/2025 12:00 PM EDT [facility] Alkaline Phosphatase 110 40 - 150 U/L 04/04/2025 12:00 PM EDT [facility] ALT 50(H) <=34 U/L 04/04/2025 12:00 PM EDT [facility] Comment: ALT2 reagent used for testing does not contain P5P supplementation and therefore may miss ALT elevations in patients with B6 deficiency. This population may be as high as 10% in the [place], with risk factors including malabsorption, drug interactions, and alcoholic hepatitis. AST 84(H) 11 - 34 U/L 04/04/2025 12:00 PM EDT [facility] Comment: AST2 reagent used for testing does not contain P5P supplementation and therefore may miss AST elevations in patients with B6 deficiency. This population may be as high as 10% in the [place], with risk factors including malabsorption, drug interactions, and alcoholic hepatitis. Total Bilirubin 1.0 0.2 - 1.2 mg/dL 04/04/2025 12:00 PM EDT [facility] Protein, Total 8.2 6.4 - 8.3 g/dL 04/04/2025 12:00 PM EDT [facility] Globulin 3.9 2.5 - 4.1 g/dL 04/04/2025 12:00 PM EDT [facility] Anion Gap 14(H) 4 - 12 04/04/2025 12:00 PM EDT [facility] A/G Ratio 1.1 0.7 - 1.9 04/04/2025 12:00 PM EDT [facility] Osmolality Calc 261.1 mOsm/kg 12:00 PM EDT [facility] Blood Venipuncture / Unknown 04/04/2025 11:21 AM EDT 04/04/2025 11:35 AM EDT us Ramila Ward [employer] LAB BLOOD ORDERABLES Final Res ult [facility] [address] [place] [id number] [phone] * Lactic Acid with reflex (SJ) (04/04/2025 11:21 AM EDT) Lactic Acid Level (mmol/L) 0.5 0.5 - 2.2 mmol/L 04/04/2025 12:01 PM EDT [facility] Blood Venipuncture / Unknown 04/04/2025 11:21 AM EDT 04/04/2025 11:32 AM EDT us Ramila Ward [employer] LAB BLOOD ORDERABLES Final Res ult [facility] [address] [phone] * CBC with Auto Diff (04/04/2025 11:21 AM EDT) WBC 5.8 4.0 - 10.0 K/ L 04/04/2025 11:38 AM EDT [facility] RBC 4.56 3.93 - 5.22 M/ L 04/04/2025 11:38 AM EDT [facility] Hemoglobin 13.7 11.2 - 15.7 GM/DL 04/04/2025 11:38 AM EDT [facility] Hematocrit 39.2 34.1 - 44.9 % 04/04/2025 11:38 AM EDT [facility] MCV 86 79 - 95 fL 04/04/2025 11:38 AM EDT [facility] MCH 30.0 25.6 - 32.2 pg 04/04/2025 11:38 AM EDT [facility] MCHC 34.9 32.2 - 35.5 GM/DL 04/04/2025 11:38 AM EDT [facility] RDW 11.7 11.7 - 14.4 % 04/04/2025 11:38 AM EDT [facility] Platelets 285 140 - 375 K/CU MM 04/04/2025 11:38 AM EDT [facility] MPV 10.2 9.4 - 12.3 fL 04/04/2025 11:38 AM EDT [facility] % Neutros 69 34 - 71 % 04/04/2025 11:38 AM EDT [facility] % Lymphs 20 19 - 52 % 04/04/2025 11:38 AM EDT [facility] % Monos 9 5 - 13 % 04/04/2025 11:38 AM EDT [facility] % Eos 1 1 - 6 % 04/04/2025 11:38 AM EDT [facility] % Baso 0 0 - 1 % 04/04/2025 11:38 AM EDT [facility] NRBC Absolute <0.01 0 - 0.012 K/ul 04/04/2025 11:38 AM EDT [facility] # Neutros 4.03 1.56 - 6.13 K/ L 04/04/2025 11:38 AM EDT [facility] # Lymphs 1.18 1.18 - 3.74 K/ L 04/04/2025 11:38 AM EDT [facility] # Monos 0.50 0.24 - 0.86 K/ L 04/04/2025 11:38 AM EDT [facility] # Eos 0.08 0.04 - 0.36 K/ L 04/04/2025 11:38 AM EDT [facility] # Baso <0.03 0.01 - 0.08 K/ L 04/04/2025 11:38 AM EDT [facility] Immature Granulocytes-Re lative 0.30 0.01 - 0.43 % 04/04/2025 11:38 AM EDT [facility] # IG <0.03 0.00 - 0.03 K/uL 04/04/2025 11:38 AM EDT [facility] Blood Venipuncture / Unknown 04/04/2025 11:21 AM EDT 04/04/2025 11:35 AM EDT Narrative [facility] - 04/04/2025 11:38 AM EDT When CBC w/ Auto Diff is ordered the lab will add a Manual Differential as a quality check at no additional charge if: Lymphocytes greater than seventy five percent with normal or increased WBC Monocytes greater than Fifteen percent Basophil greater than four percent Bands >10% or several immature myeloids are seen on scan Blast? Flag noted Atypical Lymph flag noted us Ramila Ward [employer] LAB BLOOD ORDERABLES Final Res ult [facility] [address] [phone] documented in this encounter Visit Diagnoses Diagnosis Visit for wound check- Primary Rash Rash and other nonspecific skin eruption documented in this encounter Administered Medications Inactive Administered Medications - up to 3 most recent administrations Medication Order MAR Action Action Date Dose Rate Site acetaminophen (TYLENOL) tablet 650 mg 650 mg Once, oral, On Wed04/04/25 at 1310, For 1 dose, Recommended maximum dose of acetaminophen is 4000 mg from all sources in 24 hours Given 04/04/2025 1:24 PM EDT 650 mg iopamidoL (ISOVUE-370) 370 mg iodine /mL (76 %) injection 75 mL 75 mL IMG once as needed, intravenous, contrast, Starting on Wed04/04/25 at 1412, For 1 dose, Intra-op Given 04/04/2025 2:41 PM EDT 75 mLs oxyCODONE (ROXICODONE) immediate release tablet 5 mg 5 mg Once, oral, On Wed04/04/25 at 1310, For 1 dose, Look-alike/Sound-alike medication Given 04/04/2025 1:24 PM EDT 5 mg documented in this encounter Active and Recently Administered Medications Times are shown in EDT. Scheduled Medication Order 04/02/2025 04/03/2025 04/04/2025 acetaminophen (TYLENOL) tablet 650 mg (COMPLETED) 650 mg Once, oral, On Wed04/04/25 at 1310, For 1 dose, Recommended maximum dose of acetaminophen is 4000 mg from all sources in 24 hours 1324 (Given - Provid er: Harleen Mcdermott) oxyCODONE (ROXICODONE) immediate release tablet 5 mg (COMPLETED) 5 mg Once, oral, On Wed04/04/25 at 1310, For 1 dose, Look-alike/Sound-alike medication 1324 (Given - Provid er: Harleen Mcdermott) PRN Medication Order 04/02/2025 04/03/2025 04/04/2025 iopamidoL (ISOVUE-370) 370 mg iodine /mL (76 %) injection 75 mL (COMPLETED) 75 mL IMG once as needed, intravenous, contrast, Starting on 6/4/25 at 1412, For 1 dose, Intra-op 1441 (Given - Provid er: Mariola Baxter) documented in this encounter
--- OUTSIDE RECORDS SUMMARY | 2025-04-06 11:30 | XMS_ITS | Encounter Summary ---
Author Organization [employer] ([place], [place], [place], [place]) Address [address] [facility] [place] [address] Care Team Providers Care Quality Intern Name Role Phone Unavailable Primary Care Provider Unavailabl e Reason for Referral * Consultation (Emergency) - Closed Specialty Diagnoses / Procedures Referred By Contac t Referred To Contact Infectious Diseases Diagnoses Puncture wound of left lower leg, subsequent encounter Acute cellulitis Night sweats Severe pain Pain of left lower extremity Diane Velez PA-C [address] [place] [address] Phone: tel: fax: [facility] [address] [place] [address] Phone: tel: Referral ID Status Reason Start Date Expiration Date V isits Requested Visits Authorized [id number] Closed Specialty Services Required 04/06/2025 04/06/2026 1 1 Reason for Visit * Reason Comments Follow-up Pt states she called the office and spoke to a man and was told [facility] go to [facility], went to went to [facility] and was told she needed IV antibiotics/ fluids on 04/03. Pt states she fell and scrapped her left leg on 03/17/25 and since has been having trouble ever since night sweats and fever, last does of antibiotics was on 04/04/25. Also c/o a rash on buttocks that is hot to the touch that started on Wednesday. Encounter Details Date Type Department Care Team (Late st Contact Info) Description 04/06/2025 11:30 AM EDT Office Visit [facility] Primary Care & Internal Med [address] [facility] [address] [address] Diane Velez PA-C [address] [address] Puncture wound of left lower leg, subsequent encounter (Primary Dx); Acute cellulitis; Night sweats; Severe pain; Pain of left lower extremity Social History Tobacco Use Types Packs/Day Years Used Date Smoking Tobacco: Never Passive Smoke Exposure: Never Smokeless Tobacco: Never Alcohol Use Standard Drinks/Week Comments Never 0 (1 standard drink = 0.6 oz pur e alcohol) Overall Financial Resource Strain (CARDI) Answe r Date Recorded How hard is [...] things needed for daily living? No 06/27/2024 [facility] - Mental Health Answer Date Recorde [...] Date Gil rded Speak language other than Marshallese at home Not on file 11/13/2023 Want [...] Sign Reading Time Taken Comments Blood Pressure 142/96 04/06/2025 11:30 AM EDT Pulse 70 04/06/2025 11:30 AM EDT Temperature 36.7 C (98.1 F) 04/06/2025 11:30 AM EDT Respiratory Rate 18 04/06/2025 11:30 AM EDT Oxygen Saturation 97% 04/06/2025 11:30 AM EDT Inhaled Oxygen Concentration - - Weight 65.9 kg (145 lb 3.2 oz) 04/06/2025 11:30 AM EDT Height 157.5 cm (5' 2 ) 04/06/2025 11:30 AM EDT Body Mass Index 26.56 04/06/2025 11:30 AM EDT documented in this encounter Progress Notes * Diane Velez PA-C - 04/06/2025 11:30 AM EDT CC/HPI Negra Palma is a 69 y.o. female has a past medical history of Arthritis, GERD (gastroesophageal reflux disease), Hemorrhoids, History of hepatitis C, Hypertension, Hypothyroidism, MGUS (monoclonal gammopathy of unknown significance), Osteoporosis, and Renal cancer (HCC). here for follow-up. Patient has suffered with 2 lacerations of the leg secondary to injury, specifically bumping into achair, over the last week. [facility] of lower extremity which was unrevealing for fracture. Patient then noted swelling and tenderness about the lacerations. She felt chilled with sweats. She saw Dr. Osborne on 04/03/2025 for potential cellulitis. Patient treated with Doxy and Keflex. I believe she had taken some clindamycin as well. Tetanus up-to-date. Despite treatment, Dr. Osborne concerned with systemic symptoms of fever and sweats, suspicious of abscess. Orders placed for CTlower extremity without IV contrast as well as CBC, sed rate and C-reactive protein. Labs and CT unr evealing for significant abscess or other abnormalities. Patient reports that she subsequently finished all oral abx therapy on 04/04/2025. Patient endorses that she decided to return to the ER based on continued swelling and pain. CT lower extremity (with contrast) 04/04/2025 unrevealing for abscess. Edema had improved on scan. CBC, 04/04/2025 unrevealing forleukocytosis. Inflammatory markers within normal limits. Lactic acid level also normal. IV antibiotics were considered but the decision was made for patient to be discharged home and follow-up with primary care and/or return to the ER if needed. Problem List Items Addressed This Visit None ROS Review of Systems All other systems reviewed and are negative. Patient Active Problem List Diagnosis Senile osteoporosis [...] unspecified without coma (HCC) Anxiety Primary insomnia Objective: Physical Exam BP (!) 142/96 (BP Location: Right arm, Patient Position: Sitting, Cuff Size: Adult) Pulse 70 Temp 98.1 ??F (36.7 ??C) (Oral) Resp 18 Ht 1.575 m (5' 2 ) Wt 65.9 kg (145 lb 3.2 oz) SpO2 97% BMI 26.56 kg/m?? Gen: well appearing 69 y.o. female in no acute distress, afebrile, nontoxic, sitting comfortably, alert and oriented x 4 HEENT: MMM, no scleral icterus NECK: normal ROM CV: RRR, no rubs, murmurs, gallops. Strong peripheral pulses PULM: CTAB, normal work of breathing GI: NTND +BS MSK: no peripheral edema SKIN: Left lower extremity with 1+ edema, generalized faint erythema stain within marker borders, well-healing puncture wounds noted x 2 NEURO: AOx3. Symmetric face. Moves all extremities equally PSYCH: normal mood, congruent affect Assessment/Plan: Negra Palma is a 69 y.o. female here for 1. Puncture wound of left lower leg, subsequent encounter Ambulatory referral to Infectious Disease 2. Acute cellulitis Ambulatory referral to Infectious Disease 3. Night sweats Ambulatory referral to Infectious Disease 4. Severe pain Ambulatory referral to Infectious Disease 5. Pain of left lower extremity Ambulatory referral to Infectious Disease Left lower extremity trauma with puncture wound and cellulitis. See HPI for timeline. Patient continues to note swelling and redness. However, she notes 25 % improvement over the last 48 hours per patient and patient's daughter. The erythematous area has shrunk down in size, pain has lessened. She has had no oral abx since last week and improving despite. They did not initiate IV abx in hospitial. As noted in HPI, CT scan of lower extremity unrevealing for abscess. No leukocytosis or signs of systemic infection. I did place a referral for infectious disease in case symptoms persist or worsen.She will also consider ED for IV antibiotics if she notes increased swelling or redness or worsening pain. No prescriptions dispensed today. Time spent on visit today 45 minutes. Time spent reviewing medical records, [id number] time with patient, counseling/education, placing orders, electronic documentation. documented in this encounter Plan of Treatment Upcoming Encounters Date Type Department Care Team (Late st Contact Info) Description 07/05/2025 9:15 AM EDT Appointment [facility] [address] [facility] [address] [place] [address] 07/10/2025 10:00 AM EDT Office Visit [facility] Primary Care & Internal Med [address] [address] Diane Velez PA-C [address] [address] Scheduled Referrals Name Type Priority Associated Diagnoses Order Schedule Ambulatory referral to Infectious Disease Outpatient Referral STAT Puncture wound of left lower leg, subsequent encounter Acute cellulitis Night sweats Severe pain Pain of left lower extremity Expected: 04/06/2025, Expires: 04/06/2026 documented as of this encounter Visit Diagnoses Diagnosis Puncture wound of left lower leg, subsequent encounter- Primary Acute cellulitis Night sweats Generalized hyperhidrosis Severe pain Pain of left lower extremity documented in this encounter
--- OUTSIDE RECORDS SUMMARY | 2025-04-16 08:00 | XMS_ITS | Encounter Summary ---
Author Organization Healthcare Address [address] [place] [address] Care Team Providers Care Header Operator Name Role Phone [place] Joanna Shweta DARNELL Primary Care Provider [phone] Reason for Visit * Consultation (Routine) - Closed Specialty Diagnoses / Procedures Referred By Contcristina t Referred To Contact Infectious Diseases Diagnoses Puncture wound of left lower leg, subsequent encounter Night sweats Pain of left lower extremity Acute cellulitis Severe pain Diane Velez, PA [address] [place] [address] Phone: tel: fax: Mejia Wright MD [address] [place] [phone] Phone: tel: fax: Referral ID Status Reason Start Date Expiration Date V isits Requested Visits Authorized [id number] Closed Specialty Services Required 04/09/2025 10/09/2026 1 1 Encounter Details Date Type Department Care Team (Late st Contact Info) Description 04/16/2025 8:00 AM EDT Office Visit [place] [id number] Santi Hoffmann MD [address] [place] [phone] Leg swelling (Primary Dx); Hepatitis C antibody positive Social History Tobacco Use Types Packs/Day Years Used Date Smoking Tobacco: Never Smokeless Tobacco: Never Tobacco Cessation:Counseling Given: Not Answered PHQ-2 Answer Date Recorded Patient Health Questionnaire-2 Score 0 04/16/2025 PHQ-9 Answer Date Recorded Patient Health Questionnaire-9 Score 0 04/16/2025 Comments Unknown Sex and Gender Information Value Date Recorded Sex Assigned at Not on file Legal Sex Female 8:31 PM EDT Gender Identity Not on file Sexual Orientation Not on file documented as of this encounter Last Filed Vital Signs Vital Sign Reading Time Taken Comments Blood Pressure 162/83 04/16/2025 9:24 AM EDT Pulse 72 04/16/2025 8:15 AM EDT Temperature 37 C (98.6 F) 04/16/2025 8:15 AM EDT Respiratory Rate 16 04/16/2025 8:15 AM EDT Oxygen Saturation 95% 04/16/2025 8:15 AM EDT Inhaled Oxygen Concentration - - Weight 64.2 kg (141 lb 8.6 oz) 04/16/2025 8:15 A M EDT Height 157.5 cm (5' 2 ) 04/16/2025 8:15 AM EDT Body Mass Index 25.89 04/16/2025 8:15 AM EDT documented in this encounter Functional Status * Over the past 2 weeks, how often have you been bothered by any of the following problems? Question Answer Date of Assessment Author Little interest or pleasure in doing things Not at all 04/16/2025 8:13 AM EDT Gayle Castle Feeling down, depressed, or hopeless Not at all 04/16/2025 8:13 AM EDT Gayle Castle Patient Health Questionnaire -2 Score 0 04/16/2025 8:13 AM EDT Gayle Castle * Question Answer Date of Assessment Author Trouble falling or staying asleep, or sleeping too much Not at all 04/16/2025 8:13 AM EDT Gayle Castle Feeling tired or having ely le energy Not at all 04/16/2025 8:13 AM EDT Gayle Castle Poor appetite or overeating Not at all 04/16/2025 8: 13 AM EDT Gayle Castle Feeling bad about yourself - or that you are a failure or have let yourself or your family down Not at all 04/16/2025 8:13 AM Gayle Pina Trouble concentrating on things, such as reading the newspaper or watching television Not at all 04/16/2025 8:13 AM Gayle Pina Moving or speaking so slowly that other people could have noticed? Or the opposite - being so fidgety or restless that you have been moving around a lot more than usual. Not at all 04/16/2025 8:13 AM Gayle Wong Thoughts that you would be better off or hurting yourself in some way Not at all 04/16/2025 8:13 AM Gayle Pina Patient Health Questionnaire -9 Score 0 04/16/2025 8:13 AM Gayle Pina * If you checked off any problems on this questionnaire so far, Question Answer Date of Assessment Author How difficult have these problems made it for you to do your work, take care of things at home, or get along with other people? Not difficult at all 04/16/2025 8:13 AM Gayle Pina documented as of this encounter Miscellaneous Notes * Progress Notes - Santi Hoffmann MD - 04/16/2025 8:00 AM EDT Images from the original note were not included. INFECTIOUS DISEASE CLINIC: NEW PATIENT VISIT HPI: Negra Palma is a 69 y.o. female with a past history of GERD, HCV (treated), MGUS, OP, RCC (s/pleft nephrectomy), who presents to the ID clinic as referral from PCP for leg wound. Patient had injured her leg on a chair leg about a month prior, resulting In lacerations. She was treating it at home with mupirocin ointment and peroxide, salt baths. At the time leg was imaged with XR and had no evidence of fracture. However she did have swelling, redness and warmth for which she was assessed at Urgent Care on 03/23, who started a 10 day course of clindamycin for her. She saw her PCP on 03/29 as the leg became painful and more swollen, and she had chills and night sweats, also complained of excruciating pain. She was given script for doxy and keflex (both for 7 days) , tDAP and script for norco. It was noted she had significant bruising. Patient underwent a CT scan of her leg on 04/03 whichshowed pretibial tissue edema but no gas or abscess. Finished PO abx on 04/04. On 04/04 she went to ED at [facility] with fever, chills and back rash. Had a normal CBC, and other labs. Repeat CT scan of leg showed no clear abscess or other evidence of severe infection. Was discharged without further antibiotics. Followed up with PCP on 04/06 and no further antibiotics were given. Today she reports ongoing night sweats, scab over anterior zhong is slightly smaller. Her left leg is still swollen and somewhat tender. No drainage, purulence. Reports tick bite early in the year on contralateral leg which did not develop rash, denies arthralgias, syncope, facial palsy or severe headache. Antibiotic reactions: Sulfa drugs: hives/itching Ciprofloxacin: - Jaundice ROS: 14 systems reviewed and negative except where noted PMH: Past Medical History[1] PSH: Surgical History[2] FH: Family History[3] MEDICATIONS: Current Medications[4] There were no vitals taken for this visit. EXAM: Physical Exam Constitutional: Appearance: She is normal weight. HENT: Head: Normocephalic. Mouth/Throat: Mouth: Mucous membranes are moist. Eyes: Extraocular Movements: Extraocular movements intact. Cardiovascular: Rate and Rhythm: Normal rate. Pulmonary: Effort: Pulmonary effort is normal. Musculoskeletal: General: Normal range of motion. Cervical back: Normal range of motion. Skin: General: Skin is warm and dry. Comments: Anterior left zhong with black scab/eschar without drainage, erythma, fluctuance Neurological: Mental Status: She is alert. Photo: LABS: Labs were reviewed MICRO: None IMAGIN/23 leg XR: FINDINGS: A two view exam demonstrates no acute fracture or dislocation. There are mild degenerative changes. Mild soft tissue swelling noted. Chondrocalcinosis, correlate for CPPD. If warranted, consider further evaluation with MRI. IMPRESSION: No acute bony abnormality. 04/03 CT leg: FINDINGS: No acute fracture is identified. There are no bony destructive changes present. 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 There is pretibial subcutaneous edema and mild subcutaneous edema overlying the distal fibula and lateral malleolus. No obvious loculated fluid collection is identified. No soft tissue gas is identified. Pretibial subcutaneous edema. No obvious abscess or soft tissue gas identified. ASSESSMENT: 69 y.o. female with a past history of GERD, HCV (treated), MGUS, OP, RCC (s/p left nephrectomy), who presents to the ID clinic as referral from PCP for leg wound c/b skin and soft tissue infection. Patient's leg wound appears to be improving, though this is taking an unusually long time, and her swelling continues. The reassuring blood work and scans suggest against deep infection and her response to antibiotics is encouraging for wound. We discussed doing a bit of workup for DVT given swelling. If no cause was found and wound persists not unreasonable to have dermatology obtain a biopsy jay sent for path. She would also like to have a HCV VL drawn as she is concerned about mid transaminates noted earlier in labs, which we will oblige. I do not see any signs pointing to tick borne illness in her presentation, so would defer this workup. Will also obtain a set of blood culture to ensure we are not missing a subacute endovascular infection, though she has no particular risks or stigmata of this on exam. 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 Greater than 50% of the time spent on the encounter was [id number] providing direct patient care, counseling for the patient/caregiver, and care coordination. [1] No past medical history on file. [2] No past surgical history on file. [3] No family history on file. [4] No current outpatient medications on file. documented in this encounter Plan of Treatment Upcoming Encounters Date Type Department Care Team (Late st Contact Info) Description 05/15/2025 3:30 PM EDT Office Visit [facility] [address] [place] [id number] Santi Hoffmann MD [address] [facility] [address] [place] [phone] documented as of this encounter Results * Blood Culture (Aerobic/Anaerobet Set) (04/16/2025 9:26 AM EDT) Culture No growth at day 5 MELBA 04/21/2025 1:02 PM EDT [facility] Blood Venous blood specimen / Unknown Venipuncture / Unknown 04/16/2025 9:26 AM EDT 04/16/2025 9:36 AM EDT us Santi Hoffmann MD LAB MICROBIOLOGY - GENERA L ORDERABLES Final Result [facility] [address] [place] [address] * Blood Culture (Aerobic/Anaerobet Set) (04/16/2025 9:26 AM EDT) Culture No growth at day 5 MELBA 04/21/2025 1:02 PM EDT [facility] Blood Venous blood specimen / Unknown Venipuncture / Unknown 04/16/2025 9:26 AM EDT 04/16/2025 9:36 AM EDT us Santi Hoffmann MD LAB MICROBIOLOGY - GENERA L ORDERABLES Final Result [facility] [address] [place] [address] * (ABNORMAL) Comprehensive metabolic panel (04/16/2025 9:26 AM EDT) Glucose, Plasma 111(H) 74 - 99 mg/dL 04/16/2025 12:44 PM EDT [facility] BUN, Plasma 19 8 - 23 mg/dL 04/16/2025 12:44 PM EDT [facility] Creatinine, Plasma 0.89 0.60 - 1.10 mg/dL 04/16/2025 12:44 PM EDT [facility] BUN/Creatinine Ratio 21 04/16/2025 12:44 PM EDT [facility] Sodium, Plasma 127(L) 136 - 145 mmol/L 04/16/2025 12:44 PM EDT [facility] Potassium, Plasma 3.6 3.6 - 4.9 mmol/L 04/16/2025 12:44 PM EDT [facility] Chloride, Plasma 90(L) 97 - 107 mmol/L 04/16/2025 12:44 PM EDT [facility] CO2, Plasma 24 22 - 29 mmol/L 04/16/2025 12:44 PM EDT [facility] Anion Gap 13 6 - 16 mmol/L 04/16/2025 12:44 PM EDT [facility] Total Calcium, Plasma 10.5(H) 8.9 - 10.2 mg/dL 04/16/2025 12:44 PM EDT [facility] Total Protein 7.8 6.3 - 7.9 g/dL 04/16/2025 12:44 PM EDT [facility] Albumin, Plasma 4.7 3.5 - 5.2 g/dL 04/16/2025 12:44 PM EDT [facility] AST, Plasma 88(H) 10 - 35 U/L 04/16/2025 12:44 PM EDT [facility] ALT, Plasma 83(H) 10 - 35 U/L 04/16/2025 12:44 PM EDT [facility] Alkaline Phosphatase, Plasma 128 46 - 142 U/L 04/16/2025 12:44 PM EDT [facility] Total Bilirubin, Plasma 0.7 0.2 - 1.1 mg/dL 04/16/2025 12:44 PM EDT [facility] eGFRcr 69.4 mL/min/1.7 3m*2 04/16/2025 12:44 PM EDT [facility] Comment:Reported eGFRcr in m L/min/1.73m2 is based the CKD-EPI 2020 equation that does not use a race coefficient. Blood Venous blood specimen / Unknown Venipuncture / Unknown 04/16/2025 9:26 AM EDT 04/16/2025 9:36 AM EDT us Santi Hoffmann MD LAB BLOOD ORDERABLES Lela l Result Performing Organization Address [facility] Co de Phone Number [facility] [address] [place] [address] * (ABNORMAL) C-reactive protein (04/16/2025 9:26 AM EDT) Pathologist [facility] CRP, Plasma 17.7(H) <=8.0 mg/L 04/16/2025 12:44 PM EDT [facility] Blood Venous blood specimen / Unknown Venipuncture / Unknown 04/16/2025 9:26 AM EDT 04/16/2025 9:36 AM EDT Narrative [facility] - 04/16/2025 12:44 PM EDT This CRP test is appropriate for assessment of infection, systemic inflammation and/or tissue injury. To assess cardiovascular disease risk order high sensitivity CRP (CRPH). us Santi Hoffmann MD LAB BLOOD ORDERABLES Lela l Result Performing Organization Address [facility] Co de Phone Number [facility] [address] [place] [address] * (ABNORMAL) CBC and differential (04/16/2025 9:26 AM EDT) WBC Count 6.27 3.70 - 10.30 10*3/uL LAB HEMATOLOGY METHOD 04/16/2025 12:33 PM EDT [facility] RBC Count 4.38 3.90 - 5.20 10*6/uL LAB HEMATOLOGY METHOD 04/16/2025 12:33 PM EDT [facility] HGB 12.9 11.2 - 15.7 g/dL LAB HEMATOLOGY METHOD 04/16/2025 12:33 PM EDT [facility] HCT 38.6 34.0 - 45.0 % LAB HEMATOLOGY METHOD 04/16/2025 12:33 PM EDT [facility] Platelet Count 292 155 - 369 10*3/uL LAB HEMATOLOGY METHOD 04/16/2025 12:33 PM EDT [facility] MCV 88 79 - 98 fL LAB HEMATOLOGY METHOD 04/16/2025 12:33 PM EDT [facility] MCH 29.5 26.0 - 32.0 pg LAB HEMATOLOGY METHOD 04/16/2025 12:33 PM EDT [facility] MCHC 33.4 30.7 - 35.5 g/dL LAB HEMATOLOGY METHOD 04/16/2025 12:33 PM EDT [facility] RDW 12.2 11.5 - 14.5 % LAB HEMATOLOGY METHOD 04/16/2025 12:33 PM EDT [facility] MPV 10.2 8.8 - 12.5 fL LAB HEMATOLOGY METHOD 04/16/2025 12:33 PM EDT [facility] nRBC 0.0 <=0.0 per 100 WBCs LAB HEMATOLOGY METHOD 04/16/2025 12:33 PM EDT [facility] Differential Type Automated LAB HEMATOLOGY METHOD 04/16/2025 12:33 PM EDT [facility] Neutrophils % 72 % LAB HEMATOLOGY METHOD 04/16/2025 12:33 PM EDT [facility] Lymphocytes % 19 % LAB HEMATOLOGY METHOD 04/16/2025 12:33 PM EDT [facility] Monocytes % 6 % LAB HEMATOLOGY METHOD 04/16/2025 12:33 PM EDT [facility] Eosinophils % 2 % LAB HEMATOLOGY METHOD 04/16/2025 12:33 PM EDT [facility] Basophils % 0 % LAB HEMATOLOGY METHOD 04/16/2025 12:33 PM EDT [facility] Immature Granulocytes % 1 % LAB HEMATOLOGY METHOD 04/16/2025 12:33 PM EDT [facility] Neutrophils Absolute 4.52 1.60 - 6.10 10*3/uL LAB HEMATOLOGY METHOD 04/16/2025 12:33 PM EDT [facility] Lymphocytes Absolute 1.19(L) 1.20 - 3.90 10*3/uL LAB HEMATOLOGY METHOD 04/16/2025 12:33 PM EDT [facility] Monocytes Absolute 0.39 0.30 - 0.90 10*3/uL LAB HEMATOLOGY METHOD 04/16/2025 12:33 PM EDT [facility] Eosinophils Absolute 0.12 0.00 - 0.50 10*3/uL LAB HEMATOLOGY METHOD 04/16/2025 12:33 PM EDT [facility] Basophils Absolute 0.02 0.00 - 0.10 10*3/uL LAB HEMATOLOGY METHOD 04/16/2025 12:33 PM EDT [facility] Immature Granulocytes Absolute 0.03 0.00 - 0.06 10*3/uL LAB HEMATOLOGY METHOD 04/16/2025 12:33 PM EDT [facility] Blood Venous blood specimen / Unknown Venipuncture / Unknown 04/16/2025 9:26 AM EDT 04/16/2025 9:36 AM EDT Narrative [facility] - 04/16/2025 12:33 PM EDT Therapeutic decision making should be based on absolute values, rather than percentages. us Santi Hoffmann MD LAB BLOOD ORDERABLES Lela puckett Result [facility] [address] [place] [address] * (ABNORMAL) D DIMER, QUANTITATIVE (04/16/2025 9:26 AM EDT) D Dimer, Quantitative 1.22(H) <0.50 ug/mL FEU LAB COAGULATION METHOD 04/16/2025 1:07 PM EDT [facility] Blood Venous blood specimen / Unknown Venipuncture / Unknown 04/16/2025 9:26 AM EDT 04/16/2025 9:36 AM EDT Narrative [facility] - 04/16/2025 1:07 PM EDT Test performed by STAGO D-dimer assay. Values greater than 0.50 ug/mL FEU should be evaluated for risk stratification of patients with possible venous thromboembolism. In addition to expected elevations following injury or surgery, D-dimer levels increase in normal and increase steadily with normal aging. Values in healthy individuals often exceed the VTE exclusion cutoff value, and should be considered in the clinical context. us Santi Hoffmann MD LAB BLOOD ORDERABLES Lela puckett Result [facility] [address] [place] [address] documented in this encounter Visit Diagnoses Diagnosis Leg swelling- Primary Swelling of limb Hepatitis C antibody positive documented in this encounter Additional Health Concerns Assessment Noted Time PHQ-9 Depression Total Score: 0 04/16/20 8:13 AM EDT A fall risk assessment has been complete d for the patient 04/16/2025 8:15 AM EDT A Body Mass Index follow-up plan has been documented for the patient 04/16/2025 1:51 PM EDT documented as of this encounter Care Teams Header Operator Relationship Specialty Start Date End Date Joanna Osborne DO [address] [facility] [address] [place] [address] PCP - General 04/09/25 documented as of this encounter
--- OUTSIDE RECORDS SUMMARY | 2025-04-18 12:07 | XMS_ITS | Encounter Summary ---
Author Organization [employer] ([place], [place], [place], [place]) Address [address] [place] [address] Care Team Providers Care Dozer Operator Name Role Phone Diane Velez PA-C Primary Care Provider [phone]- [phone] Reason for Visit * Reason Comments Wound Check Encounter Details Date Type Department Care Team (Late st Contact Info) Description 04/18/2025 12:07 PM EDT - 04/18/2025 4:31 PM EDT Emergency [facility] Emergency Department [address] [place] [address] Antonio Ford DO [address] [id number] Cellulitis of left lower extremity (Primary Dx); [...] things needed for daily living? No 06/27/2024 [facility] - Mental Health Answer Date Recorde d [...] Date Gil rded Speak language other than [place] Citizen at home Not on file 11/13/2023 Want [...] sent through Care Everywhere. * [place] Cyst ([place] Citizen) * Cellulitis Adult ([place] Citizen) documented in this encounter Medications at Time [...] UA Colorless Clarity, UA Clear Clear Specific [place], UA 1.009 1.005 - 1.030 pH, UA [...] 1449 Dr. Ford: I saw the patient [id number]. I performed a substantive portion of the [...] Course User Index [PF] Antonio Ford, [SM] Johana Dale PA-C Procedures Medical Decision Making Amount [...] Joanna Osborne DO Specialty: Internal Medicine [address] [place] [address] Next Steps: Follow up Instructions: Follow-up with [...] Info) Description 07/05/2025 9:15 AM EDT Appointment [address] [place] [address] 07/10/2025 10:00 AM EDT Office Visit [facility] Primary Care & Internal Med [address] [facility] [place] [address] Diane Velez PA-C [address] [place] [address] documented as of this encounter Procedures [...] in 5 days 04/23/2025 6:01 PM EDT [facility] Blood Venipuncture / Unknown 04/18/2025 4:13 PM EDT 04/18/2025 4:18 PM EDT us Johana Dale PA-C MICROBIOLOGY - GENERAL OR DERABLES Final Result [facility] [address] [phone] * Blood Culture (04/18/2025 4:13 PM EDT) Result No growth in 5 days 04/23/2025 6:01 PM EDT [facility] Blood Venipuncture / Unknown 04/18/2025 4:13 PM EDT 04/18/2025 4:18 PM EDT us Johana Dale PA-C MICROBIOLOGY - GENERAL OR DERABLES Final Result [facility] [address] [phone] * US DOPPLER VENOUS LEG LEFT (04/18/2025 [...] dictated by Rach Yu MD us Johana Dlae PA-C CV VASCULAR ORDERABLES Fi nal Result * (ABNORMAL) Urinalysis Microscopic Only (04/18/2025 2:41 PM EDT) WBC, UA 0-2(A) None Seen /HPF 04/18/2025 3:08 PM EDT [facility] RBC, UA 0-2(A) None Seen /HPF 04/18/2025 3:08 PM EDT [facility] Bacteria, UA None Seen None Seen, Trace 04/18/2025 3:08 PM EDT [facility] SQUAMOUS EPITHELIAL 0-2(A) None Seen /HPF 04/18/2025 3:08 PM EDT [facility] Urine STERILE URINE SPECIMEN CONTAINER / Unknown 04/18/2025 2:41 PM EDT 04/18/2025 2:50 PM EDT us Johana Dale PA-C URINE ORDERABLES Final Re sult [facility] [address] [phone] * (ABNORMAL) Urinalysis, Reflex Microscopic and Culture If Indicated (04/18/2025 2:41 PM EDT) Color, UA Colorless 04/18/2025 3:05 PM EDT [facility] Clarity, UA Clear Clear 04/18/2025 3:05 PM EDT [facility] Specific [place], UA 1.009 1.005 - 1.030 04/18/2025 3:05 PM EDT [facility] pH, UA 6.0 6.0 - 8.0 04/18/2025 3:05 PM EDT [facility] Leukocytes, UA 25 Marck/uL(A) Negative 04/18/2025 3:05 PM EDT [facility] Nitrite, UA Negative Negative 04/18/2025 3:05 PM EDT [facility] Protein, UA Negative Negative 04/18/2025 3:05 PM EDT [facility] Glucose, UA Normal Normal 04/18/2025 3:05 PM EDT [facility] Ketones, UA Negative Negative 04/18/2025 3:05 PM EDT [facility] Bilirubin, UA Negative Negative 04/18/2025 3:05 PM EDT [facility] Blood, UA Negative Negative 04/18/2025 3:05 PM EDT [facility] Urobilinogen, UA Normal Normal 04/18/2025 3:05 PM EDT [facility] Specimen Source Urine, Sterile Collection 04/18/2025 3:05 PM EDT [facility] Urine STERILE URINE SPECIMEN CONTAINER / Unknown 04/18/2025 2:41 PM EDT 04/18/2025 2:50 PM EDT us Johana Dale PA-C URINE ORDERABLES Final Re sult Performing Organization Address City/[facility]/ZIP Co de Phone Number [facility] [address] [phone] * [place] Extra Tubes (04/18/2025 12:28 PM EDT) HOLD SPECIMEN (SJ - BKR) Hold for add-ons. 04/18/2025 2:00 PM EDT [facility] Comment:Auto resulted. Blood Venipuncture / Unknown 04/18/2025 12:28 PM EDT 04/18/2025 12:33 PM EDT Antonio Ford DO LAB BLOOD ORDERABLES Final Resul t Performing Organization Address [facility]/ZIP Co de Phone Number [facility] [address] [phone] * (ABNORMAL) Comprehensive metabolic panel (04/18/2025 12:27 PM EDT) Sodium 132(L) 136 - 145 meq/L 04/18/2025 12:55 PM EDT [facility] Potassium 3.8 3.4 - 5.1 meq/L 04/18/2025 12:55 PM EDT [facility] Chloride 98 98 - 112 meq/L 04/18/2025 12:55 PM [facility] CO2 21(L) 22 - 29 meq/L 04/18/2025 12:55 PM [facility] Calcium 9.8 8.4 - 10.2 mg/dL 04/18/2025 12:55 PM [facility] Glucose 116(H) 82 - 115 mg/dL 04/18/2025 12:55 PM [facility] BUN 20.8(H) 9.8 - 20.1 mg/dL 04/18/2025 12:55 PM [facility] Creatinine 0.97 0.57 - 1.11 mg/dL 04/18/2025 12:55 PM [facility] BUN/Creatinine 21(H) 8 - 20 04/18/2025 12:55 PM [facility] eGFR (mL/min/1.73m2) 63 >=60 mL/min/1. 73m2 04/18/2025 12:55 PM [facility] Albumin 3.8 3.5 - 5.0 g/dL 04/18/2025 12:55 PM [facility] Alkaline Phosphatase 97 40 - 150 U/L 04/18/2025 12:55 PM [facility] ALT 59(H) <=34 U/L 04/18/2025 12:55 PM [facility] Comment: ALT2 reagent used for testing does not contain P5P supplementation and therefore may miss ALT elevations in patients with B6 deficiency. This population may be as high as 10% in the [place], with risk factors including malabsorption, drug interactions, and alcoholic hepatitis. AST 70(H) 11 - 34 U/L 04/18/2025 12:55 PM [facility] Comment: AST2 reagent used for testing does not contain P5P supplementation and therefore may miss AST elevations in patients with B6 deficiency. This population may be as high as 10% in the [place], with risk factors including malabsorption, drug interactions, and alcoholic hepatitis. Total Bilirubin 0.5 0.2 - 1.2 mg/dL 04/18/2025 12:55 PM [facility] Protein, Total 7.6 6.4 - 8.3 g/dL 04/18/2025 12:55 PM EDT [facility] Globulin 3.8 2.5 - 4.1 g/dL 04/18/2025 12:55 PM EDT [facility] Anion Gap 17(H) 4 - 12 04/18/2025 12:55 PM EDT [facility] A/G Ratio 1.0 0.7 - 1.9 04/18/2025 12:55 PM EDT [facility] Osmolality Calc 268.4 mOsm/kg 12:55 PM EDT [facility] Blood Venipuncture / Unknown 04/18/2025 12:27 PM EDT 04/18/2025 12:33 PM EDT us Krysta Srinivasan APRN LAB BLOOD ORDERABLES Final Res ult [facility] [address] [phone] * (ABNORMAL) CBC with Auto Diff (04/18/2025 12:27 PM EDT) WBC 5.7 4.0 - 10.0 K/ L 04/18/2025 12:44 PM EDT [facility] RBC 3.99 3.93 - 5.22 M/ L 04/18/2025 12:44 PM EDT [facility] Hemoglobin 12.0 11.2 - 15.7 GM/DL 04/18/2025 12:44 PM EDT [facility] Hematocrit 35.1 34.1 - 44.9 % 04/18/2025 12:44 PM EDT [facility] MCV 88 79 - 95 fL 04/18/2025 12:44 PM EDT [facility] MCH 30.1 25.6 - 32.2 pg 04/18/2025 12:44 PM EDT [facility] MCHC 34.2 32.2 - 35.5 GM/DL 04/18/2025 12:44 PM EDT [facility] RDW 12.1 11.7 - 14.4 % 04/18/2025 12:44 PM EDT [facility] Platelets 247 140 - 375 K/CU MM 04/18/2025 12:44 PM EDT [facility] MPV 9.6 9.4 - 12.3 fL 04/18/2025 12:44 PM EDT [facility] % Neutros 71 34 - 71 % 04/18/2025 12:44 PM EDT [facility] % Lymphs 17(L) 19 - 52 % 04/18/2025 12:44 PM EDT [facility] % Monos 8 5 - 13 % 04/18/2025 12:44 PM EDT [facility] % Eos 3 1 - 6 % 04/18/2025 12:44 PM EDT [facility] % Baso 1 0 - 1 % 04/18/2025 12:44 PM EDT [facility] NRBC Absolute <0.01 0 - 0.012 K/ul 04/18/2025 12:44 PM EDT [facility] # Neutros 4.06 1.56 - 6.13 K/ L 04/18/2025 12:44 PM EDT [facility] # Lymphs 0.99(L) 1.18 - 3.74 K/ L 04/18/2025 12:44 PM EDT [facility] # Monos 0.45 0.24 - 0.86 K/ L 04/18/2025 12:44 PM EDT [facility] # Eos 0.16 0.04 - 0.36 K/ L 04/18/2025 12:44 PM EDT [facility] # Baso 0.03 0.01 - 0.08 K/ L 04/18/2025 12:44 PM EDT [facility] Immature Granulocytes-Re lative 0.40 0.01 - 0.43 % 04/18/2025 12:44 PM EDT [facility] # IG <0.03 0.00 - 0.03 K/uL 04/18/2025 12:44 PM EDT [facility] Blood Venipuncture / Unknown 04/18/2025 12:27 PM EDT 04/18/2025 12:33 PM EDT [facility] - 04/18/2025 12:44 PM EDT [...] Atypical Lymph flag noted us Krysta Zarina GLAZING MACHINE OPERATOR LAB BLOOD ORDERABLES Final Res ult [facility] [address] [phone] documented in this encounter Visit Diagnoses Diagnosis [...] doses documented in this encounter Care Teams Dozer Operator Relationship Specialty Start Date End Date Diane Velez PA-C [address] [facility] [address] [place] [address] PCP - General Family Medicine 04/18/25 documented as of this encounter
--- OUTSIDE RECORDS SUMMARY | 2025-04-21 07:18 | XMS_ITS | Encounter Summary ---
Author Organization Healthcare Address [address] [place] [address] Care Team Providers Care Filemaker Developer Name Role Phone Joanna Osborne Primary Care Provider [phone] Reason for Referral * Consultation (Routine) - Authorized Specialty Diagnoses / Procedures Referred By Sergio espitia Referred To Contact Hepatology Diagnoses Periumbilical abdominal pain Ming Garner MD [address] [place] [phone] Phone: tel: fax: Referral ID Status Reason Start Date Expiration Date Visits Requested Visits Authorized [id number] Authorized Specialty Services Required 04/21/2025 10/21/2026 1 1 Reason for Visit * Reason Comments Vomiting Wound Check Encounter Details Date Type Department Care Team ([facility] st Contact Info) Description 04/21/2025 7:18 AM EDT - 04/21/2025 1:07 PM EDT Emergency [facility] [address] [place] [address] Ming Garner MD [address] [place] [phone] Periumbilical abdominal pain (Primary Dx); Constipation, [...] and time. EASI ?? Total Score: 0 [place] Coma Scale Score: 15 Mini Nutritional Screening [...] jaundice Sulfamethoxazole-Trimethoprim Rash Ming Garner MD 04/23/25 [id number] * ED Triage Notes - Ming Gusman [...] Description 05/15/2025 3:30 PM EDT Office Visit [facility] [address] [place] [address] Santi Hoffmann MD [address] [facility] [address] [place] [address] Scheduled Referrals Name Type Priority [...] - 63 U/L 04/21/2025 11:[address] [facility] Blood Venous blood specimen / Unknown Venipuncture / Unknown 04/21/2025 11:32 AM EDT 04/21/2025 11:34 AM EDT us Ming Garner MD LAB BLOOD ORDERABLES Final Result [facility] [address] [place] [address] * CT Abdomen Pelvis w IV Contrast [...] Detected Not Detected. 04/25/2025 1:[address] [facility] Blood Venous blood specimen / Unknown Venipuncture / Unknown 04/21/2025 8:39 AM EDT 04/21/2025 9:[address] [facility] - 04/25/2025 1:47 PM EDT The [...] BLOOD ORDERABLES Final Result Performing Organization Address City/[facility]/ZIP Co de Phone Number [facility] [address] [place] [address] * ED HIV 1/2 Antibody/Antigen Screen w/Reflex to HIV 1/2 Differentiation (04/21/2025 8:39 AM EDT) Pathologist [facility] HIV 1 & 2 Antibody/Antigen Screen Non Reactive Non Reactive 04/21/2025 9:[address] [facility] Comment:Screening for HIV 1 & 2 antibodies, and P24 antigen is NONREACTIVE. No confirmatory testing is required. Blood Venous blood specimen / Unknown Venipuncture / Unknown 04/21/2025 8:39 AM EDT 04/21/2025 9:06 AM EDT Ming Garner MD LAB BLOOD ORDERABLES Final Result [facility] [address] [place] [address] * (ABNORMAL) Hepatitis C Antibody - ED (04/21/2025 8:39 AM EDT) Pathologist [facility] Hepatitis C Antibody Positive(A ) Negative 04/21/2025 9:[address] [facility] Blood Venous blood specimen / Unknown Venipuncture / Unknown 04/21/2025 8:39 AM EDT 04/21/2025 9:03 AM EDT Ming Garner MD LAB BLOOD [place] [address] * BNP (04/21/2025 8:39 AM EDT) N-Terminal, PROBNP, Plasma 541 0 - 899 pg/mL 04/21/2025 9:[address] [facility] Blood Venous blood specimen / Unknown Venipuncture / Unknown 04/21/2025 8:39 AM EDT 04/21/2025 8:44 AM EDT Ming Garner MD LAB BLOOD ORDERABLES Final Result Performing Organization Address [facility] Co de Phone Number [facility] [address] [place] [address] * PT-INR (04/21/2025 8:39 AM EDT) Prothrombin Time 13.7 12.0 - 14.3 sec 04/21/2025 8:[address] [facility] INR 1.1 0.9 - 1.1 04/21/2025 8:[address] [facility] Blood Venous blood specimen / Unknown Venipuncture / Unknown 04/21/2025 8:39 AM EDT 04/21/2025 8:[address] [facility] - 04/21/2025 8:58 AM EDT OPTIMAL INR RANGES FOR PATIENT ON ORAL ANTICOAGULANT THERAPY Prevention of venous thromboembolism INR 2.0 to 3.0 In patients with heart disease: Atrial fibrillation INR 2.0 to 3.0 Valvular heart disease INR 2.0 to 3.0 Tissue heart valves INR 2.0 to 3.0 Mechanical prosthetic valves INR 2.5 to 3.5 Prevention of recurrent MA INR 2.5 to 3.5 Ming Garner MD LAB BLOOD ORDERABLES Final Result [facility] [address] [place] [address] * (ABNORMAL) CBC w/diff (04/21/2025 8:39 AM EDT) WBC Count 7.92 3.70 - 10.30 10*3/uL LAB HEMATOLOGY METHOD 04/21/2025 8:[address] [facility] RBC Count 4.52 3.90 - 5.20 10*6/uL LAB HEMATOLOGY METHOD 04/21/2025 8:[address] [facility] HGB 13.5 11.2 - 15.7 g/dL LAB HEMATOLOGY METHOD 04/21/2025 8:[address] [facility] HCT 39.2 34.0 - 45.0 % LAB HEMATOLOGY METHOD 04/21/2025 8:[address] [facility] Platelet Count 361 155 - 369 10*3/uL LAB HEMATOLOGY METHOD 04/21/2025 8:[address] [facility] MCV 87 79 - 98 fL LAB HEMATOLOGY METHOD 04/21/2025 8:[address] [facility] MCH 29.9 26.0 - 32.0 pg LAB HEMATOLOGY METHOD 04/21/2025 8:[address] [facility] MCHC 34.4 30.7 - 35.5 g/dL LAB HEMATOLOGY METHOD 04/21/2025 8:[address] [facility] RDW 12.1 11.5 - 14.5 % LAB HEMATOLOGY METHOD 04/21/2025 8:[address] [facility] MPV 10.0 8.8 - 12.5 fL LAB HEMATOLOGY METHOD 04/21/2025 8:[address] [facility] nRBC 0.0 <=0.0 per 100 WBCs LAB HEMATOLOGY METHOD 04/21/2025 8:[address] [facility] Differential Type Automated LAB HEMATOLOGY METHOD 04/21/2025 8:[address] [facility] Neutrophils % 81 % LAB HEMATOLOGY METHOD 04/21/2025 8:[address] [facility] Lymphocytes % 13 % LAB HEMATOLOGY METHOD 04/21/2025 8:[address] [facility] Monocytes % 5 % LAB HEMATOLOGY METHOD 04/21/2025 8:[address] [facility] Eosinophils % 1 % LAB HEMATOLOGY METHOD 04/21/2025 8:[address] [facility] Basophils % 0 % LAB HEMATOLOGY METHOD 04/21/2025 8:[address] [facility] Immature Granulocytes % 0 % LAB HEMATOLOGY METHOD 04/21/2025 8:[address] [facility] Neutrophils Absolute 6.29(H) 1.60 - 6.10 10*3/uL LAB HEMATOLOGY METHOD 04/21/2025 8:[address] [facility] Lymphocytes Absolute 1.05(L) 1.20 - 3.90 10*3/uL LAB HEMATOLOGY METHOD 04/21/2025 8:[address] [facility] Monocytes Absolute 0.42 0.30 - 0.90 10*3/uL LAB HEMATOLOGY METHOD 04/21/2025 8:[address] [facility] Eosinophils Absolute 0.11 0.00 - 0.50 10*3/uL LAB HEMATOLOGY METHOD 04/21/2025 8:[address] [facility] Basophils Absolute 0.02 0.00 - 0.10 10*3/uL LAB HEMATOLOGY METHOD 04/21/2025 8:[address] [facility] Immature Granulocytes Absolute 0.03 0.00 - 0.06 10*3/uL LAB HEMATOLOGY METHOD 04/21/2025 8:[address] [facility] Blood Venous blood specimen / Unknown Venipuncture / Unknown 04/21/2025 8:39 AM EDT 04/21/2025 8:[address] [facility] - 04/21/2025 8:47 AM EDT Therapeutic decision making should be based on absolute values, rather than percentages. us Ming Garner MD LAB BLOOD ORDERABLES Final Result [facility] [address] [place] [address] * Free T4, Plasma (04/21/2025 8:39 AM EDT) Free T4, Plasma 1.4 0.8 - 1.7 ng/dL 04/21/2025 9:[address] [facility] Blood Venous blood specimen / Unknown Venipuncture / Unknown 04/21/2025 8:39 AM EDT 04/21/2025 8:44 AM EDT Ming Garner MD LAB BLOOD ORDERABLES Final Result [facility] [address] [place] [address] * Thyroid Stimulating Hormone, Plasma (04/21/2025 8:39 AM EDT) Thyroid Stimulating Hormone, Plasma 1.78 0.40 - 4.20 uIU/mL 04/21/2025 9:[address] [facility] Blood Venous blood specimen / Unknown Venipuncture / Unknown 04/21/2025 8:39 AM EDT 04/21/2025 8:44 AM EDT Ming Garner MD LAB BLOOD ORDERABLES Final Result Performing Organization Address City/[facility]/ZIP Co de Phone Number [facility] [address] [place] [address] * Magnesium (04/21/2025 8:39 AM EDT) Magnesium, Plasma 1.9 1.9 - 2.4 mg/dL 04/21/2025 9:[address] [facility] Blood Venous blood specimen / Unknown Venipuncture / Unknown 04/21/2025 8:39 AM EDT 04/21/2025 8:44 AM EDT Ming Garner MD LAB BLOOD ORDERABLES Final Result [facility] [address] [place] [address] * (ABNORMAL) CMP (04/21/2025 8:39 AM EDT) Glucose, Plasma 99 74 - 99 mg/dL 04/21/2025 9:[address] [facility] BUN, Plasma 20 8 - 23 mg/dL 04/21/2025 9:[address] [facility] Creatinine, Plasma 0.82 0.60 - 1.10 mg/dL 04/21/2025 9:[address] [facility] BUN/Creatinine Ratio 04/21/2025 9:[address] [facility] Sodium, Plasma 127(L) 136 - 145 mmol/L 04/21/2025 9:[address] [facility] Potassium, Plasma 3.8 3.6 - 4.9 mmol/L 04/21/2025 9:[address] [facility] Comment:Hemolyzed, result ma y be falsely increased. Chloride, Plasma 90(L) 97 - 107 mmol/L 04/21/2025 9:[address] [facility] CO2, Plasma 22 22 - 29 mmol/L 04/21/2025 9:[address] [facility] Anion Gap 15 6 - 16 mmol/L 04/21/2025 9:[address] [facility] Total Calcium, Plasma 10.4(H) 8.9 - 10.2 mg/dL 04/21/2025 9:[address] [facility] Total Protein 8.4(H) 6.3 - 7.9 g/dL 04/21/2025 9:[address] [facility] Albumin, Plasma 4.6 3.5 - 5.2 g/dL 04/21/2025 9:[address] [facility] AST, Plasma 83(H) 10 - 35 U/L 04/21/2025 9:[address] [facility] Comment:Hemolyzed, result ma y be falsely increased. ALT, Plasma 80(H) 10 - 35 U/L 04/21/2025 9:[address] [facility] Alkaline Phosphatase, Plasma 147(H) 46 - 142 U/L 04/21/2025 9:[address] [facility] Total Bilirubin, Plasma 1.0 0.2 - 1.1 mg/dL 04/21/2025 9:[address] [facility] eGFRcr 76.6 mL/min/1.7 3m*2 04/21/2025 9:[address] [facility] Comment:Reported eGFRcr in m L/min/1.73m2 is based the CKD-EPI 2020 equation that does not use a race coefficient. Blood Venous blood specimen / Unknown Venipuncture / Unknown 04/21/2025 8:39 AM EDT 04/21/2025 8:44 AM EDT us Ming Garner MD LAB BLOOD ORDERABLES Final Result Performing Organization Address City/[facility]/ZIP Co de Phone Number [facility] [address] [place] [address] * EKG now - STAT (adult) (04/21/2025 7:49 AM EDT) EKG DIAGNOSIS CLASS Abnormal MUSE ECG Ventricular Rate 72 BPM MUSE ECG Atrial Rate 72 BPM MUSE ECG CO Interval 152 ms MUSE ECG QRSD Interval 92 ms MUSE ECG QT Interval 424 ms MUSE ECG QTC Interval 464 ms MUSE ECG P [place] 61 degrees MUSE ECG R [place] 10 degrees MUSE ECG T Wave [place] 29 degrees MUSE ECG Diagnosis Normal sinus [...] documented as of this encounter Care Teams Filemaker Developer Relationship Specialty Start Date End Date Joanna Osborne DO [address] [facility] [address] [place] [address] PCP - General 04/09/25 documented as of this encounter
--- OUTSIDE RECORDS SUMMARY | 2025-04-25 10:39 | XMS_ITS | Encounter Summary ---
Author Organization Healthcare Address [address] [place] [address] Care Team Providers Care Cloth Dyer Name Role Phone Joanna Osborne Primary Care Provider [phone] Reason for Referral * Consultation (Routine) - Authorized Specialty Diagnoses / Procedures Referred By Sergio espitia Referred To Contact Neurology Diagnoses Intermittent confusion Imelda Arroyo MD [address] [place] [address] Phone: tel: fax: [facility] [address] [place] [address] Phone: tel: fax: Referral ID Status Reason Start Date Expiration Date Visits Requested Visits Authorized [id number] Authorized Specialty Services Required 04/25/2025 10/25/2026 1 1 Reason for Visit * Reason Comments Nausea Swelling Encounter Details Date Type Department Care Team ([facility] Contact Info) Description 04/25/2025 10:39 AM EDT - 04/25/2025 2:24 PM EDT Emergency [facility] Emergency Department [address] [place] [address] Imelda Arroyo MD [address] [place] [address] Nausea and vomiting, unspecified vomiting [...] Exclusion from Simplified Treatment Theron Cook PharmD [facility] ED HCV Team [phone] Secure chat team with questions: [facility] ED CH SPEC PHARM * [...] chest pain, SOA. History provided by: Patient can worker used: Julia CRABTREE//Chris Glynn MD I assumed [...] Description 05/15/2025 3:30 PM EDT Office Visit [facility] [address] [place] [id number] Santi Hoffmann MD [address] [facility] [address] [place] [address] Scheduled Referrals Name Type Priority [...] 21(H) <14 ng/L 04/25/2025 1:29 PM EDT [facility] Troponin Delta 2 <10 ng/L 04/25/2025 1:29 PM EDT [facility] Troponin Delta Interpretation Not Significant 04/25/2025 1:29 PM EDT [facility] Comment:Not Significant. No acute change in troponin observed between the baseline and 2 hour samples. Blood Venous blood specimen / Unknown Venipuncture / Unknown 04/25/2025 1:03 PM EDT 04/25/2025 1:05 PM EDT us Titus Crandall MD LAB BLOOD ORDERABLES Final Res ult [facility] [address] [place] [address] * Sodium, urine, random (04/25/2025 11:52 AM EDT) Sodium, Urine 60 mmol/L 04/25/2025 12:31 PM EDT [facility] Urine Urine specimen obtained by clean catch procedure / Unknown Non-blood Collection / Unknown 04/25/2025 11:52 AM EDT 04/25/2025 12:15 PM EDT Imedla Arroyo MD LAB URINE ORDERABLES Final Res ult Performing Organization Address [facility]/ZIP Co de Phone Number [facility] [address] [place] [address] * Osmolality, urine (04/25/2025 11:52 AM EDT) Osmolality, Urine 315 50 - 1,200 mOsm/kg 04/25/2025 12:56 PM EDT [facility] Urine Urine specimen obtained by clean catch procedure / Unknown Non-blood Collection / Unknown 04/25/2025 11:52 AM EDT 04/25/2025 12:15 PM EDT Imelda Arroyo MD LAB URINE ORDERABLES Final Res ult Performing Organization Address City/[facility]/ZIP Co de Phone Number [facility] [address] [place] [address] * Urine Mondragon Panel (04/25/2025 11:52 AM EDT) Extra Reflex urine culture not indicated 04/25/2025 9:01 PM EDT [facility] Comment: Previously prelim verified as Specimen [...] MD LAB URINE ORDERABLES Final Res ult [facility] [address] [place] [address] * Urinalysis with reflex microscopic (Culture NOT Included) (04/25/2025 11:52 AM EDT) Color, Urine Yellow LAB URINALYSIS - AUTOMATED METHOD 04/25/2025 11:58 AM EDT [facility] Clarity, Urine Clear LAB URINALYSIS - AUTOMATED METHOD 04/25/2025 11:58 AM EDT [facility] Spec [place], Urine 1.011 1.005 - 1.030 LAB URINALYSIS - AUTOMATED METHOD 04/25/2025 11:58 AM EDT [facility] pH, Urine 7.5 5.0 - 8.0 LAB URINALYSIS - AUTOMATED METHOD 04/25/2025 11:58 AM EDT [facility] Protein, Urine Negative Negative mg/dL LAB URINALYSIS - AUTOMATED METHOD 04/25/2025 11:58 AM EDT [facility] Glucose, Urine Negative Negative mg/dL LAB URINALYSIS - AUTOMATED METHOD 04/25/2025 11:58 AM EDT [facility] Ketones, Urine Negative Negative mg/dL LAB URINALYSIS - AUTOMATED METHOD 04/25/2025 11:58 AM EDT [facility] Blood, Urine Negative Negative LAB URINALYSIS - AUTOMATED METHOD 04/25/2025 11:58 AM EDT [facility] Bilirubin, Urine Negative Negative LAB URINALYSIS - AUTOMATED METHOD 04/25/2025 11:58 AM EDT [facility] Urobilinogen, Urine 0.2 0.2 to 1.0 mg/dL LAB URINALYSIS - AUTOMATED METHOD 04/25/2025 11:58 AM EDT [facility] Leukocytes, Urine Negative Negative LAB URINALYSIS - AUTOMATED METHOD 04/25/2025 11:58 AM EDT [facility] Nitrite, Urine Negative Negative LAB URINALYSIS - AUTOMATED METHOD 04/25/2025 11:58 AM EDT [facility] Urine Urine specimen obtained by clean catch procedure / Unknown Non-blood Collection / Unknown 04/25/2025 11:52 AM EDT 04/25/2025 11:55 AM EDT Titus Crandall MD LAB URINE ORDERABLES Final Res ult [facility] [address] [place] [address] * EKG now - STAT (adult) (04/25/2025 10:44 AM EDT) EKG DIAGNOSIS CLASS Normal MUSE ECG Ventricular Rate 77 BPM MUSE ECG Atrial Rate 77 BPM MUSE ECG WY Interval 140 ms MUSE ECG QRSD Interval 86 ms MUSE ECG QT Interval 394 ms MUSE ECG QTC Interval 445 ms MUSE ECG P [place] 74 degrees MUSE ECG R [place] 12 degrees MUSE ECG T Wave [place] 42 degrees MUSE ECG Diagnosis Normal sinus rhythm MUSE ECG Diagnosis Normal ECG MUSE ECG Diagnosis MUSE ECG Diagnosis Confirmed by Ollie Galeana ([id number]) on 04/25/2025 11:11:27 AM MUSE ECG 04/25/2025 10:4 4 AM EDT 04/25/2025 11:11 AM EDT Titus Crandall MD ECG ORDERABLES Final Result MUSE ECG * (ABNORMAL) Osmolality (04/25/2025 10:37 AM EDT) Osmolality, Serum 264(L) 280 - 301 mOsm/Kg 04/25/2025 12:22 PM EDT [facility] Blood Venous blood specimen / Unknown Venipuncture / Unknown 04/25/2025 10:37 AM EDT 04/25/2025 10:41 AM EDT us Imelda Arroyo MD LAB BLOOD ORDERABLES Final Res ult Performing Organization Address City/[facility]/ZIP Co de Phone Number [facility] [address] [place] [address] * BNP (04/25/2025 10:37 AM EDT) N-Terminal, PROBNP, Plasma 336 0 - 899 pg/mL 04/25/2025 11:08 AM EDT [facility] Blood Venous blood specimen / Unknown Venipuncture / Unknown 04/25/2025 10:37 AM EDT 04/25/2025 10:41 AM EDT Titus Crandall MD LAB BLOOD ORDERABLES Final Res ult Performing Organization Address [facility] Co de Phone Number [facility] [address] [place] [address] * (ABNORMAL) Troponin now and 120 min (04/25/2025 10:37 AM EDT) Troponin T, High Sensitivity, 0 Hour 23(H) <14 ng/L 04/25/2025 11:08 AM EDT [facility] Blood Venous blood specimen / Unknown Venipuncture / Unknown 04/25/2025 10:37 AM EDT 04/25/2025 10:41 AM EDT Titus Crandall MD LAB BLOOD ORDERABLES Final Res ult Performing Organization Address City/[facility]/ZIP Co de Phone Number [facility] [address] [place] [address] * (ABNORMAL) Lipase (04/25/2025 10:37 AM EDT) Lipase, Plasma 157(H) 19 - 63 U/L 04/25/2025 11:08 AM EDT [facility] Blood Venous blood specimen / Unknown Venipuncture / Unknown 04/25/2025 10:37 AM EDT 04/25/2025 10:41 AM EDT Titus Crandall MD LAB BLOOD ORDERABLES Final Res ult [facility] [address] [place] [address] * (ABNORMAL) CMP (04/25/2025 10:37 AM EDT) Glucose, Plasma 107(H) 74 - 99 mg/dL 04/25/2025 11:08 AM EDT [facility] BUN, Plasma 22 8 - 23 mg/dL 04/25/2025 11:08 AM EDT [facility] Creatinine, Plasma 0.87 0.60 - 1.10 mg/dL 04/25/2025 11:08 AM EDT [facility] BUN/Creatinine Ratio 04/25/2025 11:08 AM EDT [facility] Sodium, Plasma 126(L) 136 - 145 mmol/L 04/25/2025 11:08 AM EDT [facility] Potassium, Plasma 3.6 3.6 - 4.9 mmol/L 04/25/2025 11:08 AM EDT [facility] Chloride, Plasma 90(L) 97 - 107 mmol/L 04/25/2025 11:08 AM EDT [facility] CO2, Plasma 24 22 - 29 mmol/L 04/25/2025 11:08 AM EDT [facility] Anion Gap 12 6 - 16 mmol/L 04/25/2025 11:08 AM EDT [facility] Total Calcium, Plasma 9.8 8.9 - 10.2 mg/dL 04/25/2025 11:08 AM EDT [facility] Total Protein 7.0 6.3 - 7.9 g/dL 04/25/2025 11:08 AM EDT [facility] Albumin, Plasma 4.1 3.5 - 5.2 g/dL 04/25/2025 11:08 AM EDT [facility] AST, Plasma 35 10 - 35 U/L 04/25/2025 11:08 AM EDT [facility] ALT, Plasma 44(H) 10 - 35 U/L 04/25/2025 11:08 AM EDT [facility] Alkaline Phosphatase, Plasma 137 46 - 142 U/L 04/25/2025 11:08 AM EDT [facility] Total Bilirubin, Plasma 0.6 0.2 - 1.1 mg/dL 04/25/2025 11:08 AM EDT [facility] eGFRcr 71.3 mL/min/1.7 3m*2 04/25/2025 11:08 AM EDT [facility] Comment:Reported eGFRcr in m L/min/1.73m2 is based the CKD-EPI 2020 equation that does not use a race coefficient. Blood Venous blood specimen / Unknown Venipuncture / Unknown 04/25/2025 10:37 AM EDT 04/25/2025 10:41 AM EDT us Titus Crandall MD LAB BLOOD ORDERABLES Final Res ult [facility] [address] [place] [address] * (ABNORMAL) CBC w/diff (04/25/2025 10:37 AM EDT) WBC Count 6.98 3.70 - 10.30 10*3/uL LAB HEMATOLOGY METHOD 04/25/2025 10:44 AM EDT [facility] RBC Count 3.87(L) 3.90 - 5.20 10*6/uL LAB HEMATOLOGY METHOD 04/25/2025 10:44 AM EDT [facility] HGB 11.8 11.2 - 15.7 g/dL LAB HEMATOLOGY METHOD 04/25/2025 10:44 AM EDT [facility] HCT 33.3(L) 34.0 - 45.0 % LAB HEMATOLOGY METHOD 04/25/2025 10:44 AM EDT [facility] Platelet Count 292 155 - 369 10*3/uL LAB HEMATOLOGY METHOD 04/25/2025 10:44 AM EDT [facility] MCV 86 79 - 98 fL LAB HEMATOLOGY METHOD 04/25/2025 10:44 AM EDT [facility] MCH 30.5 26.0 - 32.0 pg LAB HEMATOLOGY METHOD 04/25/2025 10:44 AM EDT [facility] MCHC 35.4 30.7 - 35.5 g/dL LAB HEMATOLOGY METHOD 04/25/2025 10:44 AM EDT [facility] RDW 12.1 11.5 - 14.5 % LAB HEMATOLOGY METHOD 04/25/2025 10:44 AM EDT [facility] MPV 9.1 8.8 - 12.5 fL LAB HEMATOLOGY METHOD 04/25/2025 10:44 AM EDT [facility] nRBC 0.0 <=0.0 per 100 WBCs LAB HEMATOLOGY METHOD 04/25/2025 10:44 AM EDT [facility] Differential Type Automated LAB HEMATOLOGY METHOD 04/25/2025 10:44 AM EDT [facility] Neutrophils % 70 % LAB HEMATOLOGY METHOD 04/25/2025 10:44 AM EDT [facility] Lymphocytes % 17 % LAB HEMATOLOGY METHOD 04/25/2025 10:44 AM EDT [facility] Monocytes % 10 % LAB HEMATOLOGY METHOD 04/25/2025 10:44 AM EDT [facility] Eosinophils % 3 % LAB HEMATOLOGY METHOD 04/25/2025 10:44 AM EDT [facility] Basophils % 0 % LAB HEMATOLOGY METHOD 04/25/2025 10:44 AM EDT [facility] Immature Granulocytes % 0 % LAB HEMATOLOGY METHOD 04/25/2025 10:44 AM EDT [facility] Neutrophils Absolute 4.90 1.60 - 6.10 10*3/uL LAB HEMATOLOGY METHOD 04/25/2025 10:44 AM EDT [facility] Lymphocytes Absolute 1.20 1.20 - 3.90 10*3/uL LAB HEMATOLOGY METHOD 04/25/2025 10:44 AM EDT [facility] Monocytes Absolute 0.66 0.30 - 0.90 10*3/uL LAB HEMATOLOGY METHOD 04/25/2025 10:44 AM EDT [facility] Eosinophils Absolute 0.18 0.00 - 0.50 10*3/uL LAB HEMATOLOGY METHOD 04/25/2025 10:44 AM EDT [facility] Basophils Absolute 0.02 0.00 - 0.10 10*3/uL LAB HEMATOLOGY METHOD 04/25/2025 10:44 AM EDT [facility] Immature Granulocytes Absolute 0.02 0.00 - 0.06 10*3/uL LAB HEMATOLOGY METHOD 04/25/2025 10:44 AM EDT [facility] Blood Venous blood specimen / Unknown Venipuncture / Unknown 04/25/2025 10:37 AM EDT 04/25/2025 10:42 AM EDT Narrative [facility] - 04/25/2025 10:44 AM EDT Therapeutic decision making should be based on absolute values, rather than percentages. us Titus Crandall MD LAB BLOOD ORDERABLES Final Res ult [facility] [address] [place] [address] documented in this encounter Visit Diagnoses Diagnosis [...] documented as of this encounter Care Teams Cloth Dyer Relationship Specialty Start Date End Date Joanna Osborne DO [address] [facility] [address] [place] [address] PCP - General 04/09/25 documented as of this encounter
--- OUTSIDE RECORDS SUMMARY | 2025-05-01 11:30 | XMS_ITS | Encounter Summary ---
Author Organization [employer] ([place], [place], [place], [place]) Address [address] [place] [address] Care Team Providers Care Aquaculture Farm Manager Name Role Phone Diane Velez PA-C Primary Care Provider +1- [phone] Reason for Visit * Reason Comments Follow-up Pt c/o possible cell ulitis on Left leg . Pt states is not getting better. Encounter Details Date Type Department Care Team (Late st Contact Info) Description 05/01/2025 11:30 AM EDT Office Visit [facility] Primary Care & Internal Med 1401 [facility] [address] [address] Diane Velez PA-C [address] [address] Chronic hepatitis C without hepatic [...] things needed for daily living? No 06/27/2024 [facility] - Mental Health Answer Date Recorde d [...] Date Gil rded Speak language other than Beninese at home Not on file 11/13/2023 Want [...] Patient is accompanied by her son and [id number] in office today. Maritza has had a [...] Description 07/05/2025 9:15 AM EDT Appointment [address] [address] 07/10/2025 10:00 AM EDT Office Visit [facility] Primary Care & Internal Med [address] [phone] Diane Velez PA-C [address] [place] [address] Scheduled Orders Name Type Priority Associated [...] - 05/02/2025 12:07 PM EDT Performed at: [address] [place] [id number] Circular Sawyer Stone: José Miguel Williamson PhD, Phone: [phone] Diane Velez PA-C PATHOLOGY/CYTOLOGY ORDERAB LES Final Result [facility] * (ABNORMAL) Ammonia (05/01/2025 12:37 PM EDT) Ammonia, Plasma 30(L) 31 - 169 ug/dL [facility] Blood 05/01/2025 12:3 7 PM EDT 05/01/2025 Narrative [facility] - 05/02/2025 12:07 PM EDT Performed at: - [address] [id number] Circular Sawyer Stone: José Miguel Williamson PhD, Phone: [phone] Diane Velez PA-C LAB BLOOD ORDERABLES Final Result Performing Organization Address [facility]/ZIP Co de Phone Number [facility] * (ABNORMAL) Urinalysis w/Microscopic (05/01/2025 12:37 PM EDT) Pathologist [facility] Specific [place], UA 1.009 1.005 - 1.030 [facility] pH, [...] - 05/02/2025 12:07 PM EDT Performed at: [facility] [address] [id number] Circular Sawyer Stone: José Miguel Williamson PhD, Phone: [phone] Diane Velez PA-C URINE ORDERABLES Final Res ult Performing Organization Address City/[facility]/ZIP Co de Phone Number [facility] * (ABNORMAL) Comprehensive metabolic panel (05/01/2025 12:37 PM EDT) [facility] Glucose, Serum 90 70 - 99 mg/dL [...] - 05/02/2025 12:07 PM EDT Performed at: [address] [id number] Circular Sawyer Stone: José Miguel Williamson PhD, Phone: [phone] Diane Velez PA-C LAB BLOOD ORDERABLES Final Result [facility] * (ABNORMAL) Lipase (05/01/2025 12:37 PM EDT) [facility] Lipase, Serum 139(H) 14 - 85 U/L [facility] Blood 05/01/2025 12:3 7 PM EDT 05/01/2025 Narrative [facility] - 05/02/2025 12:07 PM EDT Performed at: [address] [id number] Circular Sawyer Stone: José Miguel Williamson PhD, Phone: [phone] Diane Velez PA-C LAB BLOOD ORDERABLES Final Result [facility] documented in this encounter Visit Diagnoses Diagnosis Chronic hepatitis C without hepatic coma (HCC)- Primary Edema Pain of left lower extremity Acute cellulitis Puncture wound of left lower leg, subsequent encounter Nausea Nausea alone Abdominal distention Flatulence, eructation, and gas pain Confusion Unspecified psychosis documented in this encounter Care Teams Aquaculture Farm Manager Relationship Specialty Start Date End Date Diane Velez PA-C 14[address] [facility] [address] [place] [phone] PCP - General Family Medicine 04/18/25 documented as of this encounter
--- NOTE | 2025-05-11 08:45 | US_ITS ---
FINAL REPORT TECHNIQUE: Multiple transverse and longitudinal images CLINICAL HISTORY: cirrhosis COMPARISON: None FINDINGS: Status post cholecystectomy. No biliary ductal dilatation is appreciated. No fluid collections are seen. Limited portions of the right liver are unremarkable. Limited portions of the right kidney are unremarkable. Pancreas is largely obscured. IMPRESSION: Unremarkable exam status post cholecystectomy. Reviewed, Interpreted and Dictated by Lennox Penn MD Transcribed by Chery Vences Authenticated and [facility]
--- OUTSIDE RECORDS SUMMARY | 2025-05-11 08:47 | XMS_ITS | Encounter Summary ---
Author Organization [employer] ([place], [place], [place], [place]) Address [address] [place] [address] Care Team Providers Care Gravity Prospecting Supervisor Name Role Phone Diane Velez PA-C Primary Care Provider +1- [phone] Joanna Osborne DO Primary Care Provider [phone] Diane Velez PA-C Primary Care Provider +1- [phone] Reason for Visit * Reason Onset Date Comments Lab Question 10/21/2023 Encounter Details Date Type Department Care Team (Late st Contact Info) Description 10/21/2023 Telephone [facility] Primary Care & Internal Med 1401 [facility] [address] [address] Diane Velez PA-C [address] [address] Lab Question Social History Tobacco [...] needed for daily living? No 06/27/2024 [facility] - Mental Health Answer Date Recorde [...] Date Gil rded Speak language other than Kenyan at home Not on file 11/13/2023 Want [...] done. We can discuss labs at visit. ITION SPECIALIST * Telephone Encounter - Raisa - 10/21/2023 [...] OK to leave message on voicemail: Yes ITION SPECIALIST documented in this encounter Plan of Treatment Upcoming Encounters Date Type Department Care Team (Late st Contact Info) Description 07/05/2025 9:15 AM EDT Appointment [address] [phone] 07/10/2025 10:00 AM EDT Office Visit [facility] Primary Care & Internal Med [address] [place], [place] [phone] Diane Velez PA-C [address] [place], [place] [phone] documented as of this encounter Visit Diagnoses Not on filedocumented in this encounter Care Teams Gravity Prospecting Supervisor Relationship Specialty Start Date End Date Diane Velez PA-C [address] [phone] PCP - General Family Medicine 10/21/23 01/10/25 Joanna Osborne DO [address] [facility] [address] [place] [address] PCP - General Internal Medicine 01/11/25 01/16/25 Diane Velez PA-C 1401 [facility] [address] [place] [phone] PCP - General Family Medicine 04/18/25 documented as of this encounter
--- OUTSIDE RECORDS SUMMARY | 2025-05-11 08:47 | XMS_ITS | Encounter Summary ---
Author Organization [employer] ([place], [place], [place], [place]) Address [address] [place] [address] Care Team Providers Care Lime Kiln Tender Name Role Phone Diane Velez PA-C Primary Care Provider +1- [phone] Encounter Details Date Type Department Care Team (Late st Contact Info) Description 05/01/[address] [facility] [address] [place] [address] Diane Velez PA-C [address] [place] [address] Social History Tobacco Use Types Packs/Day [...] things needed for daily living? No 06/27/2024 [facility] - Mental Health Answer Date Recorde [...] Date Gil rded Speak language other than [place] at home Not on file 11/13/2023 Want [...] Info) Description 07/05/2025 9:15 AM EDT Appointment [address] [place] [phone] 07/10/2025 10:00 AM EDT Office Visit [facility] Primary Care & Internal Med [address] [facility] [address] [address] Diane Velez PA-C 1401 [facility] [address] [address] documented as of this encounter Procedures Procedure Name Priority Date/Time Associated Diagnosis Comments RESULT Routine 05/01/2025 12:00 AM EDT RESULT Routine 05/01/2025 12:00 AM EDT ANAEROBIC AND AEROBIC CULTURE Routine 05/01/2025 12:00 AM EDT documented in this encounter Results * RESULT (05/01/2025 12:00 AM EDT) Result 1 Comment [facility] Comment:Mixed skin enrrique inc luding multiple gram negative rods. 05/01/2025 05/01/2025 Narrative [facility] - 05/07/2025 8:07 PM EDT Performed at: - [address] [id number] Operating Room Coordinator: José Miguel Williamson PhD, Phone: [phone] us Diane Velez PA-C PATHOLOGY/CYTOLOGY ORDERAB LES Final Result [facility] * RESULT (05/01/2025 12:00 AM EDT) Result 1 Comment [facility] Comment:No anaerobic growth in 72 hours. 05/01/2025 05/01/2025 Narrative [facility] - 05/07/2025 8:07 PM EDT Performed at: [facility] [id number] Operating Room Coordinator: José Miguel Williamson PhD, Phone: [phone] us Diane Velez PA-C PATHOLOGY/CYTOLOGY ORDERAB LES Final Result [facility] * ANAEROBIC AND AEROBIC CULTURE (05/01/2025 12:00 AM EDT) Anaerobic Culture Final report [facility] Aerobic Culture Final report [facility] 05/01/2025 05/01/2025 Narrative [facility] - 05/07/2025 8:07 PM EDT Performed at: - [facility] [address] [id number] Operating Room Coordinator: José Miguel Williamson PhD, Phone: [phone] Diane Velez PA-C PATHOLOGY/CYTOLOGY ORDERAB LES Final Result [facility] documented in this encounter Visit Diagnoses Not on filedocumented in this encounter Care Teams Lime Kiln Tender Relationship Specialty Start Date End Date Diane Velez PA-C [address] [facility] [address] [place] [phone] PCP - General Family Medicine 04/18/25 documented as of this encounter
--- OUTSIDE RECORDS SUMMARY | 2025-05-11 08:47 | XMS_ITS | Encounter Summary ---
Author Organization Healthcare Address [address] [place] [address] Care Team Providers Care Blacksmith Farm Name Role Phone Joanna Osborne DO Primary Care Provider [phone] [phone] Encounter Details Date Type Department Care Team [...] Description 05/15/2025 3:30 PM EDT Office Visit [facility] [address] [place] [address] Santi Hoffmann MD [address] [facility] [address] [place] [address] documented as of this encounter [...] documented as of this encounter Care Teams Blacksmith Farm Relationship Specialty Start Date End Date Joanna Osborne DO [address] [place] [address] PCP - General 04/09/25 documented as of this encounter
--- OUTSIDE RECORDS SUMMARY | 2025-05-11 08:47 | XMS_ITS | Encounter Summary ---
Author Organization Healthcare Address [address] [place] [address] Care Team Providers Care Hand Binder Cutter Name Role Phone Joanna Osborne DO Primary Care Provider +1 -[phone] Encounter Details Date Type Department Care Team [...] Description 05/15/2025 3:30 PM EDT Office Visit [facility] [address] [place] [address] Santi Hoffmann MD [address]01 [facility] [address] [place] [address] documented as of this encounter Visit Diagnoses [...] documented as of this encounter Care Teams Hand Binder Cutter Relationship Specialty Start Date End Date Joanna Osborne DO [address] [place] [address] PCP - General 04/09/25 documented as of this encounter
--- OUTSIDE RECORDS SUMMARY | 2025-05-11 08:47 | XMS_ITS | Clinical Summary ---
Author Organization Healthcare Address [address] [place] [address] Care Team Providers Care Addiction Psychiatrist Name Role Phone Joanna Osborne DO Primary Care Provider [phone] Allergies Active Allergy Reactions Criticality Noted Date [...] PM EDT Emergency [facility] Emergency Department [address] [place] [phone] Imelda Arroyo MD Nausea and vomiting, unspecified vomiting type (Primary Dx); Hyponatremia; Intermittent confusion Discharge Disposition: Home or Self Care 04/25/2025 Travel 04/21/2025 7:18 AM EDT - 04/21/2025 1:07 PM EDT Emergency [facility] Emergency Department [address] [place] [address] Ming Garner MD Periumbilical abdominal pain (Primary Dx); Constipation, unspecified constipation type Discharge Disposition: Home or Self Care 04/21/2025 Patient Outreach [facility] Medicine Specialties [address] [place] [address] Stanley Callahan 04/21/2025 Orders Only External Location [address] [place] [address] Provider, External 04/21/2025 Travel 04/16/2025 8:00 AM EDT Office Visit [facility] [address] [place] [phone] Santi Hoffmann MD Leg swelling (Primary Dx); Hepatitis C antibody positive 04/16/2025 Travel 04/09/2025 Community Orders [facility] [address] [place] [address] Diane Velez PA Puncture wound of left lower leg, initial encounter (Primary Dx); Puncture wound of left lower leg, subsequent encounter; Night sweats; Pain of left lower extremity; Acute cellulitis; Severe pain from Last 3 Months Immunizations Immunization Administration Dates Next Due Hep A, Adult 06/01/2019 Influenza, High-dose, Split Virus, Trivalent, Injectable, preservative free 09/05/2021,08/24/2019,08/15/2018 Influenza, high-dose, quadrivalent 07/18/2020 Influenza, seasonal, injectable 08/31/2021,11/01,07/19/2017 [email or web address] COVID-19 Vac cine (Purple Cap) 12+ 07/02/2021 [...] Description 05/15/2025 3:30 PM EDT Office Visit [facility] [address] [place] [address] Santi Hoffmann MD [address] [address] Health Maintenance Due Date Last [...] - PCV20 or PCV21) 05/14/2022 05/14/2017, 03/18/2015 [id number] Vaccine (4 - season) 2024 08/07/2021, 07/16/2021, [...] 2 Hour, Plasma (04/25/2025 1:03 PM EDT) [facility] Troponin T, High Sensitivity, 2 Hour 21(H) <14 ng/L 04/25/2025 1:29 PM EDT [facility] Troponin Delta 2 <10 ng/L 04/25/2025 1:29 PM EDT [facility] Troponin Delta Interpretation Not Significant 04/25/2025 1:29 PM EDT [facility] Comment:Not Significant. No acute change in troponin observed between the baseline and 2 hour samples. Blood Venous blood specimen / Unknown Venipuncture / Unknown 04/25/2025 1:03 PM EDT 04/25/2025 1:05 PM EDT Titus Crandall MD LAB BLOOD ORDERABLES Final Res ult Performing Organization Address [facility] Co de Phone Number [facility] [address] [place] [address] * Urine Mondragon Panel (04/25/2025 11:52 AM EDT) Extra Reflex urine culture not indicated 04/25/2025 9:01 PM EDT [facility] Comment: Previously prelim verified as [...] ORDERABLES Final Res ult Performing Organization Address [facility]/ZIP Co de Phone Number [facility] [address] [place] [address] * Sodium, urine, random (04/25/2025 11:52 AM EDT) Sodium, Urine 60 mmol/L 04/25/2025 12:31 PM EDT [facility] Urine Urine specimen obtained by clean catch procedure / Unknown Non-blood Collection / Unknown 04/25/2025 11:52 AM EDT 04/25/2025 12:15 PM EDT Imelda Arroyo MD LAB URINE ORDERABLES Final Res ult Performing Organization Address City/[facility]/ZIP Co de Phone Number [facility] [address] [place] [address] * Osmolality, urine (04/25/2025 11:52 AM EDT) Osmolality, Urine 315 50 - 1,200 mOsm/kg 04/25/2025 12:56 PM EDT [facility] Urine Urine specimen obtained by clean catch procedure / Unknown Non-blood Collection / Unknown 04/25/2025 11:52 AM EDT 04/25/2025 12:15 PM EDT Imelda Arroyo MD LAB URINE ORDERABLES Final Res ult Performing Organization Address [facility] Co de Phone Number [facility] [address] [place] [address] * Urinalysis with reflex microscopic (Culture NOT Included) (04/25/2025 11:52 AM EDT) Color, Urine Yellow LAB URINALYSIS - AUTOMATED METHOD 04/25/2025 11:58 AM EDT [facility] Clarity, Urine Clear LAB URINALYSIS - AUTOMATED METHOD 04/25/2025 11:58 AM EDT [facility] Spec [place], Urine 1.011 1.005 - 1.030 LAB URINALYSIS - AUTOMATED METHOD 04/25/2025 11:58 AM EDT [facility] pH, Urine 7.5 5.0 - 8.0 LAB URINALYSIS - AUTOMATED METHOD 04/25/2025 11:58 AM EDT [facility] Protein, Urine Negative Negative mg/dL LAB URINALYSIS - AUTOMATED METHOD 04/25/2025 11:58 AM EDT [facility] Glucose, Urine Negative Negative mg/dL LAB URINALYSIS - AUTOMATED METHOD 04/25/2025 11:58 AM EDT [facility] Ketones, Urine Negative Negative mg/dL LAB URINALYSIS - AUTOMATED METHOD 04/25/2025 11:58 AM EDT [facility] Blood, Urine Negative Negative LAB URINALYSIS - AUTOMATED METHOD 04/25/2025 11:58 AM EDT [facility] Bilirubin, Urine Negative Negative LAB URINALYSIS - AUTOMATED METHOD 04/25/2025 11:58 AM EDT [facility] Urobilinogen, Urine 0.2 0.2 to 1.0 mg/dL LAB URINALYSIS - AUTOMATED METHOD 04/25/2025 11:58 AM EDT [facility] Leukocytes, Urine Negative Negative LAB URINALYSIS - AUTOMATED METHOD 04/25/2025 11:58 AM EDT [facility] Nitrite, Urine Negative Negative LAB URINALYSIS - AUTOMATED METHOD 04/25/2025 11:58 AM EDT [facility] Urine Urine specimen obtained by clean catch procedure / Unknown Non-blood Collection / Unknown 04/25/2025 11:52 AM EDT 04/25/2025 11:55 AM EDT us Titus Crandall MD LAB URINE ORDERABLES Final Res ult [facility] [address] [place] [address] * EKG now - STAT (adult) (04/25/2025 10:44 AM EDT) Only the most recent of2 resultswithin the time period is included. EKG DIAGNOSIS CLASS Normal MUSE ECG Ventricular Rate 77 BPM MUSE ECG Atrial Rate 77 BPM MUSE ECG [place] Interval 140 ms MUSE ECG QRSD Interval 86 ms MUSE ECG QT Interval 394 ms MUSE ECG QTC Interval 445 ms MUSE ECG P Petroleum 74 degrees MUSE ECG R Petroleum 12 degrees MUSE ECG T Wave Petroleum 42 degrees MUSE ECG Diagnosis Normal sinus rhythm MUSE ECG Diagnosis Normal ECG MUSE ECG Diagnosis MUSE ECG Diagnosis Confirmed by Ollie Galeana ([id number]) on 04/25/2025 11:11:27 AM MUSE ECG 04/25/2025 10:4 4 AM EDT 04/25/2025 11:11 AM EDT us Titus Crandall MD ECG ORDERABLES Final Result Performing Organization Address City/[facility]/ZIP Co de Phone Number MUSE ECG * (ABNORMAL) Troponin now and 120 min (04/25/2025 10:37 AM EDT) Troponin T, High Sensitivity, 0 Hour 23(H) <14 ng/L 04/25/2025 11:08 AM EDT [facility] Blood Venous blood specimen / Unknown Venipuncture / Unknown 04/25/2025 10:37 AM EDT 04/25/2025 10:41 AM EDT us Titus Crandall MD LAB BLOOD ORDERABLES Final Res ult Performing Organization Address [facility] Co de Phone Number [facility] [address] [place] [address] * BNP (04/25/2025 10:37 AM EDT) Only the most recent of2 resultswithin the time period is included. N-Terminal, PROBNP, Plasma 336 0 - 899 pg/mL 04/25/2025 11:08 AM EDT [facility] Blood Venous blood specimen / Unknown Venipuncture / Unknown 04/25/2025 10:37 AM EDT 04/25/2025 10:41 AM EDT us Titus Crandall MD LAB BLOOD ORDERABLES Final Res ult Performing Organization Address City/[facility] Co de Phone Number [facility] [address] [place] [address] * (ABNORMAL) CBC w/diff (04/25/2025 10:37 AM EDT) Only the most recent of3 resultswithin the time period is included. WBC Count 6.98 3.70 - 10.30 10*3/uL LAB HEMATOLOGY METHOD 04/25/2025 10:44 AM EDT [facility] RBC Count 3.87(L) 3.90 - 5.20 10*6/uL LAB HEMATOLOGY METHOD 04/25/2025 10:44 AM EDT [facility] HGB 11.8 11.2 - 15.7 g/dL LAB HEMATOLOGY METHOD 04/25/2025 10:44 AM EDT [facility] HCT 33.3(L) 34.0 - 45.0 % LAB HEMATOLOGY METHOD 04/25/2025 10:44 AM EDT [facility] Platelet Count 292 155 - 369 10*3/uL LAB HEMATOLOGY METHOD 04/25/2025 10:44 AM EDT [facility] MCV 86 79 - 98 fL LAB HEMATOLOGY METHOD 04/25/2025 10:44 AM EDT [facility] MCH 30.5 26.0 - 32.0 pg LAB HEMATOLOGY METHOD 04/25/2025 10:44 AM EDT [facility] MCHC 35.4 30.7 - 35.5 g/dL LAB HEMATOLOGY METHOD 04/25/2025 10:44 AM EDT [facility] RDW 12.1 11.5 - 14.5 % LAB HEMATOLOGY METHOD 04/25/2025 10:44 AM EDT [facility] MPV 9.1 8.8 - 12.5 fL LAB HEMATOLOGY METHOD 04/25/2025 10:44 AM EDT [facility] nRBC 0.0 <=0.0 per 100 WBCs LAB HEMATOLOGY METHOD 04/25/2025 10:44 AM EDT [facility] Differential Type Automated LAB HEMATOLOGY METHOD 04/25/2025 10:44 AM EDT [facility] Neutrophils % 70 % LAB HEMATOLOGY METHOD 04/25/2025 10:44 AM EDT [facility] Lymphocytes % 17 % LAB HEMATOLOGY METHOD 04/25/2025 10:44 AM EDT [facility] Monocytes % 10 % LAB HEMATOLOGY METHOD 04/25/2025 10:44 AM EDT [facility] Eosinophils % 3 % LAB HEMATOLOGY METHOD 04/25/2025 10:44 AM EDT [facility] Basophils % 0 % LAB HEMATOLOGY METHOD 04/25/2025 10:44 AM EDT [facility] Immature Granulocytes % 0 % LAB HEMATOLOGY METHOD 04/25/2025 10:44 AM EDT [facility] Neutrophils Absolute 4.90 1.60 - 6.10 10*3/uL LAB HEMATOLOGY METHOD 04/25/2025 10:44 AM EDT [facility] Lymphocytes Absolute 1.20 1.20 - 3.90 10*3/uL LAB HEMATOLOGY METHOD 04/25/2025 10:44 AM EDT [facility] Monocytes Absolute 0.66 0.30 - 0.90 10*3/uL LAB HEMATOLOGY METHOD 04/25/2025 10:44 AM EDT [facility] Eosinophils Absolute 0.18 0.00 - 0.50 10*3/uL LAB HEMATOLOGY METHOD 04/25/2025 10:44 AM EDT [facility] Basophils Absolute 0.02 0.00 - 0.10 10*3/uL LAB HEMATOLOGY METHOD 04/25/2025 10:44 AM EDT [facility] Immature Granulocytes Absolute 0.02 0.00 - 0.06 10*3/uL LAB HEMATOLOGY METHOD 04/25/2025 10:44 AM EDT [facility] Blood Venous blood specimen / Unknown Venipuncture / Unknown 04/25/2025 10:37 AM EDT 04/25/2025 10:42 AM EDT Narrative [facility] - 04/25/2025 10:44 AM EDT Therapeutic decision making should be based on absolute values, rather than percentages. us Titus Crandall MD LAB BLOOD ORDERABLES Final Res ult [facility] [address] [place] [address] * (ABNORMAL) Osmolality (04/25/2025 10:37 AM EDT) Osmolality, Serum 264(L) 280 - 301 mOsm/Kg 04/25/2025 12:22 PM EDT [facility] Blood Venous blood specimen / Unknown Venipuncture / Unknown 04/25/2025 10:37 AM EDT 04/25/2025 10:41 AM EDT us Imelda Arroyo MD LAB BLOOD ORDERABLES Final Res ult Performing Organization Address [facility]/ZIP Co de Phone Number [facility] [address] [place] [address] * (ABNORMAL) Lipase (04/25/2025 10:37 AM EDT) Only the most recent of2 resultswithin the time period is included. Lipase, Plasma 157(H) 19 - 63 U/L 04/25/2025 11:08 AM EDT [facility] Blood Venous blood specimen / Unknown Venipuncture / Unknown 04/25/2025 10:37 AM EDT 04/25/2025 10:41 AM EDT Titus Crandall MD LAB BLOOD ORDERABLES Final Res ult Performing Organization Address [facility] Co de Phone Number [facility] [address] [place] [address] * (ABNORMAL) CMP (04/25/2025 10:37 AM EDT) Only the most recent of3 resultswithin the time period is included. Glucose, Plasma 107(H) 74 - 99 mg/dL 04/25/2025 11:08 AM EDT [facility] BUN, Plasma 22 8 - 23 mg/dL 04/25/2025 11:08 AM EDT [facility] Creatinine, Plasma 0.87 0.60 - 1.10 mg/dL 04/25/2025 11:08 AM EDT [facility] BUN/Creatinine Ratio 04/25/2025 11:08 AM EDT [facility] Sodium, Plasma 126(L) 136 - 145 mmol/L 04/25/2025 11:08 AM EDT [facility] Potassium, Plasma 3.6 3.6 - 4.9 mmol/L 04/25/2025 11:08 AM EDT [facility] Chloride, Plasma 90(L) 97 - 107 mmol/L 04/25/2025 11:08 AM EDT [facility] CO2, Plasma 24 22 - 29 mmol/L 04/25/2025 11:08 AM EDT [facility] Anion Gap 12 6 - 16 mmol/L 04/25/2025 11:08 AM EDT [facility] Total Calcium, Plasma 9.8 8.9 - 10.2 mg/dL 04/25/2025 11:08 AM EDT [facility] Total Protein 7.0 6.3 - 7.9 g/dL 04/25/2025 11:08 AM EDT [facility] Albumin, Plasma 4.1 3.5 - 5.2 g/dL 04/25/2025 11:08 AM EDT [facility] AST, Plasma 35 10 - 35 U/L 04/25/2025 11:08 AM EDT [facility] ALT, Plasma 44(H) 10 - 35 U/L 04/25/2025 11:08 AM EDT [facility] Alkaline Phosphatase, Plasma 137 46 - 142 U/L 04/25/2025 11:08 AM EDT [facility] Total Bilirubin, Plasma 0.6 0.2 - 1.1 mg/dL 04/25/2025 11:08 AM EDT [facility] eGFRcr 71.3 mL/min/1.7 3m*2 04/25/2025 11:08 AM EDT [facility] Comment:Reported eGFRcr in m L/min/1.73m2 is based the CKD-EPI 2020 equation that does not use a race coefficient. Blood Venous blood specimen / Unknown Venipuncture / Unknown 04/25/2025 10:37 AM EDT 04/25/2025 10:41 AM EDT us Titus Crandall MD LAB BLOOD ORDERABLES Final Res ult [facility] [address] [place] [address] * CT Abdomen Pelvis w IV Contrast [...] Reactive Non Reactive 04/21/2025 9:41 AM EDT [facility] Comment:Screening for HIV 1 & 2 antibodies, and P24 antigen is NONREACTIVE. No confirmatory testing is required. Blood Venous blood specimen / Unknown Venipuncture / Unknown 04/21/2025 8:39 AM EDT 04/21/2025 9:06 AM EDT us Ming Garner MD LAB BLOOD ORDERABLES Final Result [facility] [address] [place] [id number] * Hepatitis C Virus (HCV) Quantitative PCR - ED (04/21/2025 8:39 AM EDT) Pathologist [facility] Hepatitis C Virus (HCV) Quantitative Interpretation Not Detected Not Detected. 04/25/2025 1:47 PM EDT [facility] Blood Venous blood specimen / Unknown Venipuncture / Unknown 04/21/2025 8:39 AM EDT 04/21/2025 9:03 AM EDT Narrative [facility] - 04/25/2025 1:47 PM EDT The Dezine[employer] M2000 HCV test is a Real Time [...] ORDERABLES Final Result Performing Organization Address City/[facility]/ZIP Co de Phone Number [facility] [address] [place] [address] * (ABNORMAL) Hepatitis C Antibody - ED (04/21/2025 8:39 AM EDT) Hepatitis C Antibody Positive(A ) Negative 04/21/2025 9:49 AM EDT [facility] Blood Venous blood specimen / Unknown Venipuncture / Unknown 04/21/2025 8:39 AM EDT 04/21/2025 9:03 AM EDT Ming Garner MD LAB BLOOD ORDERABLES Final Result [facility] [address] [place] [address] * PT-INR (04/21/2025 8:39 AM EDT) Prothrombin Time 13.7 12.0 - 14.3 sec 04/21/2025 8:58 AM EDT [facility] INR 1.1 0.9 - 1.1 04/21/2025 8:58 AM EDT [facility] Blood Venous blood specimen / Unknown Venipuncture / Unknown 04/21/2025 8:39 AM EDT 04/21/2025 8:44 AM EDT Narrative [facility] - 04/21/2025 8:58 AM EDT OPTIMAL INR RANGES FOR PATIENT ON ORAL ANTICOAGULANT THERAPY Prevention of venous thromboembolism INR 2.0 to 3.0 In patients with heart disease: Atrial fibrillation INR 2.0 to 3.0 Valvular heart disease INR 2.0 to 3.0 Tissue heart valves INR 2.0 to 3.0 Mechanical prosthetic valves INR 2.5 to 3.5 Prevention of recurrent OH INR 2.5 to 3.5 us Ming Garner MD LAB BLOOD ORDERABLES Final Result Performing Organization Address [facility] Co de Phone Number [facility] [address] [place] [address] * Thyroid Stimulating Hormone, Plasma (04/21/2025 8:39 AM EDT) Thyroid Stimulating Hormone, Plasma 1.78 0.40 - 4.20 uIU/mL 04/21/2025 9:24 AM EDT [facility] Blood Venous blood specimen / Unknown Venipuncture / Unknown 04/21/2025 8:39 AM EDT 04/21/2025 8:44 AM EDT Ming Garner MD LAB BLOOD ORDERABLES Final Result Performing Organization Address City/[facility]/ZIP Co de Phone Number [facility] [address] [place] [address] * Free T4, Plasma (04/21/2025 8:39 AM EDT) Free T4, Plasma 1.4 0.8 - 1.7 ng/dL 04/21/2025 9:17 AM EDT [facility] Blood Venous blood specimen / Unknown Venipuncture / Unknown 04/21/2025 8:39 AM EDT 04/21/2025 8:44 AM EDT Ming Garner MD LAB BLOOD ORDERABLES Final Result [facility] [address] [place] [address] * Magnesium (04/21/2025 8:39 AM EDT) [facility] Magnesium, Plasma 1.9 1.9 - 2.4 mg/dL 04/21/2025 9:24 AM EDT [facility] Blood Venous blood specimen / Unknown Venipuncture / Unknown 04/21/2025 8:39 AM EDT 04/21/2025 8:44 AM EDT Ming Garner MD LAB BLOOD ORDERABLES Final Result Performing Organization Address City/[facility]/[place] [address] * POC Imaging (04/21/2025) Anatomical Region Laterality Modality Pelvis Other 04/21/2025 us External Provider IMG POINT OF CARE ULTRASOUND F inal Result * (ABNORMAL) D DIMER, QUANTITATIVE (04/16/2025 9:26 AM EDT) [facility] D Dimer, Quantitative 1.22(H) <0.50 ug/mL FEU LAB COAGULATION METHOD 04/16/2025 1:07 PM EDT [facility] Blood Venous blood specimen / Unknown Venipuncture / Unknown 04/16/2025 9:26 AM EDT 04/16/2025 9:36 AM EDT Narrative [facility] - 04/16/2025 1:07 PM [...] ORDERABLES Lela l Result Performing Organization Address [facility] [place] [address] * Blood Culture (Aerobic/Anaerobet Set) (04/16/2025 9:26 AM EDT) Only the most recent of2 resultswithin the time period is included. [facility] Culture No growth at day 5 MELBA 04/21/2025 1:02 PM EDT [facility] Blood Venous blood specimen / Unknown Venipuncture / Unknown 04/16/2025 9:26 AM EDT 04/16/2025 9:36 AM EDT Santi Hoffmann MD LAB MICROBIOLOGY - GENERA L ORDERABLES Final Result Performing Organization Address [facility] [place] [address] * (ABNORMAL) C-reactive protein (04/16/2025 9:26 AM EDT) [facility] CRP, Plasma 17.7(H) <=8.0 mg/L 04/16/2025 12:44 PM EDT [facility] Blood Venous blood specimen / Unknown Venipuncture / Unknown 04/16/2025 9:26 AM EDT 04/16/2025 9:36 AM EDT Narrative [facility] - 04/16/2025 12:44 PM EDT This CRP test is appropriate for assessment of infection, systemic inflammation and/or tissue injury. To assess cardiovascular disease risk order high sensitivity CRP (CRPH). Santi Hoffmann MD LAB BLOOD ORDERABLES Lela l Result [facility] [address] [place] [address] from Last 3 Months Insurance [facility] MEDICARE Care Teams Addiction Psychiatrist Relationship Specialty Start Date End Date Joanna Osborne DO [address] [place] [address] PCP - General 04/09/25
--- OUTSIDE RECORDS SUMMARY | 2025-05-11 08:47 | XMS_ITS | Encounter Summary ---
Author Organization Healthcare Address [address] [place] [address] Care Team Providers Care Baggageman Name Role Phone Joanna Osborne Primary Care Provider [phone] [phone] Encounter Details Date Type Department Care Team (Late st Contact Info) Description 04/21/2025 Orders Only External Location [address] [place] [id number] Provider, External Social History Tobacco Use Types [...] PM EDT Office Visit [facility] [address] [place] [address] Santi Hoffmann MD [address] [facility] [address] [place] [address] documented as of this encounter [...] documented as of this encounter Care Teams Baggageman Relationship Specialty Start Date End Date Joanna Osborne DO [address] [facility] [address] [place] [address] PCP - General 04/09/25 documented as of this encounter
--- OUTSIDE RECORDS SUMMARY | 2025-05-11 08:47 | XMS_ITS | Encounter Summary ---
Author Organization Healthcare Address [address] [address] Care Team Providers Care Liner Roll Changer Name Role Phone Joanna Osborne DO Primary Care Provider [phone] [phone] Encounter Details Date Type Department Care Team (Late st Contact Info) Description 04/21/2025 Patient Outreach [facility] [address] [place] [address] Stanley Callahan Social History Tobacco Use Types [...] Description 05/15/2025 3:30 PM EDT Office Visit [facility] [address] [place] [address] Santi Hoffmann MD [address] [facility] [address] [place] [address] documented as of this encounter [...] documented as of this encounter Care Teams Liner Roll Changer Relationship Specialty Start Date End Date Joanna Osborne DO [address] [place] [address] PCP - General 04/09/25 documented as of this encounter
--- OUTSIDE RECORDS SUMMARY | 2025-05-11 08:47 | XMS_ITS | Encounter Summary ---
Author Organization Healthcare Address [address] [place] [address] Care Team Providers Care Hollow Core Door Frame Assembler Name Role Phone Joanna Osborne Primary Care Provider [phone] Encounter Details Date Type Department Care Team [...] Description 05/15/2025 3:30 PM EDT Office Visit [facility] [address] [place] [address] Santi Hoffmann MD [address] [address] documented as of this encounter Visit Diagnoses [...] documented as of this encounter Care Teams Hollow Core Door Frame Assembler Relationship Specialty Start Date End Date Joanna Osborne DO [address] [facility] [address] [place] [address] PCP - General 04/09/25 documented as of this encounter
--- OUTSIDE RECORDS SUMMARY | 2025-05-11 08:48 | XMS_ITS | Encounter Summary ---
Author Organization [employer] ([place], [place], [place], [place]) Address [address] [place] [address] Care Team Providers Care Staff Consultant Name Role Phone Diane Velez PA-C Primary Care Provider +1- [phone] Encounter Details Date Type Department Care Team (Late st Contact Info) Description 05/07/2025 Orders Only [facility] Primary Care & Internal Med [address] [address] Provider, MD Tamiko [address] [place], [place] [id number] Social History Tobacco Use Types Packs/Day Years [...] for daily living? No 06/27/2024 [facility] - Mental Health Answer Date Recorde d [...] Date Gil rded Speak language other than Emir[place] at home Not on file 11/13/2023 Want [...] Info) Description 07/05/2025 9:15 AM EDT Appointment [facility] [address] [place] [address] 07/10/2025 10:00 AM EDT Office Visit [facility] Primary Care & Internal Med [address] [place] [address] [address] Diane Velez PA-C [address] Mariel[address] Tabares [address] [address] documented as of this encounter Procedures Procedure Name Priority Date/Time Associated Diagnosis Comments EXTERNAL LAB - MISC Routine 05/03/2025 1:15 PM EDT documented in this encounter Results * EXTERNAL LAB - MISC (05/03/2025 1:15 PM EDT) us Historical Provider LAB BLOOD ORDERABLES Lela l Result documented in this encounter Visit Diagnoses Not on filedocumented in this encounter Care Teams Staff Consultant Relationship Specialty Start Date End Date Diane Velez PA-C [address] Marielena Tabares [address] [address] PCP - General Family Medicine 04/18/25 documented as of this encounter
--- OUTSIDE RECORDS SUMMARY | 2025-05-11 08:48 | XMS_ITS | Encounter Summary ---
Author Organization [employer] ([place], [place], [place], [place]) Address [address] [place] [address] Care Team Providers Care Civil Design Specialist Name Role Phone Joanna Osborne DO Primary Care Provider Diane Velez PA-C Primary Care Provider +1- [phone] Joanna Osborne DO Primary Care Provider Diane Velez PA-C Primary Care Provider +1- [phone] Joanna Osborne DO Primary Care Provider Diane Velez PA-C Primary Care Provider +1- [phone] Reason for Visit * Reason Comments Medication Refill Encounter Details Date Type Department Care Team (Late st Contact Info) Description 02/01/2023 Refill [facility] Primary Care & Internal Med [address] [facility] [address] [address] Diane Velez PA-C [address] [address] Social History Tobacco Use Types [...] Description 07/05/2025 9:15 AM EDT Appointment [address] [place] [address] 07/10/2025 10:00 AM EDT Office Visit [facility] Primary Care & Internal Med [address] [facility] [address] [phone] Diane Velez PA-C [address] [place] [phone] documented as of this encounter Visit Diagnoses Not on filedocumented in this encounter Care Teams Civil Design Specialist Relationship Specialty Start Date End Date Joanna Osborne DO 1401 [facility] [address] [place] [address] PCP - General Internal Medicine 10/27/22 06/06/23 Diane Velez PA-C [address] [phone] PCP - General Family Medicine 06/07/23 06/23/23 Joanna Osborne DO 14[address] [facility] [address] [place] [address] PCP - General Internal Medicine 06/24/23 10/20/23 Diane Velez PA-C [address] [place] [phone] PCP - General Family Medicine 10/21/23 01/10/25 Joanna Osborne DO 14[address] [facility] [address] [place] [address] PCP - General Internal Medicine 01/11/25 01/16/25 Diane Velez PA-C 1401 [facility] [address] [place] [address] PCP - General Family Medicine 04/18/25 documented as of this encounter
--- OUTSIDE RECORDS SUMMARY | 2025-05-11 08:48 | XMS_ITS | Encounter Summary ---
Author Organization [employer] ([place], [place], [place], [place]) Address [address] [place] [address] Care Team Providers Care Gas Compressor Turbine Operator Name Role Phone Joanna Osborne DO Primary Care Provider Diane Velez PA-C Primary Care Provider +1- [phone] Joanna Osborne DO Primary Care Provider Diane Velez PA-C Primary Care Provider +1- [phone] Joanna Osborne DO Primary Care Provider Diane Velez PA-C Primary Care Provider +1- [phone] Reason for Visit * Reason Comments Medication Refill Encounter Details Date Type Department Care Team (Late st Contact Info) Description 01/23/2023 Refill [facility] Primary Care & Internal Med 1401 [facility] [address] [address] Diane Velez PA-C [address] [address] Social History Tobacco Use Types [...] Description 07/05/2025 9:15 AM EDT Appointment [address] [place] [address] 07/10/2025 10:00 AM EDT Office Visit [facility] Primary Care & Internal Med 1401 [facility] [address] [phone] Diane Velez PA-C [address] [place] [phone] documented as of this encounter Visit Diagnoses Not on filedocumented in this encounter Care Teams Gas Compressor Turbine Operator Relationship Specialty Start Date End Date Joanna Osborne DO 1401 [facility] [address] [place] [address] PCP - General Internal Medicine 10/27/22 06/06/23 Diane Velez PA-C [address] [phone] PCP - General Family Medicine 06/07/23 06/23/23 Joanna Osborne DO 1401 [facility] [address] [place] [address] PCP - General Internal Medicine 06/24/23 10/20/23 Diane Velez PA-C [address] [place] [phone] PCP - General Family Medicine 10/21/23 01/10/25 Joanna Osborne DO 1401 [facility] [address] [place] [address] PCP - General Internal Medicine 01/11/25 01/16/25 Diane Velez PA-C 1401 [facility] [address] [place] [address] PCP - General Family Medicine 04/18/25 documented as of this encounter
--- OUTSIDE RECORDS SUMMARY | 2025-05-11 08:48 | XMS_ITS | Encounter Summary ---
Author Organization Healthcare Address [address] [place] [address] Care Team Providers Care Business Development Associate Name Role Phone [place] Joannajaydon Rock DO Primary Care Provider +1 -[phone] Reason for Referral * Consultation (Routine) - Closed Specialty Diagnoses / Procedures Referred By Sergio t Referred To Contact Infectious Diseases Diagnoses Puncture wound of left lower leg, subsequent encounter Night sweats Pain of left lower extremity Acute cellulitis Severe pain Diane Velez PA [address] [place] [address] Phone: tel: fax: Mejia Wright MD 3101 [facility] 100 [place] [address] Phone: tel: fax: Referral ID Status Reason Start Date Expiration Date V isits Requested Visits Authorized [id number] Closed Specialty Services Required 04/09/2025 10/09/2026 1 1 Encounter Details Date Type Department Care Team (Late st Contact Info) Description 04/09/2025 Community [facility] [address] [place] [address] Diane Velez PA 1401 [place] [address] Puncture wound of left lower leg, initial [...] Description 05/15/2025 3:30 PM EDT Office Visit [facility] [address] [place] [address] Santi Hoffmann MD 3101 [facility] 100 [place] [address] Scheduled Referrals Name Type Priority [...] pain documented in this encounter Care Teams Business Development Associate Relationship Specialty [place] [address] [place] [address] [address] [place] [address] PCP - General 04/09/25 documented as of this encounter
--- OUTSIDE RECORDS SUMMARY | 2025-05-11 08:48 | XMS_ITS ---
Author Organization Healthcare Address [address] [place] [address] Care Team Providers Care Medical Physics Professor Name Role Phone Joanna Osborne DO Primary Care Provider +1 -[phone] Hepatitis C Program Status:Closed (Closed) Start date:04/21/2025 Enrollment reason:HCV End date:04/21/2025 Close reason:HCV RNA Negative Continued Care and Services Coordination
--- OUTSIDE RECORDS SUMMARY | 2025-05-11 08:48 | XMS_ITS | Encounter Summary ---
Author Organization [facility] Address [address] [place] [address] Care Team Providers Care Gutter Hanger Name Role Phone Joanna Osborne DO Primary Care Provider +1 -[phone] Encounter Details Date Type Department Care Team (Late st Contact Info) Description 12/31/2015 [facility] Encounter Historical OTTR [address] [place] [address] Mignon Kirk [place] [id number] Social History Tobacco Use Types Packs/Day Years [...] AM EST Effective 12/31/[address] [facility] Surgical Clinic documented in this encounter Plan of Treatment Upcoming Encounters Date Type Department Care Team (Late st Contact Info) Description 05/15/2025 3:30 PM EDT Office Visit [address] [address] Santi Hoffmann MD [address] [facility] [address] [place] [address] documented as of this encounter [...] ORDERABLES Lela l Result Performing Organization Address [facility] Co de Phone Number EXTERNAL LAB * OTTR LAB RESULTS (MANUAL) (02/19/2016 3:00 AM EDT) External Estimated GFR 94.48 EXTERNAL LAB 02/19/2016 3:00 AM EDT Narrative EXTERNAL LAB - 02/23/2016 11:30 AM EDT Automated LAB Interface Historical Provider MD LAB BLOOD ORDERABLES Lela l Result Performing Organization Address City/[facility] Co de Phone Number EXTERNAL LAB * OTTR LAB RESULTS (MANUAL) (02/18/2016 9:33 PM EDT) External Estimated GFR 89.83 EXTERNAL LAB 02/18/2016 9:33 PM EDT Narrative EXTERNAL LAB - 02/18/2016 10:50 PM EDT Automated LAB Interface Historical Provider MD LAB BLOOD ORDERABLES Lela l Result Performing Organization Address City/[facility]/ZIP Co de Phone Number EXTERNAL LAB documented in this encounter Visit Diagnoses Not on filedocumented in this encounter Care Teams Gutter Hanger Relationship Specialty Start Date End Date Joanna Osborne DO [facility] [address] [place] [address] PCP - General 04/09/25 documented as of this encounter
--- OUTSIDE RECORDS SUMMARY | 2025-05-11 08:49 | XMS_ITS | Encounter Summary ---
Author Organization [employer] ([place], [place], [place], [place]) Address [address] [place] [address] Care Team Providers Care Superintendent Recreation Name Role Phone Joanna Osborne DO Primary Care Provider Diane Velez PA-C Primary Care Provider Joanna Osborne DO Primary Care Provider Diane Velez PA-C Primary Care Provider Joanna Osborne DO Primary Care Provider Diane Velez PA-C Primary Care Provider Encounter Details Date Type Department Care Team (Late st Contact Info) Description 12/20/2020 Transcribed Document [facility] Family Medicine [address] [place] [address] ProviderTamiko MD [address] [place] [address] Social History Tobacco Use Types [...] Tamiko Simons MD - 12/20/2020 1:34 PM RECREATION INSTRUCTOR Patient Education Materials Follows: It???s Cold and [...] to thoroughly wash your hands, use hand jig bore operator. While handwashing is best, hand jig bore operator helps to reduce the spread of germs when you are out and about. Have hand jig bore operator in several locations so you can always [...] keep people from also getting sick. Don???t [employer] It! Sneezing this time of year is [...] a PCP near you, please visit HYPERLINK [email or web address]. January 05, 2020 What to do [...] or other animals while sick. See [employer]PERLINK https://www.cdc.gov/coronavirus/2019-ncov/faq.html#5008-aMwK-uup-animals COVID-19 and Animals for more information. Call [...] clean your hands with an alcohol-based hand jig bore operator that contains at least 60 to 95% [...] clean your hands with an alcohol-based hand jig bore operator that contains at least 60% alcohol, covering [...] isolation precautions should be made on a ynxh-zn-onfu basis, in consultation with healthcare providers and [...] and water are not available, use hand jig bore operator. ? Change your dressing as told by [...] during your procedure. General instructions ??? Take nfhn-kne-vbhxicv and prescription medicines only as told by [...] activities are safe for you. ??? Take oodi-urz-ofglkls and prescription medicines only as told by [...] 05/07/2006 Document Revised: 03/05/2020 Document Reviewed: 03/05/2020 [employer] Patient Education ? 2020 [employer] Inc. Moderate [...] you are awake and alert. ??? Take idlb-xxo-miwbzng and prescription medicines only as told by [...] Reviewed: 02/06/2017 Else[employer] Patient Education ? 2020 [employer] Electronically signed by Mecca Buchanan Conversion Hoisting Pile Driving Engineer Juddner at 02/19/2023 2:16 PM CDT documented in this encounter Plan of Treatment Upcoming Encounters Date Type Department Care Team (Late st Contact Info) Description 07/05/2025 9:15 AM EDT Appointment [facility] [address] [facility] [address] [place] [phone] 07/10/2025 10:00 AM EDT Office Visit [facility] Primary Care & Internal Med 1401 [facility] [address] [phone] Diane Velez PA-C 1401 [facility] [address] [place] [phone] documented as of this encounter Visit Diagnoses Not on filedocumented in this encounter Care Teams Superintendent Recreation Relationship Specialty Start Date End Date India JoannaDO 1401 [facility] [address] [place], [place] [id number] PCP - General Internal Medicine 10/27/22 06/06/23 Diane Velez PA-C [address] [place] [address] [place] [phone] PCP - General Family Medicine 06/07/23 06/23/23 India JoannaDO eddie 1401 [facility] [address] [place] [address] PCP - General Internal Medicine 06/24/23 10/20/23 Diane Velez PA-C 1401 [facility] [address] [place] [phone] PCP - General Family Medicine 10/21/23 01/10/25 India JoannaDO eddie 1401 [facility] [address] [place] [address] PCP - General Internal Medicine 01/11/25 01/16/25 Diane Velez PA-C [address] [place] [phone] PCP - General Family Medicine 04/18/25 documented as of this encounter
--- OUTSIDE RECORDS SUMMARY | 2025-05-11 08:49 | XMS_ITS | Encounter Summary ---
Author Organization [employer] [facility] ([place], [place], [place], [place]) Address [address] [place] [address] Care Team Providers Care Felt Puller Name Role Phone Diane Velez PA-C Primary Care Provider +1- [phone] Encounter Details Date Type Department Care Team (Late st Contact Info) Description 05/07/2025 Abstract [facility] Primary Care & Internal Med 1401 [facility] [address] [place] [address] Estella Gaffney, SHERMAN [address] [facility] [address] [place], [place] [id number] Social History Tobacco Use Types Packs/Day Years [...] for daily living? No 06/27/2024 [facility] - Mental Health Answer Date Recorde d [...] Date Gil rded Speak language other than Finnish at home Not on file 11/13/2023 Want [...] Info) Description 07/05/2025 9:15 AM EDT Appointment [address] [place] [phone] 07/10/2025 10:00 AM EDT Office Visit [facility] Primary Care & Internal Med [address] [address] Diane Velez PA-C [address] [address] documented as of this encounter Visit Diagnoses Not on filedocumented in this encounter Care Teams Felt Puller Relationship Specialty Start Date End Date Diane Velez PA-C [address] [place] [address] [address] PCP - General Family Medicine 04/18/25 documented as of this encounter
--- OUTSIDE RECORDS SUMMARY | 2025-05-11 08:49 | XMS_ITS | Encounter Summary ---
Author Organization [employer] ([place], [place], [place], [place]) Address [address] [place] [address] Care Team Providers Care Reporting Process Consultant Name Role Phone Joanna Osborne DO Primary Care Provider Diane Velez PA-C Primary Care Provider Joanna Osborne DO Primary Care Provider Diane Velez PA-C Primary Care Provider +1- [phone] Joanna Osborne DO Primary Care Provider [phone] Diane Velez PA-C Primary Care Provider Encounter Details Date Type Department Care Team (Late st Contact Info) Description 12/20/[address] [facility] Family Medicine [address] [place] [address] ProviderTamiko MD [address] [place] [address] Social History Tobacco Use Types [...] Tamiko Simons MD - 12/20/2020 5:42 PM MILKING MACHINE TECHNICIAN Nursing Discharge Summary Entered On: 12/20/2020 17:43 EST Performed On: 12/20/2020 17:42 EST by ALICIA BREEN speech and language specialist Documentation Discharge Date/Time : 12/20/2020 17:30 EST [...] - 12/20/2020 17:42 EST Electronically signed by [facility] Conversion Flag Signalman Cerner at 02/19/2023 2:18 PM CDT documented in this encounter Plan of Treatment Upcoming Encounters Date Type Department Care Team (Late st Contact Info) Description 07/05/2025 9:15 AM EDT Appointment [address] [place] [address] 07/10/2025 10:00 AM EDT Office Visit [facility] Primary Care & Internal Med [address] [place] [address] [address] Diane Velez PA-C [address] [place] [phone] documented as of this encounter Visit Diagnoses Not on filedocumented in this encounter Care Teams Reporting Process Consultant Relationship Specialty Start Date End Date Joanna Osborne DO 1401 [facility] [address] [place], [place] [phone] PCP - General Internal Medicine 10/27/22 06/06/23 Diane Velez PA-C [address] [place] [phone] PCP - General Family Medicine 06/07/23 06/23/23 [place] [address] [place] [address] [address] [place] [address] PCP - General Internal Medicine 06/24/23 10/20/23 Diane Velez PA-C 1401 [facility] Ernesto [address] [place] [address] PCP - General Family Medicine 10/21/23 01/10/25 Joanna Osborne, DO 1401 [facility] [address] [place] [address] PCP - General Internal Medicine 01/11/25 01/16/25 Diane Velez PA-C 1401 [facility] [address] [place] [address] PCP - General Family Medicine 04/18/25 documented as of this encounter
--- OUTSIDE RECORDS SUMMARY | 2025-05-11 08:49 | XMS_ITS | Encounter Summary ---
Author Organization [employer] ([place], [place], [place], [place]) Address [address] [place] [address] Care Team Providers Care Charter Coach Driver Name Role Phone Rosemarie Eagle PA-C Primary Care Provider +1- [phone] Reason for Visit * Reason Onset Date Comments Medication Refill 04/13/2025 Encounter Details Date Type Department Care Team (Late st Contact Info) Description 04/13/2025 Refill [facility] Primary Care & Internal Med [address] [place] [phone] Rosemarie Eagle PA-C [address] [address] Social History Tobacco Use Types [...] 3:44 PM EDT FROM: Bambi Hidalgo TO: [facility] INTERNAL MEDICINE 8 CLINICAL FINISHED GARMENT INSPECTOR [[id number]] SUBJECT: Medication Related Request PROVIDER: ROSEMARIE EAGLE [[id number]] DEPART[facility] [[id number]] ENCOUNTER REASON FOR CALL: MEDICATION REFILL [[id number]] ENCOUNTER TYPE: Refill REASON FOR CALL: Refill [...] Max Daily Amount: 20 mg PREFERRED PHARMACY? [facility] [address] [place] [address] [address] [facility] [address] CALLER'S NAME: Negra Palma RELATION TO PATIENT: Self [1] PREFERRED LANGUAGE: Haitian BEST CALL BACK PHONE NUMBER: Home Phone: ([phone]) WHAT IS THE BEST WAY FOR THE OFFICE TO CONTACT YOU?: OK to leave message on voicemail documented in this encounter Plan of Treatment Upcoming Encounters Date Type Department Care Team (Late st Contact Info) Description 07/05/2025 9:15 AM EDT Appointment [address] [place] [address] 07/10/2025 10:00 AM EDT Office Visit [facility] Primary Care & Internal Med [address] [address] Rosemarie Eagle PA-C [address] [address] documented as of this encounter Visit Diagnoses Not on filedocumented in this encounter Care Teams Charter Coach Driver Relationship Specialty Start Date End Date Rosemarie Eagle PA-C [address] [address] PCP - General Family Medicine 04/18/25 documented as of this encounter
--- OUTSIDE RECORDS SUMMARY | 2025-05-11 08:49 | XMS_ITS | Encounter Summary ---
Author Organization [employer] ([place], [place], [place], [place]) Address [address] [place] [address] Care Team Providers Care Engineer Specialist Name Role Phone Joanna Osborne DO Primary Care Provider Diane Velez PA-C Primary Care Provider [phone] Joanna Osborne DO Primary Care Provider Diane Velez PA-C Primary Care Provider [phone]- [phone] Joanna Osborne DO Primary Care Provider Diane Velez PA-C Primary Care Provider Encounter Details Date Type Department Care Team (Late st Contact Info) Description 12/20/2020 Transcribed Document [facility] [address] [place] [address] ProviderTamiko MD [address] [place] [address] Social History Tobacco Use Types [...] Tamiko Simons MD - 12/20/2020 1:35 PM [employer]KE [employer] FINISHER Nursing Discharge Summary Entered On: 12/20/2020 13:35 EST Performed On: 12/20/2020 13:35 EST by MYRTLE HERNANDEZ floor specialist Documentation Mode Of Departure, General Discharge : Private vehicle Accompanied By, Discharge : Friend IV Discontinued : Yes Personal Belongings With Patient : Yes Discharge Instructions Reviewed With, Opportunity For Questions Given : Patient, Friend Patient Education Completed : Yes Teaching Method : Printed materials Teaching Evaluation : Returns demonstration, Verbalizes understanding MYRTLE HERNANDEZ RN - 12/20/2020 13:35 EST Electronically signed by [facility] Conversion Tubing Assembler Cerner at 02/19/2023 2:26 PM CDT documented in this encounter Plan of Treatment Upcoming Encounters Date Type Department Care Team (Late st Contact Info) Description 07/05/2025 9:15 AM EDT Appointment [address] [place] [address] 07/10/2025 10:00 AM EDT Office Visit [facility] Primary Care & Internal Med [address] [place] [address] [address] Diane Velez PA-C [address] [place] [address] [phone] documented as of this encounter Visit Diagnoses Not on filedocumented in this encounter Care Teams Engineer Specialist Relationship Specialty Start Date End Date Joanna Osborne DO [address] [facility] [address] [place] [address] PCP - General Internal Medicine 10/27/22 06/06/23 Diane Velez PA-C [address] [place] [phone] PCP - General Family Medicine 06/07/23 06/23/23 [place] [address] [place] [address] [address] [place] [address] PCP - General Internal Medicine 06/24/23 10/20/23 Diane Velez PA-C [address] [facility] [address] [place] [address] PCP - General Family Medicine 10/21/23 01/10/25 Joanna Osborne DO [address] [facility] [address] [place] [address] PCP - General Internal Medicine 01/11/25 01/16/25 Diane Velze PA-C [address] [facility] [address] [place] [address] PCP - General Family Medicine 04/18/25 documented as of this encounter
--- OUTSIDE RECORDS SUMMARY | 2025-05-11 08:49 | XMS_ITS | Clinical Summary ---
Author Organization [employer] ([place], [place], [place], [place]) Address [address] [place] [address] Care Team Providers Care Cuff Cutter Name Role Phone Diane Velez PA-C Primary Care Provider [phone] Allergies Active Allergy Reactions Criticality Noted Date [...] organization. Date Type Department Care Team Description 05/07/2025 Abstract [facility] [address] [place] [phone] Estella Gaffney APRN 05/07/2025 Orders Only [facility] [address] [place] [phone] ProviderTamiko MD 05/01/2025 11:30 AM EDT Office Visit [facility] [address] [place] [phone] Diane Velez PA-C Chronic hepatitis C without hepatic coma (HCC) (Primary Dx); Edema; Pain of left lower extremity; Acute cellulitis; Puncture wound of left lower leg, subsequent encounter; Nausea; Abdominal distention; Confusion 05/01/[address] [facility] Reference Lab - [facility] [address] [place] [address] Diane Velez PA-C 05/01/2025 Refill [facility] [address] [place] [phone] Diane Velez PA-C Nausea 05/01/2025 Travel 04/24/2025 Telephone [facility] [address] [place] [phone] HaworthJoanna loco, DO Nausea 04/23/2025 Refill [facility] [address] [place] [phone] Diane Velez PA-C Hypertension, unspecified type 04/23/2025 Telephone [facility] [address] [place] [phone] Diane Velez PA-C Nausea 04/20/2025 Telephone [facility] [address] [place] [address] Jaqui Zaidi RN Leg Swelling 04/18/2025 12:07 PM EDT - 04/18/2025 4:[address] [facility] Emergency Department [address] [place] [address] Antonio Ford DO Cellulitis of left lower extremity (Primary Dx); Luevano's cyst of knee, left Discharge Disposition: Home or Self Care 04/18/2025 Travel 04/13/2025 Refill [facility] [address] [place] [phone] Diane Velez PA-C 04/09/2025 Telephone [facility] [address] [place] [phone] Diane Velez PA-C Referral 04/06/2025 11:30 AM EDT Office Visit [facility] Care & Internal [facility] [address] [place] [phone] Diane Velez PA-C Puncture wound of left lower leg, subsequent encounter (Primary Dx); Acute cellulitis; Night sweats; Severe pain; Pain of left lower extremity 04/06/2025 Travel 04/04/2025 11:09 AM EDT - 04/04/2025 4:[address] [facility] Emergency Department [address] [place] [address] Chester Healy MD Visit for wound check (Primary Dx); Rash Discharge Disposition: Home or Self Care 04/04/2025 9:40 AM EDT Office Visit [address] [phone] Marc De APRN Cellulitis of left lower leg (Primary Dx) 04/04/2025 Travel 04/04/2025 Telephone [facility] [address] [facility] [address] [phone] Diane Velez PA-C Results 04/04/2025 Telephone [facility] [address] [facility] [address] [phone] Diane Velez PA-C Results 04/04/2025 Telephone [facility] [address] [facility] [address] [phone] Diane Velez PA-C Rash 04/04/2025 Telephone [facility] [address] [facility] [address] [phone] Diane Velez PA-C 04/03/2025 12:30 PM EDT Lab Patient Walk-In [facility] Lab [address] [place] [address] Joanna Osborne DO Acute cellulitis (Primary Dx) 04/03/2025 11:57 AM EDT - 04/03/2025 11:59 PM EDT Hospital Encounter [facility] CT Imaging [address] [place] [address] Joanna Osborne DO Acute cellulitis; Fever; Severe pain Discharge Disposition: Home or Self Care 04/03/2025 10:00 AM EDT Office Visit [facility] [address] [phone] Joanna Osborne DO Puncture wound of left lower leg, subsequent encounter (Primary Dx); Acute cellulitis; Night sweats; Fever; Severe pain 04/03/2025 Telephone [facility] [address] [facility] [address] [phone] Diane Velez PA-C Advice Only 04/03/2025 Travel 03/29/2025 8:45 AM EDT Office Visit [facility] [address] [place] [phone] Joanna Osborne DO Puncture wound of left lower leg (Primary Dx); Acute cellulitis; Pain of left lower extremity; Hearing loss; Puncture wound of left lower leg, subsequent encounter 03/29/2025 Travel 03/23/2025 9:53 AM EDT - 03/23/2025 11:59 PM EDT Hospital Encounter [address] [place] [address] Marc De APRN Pain and swelling of left lower leg Discharge Disposition: Home or Self Care 03/23/2025 9:10 AM EDT Office Visit [address] [address] Marc De APRN Pain and swelling of left lower leg (Primary Dx); Cellulitis of left lower leg 03/05/2025 Abstract [facility] [address] [place] [phone] Behzad Lerner Jr., MD 03/02/2025 Telephone [facility] [address] [place] [phone] Diane Velez PA-C Medication Problem 02/13/2025 10:30 AM EDT Office Visit [facility] [address] [place] [phone] Diane Velez PA-C HTN (hypertension), malignant (Primary Dx); CKD (chronic kidney disease); Solitary kidney, acquired; Anxiety; Insomnia 02/13/2025 Travel from Last 3 Months Immunizations Name Administration Dates Next Due Covid-19 Vaccine MRNA (PF) 1 2yr+ ([employer])([id number]) 07/02/2021 Hepatitis A Adult 06/01/2019 Influenza High Dose Preserva tive Free IM ([id number]) 09/05/2021,07/18/2020,08/24/2019,08/15 Influenza Pre-Epic 07/19/2017,07/23/2016 Influenza Three-TIV Non-PF [...] things needed for daily living? No 06/27/2024 [facility] - Mental Health Answer Date Recorde [...] Date Gil rded Speak language other than [place] Citizen at home Not on file 11/13/2023 [...] Info) Description 07/05/2025 9:15 AM EDT Appointment [address] [place] [phone] 07/10/2025 10:00 AM EDT Office Visit [facility] [address] [facility] [address] [place] [phone] Diane Velez PA-C [address] [facility] [address] [place] [address] Health Maintenance Due Date Last Done [...] (12+) 05/01/2026 05/01/2025 Breast Cancer Screening 06/28/2026 06/28/20 24, 06/24/2023, 06/23/2022, Additional history exists Colonoscopy 01/11/2034 01/12/2024, 05/07/2014 Colorectal Cancer Screening 01/11/2034 Shingles Vaccine (Zoster) Discontinued 03/18/2015 DTAP/TDAP/TD VACCINES Discontinued 03/29/2025 Falls Risk Screening Completed 03/29/2025, 06/27/2024, 06/02/2023 Statin - ASCVD Risk Prevention Discontinued Procedures Procedure Name Priority Date/Time Associated Diagnosis Comments EXTERNAL LAB - MISC Routine 05/03/2025 1 :15 PM EDT MICROSCOPIC EXAMINATION Routine 05/01/2025 12:37 PM EDT [...] coma (HCC) Edema Nausea Abdominal distention Confusion RESULT Routine 05/01/2025 12:00 AM EDT RESULT Routine 05/01/2025 12:00 AM EDT ANAEROBIC AND AEROBIC CULTURE Routine 05/01/2025 12:00 AM EDT BLOOD CULTURE STAT 04/18/2025 4:13 PM [...] Recently Relevant to Health Maintenance Results * EXTERNAL LAB - MISC (05/03/2025 1:15 PM EDT) us Historical Provider LAB BLOOD ORDERABLES Lela l Result * MICROSCOPIC EXAMINATION (05/01/2025 12:37 PM EDT) WBC None seen 0 - 5 /hpf [facility] RBC None seen 0 - 2 /hpf [facility] Epithelial Cells (non renal) None seen 0 - 10 /hpf [facility] Casts None seen None seen /lpf [facility] Bacteria None seen None seen/Few [facility] 05/01/2025 12:3 7 PM EDT 05/01/2025 Narrative [facility] - 05/02/2025 12:07 PM EDT Performed at: 01 - [facility] [id number] [employer] Office Technology Instructor: José Miguel Williamson PhD, Phone: [phone] us Diane Velez PA-C PATHOLOGY/CYTOLOGY ORDERAB LES Final Result [facility] * (ABNORMAL) Urinalysis w/Microscopic (05/01/2025 12:37 PM EDT) Specific [place], UA 1.009 1.005 - 1.030 [facility] pH, [...] - 05/02/2025 12:07 PM EDT Performed at: [address] [id number] Medical Office Technology Instructor: José Miguel Williamson PhD, Phone: [email or web address] Dinae Velez PA-C URINE ORDERABLES Final Res ult Performing Organization Address [facility]/ZIP Co de Phone Number [facility] * (ABNORMAL) Lipase (05/01/2025 12:37 PM EDT) Lipase, Serum 139(H) 14 - 85 U/L [facility] Blood 05/01/2025 12:3 7 PM EDT 05/01/2025 Narrative [facility] - 05/02/2025 12:07 PM EDT Performed at: [address] [id number] Medical Office Technology Instructor: José Miguel Williamson PhD, Phone: [phone] Diane Velez PA-C LAB BLOOD ORDERABLES Final Result Performing Organization Address [facility] Co de Phone Number [facility] * (ABNORMAL) Ammonia (05/01/2025 12:37 PM EDT) Ammonia, Plasma 30(L) 31 - 169 ug/dL [facility] Blood 05/01/2025 12:3 7 PM EDT 05/01/2025 Narrative [facility] - 05/02/2025 12:07 PM EDT Performed at: 01 - [address] [id number] Medical Office Technology Instructor: José Miguel Williamson PhD, Phone: [phone] Diane Velez PA-C LAB BLOOD ORDERABLES Final Result [facility] * (ABNORMAL) Comprehensive metabolic panel (05/01/2025 12:37 PM EDT) Only the most recent of3 resultswithin the time period is included. [facility] Glucose, Serum 90 70 - 99 mg/dL [...] - 05/02/2025 12:07 PM EDT Performed at: [address] [id number] Medical Office Technology Instructor: José Miguel Williamson PhD, Phone: [phone] Diane Velez PA-C LAB BLOOD ORDERABLES Final Result Performing Organization Address [facility] Phone Number [facility] * RESULT (05/01/2025 12:00 AM EDT) Result 1 Comment [facility] Comment:No anaerobic growth in 72 hours. 05/01/2025 05/01/2025 Narrative [facility] - 05/07/2025 8:07 PM EDT Performed at: [address] [id number] Medical Office Technology Instructor: José Miguel Williamson PhD, Phone: [phone] Diane Velez PA-C PATHOLOGY/CYTOLOGY ORDERAB LES Final Result Performing Organization Address [facility] Phone Number [facility] * RESULT (05/01/2025 12:00 AM EDT) Result 1 Comment [facility] Comment:Mixed skin enrrique inc luding multiple gram negative rods. 05/01/2025 05/01/2025 Narrative [facility] - 05/07/2025 8:07 PM EDT Performed at: [address] [id number] Medical Office Technology Instructor: José Miguel Williamson PhD, Phone: [phone] Diane Velez PA-C PATHOLOGY/CYTOLOGY ORDERAB LES Final Result Performing Organization Address [facility] de Phone Number [facility] * ANAEROBIC AND AEROBIC CULTURE (05/01/2025 12:00 AM EDT) Anaerobic Culture Final report [facility] Aerobic Culture Final report [facility] 05/01/2025 05/01/2025 Narrative [facility] - 05/07/2025 8:07 PM EDT Performed at: - [facility] [address], [place], [place] [id number] [employer] Office Technology Instructor: José Miguel Williamson PhD, Phone: [phone] us Diane Velez PA-C PATHOLOGY/CYTOLOGY ORDERAB LES Final Result Performing Organization Address City/[facility]/ZIP Co de Phone Number [facility] * Blood Culture (04/18/2025 4:13 PM EDT) Only the most recent of2 resultswithin the time period is included. Result No growth in 5 days 04/23/2025 6:01 PM EDT [facility] Blood Venipuncture / Unknown 04/18/2025 4:13 PM EDT 04/18/2025 4:18 PM EDT us Johana Dale PA-C MICROBIOLOGY - GENERAL OR DERABLES Final Result Performing Organization Address [facility]/ZIP Co de Phone Number [facility] [address] [phone] * US DOPPLER VENOUS LEG LEFT (04/18/2025 [...] Color, UA Colorless 04/18/2025 3:05 PM EDT [facility] Clarity, UA Clear Clear 04/18/2025 3:05 PM EDT [facility] Specific [place], UA 1.009 1.005 - 1.030 04/18/2025 3:05 PM EDT [facility] pH, UA 6.0 6.0 - 8.0 04/18/2025 3:05 PM EDT [facility] Leukocytes, UA 25 Marck/uL(A) Negative 04/18/2025 3:05 PM EDT [facility] Nitrite, UA Negative Negative 04/18/2025 3:05 PM EDT [facility] Protein, UA Negative Negative 04/18/2025 3:05 PM EDT [facility] Glucose, UA Normal Normal 04/18/2025 3:05 PM EDT [facility] Ketones, UA Negative Negative 04/18/2025 3:05 PM EDT [facility] Bilirubin, UA Negative Negative 04/18/2025 3:05 PM EDT [facility] Blood, UA Negative Negative 04/18/2025 3:05 PM EDT [facility] Urobilinogen, UA Normal Normal 04/18/2025 3:05 PM EDT [facility] Specimen Source Urine, Sterile Collection 04/18/2025 3:05 PM EDT [facility] Urine STERILE URINE SPECIMEN CONTAINER / Unknown 04/18/2025 2:41 PM EDT 04/18/2025 2:50 PM EDT Johana DOMINGUEZ-C URINE ORDERABLES Final Re sult Performing Organization Address [facility] de Phone Number [facility] [address] [phone] * (ABNORMAL) Urinalysis Microscopic Only (04/18/2025 2:41 PM EDT) WBC, UA 0-2(A) None Seen /HPF 04/18/2025 3:08 PM EDT [facility] RBC, UA 0-2(A) None Seen /HPF 04/18/2025 3:08 PM EDT [facility] Bacteria, UA None Seen None Seen, Trace 04/18/2025 3:08 PM EDT [facility] SQUAMOUS EPITHELIAL 0-2(A) None Seen /HPF 04/18/2025 3:08 PM EDT [facility] Urine STERILE URINE SPECIMEN CONTAINER / Unknown 04/18/2025 2:41 PM EDT 04/18/2025 2:50 PM EDT Johana DOMINGUEZ-C URINE ORDERABLES Final Re sult Performing Organization Address [facility] Co de Phone Number [facility] [address] [phone] * Bowles Top Extra Tubes (04/18/2025 12:28 PM EDT) HOLD SPECIMEN (SJ - BKR) Hold for add-ons. 04/18/2025 2:00 PM EDT [facility] Comment:Auto resulted. Blood Venipuncture / Unknown 04/18/2025 12:28 PM EDT 04/18/2025 12:33 PM EDT Antonio Ford DO LAB BLOOD ORDERABLES Final Resul t [facility] 1 [place] [address], [facility] [phone] * (ABNORMAL) CBC with Auto Diff (04/18/2025 12:27 PM EDT) Only the most recent of3 resultswithin the time period is included. WBC 5.7 4.0 - 10.0 K/ L 04/18/2025 12:44 PM EDT [facility] RBC 3.99 3.93 - 5.22 M/ L 04/18/2025 12:44 PM EDT [facility] Hemoglobin 12.0 11.2 - 15.7 GM/DL 04/18/2025 12:44 PM EDT [facility] Hematocrit 35.1 34.1 - 44.9 % 04/18/2025 12:44 PM EDT [facility] MCV 88 79 - 95 fL 04/18/2025 12:44 PM EDT [facility] MCH 30.1 25.6 - 32.2 pg 04/18/2025 12:44 PM EDT [facility] MCHC 34.2 32.2 - 35.5 GM/DL 04/18/2025 12:44 PM EDT [facility] RDW 12.1 11.7 - 14.4 % 04/18/2025 12:44 PM EDT [facility] Platelets 247 140 - 375 K/CU MM 04/18/2025 12:44 PM EDT [facility] MPV 9.6 9.4 - 12.3 fL 04/18/2025 12:44 PM EDT [facility] % Neutros 71 34 - 71 % 04/18/2025 12:44 PM EDT [facility] % Lymphs 17(L) 19 - 52 % 04/18/2025 12:44 PM EDT [facility] % Monos 8 5 - 13 % 04/18/2025 12:44 PM EDT [facility] % Eos 3 1 - 6 % 04/18/2025 12:44 PM EDT [facility] % Baso 1 0 - 1 % 04/18/2025 12:44 PM EDT [facility] NRBC Absolute <0.01 0 - 0.012 K/ul 04/18/2025 12:44 PM EDT [facility] # Neutros 4.06 1.56 - 6.13 K/ L 04/18/2025 12:44 PM EDT [facility] # Lymphs 0.99(L) 1.18 - 3.74 K/ L 04/18/2025 12:44 PM EDT [facility] # Monos 0.45 0.24 - 0.86 K/ L 04/18/2025 12:44 PM EDT [facility] # Eos 0.16 0.04 - 0.36 K/ L 04/18/2025 12:44 PM EDT [facility] # Baso 0.03 0.01 - 0.08 K/ L 04/18/2025 12:44 PM EDT [facility] Immature Granulocytes-Re lative 0.40 0.01 - 0.43 % 04/18/2025 12:44 PM EDT [facility] # IG <0.03 0.00 - 0.03 K/uL 04/18/2025 12:44 PM EDT [facility] Blood Venipuncture / Unknown 04/18/2025 12:27 PM EDT 04/18/2025 12:33 PM EDT Narrative [facility] - 04/18/2025 12:44 PM EDT When [...] APRN LAB BLOOD ORDERABLES Final Res ult [facility] [address] [phone] * C-Reactive Protein (04/11/2025 2:39 PM EDT) Only the most recent of2 resultswithin the time period is included. C-Reactive Protein, Quant 4 0 - 10 mg/L [facility] 04/11/2025 2:39 PM EDT 04/11/2025 Narrative [facility] - 04/12/2025 8:08 AM EDT Performed at: [address] [place] [id number] Medical Office Technology Instructor: José Miguel Williamson PhD, Phone: [phone] [facility] LAB BLOOD ORDERABLES Final Result Performing Organization Address [facility] de Phone Number [facility] * Sedimentation rate (04/11/2025 2:39 PM EDT) Only the most recent of2 resultswithin the time period is included. Pathologist [facility] Sedimentation Rate-Westergren 4 0 - 40 mm/hr [facility] 04/11/2025 2:39 PM EDT 04/11/2025 Narrative [facility] - 04/12/2025 8:08 AM EDT Performed at: [address] [place] [id number] Medical Office Technology Instructor: José Miguel Williamson PhD, Phone: [phone] Joannaxzoops[place] DO LAB BLOOD ORDERABLES Final Result Performing Organization Address City/[facility] de Phone Number [facility] * CT lower extremity with IV [...] Theron Penn. Transcribed by Felix Yarbrough PA-C. us Chester Healy MD IM CT ORDERABLES Final Res ult * PST Top Extra Tubes (04/04/2025 11:30 AM EDT) HOLD SPECIMEN (SJ - BKR) Hold for add-ons. 04/04/2025 1:01 PM EDT [facility] Comment:Auto resulted. Blood Venipuncture / Unknown 04/04/2025 11:30 AM EDT 04/04/2025 11:35 AM EDT Chester Healy MD LAB BLOOD ORDERABLES Final Result Performing Organization Address [facility]/ZIP Co de Phone Number [facility] [address] [phone] * Blue Top Extra Tubes (04/04/2025 11:30 AM EDT) HOLD SPECIMEN (SJ - BKR) Hold for add-ons. 04/04/2025 1:01 PM EDT [facility] Comment:Auto resulted. Blood Venipuncture / Unknown 04/04/2025 11:30 AM EDT 04/04/2025 11:36 AM EDT Chester Healy MD LAB BLOOD ORDERABLES Final Result Performing Organization Address [facility]/ZIP Co de Phone Number [facility] [address] [phone] * Lactic Acid with reflex (SJ) (04/04/2025 11:21 AM EDT) Lactic Acid Level (mmol/L) 0.5 0.5 - 2.2 mmol/L 04/04/2025 12:01 PM EDT [facility] Blood Venipuncture / Unknown 04/04/2025 11:21 AM EDT 04/04/2025 11:32 AM EDT Ramila Ward APRN LAB BLOOD ORDERABLES Final Res ult Performing Organization Address [facility]/State/ZIP Co de Phone Number [facility] [address] [phone] * Procalcitonin (04/03/2025 12:42 PM EDT) Procalcitonin 0.02 See Comment ng/mL 04/03/2025 1:26 PM EDT [facility] Comment: Sepsis comment <0.5 Antibiotics Discouraged [...] BLOOD ORDERABLES Final Result Performing Organization Address City/State/[facility] Co de Phone Number [facility] [address] [phone] * CT lower extremity without IV contrast [...] interpreted, and dictated by Refugio Leon DO [facility] VP GENETIC IMG DIAGNOSTIC IMAGING ORDERAB LES Final Result [...] the next mammogram. At our facility, a burns paiute marker is positioned over a visible skin [...] cancer. COMPARISON STUDY: 2022 through 2017 from [facility] FINDINGS: Craniocaudal and mediolateral oblique images of both breasts were obtained in 2D and DBT modes. Synthesized views were reconstructed from DBT data. The breast tissue is heterogeneously dense, which may obscure small masses. There is no evidence of dominant mass, architectural distortion, or suspicious calcifications. The mammogram was interpreted with the benefit of computer aided detection (CAD). Diane Velez PA-C IMG MAMMOGRAPHY ORDERABLES Final [...] FINDINGS: Bone densitometry was performed using a [employer] unit. Sites measured included the spine and [...] FINDINGS: Bone densitometry was performed using a [employer] unit. Sites measured included the spine and [...] tobacco and alcohol. us Fatoumata Ayala PA-C IMG DXA ORDERABLES Final Result from Last 3 Months or Most Recently Relevant to Health Maintenance Insurance [employer] Care Teams Cuff Cutter Relationship Specialty Start Date End Date Diane Velez PA-C [address] [place] [address] PCP - General Family Medicine 04/18/25
--- OUTSIDE RECORDS SUMMARY | 2025-05-11 08:49 | XMS_ITS | Referral Summary ---
Author Organization [employer] ([place], [place], [place], [place]) Address [address] [place] [address] Care Team Providers Care Packing House Supervisor Name Role Phone Diane Velez PA-C Primary Care Provider [phone] Encounters * This document contains information received from the source organization and may not represent a complete record from that organization. Date Type Department Care Team Description 05/07/2025 Abstract [facility] [address] [facility] [address] [phone] Estella Gaffney APRN 05/07/2025 Orders Only [facility] [address] [place] [phone] Tamiko Simons MD 05/01/2025 Orders Only [facility] Reference Lab - [facility] [address] [place] [address] Diane Velez PA-C 05/01/2025 Refill [facility] [address] [place] [address] [address] Diane Velez PA-C Nausea 05/01/2025 Travel 05/01/2025 11:30 AM EDT Office Visit [facility] [address] [place] [address] [phone] Diane Velez PA-C Chronic hepatitis C without hepatic coma (HCC) (Primary Dx); Edema; Pain of left lower extremity; Acute cellulitis; Puncture wound of left lower leg, subsequent encounter; Nausea; Abdominal distention; Confusion 04/24/2025 Telephone [facility] [address] [phone] IndiaJoanna locoDO Nausea 04/23/2025 Refill [facility] [address] [place] [phone] Diane Velez PA-C Hypertension, unspecified type 04/23/2025 Telephone [facility] [address] [place] [phone] Diane Velez PA-C Nausea 04/20/2025 Telephone [facility] Primary [address] [address] Jaqui Zaidi RN Leg Swelling 04/18/2025 Travel 04/18/2025 12:07 PM EDT - 04/18/2025 4:31 PM EDT Emergency [facility] Emergency Department 1 [place] [address] Antonio Ford DO Cellulitis of left lower extremity (Primary Dx); Luevano's cyst of knee, left Discharge Disposition: Home or Self Care 04/13/2025 Refill [facility] [address] [place] [phone] Diane Velez PA-C 04/09/2025 Telephone [facility] [address] [place] [address] Diane Velez PA-C Referral 04/06/2025 Travel 04/06/2025 11:30 AM EDT Office Visit [facility] [address] [place] [phone] Diane Velez PA-C Puncture wound of left lower leg, subsequent encounter (Primary Dx); Acute cellulitis; Night sweats; Severe pain; Pain of left lower extremity 04/04/2025 Travel 04/04/2025 11:09 AM EDT - 04/04/2025 4:38 PM EDT Emergency [facility] Emergency Department 1 [place] [address] Chester Healy MD Visit for wound check (Primary Dx); Rash Discharge Disposition: Home or Self Care 04/04/2025 Telephone [facility] [address] [place] [phone] Diane Velez PA-C Results 04/04/2025 Telephone [facility] [address] [place] [phone] Diane Velez PA-C Results 04/04/2025 9:40 AM EDT Office Visit [facility] [address] [place] [phone] Marc De APRN Cellulitis of left lower leg (Primary Dx) 04/04/2025 Telephone [facility] [address] [phone] Diane Velez PA-C Rash 04/04/2025 Telephone [facility] [address] [place] [address] Diane Velez PA-C 04/03/2025 Telephone [facility] [address] [place] [phone] Diane Velez PA-C Advice Only 04/03/2025 12:30 PM EDT Lab Patient Walk-In [facility] Lab 1 [place] [address] Joanna Osborne DO Acute cellulitis (Primary Dx) 04/03/2025 11:57 AM EDT - 04/03/2025 11:59 PM EDT Hospital Encounter [facility] CT Imaging [address] [place] [address] Joanna Osborne DO Acute cellulitis; Fever; Severe pain Discharge Disposition: Home or Self Care 04/03/2025 Travel 04/03/2025 10:00 AM EDT Office Visit [facility] [address] [place] [phone] Joanna Osborne DO Puncture wound of left lower leg, subsequent encounter (Primary Dx); Acute cellulitis; Night sweats; Fever; Severe pain 03/29/2025 Travel 03/29/2025 8:45 AM EDT Office Visit [facility] Internal Med [address] [place] [phone] Joanna Osborne DO Puncture wound of left lower leg (Primary Dx); Acute cellulitis; Pain of left lower extremity; Hearing loss; Puncture wound of left lower leg, subsequent encounter 03/23/2025 9:53 AM EDT - 03/23/2025 11:59 PM EDT Hospital Encounter [facility] Imaging - [address] [place] [phone] Marc De APRN Pain and swelling of left lower leg Discharge Disposition: Home or Self Care 03/23/2025 9:10 AM EDT Office Visit [facility] - [address] [address] Marc De APRN Pain and swelling of left lower leg (Primary Dx); Cellulitis of left lower leg 03/05/2025 Abstract [facility] [address] [place] [phone] Behzad Lerner Jr., MD 03/02/2025 Telephone [facility] [address] [place] [phone] Diane Velez PA-C Medication Problem 02/13/2025 Travel 02/13/2025 10:30 AM EDT Office Visit [facility] [address] [facility] [address] [place] [phone] Diane Velze PA-C HTN (hypertension), malignant (Primary Dx); CKD [...] Due Covid-19 Vaccine MRNA (PF) 1 2yr+ ([employer])([id number]) 07/02/2021 Hepatitis A Adult 06/01/2019 Influenza High Dose Preserva tive Free IM ([id number]) 09/05/2021,07/18/2020,08/24/2019,08/15 Influenza Pre-Epic 07/19/2017,07/23/2016 Influenza Three-TIV Non-PF [...] needed for daily living? No 06/27/2024 [facility] - Mental Health Answer Date Recorde [...] Description 07/05/2025 9:15 AM EDT Appointment [address] [place] [phone] 07/10/2025 10:00 AM EDT Office Visit [facility] [address] [facility] [address] [place] [phone] Diane Velez PA-C [address] [place] [address] Procedures Procedure Name Priority Date/Time Associated [...] - 05/02/2025 12:07 PM EDT Performed at: [address] [place] [id number] Unpaid Intern: José Miguel Williamson PhD, Phone: [phone] us Diane Velez PA-C PATHOLOGY/CYTOLOGY ORDERAB LES Final Result Performing Organization Address [facility] Co de Phone Number [facility] * (ABNORMAL) Urinalysis w/Microscopic (05/01/2025 12:37 PM EDT) Specific [place], UA 1.009 1.005 - 1.030 [facility] pH, [...] - 05/02/2025 12:07 PM EDT Performed at: [address] [place], [place] [id number] Unpaid Intern: José Miguel Williamson PhD, Phone: [phone] us Diane Velez PA-C URINE ORDERABLES Final Res ult Performing Organization Address [facility] Co de Phone Number [facility] * (ABNORMAL) Lipase (05/01/2025 12:37 PM EDT) Lipase, Serum 139(H) 14 - 85 U/L [facility] Blood 05/01/2025 12:3 7 PM EDT 05/01/2025 Narrative [facility] - 05/02/2025 12:07 PM EDT Performed at: [address] [place], [place] [id number] Unpaid Intern: José Miguel Williamson PhD, Phone: [phone] Diane Velez PA-C LAB BLOOD ORDERABLES Final Result Performing Organization Address City/[facility] Co de Phone Number [facility] * (ABNORMAL) Ammonia (05/01/2025 12:37 PM EDT) Pathologist [facility] Ammonia, Plasma 30(L) 31 - 169 ug/dL [facility] Blood 05/01/2025 12:3 7 PM EDT 05/01/2025 Narrative [facility] - 05/02/2025 12:07 PM EDT Performed at: [address] [id number] Unpaid Intern: José Miguel Williamson PhD, Phone: [phone] Diane Velez PA-C LAB BLOOD ORDERABLES Final Result Performing Organization Address City/[facility] Co de Phone Number [facility] * (ABNORMAL) Comprehensive metabolic panel (05/01/2025 12:37 PM EDT) Only the most recent of3 resultswithin the time period is included. [facility] Glucose, Serum 90 70 - 99 [...] - 05/02/2025 12:07 PM EDT Performed at: [address] [id number] Unpaid Intern: José Miguel Williamson PhD, Phone: [phone] Diane Velez PA-C LAB BLOOD ORDERABLES Final Result Performing Organization Address [facility] de Phone Number [facility] * RESULT (05/01/2025 12:00 AM EDT) Result 1 Comment [facility] Comment:No anaerobic growth in 72 hours. 05/01/2025 05/01/2025 Narrative [facility] - 05/07/2025 8:07 PM EDT Performed at: [address] [id number] Unpaid Intern: José Miguel Williamson PhD, Phone: [phone] Diane Velez PA-C PATHOLOGY/CYTOLOGY ORDERAB LES Final Result Performing Organization Address [facility] de Phone Number [facility] * RESULT (05/01/2025 12:00 AM EDT) Result 1 Comment [facility] Comment:Mixed skin enrrique inc luding multiple gram negative rods. 05/01/2025 05/01/2025 Narrative [facility] - 05/07/2025 8:07 PM EDT Performed at: [address] [place] [id number] Unpaid Intern: José Miguel Williamson PhD, Phone: [phone] us Diane Velez PA-C PATHOLOGY/CYTOLOGY ORDERAB LES Final Result Performing Organization Address City/[facility]/ZIP Co de Phone Number [facility] * ANAEROBIC AND AEROBIC CULTURE (05/01/2025 12:00 AM EDT) Anaerobic Culture Final report [facility] Aerobic Culture Final report [facility] 05/01/2025 05/01/2025 Narrative [facility] - 05/07/2025 8:07 PM EDT Performed at: - [facility] [id number] Unpaid Intern: José Miguel Williamson PhD, Phone: [phone] Diane Velez PA-C PATHOLOGY/CYTOLOGY ORDERAB LES Final Result Performing Organization Address [facility] Co de Phone Number [facility] * Blood Culture (04/18/2025 4:13 PM EDT) Only the most recent of2 resultswithin the time period is included. Result No growth in 5 days 04/23/2025 6:01 PM EDT [facility] Blood Venipuncture / Unknown 04/18/2025 4:13 PM EDT 04/18/2025 4:18 PM EDT Johana Dale PA-C MICROBIOLOGY - GENERAL OR DERABLES Final Result Performing Organization Address [facility]/ZIP Co de Phone Number [facility] [address] [phone] * US DOPPLER VENOUS LEG LEFT (04/18/2025 [...] of a left popliteal cyst. Procedure Note Rahc Yu MD - 04/18/2025 LEFT LOWER EXTREMITY [...] Color, UA Colorless 04/18/2025 3:05 PM EDT [facility] Clarity, UA Clear Clear 04/18/2025 3:05 PM EDT [facility] Specific [place], UA 1.009 1.005 - 1.030 04/18/2025 3:05 PM EDT [facility] pH, UA 6.0 6.0 - 8.0 04/18/2025 3:05 PM EDT [facility] Leukocytes, UA 25 Marck/uL(A) Negative 04/18/2025 3:05 PM EDT [facility] Nitrite, UA Negative Negative 04/18/2025 3:05 PM EDT [facility] Protein, UA Negative Negative 04/18/2025 3:05 PM EDT [facility] Glucose, UA Normal Normal 04/18/2025 3:05 PM EDT [facility] Ketones, UA Negative Negative 04/18/2025 3:05 PM EDT [facility] Bilirubin, UA Negative Negative 04/18/2025 3:05 PM EDT [facility] Blood, UA Negative Negative 04/18/2025 3:05 PM EDT [facility] Urobilinogen, UA Normal Normal 04/18/2025 3:05 PM EDT [facility] Specimen Source Urine, Sterile Collection 04/18/2025 3:05 PM EDT [facility] Urine STERILE URINE SPECIMEN CONTAINER / Unknown 04/18/2025 2:41 PM EDT 04/18/2025 2:50 PM EDT us Johana Dale PA-C URINE ORDERABLES Final Re sult Performing Organization Address [facility]/ZIP Co de Phone Number [facility] [address] [phone] * (ABNORMAL) Urinalysis Microscopic Only (04/18/2025 2:41 PM EDT) WBC, UA 0-2(A) None Seen /HPF 04/18/2025 3:08 PM EDT [facility] RBC, UA 0-2(A) None Seen /HPF 04/18/2025 3:08 PM EDT [facility] Bacteria, UA None Seen None Seen, Trace 04/18/2025 3:08 PM EDT [facility] SQUAMOUS EPITHELIAL 0-2(A) None Seen /HPF 04/18/2025 3:08 PM EDT [facility] Urine STERILE URINE SPECIMEN CONTAINER / Unknown 04/18/2025 2:41 PM EDT 04/18/2025 2:50 PM EDT us Johana Dale PA-C URINE ORDERABLES Final Re sult Performing Organization Address [facility]/State/ZIP Co de Phone Number [facility] [address] [phone] * Bowles Top Extra Tubes (04/18/2025 12:28 PM EDT) HOLD SPECIMEN (SJ - BKR) Hold for add-ons. 04/18/2025 2:00 PM EDT [facility] Comment:Auto resulted. Blood Venipuncture / Unknown 04/18/2025 12:28 PM EDT 04/18/2025 12:33 PM EDT Antonio Ford DO LAB BLOOD ORDERABLES Final Resul t [facility] [address] [phone] * (ABNORMAL) CBC with Auto Diff (04/18/2025 12:27 PM EDT) Only the most recent of3 resultswithin the time period is included. WBC 5.7 4.0 - 10.0 K/ L 04/18/2025 12:44 PM EDT [facility] RBC 3.99 3.93 - 5.22 M/ L 04/18/2025 12:44 PM EDT [facility] Hemoglobin 12.0 11.2 - 15.7 GM/DL 04/18/2025 12:44 PM EDT [facility] Hematocrit 35.1 34.1 - 44.9 % 04/18/2025 12:44 PM EDT [facility] MCV 88 79 - 95 fL 04/18/2025 12:44 PM EDT [facility] MCH 30.1 25.6 - 32.2 pg 04/18/2025 12:44 PM EDT [facility] MCHC 34.2 32.2 - 35.5 GM/DL 04/18/2025 12:44 PM EDT [facility] RDW 12.1 11.7 - 14.4 % 04/18/2025 12:44 PM EDT [facility] Platelets 247 140 - 375 K/CU MM 04/18/2025 12:44 PM EDT [facility] MPV 9.6 9.4 - 12.3 fL 04/18/2025 12:44 PM EDT [facility] % Neutros 71 34 - 71 % 04/18/2025 12:44 PM EDT [facility] % Lymphs 17(L) 19 - 52 % 04/18/2025 12:44 PM EDT [facility] % Monos 8 5 - 13 % 04/18/2025 12:44 PM EDT [facility] % Eos 3 1 - 6 % 04/18/2025 12:44 PM EDT [facility] % Baso 1 0 - 1 % 04/18/2025 12:44 PM EDT [facility] NRBC Absolute <0.01 0 - 0.012 K/ul 04/18/2025 12:44 PM EDT [facility] # Neutros 4.06 1.56 - 6.13 K/ L 04/18/2025 12:44 PM EDT [facility] # Lymphs 0.99(L) 1.18 - 3.74 K/ L 04/18/2025 12:44 PM EDT [facility] # Monos 0.45 0.24 - 0.86 K/ L 04/18/2025 12:44 PM EDT [facility] # Eos 0.16 0.04 - 0.36 K/ L 04/18/2025 12:44 PM EDT [facility] # Baso 0.03 0.01 - 0.08 K/ L 04/18/2025 12:44 PM EDT [facility] Immature Granulocytes-Re lative 0.40 0.01 - 0.43 % 04/18/2025 12:44 PM EDT [facility] # IG <0.03 0.00 - 0.03 K/uL 04/18/2025 12:44 PM EDT [facility] Blood Venipuncture / Unknown 04/18/2025 12:27 PM EDT 04/18/2025 12:33 PM EDT [facility] - 04/18/2025 12:44 PM EDT [...] Blast? Flag noted Atypical Lymph flag noted Krysta Srinivasan APRN LAB BLOOD ORDERABLES Final Res ult [facility] [address] [place] [address], [facility] [phone] * C-Reactive Protein (04/11/2025 2:39 PM EDT) Only the most recent of2 resultswithin the time period is included. Pathologist [facility] C-Reactive Protein, Quant 4 0 - 10 mg/L [facility] 04/11/2025 2:39 PM EDT 04/11/2025 Narrative [facility] - 04/12/2025 8:08 AM EDT Performed at: [address] [place] [id number] Unpaid Intern: José Miguel Williamson PhD, Phone: [phone] Joanna Osborne DO LAB BLOOD ORDERABLES Final Result Performing Organization Address [facility] de Phone Number [facility] * Sedimentation rate (04/11/2025 2:39 PM EDT) Only the most recent of2 resultswithin the time period is included. [facility] Sedimentation Rate-Westergren 4 0 - 40 mm/hr [facility] 04/11/2025 2:39 PM EDT 04/11/2025 Narrative [facility] - 04/12/2025 8:08 AM EDT Performed at: [address] [id number] Unpaid Intern: José Miguel Williamson PhD, Phone: [phone] Joanna Osborne DO LAB BLOOD ORDERABLES Final Result Performing Organization Address [facility]/ZIP Co de Phone Number [facility] * CT lower [...] Hold for add-ons. 04/04/2025 1:01 PM EDT [facility] Comment:Auto resulted. Blood Venipuncture / Unknown 04/04/2025 11:30 AM EDT 04/04/2025 11:35 AM EDT Chester Healy MD LAB BLOOD ORDERABLES Final Result Performing Organization Address [facility] Co de Phone Number [facility] [address] [phone] * Blue Top Extra Tubes (04/04/2025 11:30 AM EDT) HOLD SPECIMEN (SJ - BKR) Hold for add-ons. 04/04/2025 1:01 PM EDT [facility] Comment:Auto resulted. Blood Venipuncture / Unknown 04/04/2025 11:30 AM EDT 04/04/2025 11:36 AM EDT Chester Healy MD LAB BLOOD ORDERABLES Final Result Performing Organization Address City/[facility]/ZIP Co de Phone Number [facility] [address] [phone] * Lactic Acid with reflex (SJ) (04/04/2025 11:21 AM EDT) Lactic Acid Level (mmol/L) 0.5 0.5 - 2.2 mmol/L 04/04/2025 12:01 PM EDT [facility] Blood Venipuncture / Unknown 04/04/2025 11:21 AM EDT 04/04/2025 11:32 AM EDT Ramila Velasquezchip [facility]IT[facility]ER LAB BLOOD ORDERABLES Final Res ult Performing Organization Address [facility] Co de Phone Number [facility] [address] [phone] * Procalcitonin (04/03/2025 12:42 PM EDT) Procalcitonin 0.02 See Comment ng/mL 04/03/2025 1:26 PM EDT [facility] Comment: Sepsis comment <0.5 [...] Final Result Performing Organization Address [facility] Co de Phone Number [facility] [address] [phone] * CT lower extremity without IV contrast [...] dictated by Refugio Leon DO [facility] Santino SALTERN IMG DIAGNOSTIC IMAGING ORDERAB LES Final Result [...] the next mammogram. At our facility, a [place] marker is positioned over a visible skin [...] cancer. COMPARISON STUDY: 2022 through 2017 from [facility] FINDINGS: Craniocaudal and mediolateral oblique images [...] FINDINGS: Bone densitometry was performed using a [facility] unit. Sites measured included the spine and [...] FINDINGS: Bone densitometry was performed using a [facility] unit. Sites measured included the spine and [...] prevention. 5. Avoidance of tobacco and alcohol. Fatoumata Ayala PA-C IM DXA ORDERABLES Final Result from Last 3 Months or Most Recently Relevant to Health Maintenance Insurance [facility] [employer] Care Teams Packing House Supervisor Relationship Specialty Start Date End Date Diane Velez PA-C [address] [place] [address] PCP - General Family Medicine 04/18/25
--- OUTSIDE RECORDS SUMMARY | 2025-05-11 08:50 | XMS_ITS | Encounter Summary ---
Author Organization [employer] ([place], [place], [place], [place]) Address [address] [place] [address] Care Team Providers Care Cop Name Role Phone Dawit Escalera DO Primary Care Provider [phone] Rosemarie Eagle PA-C Primary Care Provider Dawit Escalera DO Primary Care Provider Rosemarie Eagle PA-C Primary Care Provider +1- [phone] Dawit Escalera DO Primary Care Provider Rosemarie Eagle PA-C Primary Care Provider Encounter Details Date Type Department Care Team (Late st Contact Info) Description 09/23/2020 Transcribed Document [facility] Medicine [address] [place] [address] ProviderTamiko MD [address] [place] [address] Social History Tobacco Use Types [...] Tamiko Simons MD - 09/23/2020 11:48 PM [employer] [address] CINTHIA PALMA :1955 Visit Time:09/23/2020 Your Visit [...] leg swelling. Return if condition worsens Where: [address] [place] [id number] [facility] (1) Follow Up with ROSEMARIE EAGLE When [...] range between ( 0.0 and 7.0 ) Spencer #: 0.76 K/uL -- Normal range between ( 0.16 and 1.00 ) Eos #: 0.11 x10(3)/uL -- Normal range between ( 0.00 and 0.80 ) Spencer %: 9.7 % -- Normal range between [...] ) Urine Bilirubin Dipstick: Negative Urine Specific [place]: 1.010 -- Normal range between ( 1.005 [...] your health care provider. Medicines ??? Take idub-flc-qeojbcj and prescription medicines only as told by [...] 11/25/2005 Document Revised: 07/12/2019 Document Reviewed: 07/12/2019 [employer] Patient Education ?? 2020 [employer]. Shortness of Breath, Adult Shortness of breath [...] return to your usual activities. ??? Take xnja-kzc-cemoovh and prescription medicines only as told by [...] 07/13/2002 Document Revised: 03/20/2019 Document Reviewed: 03/20/2019 [employer] Patient Education ?? 2020 [employer]. Emergency Awareness and Preventative Care STROKE is [...] Assistance with quitting is available by contacting 8-898-LHID-NOW. This is a free resource providing counseling, [...] was given the opportunity to ask questions. Patient/Men'S And Boys' Clothing Salesperson Name: Patient/Men'S And Boys' Clothing Salesperson Signature: Relationship to Patient: Clinician/Hospital Men'S And Boys' Clothing Salesperson Signature: Please Provide a Telephone Number Where You Can Be Reached: Is it Permissible To Leave a Message? Date: documented in this encounter Plan of Treatment Upcoming Encounters Date Type Department Care Team (Late st Contact Info) Description 07/05/2025 9:15 AM EDT Appointment [address] [place] [address] 07/10/2025 10:00 AM EDT Office Visit [facility] Primary Care & Internal Med 14[address] [facility] [place] [facility] [address] [place] [phone] Rosemarie Eagle PA-C [address] [phone] documented as of this encounter Visit Diagnoses Not on filedocumented in this encounter Care Teams Cop Relationship Specialty [place] [address] [place] [address] [address] [place], [place] [phone] PCP - General Internal Medicine 10/27/22 06/06/23 Rosemarie Eagle PA-C [address] [phone] PCP - General Family Medicine 06/07/23 06/23/23 Dawit Escalrea DO 1401 [facility] [address] [place] [address] PCP - General Internal Medicine 06/24/23 10/20/23 Rosemarie Eagle PA-C [address] [phone] PCP - General Family Medicine 10/21/23 01/10/25 [place] [address] [place] [address] [address] [place] [address] PCP - General Internal Medicine 01/11/25 01/16/25 Rosemarie Eagle PA-C [address] [phone] PCP - General Family Medicine 04/18/25 documented as of this encounter
--- OUTSIDE RECORDS SUMMARY | 2025-05-11 08:50 | XMS_ITS | Encounter Summary ---
Author Organization [employer] ([place], [place], [place], [place]) Address [address] [place] [address] Care Team Providers Care Dope Weigh Operator Name Role Phone Joanna Osborne DO Primary Care Provider [phone] Diane Velez PA-C Primary Care Provider [phone]- [phone] Joanna Osborne DO Primary Care Provider [phone] Diane Velez PA-C Primary Care Provider [phone]- [phone] Joanna Osborne DO Primary Care Provider Diane Velez PA-C Primary Care Provider Encounter Details Date Type Department Care Team (Late st Contact Info) Description 09/24/[address] [facility] Family Medicine [address] [place] [address] ProviderTamiko MD [address] [place] [address] Social History Tobacco Use Types [...] Tamiko Simons MD - 09/24/2020 7:55 AM MANAGER OF EXHIBITIONS AND COLLECTIONS Novel Coronavirus 2019 - - Negative 09/23/2020 21:27 09/24/2020 07:55 (JUANCARLOS MAXWELL MD-EMR) Reviewed by Provider, No further action required documented in this encounter Plan of Treatment Upcoming Encounters Date Type Department Care Team (Late st Contact Info) Description 07/05/2025 9:15 AM EDT Appointment [address] [place] [address] 07/10/2025 10:00 AM EDT Office Visit [facility] Primary Care & Internal Med [address] [place] [address] [phone] Diane Velez PA-C [address] [place], [place] [address] [place] [phone] documented as of this encounter Visit Diagnoses Not on filedocumented in this encounter Care Teams Dope Weigh Operator Relationship Specialty Start Date End Date Joanna Osborne DO 1401 [facility] [address] [place], [place] [phone] PCP - General Internal Medicine 10/27/22 06/06/23 Diane Velez PA-C [address] [place] [phone] PCP - General Family Medicine 06/07/23 06/23/23 [place] [address] [place] [address] [address] [place], [place] [id number] PCP - General Internal Medicine 06/24/23 10/20/23 Diane Velez PA-C [address] [place], [place] [address] [place] [phone] PCP - General Family Medicine 10/21/23 01/10/25 [place] [address] [place] [address] [address] [place] [address] PCP - General Internal Medicine 01/11/25 01/16/25 Diane Velez PA-C 1401 [facility] [address] [place] [phone] PCP - General Family Medicine 04/18/25 documented as of this encounter
--- OUTSIDE RECORDS SUMMARY | 2025-05-11 08:50 | XMS_ITS | Encounter Summary ---
Author Organization [employer] ([place], [place], [place], [place]) Address [address] [place] [address] Care Team Providers Care Beverage Steward Name Role Phone Joanna Osborne DO Primary Care Provider Diane Velez PA-C Primary Care Provider Joanna Osborne DO Primary Care Provider [phone] Diane Velez PA-C Primary Care Provider [phone]- [phone] Joanna Osborne DO Primary Care Provider Diane Velez PA-C Primary Care Provider Encounter Details Date Type Department Care Team (Late st Contact Info) Description 12/20/2020 Transcribed Document [facility] [place] Family Medicine [address] [place] [address] ProviderTamiko MD [address] [place] [address] Social History Tobacco Use Types [...] Tamiko Simons MD - 12/20/2020 3:03 PM RUG CLEANER Patient: CINTHIA PALMA Age: 65 years Sex: Female : 1955 Associated Diagnoses: None Author: AGUSTINA GALVEZ PA-C Pre-OP/Procedure Diagnosis: Monoclomal gammopathy Post-OP/Procedure Diagnosis: Same Procedure Performed: CT guided bone marrow aspiration and core biopsy Procedural MD: Chong Headlight Adjuster: Agustina Galvez PA-C Sedation: Conscious Findings: Technically successful Complications: None EBL: _< 20 ml Specimen(s) Removed: Aspirate and core. Pathology is pending. Full report to follow. documented in this encounter Plan of Treatment Upcoming Encounters Date Type Department Care Team (Late st Contact Info) Description 07/05/2025 9:15 AM EDT Appointment [address] [place] [address] 07/10/2025 10:00 AM EDT Office Visit [facility] Primary Care & Internal Med [address] [place] [address] [phone] Diane Velez PA-C [address] [place] [phone] documented as of this encounter Visit Diagnoses Not on filedocumented in this encounter Care Teams Beverage Steward Relationship Specialty Start Date End Date Joanna Osborne DO 1401 [facility] [address] [place] [address] PCP - General Internal Medicine 10/27/22 06/06/23 Diane Velez PA-C [address] [place] [address] [address] PCP - General Family Medicine 06/07/23 06/23/23 Joanna Osborne DO 1401 [facility] [address] [place] [address] PCP - General Internal Medicine 06/24/23 10/20/23 Diane Velez PA-C 1401 [facility] [address] [place] [address] PCP - General Family Medicine 10/21/23 01/10/25 Joanna Osborne DO 1401 [facility] [address] [place] [address] PCP - General Internal Medicine 01/11/25 01/16/25 Diane Velez PA-C 140 [facility] [address] [place] [address] PCP - General Family Medicine 04/18/25 documented as of this encounter
--- OUTSIDE RECORDS SUMMARY | 2025-05-11 08:50 | XMS_ITS | Encounter Summary ---
Author Organization [employer] ([place], [place], [place], [place]) Address [address] [place] [address] Care Team Providers Care Decorative Engraver Name Role Phone Diane Velez PA-C Primary Care Provider [phone]- [phone] Reason for Visit * Reason Onset Date Comments Nausea 04/24/2025 Encounter Details Date Type Department Care Team (Late st Contact Info) Description 04/24/2025 Telephone [facility] Primary Care & Internal Med 1401 [facility] [address] [place] [address] Hesham OsbornessDO jaydon 1401 [facility] [address] [place], [place] [phone] Nausea Social History Tobacco Use Types Packs/Day [...] things needed for daily living? No 06/27/2024 [facility] - Mental Health Answer Date Recorde [...] Date Gil rded Speak language other than Ukrainian at home Not on file 11/13/2023 Want [...] and nausea. She said Dr. Garner at [facility] told her he would prescribe her Zofran but he did not call it in and she cannot get hold of him. I know she is Diane's patient, but I wondered if you'd be comfortable calling her in something for nausea to Fred in [facility]? Thank you! You saw her on 04/03/25 documented in this encounter Plan of Treatment Upcoming Encounters Date Type Department Care Team (Late st Contact Info) Description 07/05/2025 9:15 AM EDT Appointment [address] [place] [phone] 07/10/2025 10:00 AM EDT Office Visit [facility] Primary Care & Internal Med [address] [phone] Diane Velez PA-C [address] [phone] documented as of this encounter Visit Diagnoses Not on filedocumented in this encounter Care Teams Decorative Engraver Relationship Specialty Start Date End Date Diane Velez PA-C [address] [phone] PCP - General Family Medicine 04/18/25 documented as of this encounter
--- OUTSIDE RECORDS SUMMARY | 2025-05-11 08:50 | XMS_ITS | Encounter Summary ---
Author Organization [employer] ([place], [place], [place], [place]) Address [address] [place] [address] Care Team Providers Care Managed Care Specialist Name Role Phone Diane Velez PA-C Primary Care Provider [phone]- [phone] Reason for Visit * Reason Onset Date Comments Leg Swelling 04/20/2025 Encounter Details Date Type Department Care Team (Late st Contact Info) Description 04/20/2025 Telephone [facility] Primary Care [address] [address] Jaqui Caldera RN Leg Swelling [...] Date Gil rded Speak language other than Bhutanese at home Not on file 11/13/2023 Want [...] Caldera RN - 04/20/2025 3:05 PM EDTSjanice: market research assistant Call- ACTION NEEDED- Please contact pt for disposition advisement Good afternoon, Patient was triaged today for BLE edema, abdominal swelling. Based on my assessment and clinical judgement, callback from provider office for disposition advisement. Patient 's dtr-in-law verbalized understanding Thank you, Jaqui Caldera RN [facility] Spoke with pt and pt's daughter - [...] Info) Description 07/05/2025 9:15 AM EDT Appointment [address] [address] 07/10/2025 10:00 AM EDT Office Visit [facility] Primary Care & Internal Med [address] [place] [phone] Diane Velez PA-C [address] [place] [address] documented as of this encounter Visit Diagnoses Not on filedocumented in this encounter Care Teams Managed Care Specialist Relationship Specialty Start Date End Date Diane Velez PA-C [address] [phone] PCP - General Family Medicine 04/18/25 documented as of this encounter
--- OUTSIDE RECORDS SUMMARY | 2025-05-11 08:50 | XMS_ITS | Encounter Summary ---
Author Organization [employer] ([place], [place], [place], [place]) Address [address] [place] [address] Care Team Providers Care Management Manager Name Role Phone Joanna Osborne DO Primary Care Provider Diane Velez PA-C Primary Care Provider [phone]- [phone] Joanna Osborne DO Primary Care Provider Diane Velze PA-C Primary Care Provider +1- [phone] Joanna Osborne DO Primary Care Provider [phone] Diane Velez PA-C Primary Care Provider Encounter Details Date Type Department Care Team (Late st Contact Info) Description 12/20/2020 Transcribed Document [facility] [address] [place] [address] Provider, Mecca Morrison MD Social [...] - 12/20/2020 16:40 EST Electronically signed by [facility], [facility] Conversion Donor Recruitment Manager Cerner at 03/30/2023 2:01 PM CDT documented in this encounter Plan of Treatment Upcoming Encounters Date Type Department Care Team (Late st Contact Info) Description 07/05/2025 9:15 AM EDT Appointment [address] [place] [address] 07/10/2025 10:00 AM EDT Office Visit [facility] Primary Care & Internal Med [address] [place] [phone] Diane Velez PA-C [address] [place], [place] [phone] documented as of this encounter Visit Diagnoses Not on filedocumented in this encounter Care Teams Management Manager Relationship Specialty [place] [address] [place] [address] [address] [place], [place] [phone] PCP - General Internal Medicine 10/27/22 06/06/23 Diane Velez PA-C [address] [place] [phone] PCP - General Family Medicine 06/07/23 06/23/23 [place] [address] [place] [address] [place] [phone] PCP - General Internal Medicine 06/24/23 10/20/23 Diane Velez PA-C [address] [place] [phone] PCP - General Family Medicine 10/21/23 01/10/25 [place] [address] [place] [address] [address] [place] [address] PCP - General Internal Medicine 01/11/25 01/16/25 Diane Velez PA-C [address] [place] [address] [address] [place] [address] PCP - General Family Medicine 04/18/25 documented as of this encounter
--- OUTSIDE RECORDS SUMMARY | 2025-05-11 08:50 | XMS_ITS | Encounter Summary ---
Author Organization [employer] ([place], [place], [place], [place]) Address [address] [place] [address] Care Team Providers Care Powder Hand Name Role Phone Dawit Escalera DO Primary Care Provider Diane Velez PA-C Primary Care Provider Dawit Escalera DO Primary Care Provider Diane Velez PA-C Primary Care Provider +1- [phone] Dawit Escalera DO Primary Care Provider Diane Velez PA-C Primary Care Provider Encounter Details Date Type Department Care Team (Late st Contact Info) Description 12/20/2020 Transcribed Document [facility] [place] Medicine [address] [place] [address] ProviderTamiko MD [address] [place] [address] Social History Tobacco Use Types [...] Tamiko Simons MD - 12/20/2020 4:06 PM ENVIRONMENTAL SERVICES [place] [address] CINTHIA PALMA :1955 Visit Time:12/20/2020 Your Visit [...] When Comments follow up as instructed Where: [facility] [address] [place] [address]- Medications What How Much When Instructions Next [...] to thoroughly wash your hands, use hand apricot packer. While handwashing is best, hand apricot packer helps to reduce the spread of germs when you are out and about. Have hand apricot packer in several locations so you can always [...] keep people from also getting sick. Don???t Rosamond It! Sneezing this time of year is [...] PCP near you, please visit [employer] [email or web address]. January 05, 2020 What to do [...] clean your hands with an alcohol-based hand apricot packer that contains at least 60 to 95% [...] clean your hands with an alcohol-based hand apricot packer that contains at least 60% alcohol, covering [...] isolation precautions should be made on a chlz-yf-avxz basis, in consultation with healthcare providers and [...] and water are not available, use hand apricot packer. ? Change your dressing as told by [...] during your procedure. General instructions ??? Take ojqp-tph-dxnzsyw and prescription medicines only as told by [...] activities are safe for you. ??? Take jfvb-spc-yitoich and prescription medicines only as told by [...] 05/07/2006 Document Revised: 03/05/2020 Document Reviewed: 03/05/2020 [employer] Patient Education ?? 2020 [employer] Moderate Conscious Sedation, Adult, Care After [...] you are awake and alert. ??? Take flfw-inr-eucaeca and prescription medicines only as told by [...] 08/08/2014 Document Revised: 09/30/2018 Document Reviewed: 02/06/2017 [employer] Patient Education ?? 2020 [employer]. Emergency Awareness and Preventative Care STROKE is [...] Assistance with quitting is available by contacting 8-629-JVEQDailyPathNOW. This is a free resource providing counseling, [...] was given the opportunity to ask questions. Patient/Sinter Press Operator Name: Patient/Sinter Press Operator Signature: Relationship to Patient: Clinician/Hospital Sinter Press Operator Signature: Date: documented in this encounter Plan of Treatment Upcoming Encounters Date Type Department Care Team (Late st Contact Info) Description 07/05/2025 9:15 AM EDT Appointment [address] [place] [address] 07/10/2025 10:00 AM EDT Office Visit [facility] Primary Care & Internal Med [address] [place] [phone] Diane Velez PA-C [address] [place], [place] [phone] documented as of this encounter Visit Diagnoses Not on filedocumented in this encounter Care Teams Powder Hand Relationship Specialty [place] [address] [place] [address] [address] [place] [phone] PCP - General Internal Medicine 10/27/22 06/06/23 Diane Velez PA-C [address] [place] [phone] PCP - General Family Medicine 06/07/23 06/23/23 Dawit Escalera DO [address] [place] [address] [address] [place] [address] PCP - General Internal Medicine 06/24/23 10/20/23 Diane Velez PA-C [address] [place] [phone] PCP - General Family Medicine 10/21/23 01/10/25 Dawit Escalera DO 1401 [facility] [address] [place] [address] PCP - General Internal Medicine 01/11/25 01/16/25 Diane Velez PA-C [facility] [address] [address] PCP - General Family Medicine 04/18/25 documented as of this encounter
--- OUTSIDE RECORDS SUMMARY | 2025-05-11 08:50 | XMS_ITS | Encounter Summary ---
Author Organization [employer] ([place], [place], [place], [place]) Address [address] [place] [address] Care Team Providers Care Power Hammer Operator Name Role Phone Unavailable Primary Care Provider [...] things needed for daily living? No 06/27/2024 [facility] - Mental Health Answer Date Recorde [...] Date Gil rded Speak language other than Australian at home Not on file 11/13/2023 Want [...] Info) Description 07/05/2025 9:15 AM EDT Appointment [facility] 160 [facility] [address] [place] [address] 07/10/2025 10:00 AM EDT Office Visit [facility] Primary Care & Internal Med 1401 [facility] [address] [address] Diane Velez PA-C [address] [address] documented as of this encounter Visit Diagnoses Not on filedocumented in this encounter
--- OUTSIDE RECORDS SUMMARY | 2025-05-11 08:50 | XMS_ITS | Encounter Summary ---
Author Organization [employer] ([place], [place], [place], [place]) Address [address] [place] [address] Care Team Providers Care Die Sinker Name Role Phone Rosemarie Eagle PA-C Primary Care Provider +1- [phone] Reason for Visit * Reason Onset Date Comments Results 04/04/2025 Encounter Details Date Type Department Care Team (Late st Contact Info) Description 04/04/2025 Telephone [facility] Primary Care & Internal Med 1401 [facility] [address] [address] Rosemarie Eagle PA-C [address] [address] Results Social History Tobacco Use [...] for daily living? No 06/27/2024 [facility] - Mental Health Answer Date [...] 10:20 AM EDT FROM: Lise Peters TO: [facility] INTERNAL [facility]IC[facility] 8 CLINICAL BUSINESS DEVELOPER [[id number]] SUBJECT: Order Request PROVIDER: ROSEMARIE [place]AGLE [[id number]] DEPARTMENT: [facility] UMA 160 [[id number]] ENCOUNTER REASON FOR CALL: RESULTS [95] ENCOUNTER [...] PERFORMED ON: 2025-04-03
TEST PERFORMED AT: [facility]
LAST VISIT: 2025-04-03
NEXT VISIT: 2025-04-06
MESSAGE PRIORITY: Routine CALLER'S NAME: kenya aminata RELATION TO PATIENT: express care [0] PREFERRED LANGUAGE: Maltese BEST CALL BACK PHONE NUMBER: Home Phone: ([phone]) WHAT IS THE BEST WAY FOR THE OFFICE TO CONTACT YOU?: OK to leave message on voicemail documented in this encounter Plan of Treatment Upcoming Encounters Date Type Department Care Team (Late st Contact Info) Description 07/05/2025 9:15 AM EDT Appointment [facility] [address] [facility] [address] [place] [address] 07/10/2025 10:00 AM EDT Office Visit [facility] Primary Care & Internal Med [address] [address] Rosemarie Eagle PA-C [address] [address] documented as of this encounter Visit Diagnoses Not on filedocumented in this encounter Care Teams Die Sinker Relationship Specialty Start Date End Date Rosemarie Eagle PA-C [address] [address] PCP - General Family Medicine 04/18/25 documented as of this encounter
--- OUTSIDE RECORDS SUMMARY | 2025-05-11 08:50 | XMS_ITS | Encounter Summary ---
Author Organization [employer] ([place], [place], [place], [place]) Address [address] [place] [address] Care Team Providers Care Counter Checker Name Role Phone Joanna Osborne DO Primary Care Provider Diane Velez PA-C Primary Care Provider Joanna Osborne DO Primary Care Provider Diane Velez PA-C Primary Care Provider +1- [phone] Joanna Osborne DO Primary Care Provider Diane Velez PA-C Primary Care Provider Encounter Details Date Type Department Care Team (Late st Contact Info) Description 09/23/2020 Transcribed Document [facility] Family Medicine [address] [place] [address] ProviderTamiko MD [address] [place] [address] Social History Tobacco Use Types [...] Tamiko Simons MD - 09/23/2020 11:38 PM MINE CAR MECHANIC Electronically signed by Chanel [facility] Conversion Dressage Instructor Cerner at 02/19/2023 2:17 PM CDT documented in this encounter Plan of Treatment Upcoming Encounters Date Type Department Care Team (Late st Contact Info) Description 07/05/2025 9:15 AM EDT Appointment [address] [place] [address] 07/10/2025 10:00 AM EDT Office Visit [facility] Primary Care & Internal Med [address] [facility] [address] [phone] Diane Velez PA-C [address] [phone] documented as of this encounter Visit Diagnoses Not on filedocumented in this encounter Care Teams Counter Checker Relationship Specialty Start Date End Date Joanna Osborne DO [address] [facility] [address] [place] [address] PCP - General Internal Medicine 10/27/22 06/06/23 Diane Velez PA-C [address] [phone] PCP - General Family Medicine 06/07/23 06/23/23 Joanna Osborne DO [address] [facility] [address] [place] [address] PCP - General Internal Medicine 06/24/23 10/20/23 Diane Velez PA-C [address] [phone] PCP - General Family Medicine 10/21/23 01/10/25 Joanna Osborne DO [address] [facility] [address] [place] [address] PCP - General Internal Medicine 01/11/25 01/16/25 Diane Velez PA-C [address] [address] PCP - General Family Medicine 04/18/25 documented as of this encounter
--- OUTSIDE RECORDS SUMMARY | 2025-05-11 08:50 | XMS_ITS | Encounter Summary ---
Author Organization [employer] ([place], [place], [place], [place]) Address [address] [place] [address] Care Team Providers Care Manager Mechanical Maintenance Name Role Phone Diane Velez PA-C Primary Care Provider +1- [phone] Reason for Visit * Reason Onset Date Comments Referral 04/09/2025 Encounter Details Date Type Department Care Team (Late st Contact Info) Description 04/09/2025 Telephone [facility] Primary Care & Internal Med [address] [facility] [address] [address] Diane Velez PA-C [address] [address] Referral Social History Tobacco Use [...] things needed for daily living? No 06/27/2024 [facility] - Mental Health Answer Date Recorde [...] law Best Call Back / Himanshu tomorrow [phone] OK to leave message on voicemail: documented in this encounter Plan of Treatment Upcoming Encounters Date Type Department Care Team (Late st Contact Info) Description 07/05/2025 9:15 AM EDT Appointment [address] [place] [phone] 07/10/2025 10:00 AM EDT Office Visit [facility] Primary Care & Internal Med [address] [facility] [address] [place] [phone] Diane Velez PA-C [address] [place], [place] [phone] documented as of this encounter Visit Diagnoses Not on filedocumented in this encounter Care Teams Manager Mechanical Maintenance Relationship Specialty Start Date End Date Diane Velez PA-C [address] [address] PCP - General Family Medicine 04/18/25 documented as of this encounter
--- OUTSIDE RECORDS SUMMARY | 2025-05-11 08:50 | XMS_ITS ---
Author Organization [employer] ([place], [place], [place], [place]) Address [address] [place] [address] Care Team Providers Care Stationary Steam Engineer Name Role Phone Diane Velez PA-C Primary Care Provider +1- [phone] Active Problems * This document contains information [...] current plan information found. Other Current Plans [facility] BLANK THERAPY PLAN* Plan Start Date:12/06/2023 Linked Problems Senile osteoporosis Treatment Medications denosumab (PROLIA) Past Plans Radiation Treatments * No radiation treatments are documented for this patient in [facility]. Treatments may have been administered in another system.
--- OUTSIDE RECORDS SUMMARY | 2025-05-11 08:50 | XMS_ITS | Encounter Summary ---
Author Organization [employer] ([place], [place], [place], [place]) Address [address] [place] [address] Care Team Providers Care Production Underwriter Name Role Phone Diane Velez PA-C Primary Care Provider +1- [phone] Reason for Visit * Reason Onset Date Comments Nausea 04/23/2025 Encounter Details Date Type Department Care Team (Late st Contact Info) Description 04/23/2025 Telephone [facility] Primary Care & Internal Med [address] [facility] [address] [address] Diane Velez PA-C [address] [address] Nausea Social History Tobacco Use [...] things needed for daily living? No 06/27/2024 [facility] - Mental Health Answer Date Recorde [...] last night. She gets her meds at [facility] in [facility]. documented in this encounter Plan of Treatment Upcoming Encounters Date Type Department Care Team (Late st Contact Info) Description 07/05/2025 9:15 AM EDT Appointment [address] [place] [address] 07/10/2025 10:00 AM EDT Office Visit [facility] Primary Care & Internal Med [address] [facility] [address] [place] [phone] Diane Velez PA-C [address] [place], [place] [address] documented as of this encounter Visit Diagnoses Not on filedocumented in this encounter Care Teams Production Underwriter Relationship Specialty Start Date End Date Diane Velez PA-C [address] [address] PCP - General Family Medicine 04/18/25 documented as of this encounter
--- OUTSIDE RECORDS SUMMARY | 2025-05-11 08:50 | XMS_ITS | Encounter Summary ---
Author Organization [employer] ([place], [place], [place], [place]) Address [address] [place] [address] Care Team Providers Care Reception Clerk Name Role Phone Unavailable Primary Care Provider Unavailabl e Reason for Visit * Reason Onset Date Comments Rash 04/04/2025 Encounter Details Date Type Department Care Team (Late st Contact Info) Description 04/04/2025 Telephone [facility] Primary Care & Internal Med [address] [place] [phone] Diane Velez PA-C [address] [address] Rash Social History Tobacco Use [...] for daily living? No 06/27/2024 [facility] - Mental Health Answer Date [...] Date Gil rded Speak language other than [place] Timorese at home Not on file 11/13/2023 Want [...] Notes * Telephone Encounter - Titus Hever, BOILER TENDERS SUPERVISOR - 04/04/2025 9:20 AM EDT Patient called [...] Description 07/05/2025 9:15 AM EDT Appointment [address] [place] [phone] 07/10/2025 10:00 AM EDT Office Visit [facility] Primary Care & Internal Med [address] [address] Diane Velez PA-C [address] [address] documented as of this encounter Visit Diagnoses Not on filedocumented in this encounter
--- OUTSIDE RECORDS SUMMARY | 2025-05-11 08:50 | XMS_ITS | Encounter Summary ---
Author Organization [employer] ([place], [place], [place], [place]) Address [address] [place] [address] Care Team Providers Care Manager Music Name Role Phone Unavailable Primary Care Provider Unavailabl e Encounter Details Date Type Department Care Team (Late st Contact Info) Description 03/05/2025 Abstract [facility] Primary Care & Internal Med [address] [facility] [address] [place] [address] Behzad Lerner Jr., MD [address] [facility] [address] [place] [address] Social History Tobacco Use Types Packs/Day Years [...] for daily living? No 06/27/2024 [facility] - Mental Health Answer Date Recorde [...] Date Gil rded Speak language other than Chilean at home Not on file 11/13/2023 Want [...] Info) Description 07/05/2025 9:15 AM EDT Appointment [facility] [address] [facility] [address] [place] [phone] 07/10/2025 10:00 AM EDT Office Visit [facility] Primary Care & Internal Med [address] [address] Diane Velez PA-C [address] [address] documented as of this encounter Visit Diagnoses Not on filedocumented in this encounter
--- OUTSIDE RECORDS SUMMARY | 2025-05-11 08:50 | XMS_ITS | Encounter Summary ---
Author Organization [employer] ([place], [place], [place], [place]) Address [address] [place] [address] Care Team Providers Care Griddle Attendant Name Role Phone Diane Velez PA-C Primary Care Provider +1- [phone] Reason for Visit * Reason Onset Date Comments Medication Refill 04/23/2025 Encounter Details Date Type Department Care Team (Late st Contact Info) Description 04/23/2025 Refill [facility] Primary Care & Internal Med [address] [facility] [address] [address] Diane Velez PA-C [address] [address] Hypertension, unspecified type Social History [...] No 06/27/2024 [facility] - Mental Health Answer Date Recorde d [...] Date Gil rded Speak language other than Micronesian at home Not on file 11/13/2023 Want [...] Description 07/05/2025 9:15 AM EDT Appointment [address] [address] 07/10/2025 10:00 AM EDT Office Visit [facility] Primary Care & Internal Med [address] [address] Diane Velez PA-C [address] [address] documented as of this encounter Visit Diagnoses Diagnosis Hypertension, unspecified type documented in this encounter Care Teams Griddle Attendant Relationship Specialty Start Date End Date Diane Velez PA-C [address] [address] PCP - General Family Medicine 04/18/25 documented as of this encounter
--- OUTSIDE RECORDS SUMMARY | 2025-05-11 08:50 | XMS_ITS | Encounter Summary ---
Author Organization [employer] ([place], [place], [place], [place]) Address [address] [place] [address] Care Team Providers Care Farm Equipment Engine Mechanic Name Role Phone Unavailable Primary Care Provider [...] needed for daily living? No 06/27/2024 [facility] - Mental Health Answer Date [...] Date Gil rded Speak language other than Colombian at home Not on file 11/13/2023 Want [...] Description 07/05/2025 9:15 AM EDT Appointment [facility] 160 [facility] [address] [place] [address] 07/10/2025 10:00 AM EDT Office Visit [facility] Primary Care & Internal Med 1401 [facility] [address] [address] Diane Velez PA-C [address] [address] documented as of this encounter Visit Diagnoses Not on filedocumented in this encounter
--- OUTSIDE RECORDS SUMMARY | 2025-05-11 08:50 | XMS_ITS | Encounter Summary ---
Author Organization [employer] ([place], [place], [place], [place]) Address [address] [place] [address] Care Team Providers Care Watershed Manager Name Role Phone Unavailable Primary Care [...] Date Gil rded Speak language other than Prydeinig at home Not on file 11/13/2023 Want [...] Info) Description 07/05/2025 9:15 AM EDT Appointment [facility] 160 [facility] [address] [place] [address] 07/10/2025 10:00 AM EDT Office Visit [facility] Primary Care & Internal Med 1401 [facility] [address] [address] Diane Velez PA-C [address] [address] documented as of this encounter Visit Diagnoses Not on filedocumented in this encounter
--- OUTSIDE RECORDS SUMMARY | 2025-05-11 08:50 | XMS_ITS | Encounter Summary ---
Author Organization [employer] ([place], [place], [place], [place]) Address [address] [place] [address] Care Team Providers Care Aircraft Instrument Mechanic Name Role Phone Diane Velez PA-C Primary Care Provider +1- [phone] Encounter Details Date Type Department Care Team [...] things needed for daily living? No 06/27/2024 [facility] - Mental Health Answer Date [...] Date Gil rded Speak language other than Lebanese at home Not on file 11/13/2023 Want [...] Description 07/05/2025 9:15 AM EDT Appointment [address] [place] [address] 07/10/2025 10:00 AM EDT Office Visit [facility] Primary Care & Internal Med 1401 [facility] [address] [address] Diane Velez PA-C 1401 [facility] Ernesto [address] [address] documented as of this encounter Visit Diagnoses Not on filedocumented in this encounter Care Teams Aircraft Instrument Mechanic Relationship Specialty Start Date End Date Diane Velez PA-C [address] [place] [phone] PCP - General Family Medicine 04/18/25 documented as of this encounter
--- OUTSIDE RECORDS SUMMARY | 2025-05-11 08:50 | XMS_ITS | Encounter Summary ---
Author Organization [employer] ([place], [place], [place], [place]) Address [address] [place] [address] Care Team Providers Care Vp Outcomes Name Role Phone Unavailable Primary Care Provider [...] things needed for daily living? No 06/27/2024 [facility] - Mental Health Answer Date [...] Date Gil rded Speak language other than Taiwanese at home Not on file 11/13/2023 Want [...] Info) Description 07/05/2025 9:15 AM EDT Appointment [facility] 160 [facility] [address] [place] [address] 07/10/2025 10:00 AM EDT Office Visit [facility] Primary Care & Internal Med 1401 [facility] [address] [address] Diane Velez PA-C [address] [address] documented as of this encounter Visit Diagnoses Not on filedocumented in this encounter
--- OUTSIDE RECORDS SUMMARY | 2025-05-11 08:50 | XMS_ITS | Encounter Summary ---
Author Organization [employer] ([place], [place], [place], [place]) Address [address] [place] [address] Care Team Providers Care Broadcast Systems Engineer Name Role Phone Joanna Osborne DO Primary Care Provider [phone] Diane Velez PA-C Primary Care Provider Joanna Osborne DO Primary Care Provider Diane Velez PA-C Primary Care Provider +1- [phone] Joanna Osborne DO Primary Care Provider Diane Velez PA-C Primary Care Provider Encounter Details Date Type Department Care Team (Late st Contact Info) Description 12/20/2020 Transcribed Document [facility] Family Medicine [address] [place] [address] ProvideraTmiko MD [address] [place] [address] Social History Tobacco Use Types [...] Tamiko Simons MD - 12/20/2020 2:40 PM NEONATAL SPECIALIST Patient: CINTHIA PALMA Age: 65 years Sex: [...] Description 07/05/2025 9:15 AM EDT Appointment [address] [place] [address] 07/10/2025 10:00 AM EDT Office Visit [facility] Primary Care & Internal Med [address] [place] [address] Diane Velez PA-C [address] [place], [place] [phone] documented as of this encounter Visit Diagnoses Not on filedocumented in this encounter Care Teams Broadcast Systems Engineer Relationship Specialty Start Date End Date Hesham OsbornessDO jaydon [address] [facility] [address] [place] [address] PCP - General Internal Medicine 10/27/22 06/06/23 Diane Velez PA-C [address] [place] [address] [place] [address] PCP - General Family Medicine 06/07/23 06/23/23 Joanna Osborne DO [address] [facility] [address] [place] [address] PCP - General Internal Medicine 06/24/23 10/20/23 Diane Velez PA-C 14[address] [facility] [address] [place] [address] PCP - General Family Medicine 10/21/23 01/10/25 Joanna Osborne DO [address] [facility] [address] [place] [address] PCP - General Internal Medicine 01/11/25 01/16/25 Diane Velez PA-C 14[address] [facility] [address] [place] [address] PCP - General Family Medicine 04/18/25 documented as of this encounter
--- OUTSIDE RECORDS SUMMARY | 2025-05-11 08:50 | XMS_ITS | Encounter Summary ---
Author Organization [employer] ([place], [place], [place], [place]) Address [address] [place] [address] Care Team Providers Care Activities Therapist Name Role Phone Joanna Osborne DO Primary Care Provider Diane Velez PA-C Primary Care Provider Joanna Osborne DO Primary Care Provider [phone] Diane Velez PA-C Primary Care Provider +1- [phone] Joanna Osborne DO Primary Care Provider [phone] Diane Velez PA-C Primary Care Provider Encounter Details Date Type Department Care Team (Late st Contact Info) Description 09/23/2020 Transcribed Document [facility] Family Medicine [address] [place] [address] ProviderTamiko MD [address] [place] [address] Social History Tobacco Use Types [...] Tamiko Simons MD - 09/23/2020 3:35 PM SAW MAKER Gail Suicide Severity Rating Scale (C-SSRS) Entered On: 09/23/2020 22:17 EST Performed On: 09/23/2020 22:16 EST by PHYLICIA BUTCHER RN Gail Suicide Severity Rating Scale (C-SSRS) CSSRS Past Month Wish to be : No CSSRS Past Month Suicidal Thoughts : No CSSRS Lifetime Suicide Behavior : No Suicide Severity Rating Score : 0 Suicide Severity Rating : No Additional Care Required at this time PHYLICIA BUTCHER RN - 09/23/2020 22:16 EST Electronically signed by Chanel [facility] Conversion Coal Cutting Machine Operator Cerner at 02/19/2023 2:19 PM CDT documented in this encounter Plan of Treatment Upcoming Encounters Date Type Department Care Team (Late st Contact Info) Description 07/05/2025 9:15 AM EDT Appointment [address] [place] [address] 07/10/2025 10:00 AM EDT Office Visit [facility] Primary Care & Internal Med [address] [place] [address] [address] Diane Velez PA-C [address] [place] [phone] documented as of this encounter Visit Diagnoses Not on filedocumented in this encounter Care Teams Activities Therapist Relationship Specialty Start Date End Date Joanna Osborne DO 1401 [facility] [address] [place] [address] PCP - General Internal Medicine 10/27/22 06/06/23 Diane Velez PA-C [address] [place] [address] PCP - General Family Medicine 06/07/23 06/23/23 [place] [address] [place] [address] [address] [place] [address] PCP - General Internal Medicine 06/24/23 10/20/23 Diane Velez PA-C 14[address] [facility] [address] [place] [address] PCP - General Family Medicine 10/21/23 01/10/25 Joanna Osborne DO [address] [facility] [address] [place] [address] PCP - General Internal Medicine 01/11/25 01/16/25 Diane Velez PA-C 14[address] [facility] [address] [place] [address] PCP - General Family Medicine 04/18/25 documented as of this encounter
--- OUTSIDE RECORDS SUMMARY | 2025-05-11 08:50 | XMS_ITS | Encounter Summary ---
Author Organization [employer] ([place], [place], [place], [place]) Address [address] [place] [address] Care Team Providers Care Buddhist Monk Name Role Phone Joanna Osborne DO Primary Care Provider Diane Velez PA-C Primary Care Provider Joanna Osborne DO Primary Care Provider [phone] Diane Velez PA-C Primary Care Provider +1- [phone] Joanna Osborne DO Primary Care Provider Diane Velez PA-C Primary Care Provider Encounter Details Date Type Department Care Team (Late st Contact Info) Description 09/24/2020 Transcribed Document [facility] [place] [address] [place] [address] ProviderTamiko MD [address] [place] [address] Social History Tobacco Use Types [...] Tamiko Simons MD - 09/24/2020 12:03 AM ASSISTANT MANAGER RETAIL ED Discharge Entered On: 09/24/2020 0:03 EST [...] - 09/24/2020 0:03 EST Electronically signed by [facility] Conversion Vice President Residential Solar Sales Cerner at 02/19/2023 2:14 PM CDT documented in this encounter Plan of Treatment Upcoming Encounters Date Type Department Care Team (Late st Contact Info) Description 07/05/2025 9:15 AM EDT Appointment [address] [place] [phone] 07/10/2025 10:00 AM EDT Office Visit [facility] Primary Care & Internal Med [address] [address] Diane Velez PA-C [address] [place] [address] documented as of this encounter Visit Diagnoses Not on filedocumented in this encounter Care Teams Buddhist Monk Relationship Specialty Start Date End Date Joanna Osborne DO 1401 [facility] [address] [place] [address] PCP - General Internal Medicine 10/27/22 06/06/23 Diane Velez PA-C [address] [place] [address] PCP - General Family Medicine 06/07/23 06/23/23 [place] [address] [place] [address] [address] [place] [address] PCP - General Internal Medicine 06/24/23 10/20/23 Diane Velez PA-C [address] [place] [address] [address] [place] [address] PCP - General Family Medicine 10/21/23 01/10/25 Joanna Osborne DO 1401 [facility] [address] [place] [address] PCP - General Internal Medicine 01/11/25 01/16/25 Diane Velez PA-C [address] [facility] [address] [place] [address] PCP - General Family Medicine 04/18/25 documented as of this encounter
--- OUTSIDE RECORDS SUMMARY | 2025-05-11 08:50 | XMS_ITS | Encounter Summary ---
Author Organization [employer] ([place], [place], [place], [place]) Address [address] [place] [address] Care Team Providers Care Social Work Supervisor Name Role Phone Diane Velez PA-C Primary Care Provider +1- [phone] Reason for Visit * Reason Onset Date Comments Medication Refill 05/01/2025 Encounter Details Date Type Department Care Team (Late st Contact Info) Description 05/01/2025 Refill [facility] Primary Care & Internal Med [address] [place] [address] Diane Velez PA-C [address] [address] Nausea Social History Tobacco Use [...] things needed for daily living? No 06/27/2024 [facility] - Mental Health Answer Date Recorde d [...] Date Gil rded Speak language other than Wallisian at home Not on file 11/13/2023 Want [...] Description 07/05/2025 9:15 AM EDT Appointment [address] [address] 07/10/2025 10:00 AM EDT Office Visit [facility] Primary Care & Internal Med [address] [address] Diane Velez PA-C [address] [address] documented as of this encounter Visit Diagnoses Diagnosis Nausea Nausea alone documented in this encounter Care Teams Social Work Supervisor Relationship Specialty Start Date End Date Diane Velez PA-C [address] [address] PCP - General Family Medicine 04/18/25 documented as of this encounter
--- OUTSIDE RECORDS SUMMARY | 2025-05-11 08:50 | XMS_ITS | Encounter Summary ---
Author Organization [employer] ([place], [place], [place], [place]) Address [address] [place] [address] Care Team Providers Care Black Studies Professor Name Role Phone Joanna Osborne DO Primary Care Provider [phone] Diane Velez PA-C Primary Care Provider + [phone] Joanna Osborne DO Primary Care Provider Diane Velez PA-C Primary Care Provider + [phone] Joanna Osborne DO Primary Care Provider Diane Velez PA-C Primary Care Provider + [phone] Encounter Details Date Type Department Care Team (Late st Contact Info) Description 04/28/2022 Transcribed Document [facility] [address] [place] [address] ProviderTamiko MD [address] [place] [address] Social History Tobacco Use Types [...] things needed for daily living? No 06/27/2024 [place] - [facility] Answer Date Recorde d [...] Date Gil rded Speak language other than Algerian at home Not on file 11/13/2023 Want [...] Source : Stated Height Entry Format : [place] Height, Feet : 5 ft(Converted to: 152 cm, 60 Inch) Height, Inches : 2 Inch(Converted to: 0 ft 2 Inch, 5.08 cm) Clinical Height : 157.48 cm Weight Source : Standing scale Weight Entry Format : [place] Clinical Dosing Weight : 50 kg Weight, Pounds : 110 lb Body Surface Area (BSA) : 1.48 m2 Body Mass Index : 20.2 kg/m2 [place] Body Weight : 50 kg IDA DIAS [...] : No IDA DIAS 04/28/2022 10:07 EDT [place] Suicide Severity Rating Scale (C-SSRS) CSSRS Past [...] Scale Risk Level : 0-24 Low Risk [place] Fall Interventions : Adequate lighting, Assistive devices [...] 04/28/2022 10:07 EDT Electronically signed by Chanel [facility] Conversion Pulpit Operator Cerner at 02/19/2023 2:29 PM CDT documented in this encounter Plan of Treatment Upcoming Encounters Date Type Department Care Team (Late st Contact Info) Description 07/05/2025 9:15 AM EDT Appointment [address] [place] [address] 07/10/2025 10:00 AM EDT Office Visit [facility] Primary Care & Internal Med [address] [facility] [address] [address] Diane Velez PA-C [address] [place] [address] documented as of this encounter Visit Diagnoses Not on filedocumented in this encounter Care Teams Black Studies Professor Relationship Specialty Start Date End Date India JoannaDO 14[address] [facility] [address] [place] [address] PCP - General Internal Medicine 10/27/22 06/06/23 Diane Velez PA-C [address] [address] PCP - General Family Medicine 06/07/23 06/23/23 Joanna Osborne DO 1401 [facility] [address] [place] [address] PCP - General Internal Medicine 06/24/23 10/20/23 Diane Velez PA-C [address] [place] [address] PCP - General Family Medicine 10/21/23 01/10/25 Joanna Osborne DO 1401 [facility] [address] [place] [address] PCP - General Internal Medicine 01/11/25 01/16/25 Diane Velez PA-C [address] [facility] [address] [place] [address] PCP - General Family Medicine 04/18/25 documented as of this encounter
--- OUTSIDE RECORDS SUMMARY | 2025-05-11 08:50 | XMS_ITS | Encounter Summary ---
Author Organization [employer] ([place], [place], [place], [place]) Address [address] [place] [address] Care Team Providers Care Nurse First Aid Name Role Phone Joanna Osborne DO Primary Care Provider Diane Velez PA-C Primary Care Provider Joanna Osborne DO Primary Care Provider Diane Velez PA-C Primary Care Provider [phone]- [phone] Joanna Osborne DO Primary Care Provider Diane Velez PA-C Primary Care Provider Encounter Details Date Type Department Care Team (Late st Contact Info) Description 09/24/2020 Transcribed Document [facility] [place] Medicine [address] [place] [address] ProviderTamiko MD [address] [place] [address] Social History Tobacco Use Types [...] Tamiko Simons MD - 09/24/2020 1:47 PM REEL MAN CR Chest 2 Vws Ordered: 09/23/2020 Auth (Verified) Reason for Exam: pain 09/23/2020 18:41 09/24/2020 13:47 (JONATHAN MOON PA-C) Reviewed by Provider, No further action required x1 09/24/2020 13:08 (ANTONIO CASTANEDA) Provider Review Required documented in this encounter Plan of Treatment Upcoming Encounters Date Type Department Care Team (Late st Contact Info) Description 07/05/2025 9:15 AM EDT Appointment [address] [place] [address] 07/10/2025 10:00 AM EDT Office Visit [facility] Primary Care & Internal Med [address] [place] [address] [phone] Diane Velez PA-C [address] [place] [phone] documented as of this encounter Visit Diagnoses Not on filedocumented in this encounter Care Teams Nurse First Aid Relationship Specialty Start Date End Date Joanna Osborne DO [address]01 [facility] [address] [place] [address] PCP - General Internal Medicine 10/27/22 06/06/23 Diane Velez PA-C [address] [place] [address] PCP - General Family Medicine 06/07/23 06/23/23 [place] [address] [place] [address] [address] [place], [place] [id number] PCP - General Internal Medicine 06/24/23 10/20/23 Diane Velez PA-C [address] [place] [address] PCP - General Family Medicine 10/21/23 01/10/25 Joanna Osborne DO [address]01 [facility] [address] [place] [address] PCP - General Internal Medicine 01/11/25 01/16/25 Diane Velez PA-C [facility] [address] [address] PCP - General Family Medicine 04/18/25 documented as of this encounter
--- OUTSIDE RECORDS SUMMARY | 2025-05-11 08:50 | XMS_ITS | Encounter Summary ---
Author Organization [facility] ([place], [place], [place], [place]) Address [address] [place] [address] Care Team Providers Care Outside Solar Sales Consultant Name Role Phone Diane Velez PA-C Primary Care Provider [phone]- [phone] Encounter Details Date Type Department Care Team [...] Info) Description 07/05/2025 9:15 AM EDT Appointment [address] [place] [address] 07/10/2025 10:00 AM EDT Office Visit [facility] Primary Care & Internal Med 1401 [facility] [address] [address] Diane Velez PA-C 1401 [facility] Ernesto [address] [address] documented as of this encounter Visit Diagnoses Not on filedocumented in this encounter Care Teams Outside Solar Sales Consultant Relationship Specialty Start Date End Date Diane Velez PA-C [address] [place] [phone] PCP - General Family Medicine 04/18/25 documented as of this encounter
--- OUTSIDE RECORDS SUMMARY | 2025-05-11 08:50 | XMS_ITS | Encounter Summary ---
Author Organization [employer] ([place], [place], [place], [place]) Address [address] [place] [address] Care Team Providers Care Boning Room Worker Name Role Phone Joanna Osborne DO Primary Care Provider Diane Velez PA-C Primary Care Provider + [phone] Joanna Osborne DO Primary Care Provider Diane Velez PA-C Primary Care Provider + [phone] Joanna Osborne DO Primary Care Provider [phone] Diane Velez PA-C Primary Care Provider + [phone] Encounter Details Date Type Department Care Team (Late st Contact Info) Description 04/28/2022 Transcribed Document [facility] Family Medicine [address] [place] [address] ProviderTamiko MD [address] [place] [address] Social History Tobacco Use Types [...] for daily living? No 06/27/2024 [facility] - Mental Health Answer Date [...] Date Gil rded Speak language other than Malian at home Not on file 11/13/2023 Want [...] Info) Description 07/05/2025 9:15 AM EDT Appointment [address] [place] [address] 07/10/2025 10:00 AM EDT Office Visit [facility] Primary Care & Internal Med [address] [address] Diane Velez PA-C [address] [place], [place] [address] [place] [address] documented as of this encounter Visit Diagnoses Not on filedocumented in this encounter Care Teams Boning Room Worker Relationship Specialty Start Date End Date Joanna Osborne DO 1401 [facility] [address] [place], [place] [id number] PCP - General Internal Medicine 10/27/22 06/06/23 Diane Velez PA-C 1401 [facility] [address] [place] [address] PCP - General Family Medicine 06/07/23 06/23/23 Joanna Osborne DO 1401 [facility] [address] [place] [address] PCP - General Internal Medicine 06/24/23 10/20/23 Diane Velez PA-C 14[address] [facility] [address] [place] [address] PCP - General Family Medicine 10/21/23 01/10/25 Joanna Osborne DO 1401 [facility] [address] [place] [address] PCP - General Internal Medicine 01/11/25 01/16/25 Diane Velez PA-C [address] [place] [address] PCP - General Family Medicine 04/18/25 documented as of this encounter
--- OUTSIDE RECORDS SUMMARY | 2025-05-11 08:50 | XMS_ITS | Encounter Summary ---
Author Organization [employer] ([place], [place], [place], [place]) Address [address] [place] [address] Care Team Providers Care Materials Director Name Role Phone Joanna Osborne DO Primary Care Provider Diane Velez PA-C Primary Care Provider [phone]- [phone] Joanna Osborne DO Primary Care Provider Diane Velez PA-C Primary Care Provider +1- [phone] Joanna Osborne DO Primary Care Provider Diane Velez PA-C Primary Care Provider Encounter Details Date Type Department Care Team (Late st Contact Info) Description 12/20/2020 Transcribed Document [facility] [place] [address] [place] [address] ProviderTamiko MD [address] [place] [address] Social History Tobacco Use Types Packs/Day Years Used Date Smoking Tobacco: Never Assessed Comments Unknown Sex and Gender Information Value Date Recorded Sex Assigned at Not on file Legal Sex Female 2:31 PM CDT Gender Identity Not on file Sexual Orientation Not on file documented as of this encounter Miscellaneous Notes * Cerner Conversion Note - Tamiko Simons MD - 12/20/2020 12:11 PM HAIR TINTER Pre Procedure Adult Entered On: 12/20/2020 12:14 EST Performed On: 12/20/2020 12:11 EST by MYRTLE HERNANDEZ RN Height and Weight, Clinical Dosing Height Source : Stated Height Entry Format : [place] Height, Feet : 5 ft(Converted to: 152 cm, 60 Inch) Height, Inches : 2 Inch(Converted to: 0 ft 2 Inch, 5.08 cm) Clinical Height : 157.48 cm Weight Source : Standing scale Weight Entry Format : [place] Clinical Dosing Weight : 59.09 kg Weight, Pounds : 130 lb Body Surface Area (BSA) : 1.59 m2 Body Mass Index : 23.8 kg/m2 [place] Body Weight : 50 kg MYRTLE HERNANDEZ [...] MYRTLE HERNANDEZ RN - 12/20/2020 12:11 EST [place] Suicide Severity Rating Scale (C-SSRS) CSSRS Past [...] friend Support Person/Pt Rep Contact Information : [phone] Want Family/Rep/Phys Notified of Admit : No Emergency Contact #1 : . Emergency Contact #1 Phone Number : . Emergency Contact #1 Relationship : . Emergency Contact #2 : . Emergency Contact #2 Phone Number : . Emergency Contact #2 Relationship : . Primary Language : Tanzanian Communication Barrier : None Call Center Manager Needed : No MYRTLE HERNANDEZ RN - [...] Scale Risk Level : 25-45 Medium Risk [place] Fall Interventions : Adequate lighting, Assistive devices [...] Description 07/05/2025 9:15 AM EDT Appointment [address] [place] [address] 07/10/2025 10:00 AM EDT Office Visit [facility] Primary Care & Internal Med 14[address] [facility] [address] [address] Diane Velez PA-C [address] [place] [address] documented as of this encounter Visit Diagnoses Not on filedocumented in this encounter Care Teams Materials Director Relationship Specialty Start Date End Date India Joanna 1401 [facility] [address] [place], [place] [id number] PCP - General Internal Medicine 10/27/22 06/06/23 Diane Velez PA-C [address] [place] [address] PCP - General Family Medicine 06/07/23 06/23/23 India JoannaDO eddie 1401 [facility] [address] [place] [id number] PCP - General Internal Medicine 06/24/23 10/20/23 Diane Velez PA-C [address] [place] [address] PCP - General Family Medicine 10/21/23 01/10/25 India JoannaDO eddie 1401 [facility] [address] [place] [address] PCP - General Internal Medicine 01/11/25 01/16/25 Diane Velez PA-C [address] [place] [address] PCP - General Family Medicine 04/18/25 documented as of this encounter
--- OUTSIDE RECORDS SUMMARY | 2025-05-11 08:51 | XMS_ITS | Encounter Summary ---
Author Organization [employer] ([place], [place], [place], [place]) Address [address] [place] [address] Care Team Providers Care Associate Director Of Development Name Role Phone Diane Eagle PA-C Primary Care Provider +1- [phone] Reason for Visit * Reason Onset Date Comments Results 04/04/2025 Encounter Details Date Type Department Care Team (Late st Contact Info) Description 04/04/2025 Telephone [facility] Primary Care & Internal Med 1401 [facility] [address] [address] Diane Eagle PA-C [address] [address] Results Social History Tobacco Use [...] things needed for daily living? No 06/27/2024 [facility] - Mental Health Answer Date Recorde [...] 10:19 AM EDT FROM: Lise Peters TO: [facility] INTERNAL MEDICINE 8 CLINICAL MACHINE SHOP HELPER [[id number]] SUBJECT: Results Related Request PROVIDER: DIANE EAGLE [[id number]] DEPARTMENT: [facility] [address] [[id number]] ENCOUNTER REASON FOR CALL: RESULTS [95] ENCOUNTER [...]
TEST PERFORMED ON: 2025-04-03
TEST PERFORMED AT: [facility]
LAST VISIT: 2025-04-03
NEXT VISIT: 2025-04-06
MESSAGE PRIORITY: Routine CALLER'S NAME: kenya aminata RELATION TO PATIENT: express care [0] PREFERRED LANGUAGE: [place] Citizen BEST CALL BACK PHONE NUMBER: Home Phone: ([phone]) WHAT IS THE BEST WAY FOR THE OFFICE TO CONTACT YOU?: OK to leave message on voicemail documented in this encounter Plan of Treatment Upcoming Encounters Date Type Department Care Team (Late st Contact Info) Description 07/05/2025 9:15 AM EDT Appointment [address] [place] [address] 07/10/2025 10:00 AM EDT Office Visit [facility] Primary Care & Internal Med [address] [phone] Diane Eagle PA-C [address] [phone] documented as of this encounter Visit Diagnoses Not on filedocumented in this encounter Care Teams Associate Director Of Development Relationship Specialty Start Date End Date Diane Eagle PA-C [address] [address] PCP - General Family Medicine 04/18/25 documented as of this encounter
--- OUTSIDE RECORDS SUMMARY | 2025-05-11 08:51 | XMS_ITS | Encounter Summary ---
Author Organization [employer] ([place], [place], [place], [place]) Address [address] [place] [address] Care Team Providers Care Laborer Landscape Name Role Phone Joanna Osborne DO Primary Care Provider Diane Velez PA-C Primary Care Provider +1- [phone] Joanna Osborne DO Primary Care Provider Diane Velez PA-C Primary Care Provider +1- [phone] Joanna Osborne DO Primary Care Provider Diane Velez PA-C Primary Care Provider Encounter Details Date Type Department Care Team (Late st Contact Info) Description 09/23/2020 Transcribed Document [facility] [place] [address] [place] [address] ProviderTamiko MD [address] [place] [address] Social History Tobacco Use Types [...] Tamiko Simons MD - 09/23/2020 3:35 PM MECHANICAL ENGINEERING OFFICER ED Triage Entered On: 09/23/2020 15:55 EST [...] : 2 - Emergent Tracking Group : [facility] ED JEISON HARRIS RN - 09/23/2020 [...] PNED ; Probability: 0 ; Diagnosis Code: [id number] ED Height and Weight Height Source : Stated Height Entry Format : [place] Height, Feet : 5 ft(Converted to: 152 cm, 60 Inch) Height, Inches : 2 Inch(Converted to: 0 ft 2 Inch, 5.08 cm) Clinical Height : 157.48 cm Weight Source, ED : Critical estimated dosing weight Weight Entry Format : [place] Weight, Pounds : 146 lb Clinical Dosing Weight : 66.36 kg Body Surface Area (BSA) : 1.67 m2 Body Mass Index : 26.8 kg/m2 (HI) [place] Body Weight (IBW) : 49.73 kg JEISON HARRIS RN - 09/23/2020 15:49 EST documented in this encounter Plan of Treatment Upcoming Encounters Date Type Department Care Team (Late st Contact Info) Description 07/05/2025 9:15 AM EDT Appointment [address] [address] 07/10/2025 10:00 AM EDT Office Visit [facility] Primary Care & Internal Med [address] [place] [address] [address] [place] [address] Diane Velez PA-C [address] [address] documented as of this encounter Visit Diagnoses Not on filedocumented in this encounter Care Teams Laborer Landscape Relationship Specialty [place] [address] [place] [address] [address] [place], [place] [phone] PCP - General Internal Medicine 10/27/22 06/06/23 Diane Velez PA-C [address] [place] [address] PCP - General Family Medicine 06/07/23 06/23/23 AdamsJoanna loco 1401 [facility] [address] [place] [address] PCP - General Internal Medicine 06/24/23 10/20/23 Diane Velez PA-C [address] [place] [address] PCP - General Family Medicine 10/21/23 01/10/25 AdamsJoanna loco 1401 [facility] [address] [place] [address] PCP - General Internal Medicine 01/11/25 01/16/25 Diane Velez PA-C [address] [place] [address] PCP - General Family Medicine 04/18/25 documented as of this encounter
--- OUTSIDE RECORDS SUMMARY | 2025-05-11 08:51 | XMS_ITS | Encounter Summary ---
Author Organization [employer] ([place], [place], [place], [place]) Address [address] [place] [address] Care Team Providers Care Threader Operator Name Role Phone Unavailable Primary Care Provider Unavailabl e Reason for Visit * Reason Onset Date Comments Advice Only 04/03/2025 Encounter Details Date Type Department Care Team (Late st Contact Info) Description 04/03/2025 Telephone [facility] Primary Care & Internal Med [address] [phone] Diane Eagle PA-C [address] [address] Advice Only Social History Tobacco [...] for daily living? No 06/27/2024 [facility] - Mental Health Answer Date Recorde d [...] Date Gil rded Speak language other than Uzbek at home Not on file 11/13/2023 Want [...] Notes * Telephone Encounter - Mariola Sosa, FUR VAULT ATTENDANT - 04/04/2025 10:42 AM EDT I spoke [...] PM EDT FROM: Gretchen Del Rio TO: [facility] INTERNAL MEDICINE 8 CLINICAL PRINTER'S ASSISTANT [[id number]] SUBJECT: Medical Advice/Question PROVIDER: DIANE EAGLE [[id number]] DEPARTMENT: [facility] JESSICA [address] [[id number]] ENCOUNTER REASON FOR CALL: ADVICE ONLY [[id number]] ENCOUNTER TYPE: Telephone PREFERRED PHARMACY? [facility] [address] [place] [address] [address] [place] [address]
REASON FOR CALL: Question for my provider
[...] RELATION TO PATIENT: Self [1] PREFERRED LANGUAGE: Uzbek BEST CALL BACK PHONE NUMBER: Mobile Phone: ([phone]) WHAT IS THE BEST WAY FOR THE OFFICE TO CONTACT YOU?: OK to leave message with whoever answers the phone documented in this encounter Plan of Treatment Upcoming Encounters Date Type Department Care Team (Late st Contact Info) Description 07/05/2025 9:15 AM EDT Appointment [address] [place] [address] 07/10/2025 10:00 AM EDT Office Visit [facility] Primary Care & Internal Med [address] [address] Diane Eagle PA-C [address] [address] documented as of this encounter Visit Diagnoses Not on filedocumented in this encounter
--- OUTSIDE RECORDS SUMMARY | 2025-05-11 08:51 | XMS_ITS | Encounter Summary ---
Author Organization [employer] ([place], [place], [place], [place]) Address [address] [place] [address] Care Team Providers Care Microfiche Camera Operator Name Role Phone Joanna Osborne DO Primary Care Provider Diane Velez PA-C Primary Care Provider Joanna Osborne DO Primary Care Provider Diane Velez PA-C Primary Care Provider +1- [phone] Joanna Osborne DO Primary Care Provider Diane Velez PA-C Primary Care Provider Encounter Details Date Type Department Care Team (Late st Contact Info) Description 09/23/2020 Transcribed Document [facility] [place] [address] [place] [address] ProviderTamiko MD [address] [place] [address] Social History Tobacco Use Types [...] Tamiko Simons MD - 09/23/2020 3:35 PM MOHS SURGEON/GENERAL DERMATOLOGIST [place] Violence Assessment Entered On: 09/23/2020 22:17 EST Performed On: 09/23/2020 22:16 EST by PHYLICIA BUTCHER RN Broset Violence Assessment [place] Violence Checklist of Symptoms : None Bro[place] Violence Symptoms Subtotal : 0 [place]set Violence Symptoms Indicator : Low risk (0) PHYLICIA BUTCHER RN - 09/23/2020 22:16 EST documented in this encounter Plan of Treatment Upcoming Encounters Date Type Department Care Team (Late st Contact Info) Description 07/05/2025 9:15 AM EDT Appointment [address] [place] [address] 07/10/2025 10:00 AM EDT Office Visit [facility] Primary Care & Internal Med [address] [place] [address] [phone] Diane Velez PA-C [address] [place], [place] [address] documented as of this encounter Visit Diagnoses Not on filedocumented in this encounter Care Teams Microfiche Camera Operator Relationship Specialty [place] [address] [place] [address] [address] [place], [place] [phone] PCP - General Internal Medicine 10/27/22 06/06/23 Diane Velez PA-C [address] [place] [address] PCP - General Family Medicine 06/07/23 06/23/23 [place] [address] [place] [address] [address] [place], [place] [address] PCP - General Internal Medicine 06/24/23 10/20/23 Diane Velez PA-C [address] [place] [address] PCP - General Family Medicine 10/21/23 01/10/25 [place] [address] [place] [address] [address] [place] [address] PCP - General Internal Medicine 01/11/25 01/16/25 Diane Velez PA-C [address] [place] [address] PCP - General Family Medicine 04/18/25 documented as of this encounter
--- OUTSIDE RECORDS SUMMARY | 2025-05-11 08:51 | XMS_ITS | Encounter Summary ---
Author Organization [employer] ([place], [place], [place], [place]) Address [address] [place] [address] Care Team Providers Care Garment Cutter Name Role Phone Diane Velez PA-C Primary Care Provider +1- [phone] Joanna Osborne DO Primary Care Provider [phone] Diane Velez PA-C Primary Care Provider +- [phone] Reason for Visit * Reason Onset Date Comments Medication Problem 08/23/2024 Encounter Details Date Type Department Care Team (Late st Contact Info) Description 08/23/2024 Telephone [facility] Primary Care & Internal Med 14[address] [facility] [address] [address] Diane Velez PA-C [address] [address] Medication Problem Social History Tobacco [...] Date Gil rded Speak language other than Tanzanian at [...] antibiotic therapy in the [facility] 2363 [facility] 9201 [facility] [phone] * Telephone Encounter - Christel Leger - 08/23/2024 9:24 AM EDT Next Visit: Visit date not found Last Visit: 08/22/2024 Diane Velez PA-C Caller Message (please include as much detail as possible)?Mrs. Palma has called asking about the antibiotic that was discussed yesterday. She says no antibiotic was called in for her. Is follow up action needed?yes Caller Name:[place] Relation to patient:self Best Call Back OK to leave message on voicemail: yes documented in this encounter Plan of Treatment Upcoming Encounters Date Type Department Care Team (Late st Contact Info) Description 07/05/2025 9:15 AM EDT Appointment [address] [address] 07/10/2025 10:00 AM EDT Office Visit [facility] Primary Care & Internal Med [address] [address] Diane eVlez PA-C [address] [place] [address] documented as of this encounter Visit Diagnoses Not on filedocumented in this encounter Care Teams Garment Cutter Relationship Specialty Start Date End Date Diane Velez PA-C [address] [address] PCP - General Family Medicine 10/21/23 01/10/25 Joanna Osborne DO 1401 [facility] [address] [place] [address] PCP - General Internal Medicine 01/11/25 01/16/25 Diane Velez PA-C [address] [place] [address] [address] [place] [address] PCP - General Family Medicine 04/18/25 documented as of this encounter
--- OUTSIDE RECORDS SUMMARY | 2025-05-11 08:51 | XMS_ITS | Encounter Summary ---
Author Organization [employer] ([place], [place], [place], [place]) Address [address] [place] [address] Care Team Providers Care Sprinkler Inspector Name Role Phone Diane Velez PA-C Primary Care Provider +1- [phone] Reason for Visit * Reason Comments Medication Refill Encounter Details Date Type Department Care Team (Late st Contact Info) Description 01/31/2025 Refill [facility] Primary Care & Internal Med [address] [facility] [address] [place] [address] India JoannaDO [address] [facility] [address] [place] [address] Hypertension, unspecified type Social History Tobacco Use [...] Date Gil rded Speak language other than Monegasque at home Not on file 11/13/2023 Want [...] Info) Description 07/05/2025 9:15 AM EDT Appointment [facility] [address] [facility] [address] [place] [address] 07/10/2025 10:00 AM EDT Office Visit [facility] Primary Care & Internal Med [address] [facility] [address] [place] [address] Diane Velez PA-C 14[address] Marielena Tab[address] [facility] [address] [place] [address] documented as of this encounter Visit Diagnoses Diagnosis Hypertension, unspecified type documented in this encounter Care Teams Sprinkler Inspector Relationship Specialty Start Date End Date Diane Velez PA-C 1401 Mariel[address] [facility] [address] [place] [address] PCP - General Family Medicine 04/18/25 documented as of this encounter
--- OUTSIDE RECORDS SUMMARY | 2025-05-11 08:51 | XMS_ITS | Encounter Summary ---
Author Organization [employer] ([place], [place], [place], [place]) Address [address] [place] [address] Care Team Providers Care Is/It Project Manager Name Role Phone Joanna Osborne DO Primary Care Provider [phone] Reason for Visit * Reason Onset Date Comments buckle sewer machine 01/11/2025 Dizziness, synco pe Encounter Details Date Type Department Care Team (Late st Contact Info) Description 01/11/2025 Telephone [facility] Primary Care & Internal Med 1401 [facility] [address] [place] [address] Dillon Hurtado RN buckle sewer machine (Dizziness, syncope) Social History Tobacco Use Types [...] things needed for daily living? No 06/27/2024 [facility] - Mental Health Answer Date [...] Hurtado RN - 01/11/2025 9:59 AM FANNYTSjanice: slip caster-dizziness, syncope- Sent to ED Good morning, Patient [...] Description 07/05/2025 9:15 AM EDT Appointment [address] [address] 07/10/2025 10:00 AM EDT Office Visit [facility] Primary Care & Internal Med 1401 [facility] [address] [place] [address] Diane Velez PA-C 1401 [facility] [address] [place] [address] documented as of this encounter Visit Diagnoses Not on filedocumented in this encounter Care Teams Is/It Project Manager Relationship Specialty Start Date End Date Joanna Osborne DO 1401 [facility] [address] [place] [address] PCP - General Internal Medicine 01/11/25 01/16/25 documented as of this encounter
--- OUTSIDE RECORDS SUMMARY | 2025-05-11 08:51 | XMS_ITS | Encounter Summary ---
Author Organization [employer] ([place], [place], [place], [place]) Address [address] [place] [address] Care Team Providers Care Display Designer Outside Name Role Phone Diane Velez PA-C Primary Care Provider [phone]- [phone] Reason for Visit * Reason Comments Medication Refill Encounter Details Date Type Department Care Team (Late st Contact Info) Description 01/31/2025 Refill [facility] Primary Care & Internal Med [address] [address] Diane Velez PA-C [address] [place] [address] Hypertension, unspecified type Social History Tobacco [...] Info) Description 07/05/2025 9:15 AM EDT Appointment [facility] 160 [facility] [address] [place] [address] 07/10/2025 10:00 AM EDT Office Visit [facility] Primary Care & Internal Med 1401 [facility] [address] [place] [address] Diane Velez PA-C [address] Tab[address] [address] documented as of this encounter Visit Diagnoses Diagnosis Hypertension, unspecified type documented in this encounter Care Teams Display Designer Outside Relationship Specialty Start Date End Date Diane Velez PA-C 14[address] Mariel[address] Tabares [address] [address] PCP - General Family Medicine 04/18/25 documented as of this encounter
--- OUTSIDE RECORDS SUMMARY | 2025-05-11 08:51 | XMS_ITS | Encounter Summary ---
Author Organization [employer] ([place], [place], [place], [place]) Address [address] [place] [address] Care Team Providers Care Options Advisor Name Role Phone Diane Velez PA-C Primary Care Provider +1- [phone] Joanna Osborne DO Primary Care Provider [phone] Diane Velez PA-C Primary Care Provider + [phone] Reason for Visit * Reason Onset Date Comments question 08/22/2024 Encounter Details Date Type Department Care Team (Late st Contact Info) Description 08/22/2024 Telephone [facility] Primary Care & Internal Med 1401 [facility] [address] [address] Diane Velez PA-C [address] [address] question Social History Tobacco Use [...] Date Gil rded Speak language other than Mexican at home Not on file 11/13/2023 Want [...] Relation to patient: Best Call Back Phone Number:[phone] OK to leave message on voicemail: documented in this encounter Plan of Treatment Upcoming Encounters Date Type Department Care Team (Late st Contact Info) Description 07/05/2025 9:15 AM EDT Appointment [address] [place] [address] 07/10/2025 10:00 AM EDT Office Visit [facility] Primary Care & Internal Med 1401 [facility] [address] [place] [phone] Diane Velez PA-C [address] [phone] documented as of this encounter Visit Diagnoses Not on filedocumented in this encounter Care Teams Options Advisor Relationship Specialty Start Date End Date Diane Velez PA-C [address] [place] [phone] PCP - General Family Medicine 10/21/23 01/10/25 Joanna Osborne DO 1401 [facility] [address] [place] [address] PCP - General Internal Medicine 01/11/25 01/16/25 Diane Velez PA-C 1401 [facility] [address] [place] [address] PCP - General Family Medicine 04/18/25 documented as of this encounter
--- OUTSIDE RECORDS SUMMARY | 2025-05-11 08:51 | XMS_ITS | Encounter Summary ---
Author Organization [employer] ([place], [place], [place], [place]) Address [address] [place] [address] Care Team Providers Care Supervisor Fryer Farm Name Role Phone Diane Velez PA-C Primary Care Provider [phone]- [phone] Joanna Osborne DO Primary Care Provider [phone] Diane Velez PA-C Primary Care Provider +- [phone] Reason for Referral * Mammography (Routine) - Authorized Specialty Diagnoses / Procedures Referred By Contac t Referred To Contact Radiology Diagnoses Visit for screening mammogram Procedures MM digital mammo screen with miky bilateral Diane Velez PA-C 1401 [facility] [address] [place] [address] Phone: tel: fax: [facility] 160 [facility] [address] [place] [address] Phone: tel: fax: Referral ID Status Reason Start Date Expiration Date V isits Requested Visits Authorized [id number] Authorized 07/05/2025 07/05/2026 1 1 Encounter Details Date Type Department Care Team (Late st Contact Info) Description 06/28/2024 Outside Orders [facility] [address] [facility] [address] [place] [address] Diane Velez PA-C [address] [place] [address] Visit for screening mammogram (Primary [...] Date Gil rded Speak language other than Peruvian at home Not on file 11/13/2023 Want [...] Description 07/05/2025 9:15 AM EDT Appointment [address] [place] [address] 07/10/2025 10:00 AM EDT Office Visit [facility] Primary Care & Internal Med [address] [place] [address] Diane Velez PA-C [address] [place] [address] Scheduled Orders Name Type Priority Associated Diagnoses Orde r Schedule MM digital mammo screen with miky bilateral Imaging Routine Visit for screening mammogram Expected: 07/05/2025, Expires: 07/05/2026 documented as of this encounter Visit Diagnoses Diagnosis Visit for screening mammogram- Primary documented in this encounter Care Teams Supervisor Fryer Farm Relationship Specialty Start Date End Date Daine Velez PA-C [address] [address] PCP - General Family Medicine 10/21/23 01/10/25 Joanna Osborne DO 1401 [facility] [address] [place], [place] [id number] PCP - General Internal Medicine 01/11/25 01/16/25 Diane Velez PA-C 1401 [facility] [address] [place] [address] PCP - General Family Medicine 04/18/25 documented as of this encounter
--- OUTSIDE RECORDS SUMMARY | 2025-05-11 08:51 | XMS_ITS | Encounter Summary ---
Author Organization [employer] ([place], [place], [place], [place]) Address [address] [place] [address] Care Team Providers Care Barrel Lathe Operator Inside Name Role Phone Diane Velez PA-C Primary Care Provider +1- [phone] Encounter Details Date Type Department Care Team (Late st Contact Info) Description 04/04/2025 Telephone [facility] Primary Care & Internal Med [address] [address] Diane Velez PA-C [address] [address] Social History Tobacco Use Types [...] needed for daily living? No 06/27/2024 [facility] - Mental Health Answer Date Recorde d [...] Date Gil rded Speak language other than Belarusian at home Not on file 11/13/2023 Want [...] Notes * Telephone Encounter - Mignon Ansari, TRY OUT PERSON - 04/04/2025 9:16 AM EDT Called and apologized to patient due to miscommunication with call center yesterday and patient stayed at hospital all day after imaging. She was very receptive and accepted apology. I also informed her that the call center support representative had been notified of the incident. documented in this encounter Plan of Treatment Upcoming Encounters Date Type Department Care Team (Late st Contact Info) Description 07/05/2025 9:15 AM EDT Appointment [facility] 160 [facility] [address] [place] [address] 07/10/2025 10:00 AM EDT Office Visit [facility] Primary Care & Internal Med [address] [place] [address] Diane Velez PA-C [address] [place] [address] documented as of this encounter Visit Diagnoses Not on filedocumented in this encounter Care Teams Barrel Lathe Operator Inside Relationship Specialty Start Date End Date Diane Velez PA-C [address] [address] PCP - General Family Medicine 04/18/25 documented as of this encounter
--- OUTSIDE RECORDS SUMMARY | 2025-05-11 08:51 | XMS_ITS | Encounter Summary ---
Author Organization [employer] ([place], [place], [place], [place]) Address [address] [place] [address] Care Team Providers Care Senior Architect/Design Manager Name Role Phone Joanna Osborne DO Primary Care Provider Diane Velze PA-C Primary Care Provider Joanna Osborne DO Primary Care Provider Diane Velez PA-C Primary Care Provider +1- [phone] Joanna Osborne DO Primary Care Provider [phone] Diane Velez PA-C Primary Care Provider Encounter Details Date Type Department Care Team (Late st Contact Info) Description 09/23/2020 Transcribed Document [facility] Medicine [address] [place] [address] ProviderTamiko MD [address] [place] [address] Social History Tobacco Use Types [...] Tamiko Simons MD - 09/23/2020 11:38 PM SUPERVISOR SLATE SPLITTING [facility] [address] [place] [id number] CINTHIA PALMA :1955 Visit Time:09/23/2020 Your Visit [...] range between ( 0.0 and 7.0 ) Harris #: 0.76 K/uL -- Normal range between ( 0.16 and 1.00 ) Eos #: 0.11 x10(3)/uL -- Normal range between ( 0.00 and 0.80 ) Harris %: 9.7 % -- Normal range between [...] ) Urine Bilirubin Dipstick: Negative Urine Specific [place]: 1.010 -- Normal range between ( 1.005 [...] Assistance with quitting is available by contacting 5-168-PYKC-NOW. This is a free resource providing counseling, [...] was given the opportunity to ask questions. Patient/Line Cleaner Name: Patient/Line Cleaner Signature: Relationship to Patient: Clinician/Hospital Line Cleaner Signature: Please Provide a Telephone Number Where You Can Be Reached: Is it Permissible To Leave a Message? Date: Electronically signed by Chanel, Mecca Conversion Typewriter Assembly And Parts Inspector Cerner at 02/19/2023 2:10 PM CDT documented in this encounter Plan of Treatment Upcoming Encounters Date Type Department Care Team (Late st Contact Info) Description 07/05/2025 9:15 AM EDT Appointment [address] [place] [address] 07/10/2025 10:00 AM EDT Office Visit [facility] Primary Care & Internal Med [address] [place] [address] [phone] Diane Velez PA-C [address] [place], [place] [address] [place] [address] documented as of this encounter Visit Diagnoses Not on filedocumented in this encounter Care Teams Senior Architect/Design Manager Relationship Specialty [place] [address] [place] [address] [address] [place], [place] [id number] PCP - General Internal Medicine 10/27/22 06/06/23 Diane Velez PA-C [address] [place] [phone] PCP - General Family Medicine 06/07/23 06/23/23 Joanna Osborne DO [address] [place] [address] [address] [place], [place] [id number] PCP - General Internal Medicine 06/24/23 10/20/23 Diane Velez PA-C [address] [place] [phone] PCP - General Family Medicine 10/21/23 01/10/25 Joanna Osborne DO [address] [place] [address] [address] [place] [address] PCP - General Internal Medicine 01/11/25 01/16/25 Diane Velez PA-C 1401 [facility] [address] [place] [address] PCP - General Family Medicine 04/18/25 documented as of this encounter
--- OUTSIDE RECORDS SUMMARY | 2025-05-11 08:51 | XMS_ITS | Encounter Summary ---
Author Organization [employer] ([place], [place], [place], [place]) Address [address] [place] [address] Care Team Providers Care Supervisor Blast Furnace Name Role Phone Dawit Escalera DO Primary Care Provider Rosemarie Eagle PA-C Primary Care Provider +1- [phone] Dawit Escalera DO Primary Care Provider Rosemarie Eagle PA-C Primary Care Provider +1- [phone] Dawit Escalera DO Primary Care Provider Rosemarie Eagle PA-C Primary Care Provider Encounter Details Date Type Department Care Team (Late st Contact Info) Description 09/23/2020 Transcribed Document [facility] Radiology [address] [place] [phone] Migdalia Garner MD [facility] Dept of Emergency Medicine [place] [id number] Social History Tobacco Use Types Packs/Day Years [...] urologist, Dr. Gutierrez oncologist, Rosemarie Escalera with [facility]. Patient is also followed by Dr. Khai [...] EST Height Source Stated Height Entry Format Brantley Height/Length, BURUNDIAN (ft) 5 ft Height/Length BURUNDI[place] 2 Inch CLINICALHEIGHT 157.48 cm [place] Body Weight 49.73 kg Weight Source, ED Critical estimated dosing weight Weight Entry Format Brantley Weight Burundian lb 146 lb CLINICALWEIGHT 66.36 kg Body [...] C-SSRS: ED Clinical Reconciliation: ED Isolation: ED lining stitcher: Isolation: Pulse Oximetry Continuous Monitoring: Saline Lock [...] % 28.1 % Lymph # 2.20 x10(3)/uL Pinal % 9.7 % HI P[place] # 0.76 K/uL Eos % 1.4 % [...] Color Yellow Urine Appearance Clear Urine Specific [place] 1.008 Urine pH Dipstick *7.5 Urine Leukocyte [...] air Height Source Stated Height Entry Format Brantley Height/Length, B[place]UNDIAN (ft) 5 ft Height/Length [place]DI[place] 2 Inch CLINICALHEIGHT 157.48 cm [place] Body Weight 49.73 kg Weight Source, ED Critical estimated dosing weight Weight Entry Format Brantley Weight Burundian lb 146 lb CLINICALWEIGHT 66.36 kg Body [...] 09/23/2020 20:45:00, JEISON ISABEL PA. Prescriptions: Prescription Supervisor [facility]: potassium chloride 20 mEq oral tablet, [...] understanding.. Notes: I certify that the physician assistant maintenance manager performed the services as delegated. This note has been prepared with the use of voice recognition software and may contain sound alike errors and omissions.. documented in this encounter Plan of Treatment Upcoming Encounters Date Type Department Care Team (Late st Contact Info) Description 07/05/2025 9:15 AM EDT Appointment [address] [place] [address] 07/10/2025 10:00 AM EDT Office Visit [facility] Primary Care & Internal Med [address] [address] Rosemarie Eagle PA-C [address] [place] [address] documented as of this encounter Visit Diagnoses Not on filedocumented in this encounter Care Teams Supervisor Blast Furnace Relationship Specialty Start Date End Date Dawit Escalera DO 1401 [facility] [address] [place] [address] PCP - General Internal Medicine 10/27/22 06/06/23 Rosemarie Eagle PA-C [address] [address] PCP - General Family Medicine 06/07/23 06/23/23 Dawit Escalera DO [address] [place] [address] [place] [address] PCP - General Internal Medicine 06/24/23 10/20/23 Rosemarie Eagle PA-C [address] [address] PCP - General Family Medicine 10/21/23 01/10/25 Dawit Escalera DO [address] [place] [address] [address] PCP - General Internal Medicine 01/11/25 01/16/25 Rosemarie Eagle PA-C [address] [address] PCP - General Family Medicine 04/18/25 documented as of this encounter
--- OUTSIDE RECORDS SUMMARY | 2025-05-11 08:51 | XMS_ITS | Encounter Summary ---
Author Organization [employer] ([place], [place], [place], [place]) Address [address] [place] [address] Care Team Providers Care Transfer And Line Up Worker Name Role Phone Joanna Osborne DO Primary Care Provider [phone] Diane Velez PA-C Primary Care Provider Joanna Osborne DO Primary Care Provider [phone] Diane Velez PA-C Primary Care Provider +[phone]- [phone] Joanna Osborne DO Primary Care Provider [phone] Diane Velez PA-C Primary Care Provider Encounter Details Date Type Department Care Team (Late st Contact Info) Description 09/23/2020 Transcribed Document [facility] Family Medicine [address] [place] [address] ProviderTamiko MD [address] [place] [address] Social History Tobacco Use Types [...] Tamiko Simons MD - 09/23/2020 3:35 PM SODA MAKER ED Assessment Entered On: 09/23/2020 22:16 EST [...] Communication Barrier : None Primary Language : Bangladeshi Any Spiritual/Cultural Needs or Requests : No [...] with activity Heart Rhythm : Regular PHYLICIA BUTCHER RN - 09/23/2020 22:16 EST Respiratory Respiratory [...] Info) Description 07/05/2025 9:15 AM EDT Appointment [address] [place] [address] 07/10/2025 10:00 AM EDT Office Visit [facility] Primary Care & Internal Med [address] [place] [address] [phone] Diane Velez PA-C [address] [place] [phone] documented as of this encounter Visit Diagnoses Not on filedocumented in this encounter Care Teams Transfer And Line Up Worker Relationship Specialty Start Date End Date Joanna Osborne DO 1401 [facility] [address] [place], [place] [id number] PCP - General Internal Medicine 10/27/22 06/06/23 Diane Velez PA-C [address] [address] PCP - General Family Medicine 06/07/23 06/23/23 Joanna Osborne DO 1401 [facility] [address] [place], [place] [address] PCP - General Internal Medicine 06/24/23 10/20/23 Diane Velez PA-C [address] [phone] PCP - General Family Medicine 10/21/23 01/10/25 Joanna Osborne DO [address] [facility] [address] [place] [address] PCP - General Internal Medicine 01/11/25 01/16/25 Diane Velez PA-C [address] [place] [address] [address] [place] [address] PCP - General Family Medicine 04/18/25 documented as of this encounter
== END 2025-05-11 23:59 | disposition home or self-care (01) ==
LOC: RAD 08:46
PROVIDERS: PCP Physician Assistant Medical; Visit Provider Nurse Practitioner Family
DX: K74.60 Unspecified cirrhosis of liver (principal); Z90.49 Acquired absence of other specified parts of digestive tract
CPT/HCPCS: 76705

== ENCOUNTER 2025-07-12 12:31 | Day surgery (SDC) | payer MEDICARE, SELFPAY ==
[2025-07-10 13:58] VITALS: BMI 24.1
--- NOTE | 2025-07-10 17:57 | EXP.HP ---
History of Present Illness *Admission Date: 07/12/25 *History of present illness: Mrs. Palma is a 69-year-old female who is here for diagnostic EGD. She has had cirrhosis with decompensation but her MELD score recently has been 7. She has had bloating, abdominal distention, nausea and abdominal pain. The examination is deemed medically necessary for diagnostic EGD. The patient has been seen, interviewed and examined prior to the procedure by both myself and the anesthesia provider. [facility] Disclaimer: The information contained in this section may have been updated after the patient was seen, as this information can be updated by other users. Medical History Urinary tract infection Kidney stone Anxiety History of gastroesophageal reflux (GERD) Hypertension Hepatitis C Adrenal carcinoma Surgical History History of appendectomy H/O sinus surgery History of hysterectomy History of cholecystectomy Hx of colonoscopy History of kidney removal Family History Other Diabetes Hypertension Social History Smoking Status: Never smoker alcohol intake: never current occupational status: retired and disabled Travel in the last 8 weeks?: None household members: spouse Have you lived/traveled outside [place] in past 30 days?: No Contact w/someone who lives/traveled outside US past 30 days?: No Exposure to someone with infectious disease in past 14 days?: No Do you have a fever (greater than 100.4 F or 38 C)?: No Have you tested positive for COVID-19?: No Exposed to someone with COVID-19 in past 14 days?: No Do you have a sore throat?: No Do you have a cough?: No Do you have any weakness?: No Are you experiencing any nausea/vomitting?: No Do you have any diarrhea?: No Are you experiencing any unusual bleeding?: No Do you have any muscle aches/pain?: No Do you have any abdominal pain?: No Are you experiencing loss of taste or smell?: No Other Medical History Have you received the Pneumonia Vaccine: Yes Review of Systems Review of Systems Review of systems (narrative): Negative *Cardiovascular Comments: Negative *Gastrointestinal Comments: Negative *Genitourinary Comments: Negative *Musculoskeletal Comments: Negative *Neurologic Comments: Negative Meds Home Medications and Allergies Home Medications ?Medication ?Instructions ?Recorded ?Confirmed ?Type aluminum-mag hydroxide-simethicone 5 ml PO QID PRN . 05/03/25 07/10/25 History 400 mg-400 mg-40 mg/5 mL oral susp (Mylanta Maximum Strength) atenolol 50 mg tablet 50 mg PO DAILY 05/03/25 07/10/25 History bisacodyl 5 mg tablet 5 mg PO HS 05/03/25 07/10/25 History clonazepam 0.5 mg tablet (Klonopin) 0.5 mg PO DAILY 05/03/25 07/10/25 History cyclosporine 0.05 % eye drops in a 1 drp ophthalmic (eye) Q12H 05/03/25 07/10/25 History dropperette (Restasis) losartan 100 mg tablet 100 mg PO DAILY 05/03/25 07/10/25 History pantoprazole 40 mg tablet,delayed 40 mg PO DAILY 05/03/25 07/10/25 History release polyethylene glycol 3350 17 17 g PO DAILY 05/03/25 07/10/25 History gram/dose oral powder (ClearLax) psyllium husk 3.4 gram/5.4 gram 1 tbsp PO DAILY 05/03/25 07/10/25 History oral powder (Metamucil) ondansetron 8 mg disintegrating 8 mg PO Q12H PRN nausea and 05/17/25 07/10/25 Rx tablet vomiting #60 tabs acyclovir 400 mg tablet 400 mg PO DAILY PRN . 05/28/25 07/10/25 History furosemide 20 mg tablet (Lasix) See Rx Instructions PO DAILY #30 05/28/25 07/10/25 Rx tabs lactulose 10 gram/15 mL oral 10 g (15 mL) PO BID #946 mL 05/28/25 07/10/25 Rx solution gabapentin 100 mg capsule 100 mg PO BID 07/10/25 07/10/25 History New Prescriptions to Start Prescriptions: Allergies Allergy/AdvReac Type Severity Reaction Status Date / Time codeine Allergy Severe Anaphylaxis Verified 07/12/25 13:02 ciprofloxacin Allergy Rash Verified 07/12/25 13:02 latex Allergy Difficulty Verified 07/12/25 13:02 Breathing Sulfa (Sulfonamide Allergy Hives Verified 07/12/25 13:02 Antibiotics) sulfamethoxazole (From Allergy Rash Verified 07/12/25 13:02 Sulfamethoxazole-Trimethoprim) trimethoprim (From Allergy Rash Verified 07/12/25 13:02 Sulfamethoxazole-Trimethoprim) Exam Data for Last 24 hours I & O for Last 24 hours: Intake & Output 07/07/25 07/08/25 07/09/25 07/10/25 23:59 23:59 23:59 23:59 Weight 132 lb *Routine HEENT Exam Head: Present normocephalic Eye: Present EOMI and PERRL ENT: Present mucous membranes moist *Routine Neck Exam Neck: Present supple *Routine Respiratory Exam Respiratory: Present CTA bilaterally *Routine Cardiovascular Exam Cardiovascular: Present RRR *Routine Abdominal Exam Abdominal: Present soft and normoactive bowel sounds; Absent tenderness *Routine Rectal Exam Rectal:: deferred *Routine Genitalia Exam Genitalia:: deferred *Routine Extremities Exam Extremities: Absent cyanosis, clubbing or edema *Routine Skin Exam Skin: Present warm; Absent rash *Routine Neurological Exam Neurological: Present alert and oriented X3 Assessment and Plan *Assessment and plan (1) Nausea & vomiting: Status: Acute Category: Medical Code(s): R11.2 - Nausea with vomiting, unspecified (2) Generalized abdominal pain: Status: Acute Category: Medical Code(s): R10.84 - Generalized abdominal pain (3) Chronic constipation: Status: Acute Category: Medical Code(s): K59.09 - Other constipation (4) Bloating: Status: Acute Category: Medical Code(s): R14.0 - Abdominal distension (gaseous) Plan A/P: 1. Nausea/vomiting, generalized abdominal pain, bloating and chronic constipation is the preprocedural diagnosis. The patient will be anesthetized/sedated using MAC sedation. The patient has been seen and examined. Cardiac and lung assessment prior to the examination is stable. Proceed with planned diagnostic EGD.
[2025-07-12] MEDS: LACTATED RINGERS 1000ML 1,000 ML 50 ML IV (13:00)
[2025-07-12 13:03] VITALS: BP 168/98; PULSE 73; RESP 18; TEMP 36.2; O2SAT 98
--- NOTE | 2025-07-12 14:18 | HMH.PROCNOTE ---
[facility] Procedure Note Date: 07/12/25 Time: 14:31 Procedure Note:: Upper Endoscopy Procedure Report: Esophagogastroduodenoscopy with cold biopsies and TTS balloon dilation Endoscopost: Khai Cochran II, MD Referring Physician: Diane Velez PA-C, [address], [place] [address] Date of Procedure: July 12, 2025 Equipment: Olympus GIF-1100 standard upper endoscope Sedation: MAC sedation Indications: Mrs. Palma is a 69-year-old female who is here for diagnostic EGD. She has had bloating, abdominal distention, nausea and abdominal pain. The patient also has some intermittent dysphagia with food regurgitation. The patient does report the pain primarily in the mid and upper abdomen. The patient does have moderate bloating, early satiety, regurgitation and occasional belching. Her last EGD was with la in March 2022. At that time she had bile reflux with some gastropathy. She does have a former history of dyspepsia. The examination is deemed medically necessary for diagnostic EGD. The patient also has a history of cirrhosis with prior decompensation but is presently well compensated and her MELD score recently has been 7. This was secondary to former hepatitis C fully treated (successful eradication) plus prior history of drug-induced induced liver injury Procedure: Prior to the procedure, a history and physical exam was performed, and patient's medications and allergies were reviewed. The risks, benefits and alternatives of the sedation and procedure were discussed with the patient. All questions were answered and informed consent was obtained. The patient was brought to the procedure room. Patient identification and proposed procedure were verified by the physician and the nurse. The patient was placed in a left lateral decubitus position and the scope was passed under direct vision. Throughout the procedure, the patient's blood pressure, pulse, and oxygen saturations were monitored continuously. The upper GI endoscopy was accomplished without difficulty. The patient tolerated the procedure well. Findings: The scope was passed directly into the upper esophagus and advanced to the third portion of the duodenum. The post bulbar duodenum, ampulla and duodenal bulb were normal with normal mucosa and conniventes. A cold biopsy was taken from the second portion of the duodenum for the disaccharidase assay. The scope was withdrawn through a normal duodenal bulb and pylorus into the stomach. There was moderate bile reflux with moderate linear reactive gastropathy of the antrum and mild chronic gastritis of the proximal stomach. Cold biopsies were taken along the lesser curvature to rule out H. pylori. Upon retroflexion there was no hiatal hernia. The scope was then withdrawn into the esophagus. There was no evidence of reflux esophagitis or Griffith's. There were no esophageal varices. There were very strong tertiary contractions with corkscrew esophagus/hypercontractile esophagus (diffuse esophageal spasm). The entire esophagus was dilated to 18 mm/54 Turkish with a TTS hydrostatic balloon. There was minimal resistance. The remainder of the esophageal mucosa was normal. Impression: 1. Hypercontractile esophagus/corkscrew esophagus 2. Bile reflux with moderate linear reactive gastropathy and mild chronic gastritis Plan: I will follow-up the biopsies and disaccharidase assay. I will discuss the findings with the patient and family as well as treatment options.
[2025-07-12 14:33] VITALS: BP 108/65; PULSE 78; RESP 17; TEMP 36.1; O2SAT 94
[2025-07-12 14:43] VITALS: BP 123/64; PULSE 80; RESP 17; TEMP 36.1; O2SAT 97
[2025-07-12 14:53] VITALS: BP 140/93; PULSE 85; RESP 18; TEMP 36.1; O2SAT 96
[2025-07-12 15:03] VITALS: BP 158/94; PULSE 83; RESP 18; TEMP 36.1; O2SAT 96
[2025-07-16 15:02] LABS: Interpretation Notes (.); Lactase 22.37 (>/= 14.0); Maltase 210.96 (>/= 110.0); Palatinase 14.38 (>/= 8.5); Reference Notes (.); Sucrase 51.14 (>/= 25.0)
== END 2025-07-12 15:15 | disposition home or self-care (01) ==
PROVIDERS: PCP Physician Assistant Medical; Visit Provider Internal Medicine Gastroenterology
PROC: 0DJ08ZZ Inspection of Upper Intestinal Tract, Via Natural or Artificial Opening Endoscopic (ICD-10-PCS; CPT 43239; principal; 2025-07-12 15:00)
DX: K29.50 Unspecified chronic gastritis without bleeding (principal); K31.89 Other diseases of stomach and duodenum; K74.60 Unspecified cirrhosis of liver; K22.4 Dyskinesia of esophagus; F41.9 Anxiety disorder, unspecified; B18.2 Chronic viral hepatitis C; K21.9 Gastro-esophageal reflux disease without esophagitis; K59.09 Other constipation; I10 Essential (primary) hypertension; Z90.49 Acquired absence of other specified parts of digestive tract; Z90.710 Acquired absence of both cervix and uterus; Z79.899 Other long term (current) drug therapy; Z88.5 Allergy status to narcotic agent; Z88.1 Allergy status to other antibiotic agents; Z91.040 Latex allergy status; Z88.2 Allergy status to sulfonamides; Z88.8 Allergy status to other drugs, medicaments and biological substances
CPT/HCPCS: 43239; 43249; 82657; C1726; J2003; J2704; J7120